=== PATIENT | male | born 1970 | race Caucasian/White ===

== ENCOUNTER 2017-05-20 10:03 | Emergency (ER) | payer SELFPAY ==
[~2017-05-20] VITALS: Ht 180.3 cm; Wt 78.9 kg
[2017-05-20 10:22] VITALS: TEMP 36.6; Ht 180.3 cm; Wt 78.9 kg
--- NOTE | 2017-05-20 11:42 | DIAGNOSTIC IMAGING REPORT ---
RIGHT FOOT MIN 3 VIEWS ROUTINE CLINICAL HISTORY: r/o Right cellulitis pain. Edema. COMPARISON: None. DISCUSSION: Moderate soft tissue edema. No acute bony abnormality. Cortical margins are intact. IMPRESSION: Moderate soft tissue edema no acute bony abnormality. Electronically signed by: Britton Francois M.D. 05/20/2017 11:41 AM Dictated Date/Time: 05/20/2017 11:39 AM
[2017-05-20 13:10] LABS: BASO % 0.4 %; BASO ABS # 0.03 K/uL (0-0.2); COMPLETE YES; EOS % 0.9 %; HEMATOCRIT 40.6 % (42-52); IG% 0.1 %; MEAN CELL VOLUME 85.3 fL (80-100); MEAN CORPUSCULAR HEMOGLOBIN 28.8 pg (25-34); MEAN CORPUSCULAR HGB CONC 33.7 g/dl (32-36); MEAN PLATELET VOLUME 10.1 fL (7.4-10.4); MONO % 6.7 %; NEUT % 63.9 %; PLATELET COUNT 230 K/uL (130-400); RED BLOOD COUNT 4.76 M/uL (4.7-6.1); WHITE BLOOD COUNT 8.22 K/uL (4.8-10.8)
[2017-05-20 13:26] LABS: BLOOD UREA NITROGEN 11 mg/dl (7-18); BUN/CREATININE RATIO 14.3 (10-20); C-REACTIVE PROTEIN < 0.29 mg/dl (0-0.29); CARBON DIOXIDE 31 mmol/L (21-32); CHLORIDE 108 mmol/L (98-107); CREATININE 0.76 mg/dl (0.60-1.40); GLUCOSE 86 mg/dl (70-99); POTASSIUM 4.3 mmol/L (3.5-5.1); SODIUM 142 mmol/L (136-145); URIC ACID 6.4 mg/dl (2.6-7.2)
[2017-05-20] MEDS ORDERED: CEPH500C2 PO (13:32)
[2017-05-20] MEDS ORDERED: IBUP-1428 PO (13:32)
[2017-05-20 13:50] VITALS: BP 161/109; PULSE 73; O2SAT 97
--- NOTE | 2017-05-21 12:38 | EMERGENCY ROOM VISIT NOTE ---
ED Visit Note First contact with patient: 12:02 Chief Complaint: Right ankle pain. History of Present Illness: Mr. Andersen is a 47-year-old white male who is brought into the ED via wheelchair complaining of right ankle pain over the anterior aspect of the talus. Historically patient reports he has had previous cellulitis in this area with a similar presentation like today's approximately 2 years ago. Patient reports he has been feeling fine over the last few days and has not been having any ankle pain. He denies any recent ankle trauma. Patient reports she awoke from sleep and noticed an acute episode of pain over the right talus area. Since that time his pain has been constant. He describes his pain as a achy sensation at rest and rates his discomfort 4/10 and when he is weightbearing or ambulation his pain become sharp and he rates his discomfort 8/10. The pain is nonradiating. He has not taken any medications for his pain prior to arrival at the hospital. His pain also worsens with dorsi flexion and palpation. He reports upon waking there was swelling and he felt the skin was hot; swelling in the hot sensation has resolved. He denies any associated fevers, chills, sweats, skin eruptions, skin color changes, chest pain, palpitations, previous clots, claudication, cramping, shortness of breath, cough, wheezing, decreased appetite, nausea, vomiting, extremity weakness/numbness/tingling. Review of Systems: As noted above in history of present illness. 8 body systems were reviewed and found to be negative as noted above. Past Medical History: As previously noted. Current Medications: Patient denies. Allergies to Medications: Patient denies. Social History: Patient is currently employed; he feels safe in his home environment; he admits to chewing tobacco and denies alcohol use. Physical Examination: Vital Signs: Date Time Temp Pulse Resp B/P (MAP) Pulse Ox O2 Delivery O2 Flow Rate FiO2 05/20/17 13:50 73 16 161/109 97 05/20/17 12:35 63 17 129/83 95 05/20/17 10:22 36.6 76 20 122/80 95 Room Air GENERAL: 47-year-old male in mild distress due to pain, nontoxic-appearing, afebrile and hemodynamically stable. NEUROLOGICAL: Awake, alert and oriented to person, place and time. Answering questions appropriately and following commands. SKIN: Warm, dry and pink. No soft tissue eruptions or trauma noted. HEENT: Atraumatic and normocephalic. THORAX: Lungs sounds are clear to auscultation and equal bilaterally with symmetrical chest wall. ABDOMEN: Flat, soft and nontender. Positive bowel sounds in all quadrants. No guarding, rigidity or organomegaly. RIGHT LOWER EXTREMITY: No gross bony deformity. No tenderness in the hip or knee. Tenderness over the anterior talus. I do not appreciate any swelling or erythema at this time. I do not appreciate any edema. No ligamentous laxity but patient has moderate pain with distraction of the talus in the lower leg. Decreased range of motion in dorsiflexion due to pain. He does have full plantar flexion against resistance. Distal pulses are intact. Capillary refill is intact. Sensation to light touch was intact. ED Course: Patient is assessed as noted above in Patient's medication list was reviewed. Right Ankle X-Rays: Were read by myself and the radiologist showing no acute fractures or dislocations. Radiologist noted moderate soft tissue edema. Laboratory Testing: Test 05/20/17 12:50 Range/Units White Blood Count 8.22 4.8-10.8 K/uL Red Blood Count 4.76 4.7-6.1 M/uL Hemoglobin 13.7 14.0-18.0 g/dL Hematocrit 40.6 42-52 % Mean Corpuscular Volume 85.3 80-100 fL Mean Corpuscular Hemoglobin 28.8 25-34 pg Mean Corpuscular Hemoglobin Concent 33.7 32-36 g/dl Platelet Count 230 130-400 K/uL Mean Platelet Volume 10.1 7.4-10.4 fL Neutrophils (%) (Auto) 63.9 % Lymphocytes (%) (Auto) 28.0 % Monocytes (%) (Auto) 6.7 % Eosinophils (%) (Auto) 0.9 % Basophils (%) (Auto) 0.4 % Neutrophils # (Auto) 5.26 1.4-6.5 K/uL Lymphocytes # (Auto) 2.30 1.2-3.4 K/uL Monocytes # (Auto) 0.55 0.11-0.59 K/uL Eosinophils # (Auto) 0.07 0-0.5 K/uL Basophils # (Auto) 0.03 0-0.2 K/uL RDW Standard Deviation 45.1 36.4-46.3 fL RDW Coefficient of Variation 14.5 11.5-14.5 % Immature Granulocyte % (Auto) 0.1 % Immature Granulocyte # (Auto) 0.01 0.00-0.02 K/uL Erythrocyte Sedimentation Rate 5 0-14 mm/hr Sodium Level 142 136-145 mmol/L Potassium Level 4.3 3.5-5.1 mmol/L Chloride Level 108 98-107 mmol/L Carbon Dioxide Level 31 21-32 mmol/L Anion Gap 3.0 3-11 mmol/L Blood Urea Nitrogen 11 7-18 mg/dl Creatinine 0.76 0.60-1.40 mg/dl Est Creatinine Clear Calc Drug Dose 129.3 ml/min Estimated GFR () 126.8 Estimated GFR (Non- 109.4 BUN/Creatinine Ratio 14.3 10-20 Random Glucose 86 70-99 mg/dl Uric Acid 6.4 2.6-7.2 mg/dl Calcium Level 9.0 8.5-10.1 mg/dl C-Reactive Protein < 0.29 0-0.29 mg/dl Patient was offered pain medication and refused. Patient was reassessed multiple times during his stay in the emergency department. Patient's case was reviewed with Dr. Can; we agreed on diagnostic approach , treatment, disposition and plan. Patient was placed in a gel splint and crutches. Patient was educated about today's findings and instructed on his treatment plan ; he verbalized understanding and agreement with this plan. Clinical Impression: Right ankle pain. Anterior right ankle swelling. Possible early cellulitis. Decision-Making: Initially my differential diagnosis I considered fracture, sprain, cellulitis, septic arthritis, gout and other causes. Disposition: Patient discharged home in stable condition; prior to departure he was reassessed and subjectively reported he was feeling the same. Plan: Patient was prescribed Keflex 500 mg 4 times a day for 7 days. Patient was prescribed 800 mg of ibuprofen every 6 hours as needed for pain. Other comfort measures were discussed with the patient including ice, rest, elevation and use of gel splint and nonweightbearing crutches. Patient was encouraged to follow-up with his PCP or return to the ED for recheck in 36-48 hours. Patient is encouraged return to the ED sooner for increasing pain, redness, red streaking, fevers or any new/concerning symptoms.
== END 2017-05-20 13:52 | disposition home or self-care (01) ==
LOC: C.EDB 10:05 → C.EDC 13:52
DX: M25.571 Pain in right ankle and joints of right foot (principal); M79.89 Other specified soft tissue disorders; Z72.0 Tobacco use

== ENCOUNTER 2019-01-01 08:18 | Observation (INO) ==
[2019-01-01] MEDS ORDERED: SODIUM CHLORIDE 0.9% 500 ML IV SCH (09:00)
--- NOTE | 2019-01-01 09:01 | Emergency Department Note ---
Entered by Sunni Valera acting as a scribe for History of Present Illness General Chief complaint: Groin Pain Stated complaint: PAIN FROM HERNIA, HAD SURG 1999 Time Seen by Provider: 01/01/19 08:33 Source: patient History of Present Illness Provider complaint: groin pain Onset (ago): day(s) 3 Location: genitals Radiation: abdomen Pain Consistency: + constant Maximum Pain Intensity: 10 Quality: + other (worsening) Associated symptoms: + other (Associated symptoms: lump in groin. Denies: bowel movement difficulties) The patient is a 48 year old male who presents to the Emergency Room with complaints of constant, worsening groin pain beginning 3 days ago. 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 The patient states this pain radiates into his stomach. He noticed a lump in the area 2 days ago. The patient reports he had a repair surgery for this hernia 19 years ago. He denies bowel movement difficulties. Home Medications Home Medications Medication Instructions Recorded Confirmed Type allopurinol 300 mg PO QAM 01/01/19 01/01/19 History hydrocodone-acetaminophen 2 tab PO Q6H PRN 01/01/19 01/01/19 History multivitamin 1 tab PO QAM 01/01/19 01/01/19 History Allergies Allergy/AdvReac Type Severity Reaction Status Date / Time No Known Allergies Allergy Unverified 01/01/19 09:19 Past Med/Surg History Surgical History Hx of inguinal hernia repair (1999) Social History Feels Safe at Home: Yes Smoking Status: Never smoker Review of Systems See HPI for pertinent positives & negatives. and A total of 10 systems reviewed and were otherwise negative Physical Exam Vital Signs Vital Signs - 24 hr 01/01/19 08:27 01/01/19 10:15 Temperature 36.3 C L Temperature Source Oral Sepsis Recent Fever Within 48 Hours No Sepsis Action Taken by Nursing No Action Required Pulse Rate 77 Pulse Rate [Finger] 64 Pulse Rhythm Regular Pulse Strength Normal Respiratory Rate 18 20 Respiratory Effort / Characteristics Non-Labored Non-Labored Spontaneous Respiratory Depth Normal Normal Respiratory Pattern Regular Regular Blood Pressure 159/99 H Blood Pressure [Left Arm] 140/94 Blood Pressure Mean 119 Blood Pressure Mean [Left Arm] 109 Blood Pressure Position Sitting Pulse Oximetry 98 97 Oxygen Delivery Method Room Air CONSTITUTIONAL/VITAL SIGNS: Reviewed / noted above. GENERAL: Non-toxic in appearance. INTEGUMENTARY: Warm, dry, and [place]. HEAD: Normocephalic. EYES: without scleral icterus or trauma. ENT/OROPHARYNX: clear and moist. LYMPHADENOPATHY/NECK: Is supple without lymphadenopathy or meningismus. RESPIRATORY: Lungs clear and equal. CARDIOVASCULAR: Regular rate and rhythm. GI/ABDOMEN: Soft. No organomegaly or pulsatile mass. No rebound or guarding. Normal bowel sounds. Tender bulge in left inguinal area. EXTREMITIES: Warm and well perfused. BACK: No CVA tenderness. NEUROLOGICAL: Intact without focal deficits. PSYCHIATRIC: normal affect. MUSCULOSKELETAL: Normally developed with good muscle tone. Course 0836: Past medical records reviewed. The patient was evaluated in room A3, and a complete history and physical examination were performed. 0843: I reviewed the patient's case with Chelle Jenkins PA-C [facility] surgery. She will evaluate the patient. 0855: Discussed the case with Chelle Jenkins PA-C [facility] surgery. She recommends CT scan. 1107: Reviewed the case with Chelle Jenkins PA-C [facility] surgery. Surgery will evaluate the patient. Consultations Consultation #1: [id number]: I reviewed the patient's case with Chelle Jenkins PA-C [facility] surgery. She will evaluate the patient. 0855: Discussed the case with Chelle Jenkins PA-C [facility] surgery. She recommends CT scan. 1107: Reviewed the case with Chlele Jenkins PA-C [facility] surgery. Surgery will evaluate the patient. Time: 08:43 Administered Medications Fentanyl Citrate (Fentanyl Citrate) 50 mcg IV Q15M PRN PRN Reason: Pain Stop: 01/15/19 08:46 Last Admin: 01/01/19 10:36 Dose: 50 mcg Admin: 01/01/19 09:04 Dose: 50 mcg Ioversol (Optiray 320 100ml) 94 ml IV ONCE PRN PRN Reason: Interaction Checking Stop: 01/05/19 09:49 Last Admin: 01/01/19 09:50 Dose: 94 ml Discontinued Medications Sodium Chloride (Nss) 500 mls @ 999 mls/hr IV .Q31M GABRIELLE Stop: 01/01/19 09:30 Last Infusion: 01/01/19 10:36 Dose: 0 mls/hr Admin: 01/01/19 09:05 Dose: 999 mls/hr Medical Decision Making Differential Diagnosis Differential considered: pancreatitis, hepatitis, or acute cholecystitis, AAA, UTI, pyelonephritis, kidney stones, appendicitis, diverticulitis, shingles, bowel obstruction mesenteric ischemia, intussusception,hernia, testicular torsion. Medical Records Attestation: I reviewed the patient's medical records. Home Medications Current Medication List: was personally reviewed by me Laboratory Data Attestation: I reviewed the patient's lab results. Result diagrams: 01/01/19 08:55 01/01/19 08:55 Lab Results 01/01/19 01/01/19 Range/Units 08:55 08:55 WBC 6.74 (4.8-10.8) K/uL RBC 5.12 (4.7-6.1) M/uL Hgb 15.4 (14.0-18.0) g/dL Hct 45.5 (42-52) % MCV 88.9 (80-100) fL MCH 30.1 (25-34) pg MCHC 33.8 (32-36) g/dL RDW Std Deviation 47.3 H (36.4-46.3) fL RDW Coeff of Luigi 14.5 (11.5-14.5) % Plt Count 262 (130-400) K/uL MPV 10.2 (7.4-10.4) fL Immature Gran % (Auto) 0.1 % Neut % (Auto) 64.6 % Lymph % (Auto) 27.9 % [place] % (Auto) 5.8 % Eos % (Auto) 1.2 % Baso % (Auto) 0.4 % Immature Gran # (Auto) 0.01 (0.00-0.02) K/uL Neut # (Auto) 4.35 (1.4-6.5) K/uL Lymph # (Auto) 1.88 (1.2-3.4) K/uL [place] # (Auto) 0.39 (0.11-0.59) K/uL Eos # (Auto) 0.08 (0-0.5) K/uL Baso # (Auto) 0.03 (0-0.2) K/uL Sodium 137 (136-145) mmol/L Potassium 4.1 (3.5-5.1) mmol/L Chloride 104 (98-107) mmol/L Carbon Dioxide 25 (21-32) mmol/L Anion Gap 8.0 (3-11) BUN 13 (7-18) mg/dl Creatinine 0.73 (0.6-1.4) mg/dl Est Cr Clr Drug Dosing 133.2 ml/min Est GFR ( Amer) 128.0 Est GFR (Non-Af Amer) 110.5 BUN/Creatinine Ratio 18.1 (10-20) Glucose 106 H (70-99) mg/dl Calcium 9.3 (8.5-10.1) mg/dl Total Bilirubin 0.5 (0.2-1) mg/dl AST 16 (15-37) U/L ALT 35 (12-78) U/L Alkaline Phosphatase 82 (45-117) U/L Total Protein 7.8 (6.4-8.2) gm/dl Albumin 4.1 (3.4-5.0) gm/dl Globulin 3.7 (2.5-4.0) gm/dl Albumin/Globulin Ratio 1.1 (0.9-2) Imaging Data Radiologist's Impression: Radiology results as stated below per my review and the radiologist's interpretation: ABDOMEN AND PELVIS CT WITH IV CONTRAST CT DOSE: 381.13 mGy.cm HISTORY: Acute left inguinal pain and swelling ? incarcerated left inguial hernia for 2 days TECHNIQUE: Multiaxial CT images of the abdomen and pelvis were performed following the use of intravenous contrast. A dose lowering technique was utilized adhering to the principles of ALARA. COMPARISON STUDY: None. FINDINGS: Lung bases are generally clear. No pneumatosis or pneumoperitoneum. The imaged inferior cardiac chambers appear unremarkable. The liver, gallbladder, spleen, pancreas and adrenal glands appear unremarkable. Increased density about the gallbladder neck suggests redundant mucosa with cholelithiasis considered less likely. Patency of the hepatic and portal veins. Kidneys, ureters and urinary bladder appear unremarkable. Prostate is within normal limits. There is a moderate sized fat filled left inguinal hernia which contains central concentric inflammatory stranding. No bowel extension into the hernia sac. Moderate mixed plaque formation about the abdominal aorta greater than expected in a patient of this age group. Mild ectasia of the infrarenal aorta measures 2.7 x 2.2 cm without aneurysm or dissection. IVC is unremarkable. No adenopathy. No bowel obstruction. Scattered small bowel air-fluid levels, likely physiologic. No bowel wall thickening. Normal-appearing appendix. Small fat filled periumbilical hernia, diastases 11 mm. Soft tissues are otherwise unremarkable. The bones appear to be intact. Multilevel mild spondylitic spurring with mild facet arthrosis. IMPRESSION: 1. Moderate sized fat filled left inguinal hernia with central inflammatory fat stranding suggestive of fat necrosis. Correlate clinically to exclude incarcerated hernia. No bowel extension into the hernia sac. 2. No bowel obstruction or focal bowel wall thickening. 3. Normal appendix. 4. Small fat filled periumbilical hernia. Electronically signed by: Giuseppe Andres M.D. 01/01/2019 10:12 AM Blood Pressure Blood Pressure Findings: Elevated blood pressure Blood Pressure Disposition: further management by hospitalist MDM Narrative This is a 48-year-old male who presents to the ED with a chief complaint of left groin pain. The patient has a history of a left inguinal hernia repair in 1999. The patient reports that on Saturday he developed discomfort in that area and noticed a bulge in the area on Saturday. It is been causing him discomfort since that time and has not been able to reduce. The patient on exam has a bulge in the left inguinal region that is tender on exam and not reducible on my exam. His initial blood pressure was elevated likely related to pain. The patient's exam was otherwise unremarkable. He has no abdominal tenderness. Shortly after seeing the patient, I spoke with Chelle Stacy PA-C with the surgery service. She evaluated the patient and they recommended a CT scan of the abdomen pelvis. CBC and complete metabolic panel were unremarkable. A CT scan of the abdomen pelvis reveals a fat filled moderate sized inguinal hernia on the left. There appears to be some fat necrosis. The surgical service was unable to reduce the patient's hernia and therefore the patient was taken to the operating room for further evaluation and care. Impression & Plan Incarcerated inguinal hernia Discharge Plan Visit Data Chief Complaint: Groin Pain Stated Complaint: PAIN FROM HERNIA, HAD SURG 1999 ED Provider: Fiazan Machuca Discharge Problem: Incarcerated inguinal hernia Patient Disposition: Being Evaluated by Surgeon Forms Stand Alone Forms: My [facility] Prescriptions Prescriptions: No Action multivitamin Tablet 1 tab PO QAM RF: 0 hydrocodone-acetaminophen 5-325 mg tablet 2 tab PO Q6H PRN (Reason: Pain) RF: 0 allopurinol 100 mg tablet 300 mg PO QAM RF: 0 Referrals Referrals: Seble Baig MD [Primary Care Provider] - The scribe's documentation has been prepared under my direction and personally reviewed by me in its entirety. I confirm that the note above accurately reflects all work, treatment, procedures, and medical decision making performed by me.
[2019-01-01] MEDS: fentaNYL citrate 100 MCG/2 ML VIAL IV PRN ×2 (09:04→10:36)
[2019-01-01 09:09] LABS: Basophils # (auto) 0.03 K/uL (0-0.2); Basophils % (auto) 0.4 %; Eosinophils # (auto) 0.08 K/uL (0-0.5); Eosinophils % (auto) 1.2 %; Hematocrit (blood only) 45.5 % (42-52); Hemoglobin 15.4 g/dL (14.0-18.0); Immature Granulocytes # (auto) 0.01 K/uL (0.00-0.02); Immature Granulocytes % (auto) 0.1 %; Lymphocytes # (auto) 1.88 K/uL (1.2-3.4); Lymphocytes % (auto) 27.9 %; Mean Corpuscular Hgb Conc 33.8 g/dL (32-36); Mean Corpuscular Volume 88.9 fL (80-100); Mean Platelet Volume 10.2 fL (7.4-10.4); Monocytes # (auto) 0.39 K/uL (0.11-0.59); Monocytes % (auto) 5.8 %; Neutrophils # (auto) 4.35 K/uL (1.4-6.5); Neutrophils % (auto) 64.6 %; Platelet Count 262 K/uL (130-400); RDW Coefficient of Variation 14.5 % (11.5-14.5); RDW Standard Deviation 47.3 fL (36.4-46.3); Red Blood Count 5.12 M/uL (4.7-6.1); White Blood Count 6.74 K/uL (4.8-10.8)
[2019-01-01 09:25] LABS: Albumin Level 4.1 gm/dl (3.4-5.0); BUN Creatinine Ratio 18.1 (10-20); Calcium 9.3 mg/dl (8.5-10.1); Creatinine Clr Calc Pharmacy 133.2 ml/min; Est GFR (Non-African American) 110.5; Potassium 4.1 mmol/L (3.5-5.1)
[2019-01-01 09:28] LABS: Albumin Globulin Ratio 1.1 (0.9-2); Bilirubin,Total 0.5 mg/dl (0.2-1); Globulin 3.7 gm/dl (2.5-4.0); Total Protein 7.8 gm/dl (6.4-8.2)
[2019-01-01] MEDS ORDERED: IOVERSOL 100ml IV PRN (09:50)
--- NOTE | 2019-01-01 10:14 | CT Scan Report ---
ABDOMEN AND PELVIS CT WITH IV CONTRAST CT DOSE: 381.13 mGy.cm HISTORY: Acute left inguinal pain and swelling ? incarcerated left inguial hernia for 2 days TECHNIQUE: Multiaxial CT images of the abdomen and pelvis were performed following the use of intrave nous contrast. A dose lowering technique was utilized adhering to the principles of ALARA. COMPARISON STUDY: None. FINDINGS: Lung bases are generally clear. No pneumatosis or pneumoperitoneum. The imaged inferior cardiac chamb ers appear unremarkable. The liver, gallbladder, spleen, pancreas and adrenal glands appear unremarka ble. Increased density about the gallbladder neck suggests redundant mucosa with cholelithiasis consi dered less likely. Patency of the hepatic and portal veins. Kidneys, ureters and urinary bladder appe ar unremarkable. Prostate is within normal limits. There is a moderate sized fat filled left inguinal hernia which contains central concentric inflammatory stranding. No bowel extension into the hernia sac. Moderate mixed plaque formation about the abdominal aorta greater than expected in a patient of this age group. Mild ectasia of the infrarenal aorta measures 2.7 x 2.2 cm without aneurysm or dissection. IVC is unremarkable. No adenopathy. No bowel obstruction. Scattered small bowel air-fluid levels, li radha physiologic. No bowel wall thickening. Normal-appearing appendix. Small fat filled periumbilical hernia, diastases 11 mm. Soft tissues are otherwise unremarkable. The bones appear to be intact. Mul tilevel mild spondylitic spurring with mild facet arthrosis. IMPRESSION: 1. Moderate sized fat filled left inguinal hernia with central inflammatory fat stranding suggestive of fat necrosis. Correlate clinically to exclude incarcerated hernia. No bowel extension into the her noel sac. 2. No bowel obstruction or focal bowel wall thickening. 3. Normal appendix. 4. Small fat filled periumbilical hernia. Electronically signed by: Giuseppe Andres M.D. 01/01/2019 10:12 AM
--- NOTE | 2019-01-01 11:38 | History & Physical Bridge Note ---
Date of Service January 01, 2019 History & Physical Bridge Note I have examined the patient, reviewed the History & Physical and in the interval since the performance of the History & Physical I have noted the following changes of clinical significance: no changes noted
--- NOTE | 2019-01-01 11:43 | History & Physical Report ---
Date of Service January 01, 2019 Assessment & Plan (1) Incarcerated inguinal hernia: 48 year-old with history of primary left inguinal hernia repair 18 years ago without mesh who presented to emergency department with increasing left groin pain and noticeable bulge unable to be reduced since Saturday. No leukocytosis. CT scan showing incarcerated fat containing left inguinal hernia with central inflammatory fat stranding concerning for fat necrosis. Unable to reduce hernia on examination. Plan: Plan to take patient to operating room for open left inguinal hernia repair with possible mesh, possible bowel resection, possible ostomy. Discussed with patient that CT scan is not showing any signs of bowel obstruction or hernia involving bowel but would be prepared if there is any signs of bowel ischemia. Patient informed of risks including bleeding, infection, injury to surrounding organs/tissues, hernia recurrence, fdc nerve pain, hematoma, seroma, cardiopulmonary complications, blood clots. Patient understood. Informed consent will be obtained by Dr. Menezes. Discussed recovery period of 1-2 weeks and restrictions of no heavy lifiting over 10 pounds for 6 weeks. Keep NPO Will received 2 gm Cefoxitin preoperatively Will go to med/surg postop Discussed patient's exam and imaging findings with Dr. Menezes who is to see patient preoperatively and obtain consent. History of Present Illness Chief Complaint: Incarcerated left inguinal hernia Primary Care Provider: Seble Baig MD Osvaldo is a pleasant 48 year-old male who presented to emergency department with complaint of increasing left groin pain and bulge since Saturday this week. States he had left groin pain on Saturday and then noticed a bulge on Saturday which continued to increase in size. Was unable to push the hernia back in. States he had previous left inguinal hernia repair about 18 years ago at [facility] and then subsequently had another surgery in left groin 6 months later . Unsure if he had recurrence of hernia or not. Looking back into his records he had a primary left inguinal hernia repair in 2000 without mesh and then removal of fibrotic lipoma/tissue 6 months later however did not require any hernia repair as repair was still intact. Osvaldo states he has noticed decreased bowel movements daily but denies of any diarrhea or blood in stools. Osvaldo denies of any fever, chills, nausea, vomiting, chest pain, shortness of breath, difficulty breathing, difficulty urinating or blood in urine. ER work-up included labs which showed no leukocytosis. BMP wnl. I evaluated patient in room A3 and was unable to reduce left inguinal hernia due to patient discomfort. I recommended CT scan of abdomen and pelvis to further delineate any incarcerated bowel. Patient underwent CT scan of abdomen and pelvis with IV contrast which showed incarcerated fat containing left inguinal hernia with signs of inflammation and fat necrosis. He is still having discomfort. Allergies Allergy/AdvReac Type Severity Reaction Status Date / Time No Known Allergies Allergy Unverified 01/01/19 09:19 Home Medications Home Medications Medication Instructions Recorded Confirmed Type allopurinol 300 mg PO QAM 01/01/19 01/01/19 History hydrocodone-acetaminophen 2 tab PO Q6H PRN 01/01/19 01/01/19 History multivitamin 1 tab PO QAM 01/01/19 01/01/19 History Past Med/Surg History Surgical History Hx of inguinal hernia repair (1999) Social History Feels Safe at Home: Yes Smoking Status: Never smoker Review of Systems All systems reviewed & are unremarkable except as noted in HPI & below Physical Exam 2 Vital Signs (Past 24 Hours): Last Vital Signs Temp 36.3 C L 01/01/19 08:27 Pulse 64 01/01/19 10:15 Resp 20 01/01/19 10:15 BP 140/94 01/01/19 10:15 Pulse Ox 97 01/01/19 10:15 Constitutional: WD/WN, vitals as above no acute distress and not ill appearing Neck: normal visual inspection and trachea midline Respiratory: normal respiratory effort, lungs clear to auscultation no respiratory distress Cardiovascular: RRR, no murmur, no edema Gastrointestinal (Abdomen): Inspection/Auscultation: abdomen normal to inspection; abdomen not distended Percussion/Palpation: abdomen soft; abdomen nontender, no guarding and abdomen not rigid Left Groin: incarcerated left inguinal hernia , unable to be reduced. No overlying skin changes, erythema, or ecchymosis Skin: no rashes, warm and dry Psychiatric: A+Ox3, euthymic affect Results & Data Laboratory Results 01/01/19 01/01/19 Range/Units 08:55 08:55 WBC 6.74 (4.8-10.8) K/uL RBC 5.12 (4.7-6.1) M/uL Hgb 15.4 (14.0-18.0) g/dL Hct 45.5 (42-52) % MCV 88.9 (80-100) fL MCH 30.1 (25-34) pg MCHC 33.8 (32-36) g/dL RDW Std Deviation 47.3 H (36.4-46.3) fL RDW Coeff of Luigi 14.5 (11.5-14.5) % Plt Count 262 (130-400) K/uL MPV 10.2 (7.4-10.4) fL Immature Gran % (Auto) 0.1 % Neut % (Auto) 64.6 % Lymph % (Auto) 27.9 % [place] % (Auto) 5.8 % Eos % (Auto) 1.2 % Baso % (Auto) 0.4 % Immature Gran # (Auto) 0.01 (0.00-0.02) K/uL Neut # (Auto) 4.35 (1.4-6.5) K/uL Lymph # (Auto) 1.88 (1.2-3.4) K/uL [place] # (Auto) 0.39 (0.11-0.59) K/uL Eos # (Auto) 0.08 (0-0.5) K/uL Baso # (Auto) 0.03 (0-0.2) K/uL Sodium 137 (136-145) mmol/L Potassium 4.1 (3.5-5.1) mmol/L Chloride 104 (98-107) mmol/L Carbon Dioxide 25 (21-32) mmol/L Anion Gap 8.0 (3-11) BUN 13 (7-18) mg/dl Creatinine 0.73 (0.6-1.4) mg/dl Est Cr Clr Drug Dosing 133.2 ml/min Est GFR ( Amer) 128.0 Est GFR (Non-Af Amer) 110.5 BUN/Creatinine Ratio 18.1 (10-20) Glucose 106 H (70-99) mg/dl Calcium 9.3 (8.5-10.1) mg/dl Total Bilirubin 0.5 (0.2-1) mg/dl AST 16 (15-37) U/L ALT 35 (12-78) U/L Alkaline Phosphatase 82 (45-117) U/L Total Protein 7.8 (6.4-8.2) gm/dl Albumin 4.1 (3.4-5.0) gm/dl Globulin 3.7 (2.5-4.0) gm/dl Albumin/Globulin Ratio 1.1 (0.9-2) Diagnostic Findings ABDOMEN AND PELVIS CT WITH IV CONTRAST CT DOSE: 381.13 mGy.cm HISTORY: Acute left inguinal pain and swelling ? incarcerated left inguial hernia for 2 days TECHNIQUE: Multiaxial CT images of the abdomen and pelvis were performed following the use of intravenous contrast. A dose lowering technique was utilized adhering to the principles of ALARA. COMPARISON STUDY: None. FINDINGS: Lung bases are generally clear. No pneumatosis or pneumoperitoneum. The imaged inferior cardiac chambers appear unremarkable. The liver, gallbladder, spleen, pancreas and adrenal glands appear unremarkable. Increased density about the gallbladder neck suggests redundant mucosa with cholelithiasis considered less likely. Patency of the hepatic and portal veins. Kidneys, ureters and urinary bladder appear unremarkable. Prostate is within normal limits. There is a moderate sized fat filled left inguinal hernia which contains central concentric inflammatory stranding. No bowel extension into the hernia sac. Moderate mixed plaque formation about the abdominal aorta greater than expected in a patient of this age group. Mild ectasia of the infrarenal aorta measures 2.7 x 2.2 cm without aneurysm or dissection. IVC is unremarkable. No adenopathy. No bowel obstruction. Scattered small bowel air- fluid levels, likely physiologic. No bowel wall thickening. Normal-appearing appendix. Small fat filled periumbilical hernia, diastases 11 mm. Soft tissues are otherwise unremarkable. The bones appear to be intact. Multilevel mild spondylitic spurring with mild facet arthrosis. IMPRESSION: 1. Moderate sized fat filled left inguinal hernia with central inflammatory fat stranding suggestive of fat necrosis. Correlate clinically to exclude incarcerated hernia. No bowel extension into the hernia sac. 2. No bowel obstruction or focal bowel wall thickening. 3. Normal appendix. 4. Small fat filled periumbilical hernia. Code Status & VTE Plan VTE Prophylaxis Plan VTE Prophylaxis will be ordered: Yes
[2019-01-01] MEDS ORDERED: ONDANSETRON INJ 2 MG/ML 2 ML VIAL ONE (12:09)
[2019-01-01] MEDS ORDERED: PROPOFOL IV EMULSION 10 MG/ML 20 ML VIAL IV ONE (12:09)
[2019-01-01] MEDS ORDERED: GLYCOPYRROLATE 0.2 MG/ML VIAL ONE (12:09)
[2019-01-01] MEDS ORDERED: fentaNYL citrate 100 MCG/2 ML VIAL ONE (12:09)
[2019-01-01] MEDS ORDERED: NEOSTIGMINE METHYLSULFATE 5 MG/5 ML SYR ONE (12:09)
[2019-01-01] MEDS ORDERED: DEXAMETHASONE SOD INJ 4 MG/ML VIAL ONE (12:09)
[2019-01-01] MEDS ORDERED: MIDAZOLAM HCL 1 MG/ML 2ML VIAL ONE (12:09)
[2019-01-01] MEDS ORDERED: KETOROLAC 30 MG/ML VIAL ONE (12:09)
[2019-01-01] MEDS ORDERED: LARYING-O-JET KIT (LTA) ONE (12:09)
[2019-01-01] MEDS ORDERED: PHENYLEPHRINE 100MCG/ML 5ML SYR ONE (12:09)
[2019-01-01] MEDS ORDERED: LIDOCAINE HCL 2% 2 ML VIAL/AMP(20MG/ML) INFIL ONE (12:09)
[2019-01-01] MEDS ORDERED: ROCURONIUM BROMIDE 10 MG/ML 5 ML VIAL ONE (12:09)
[2019-01-01] MEDS ORDERED: CEFAZOLIN 2000MG 2,000 MG/15 ML SYR IV SCH (12:30)
--- NOTE | 2019-01-01 12:56 | Anesthesiology Consultation ---
Date of Service January 01, 2019 Assessment & Plan (1) Encounter for pre-operative examination: Chart Review Chart Review: Acceptable Risk for Surgery and Patient NOT seen in Pre Admission Testing Consults Requested none NPO Date Last Intake of Fluids: 01/01/19 Time Last Intake of Fluids: 06:00 Last Intake of Fluids Comment: sip of water to take pills Date Last Intake of Solids: 12/31/18 Time Last Intake of Solids: 19:00 Last Intake of Solids Comment: [email or web address] History Surgery Operation Date: 01/01/19 08:50 Proposed Procedures p Left Open Inguinal Hernia Repair with Possible Bowel Resection - German Menezes MD Height/Weight Height: 5 ft 11 in Weight: 82.3 kg Allergies Allergy/AdvReac Type Severity Reaction Status Date / Time No Known Allergies Allergy Unverified 01/01/19 09:19 Medications Home Medications Medication Instructions Recorded Confirmed Last Taken allopurinol 300 mg PO QAM 01/01/19 01/01/19 01/01/19 hydrocodone-acetaminophen 2 tab PO Q6H PRN 01/01/19 01/01/19 12/31/18 21:45 multivitamin 1 tab PO QAM 01/01/19 01/01/19 01/01/19 Active Medications Generic Name Dose Route Start Last Admin Trade Name Freq PRN Reason Stop Dose Admin Fentanyl Citrate 50 mcg 01/01/19 08:47 01/01/19 10:36 Fentanyl Citrate IV 01/15/19 08:46 50 mcg Q15M PRN Administration Pain Ioversol 94 ml 01/01/19 09:50 01/01/19 09:50 Optiray 320 100ml IV 01/05/19 09:49 94 ml ONCE PRN Administration Interaction Checking Past Medical History Medical History Gout Past Surgical History Surgical History Hx of inguinal hernia repair (1999) Past Anesthesia History No Hx of Anesthesia Complications and No Family Hx of Anesthesia Complications History of PONV No Motion Sickness Screening History of Motion Sickness: No Social History Smoking Status: Never smoker Exercise / Class Metabolic Activity 1 > 8 Run/Swim/Ski/Tennis Physical Exam Vital Signs Last Vital Signs Temp 36.3 C L 01/01/19 08:27 Pulse 65 01/01/19 12:42 Resp 18 01/01/19 12:42 BP 143/85 H 01/01/19 12:42 Pulse Ox 97 01/01/19 12:42 Testing Laboratory Results 01/01/19 08:55 01/01/19 08:55
[2019-01-01 13:00] LABS: Appearance Urine Clear (Clear); Bilirubin Urine Negative (Negative); Color Urine Yellow; Glucose Urine UA Negative (Negative); Ketones Urine Negative (Negative); Leukocyte Esterase Urine Negative (Negative); Nitrite Urine Negative (Negative); Protein Urine Negative (Negative); Specific Gravity Urine > 1.045 (1.000-1.030); Urobilinogen Urine Negative (Negative)
[2019-01-01] MEDS ORDERED: fentaNYL citrate 100 MCG/2 ML VIAL IV PRN (13:02)
[2019-01-01] MEDS ORDERED: ONDANSETRON INJ 2 MG/ML 2 ML VIAL IV PRN ×2 (13:02→14:45)
[2019-01-01] MEDS ORDERED: HYDROmorphone INJ 1 MG/ML SYRINGE IV PRN (13:02)
[2019-01-01] MEDS ORDERED: ATROPINE SULFATE 0.1 MG/ML 10ML SYR IV PRN (13:02)
[2019-01-01] MEDS ORDERED: ePHEDrine sulfate 50 MG/ML AMP IV PRN (13:02)
[2019-01-01] MEDS ORDERED: BUPIVACAINE 0.5 % 5 MG/1 ML MPF 30ML VIAL ONE (13:35)
[2019-01-01] MEDS ORDERED: LIDOCAINE HCL 1% 20 ML VIAL ONE (13:35)
[2019-01-01] MEDS ORDERED: BACITRACIN OINT 15 GM TUBE ONE (13:35)
--- NOTE | 2019-01-01 14:44 | Post Operative Brief Note ---
Immediate Post Op Note v1 Date of Surgery January 01, 2019 Pre & Post Diagnosis Operation Date: 01/01/19 08:50 Pre-Op Diagnosis:incarcerated recurrent left Inguinal hernia Post-Op Diagnosis:incarcerated recurrent left Inguinal hernia Procedure Operation Date: 01/01/19 08:50 Actual Procedures p Left Open Inguinal Hernia Repair with Mesh(Left) - German Menezes MD Surgeon German Menezes MD Dog Boarder natalia Palmer. PA Estimated Blood Loss 10 Findings Consistent with Post-Op Diagnosis incarcerated recurrent left inguinal hernia Fluids 1000ml Specimens none Anesthesia Type General Complications none Disposition Accompanied Patient To Recovery: Yes Disposition: Recovery Room Overlapping Procedure I was immediately available: during the entire case.
[2019-01-01] MEDS ORDERED: HYDROmorphone INJ 0.5 MG/0.5 ML SYR IV PRN (14:48)
--- NOTE | 2019-01-01 15:51 | Anesthesiology Progress Note ---
Date of Service January 01, 2019 Anesthesia Post Procedure Vital Signs Vital Signs: Temp Pulse Pulse Pulse Resp BP BP 01/01/19 15:45 36.6 C 70 16 119/81 01/01/19 15:35 69 13 133/87 01/01/19 15:25 63 12 122/82 01/01/19 15:15 63 13 120/75 01/01/19 15:06 36.2 C L 68 13 130/76 01/01/19 13:10 36.6 C 67 20 123/88 01/01/19 12:42 65 18 143/85 H 01/01/19 10:15 64 20 140/94 01/01/19 08:27 36.3 C L 77 18 159/99 H Pulse Ox 01/01/19 15:45 94 01/01/19 15:35 99 01/01/19 15:25 98 01/01/19 15:15 100 01/01/19 15:06 99 01/01/19 13:10 94 01/01/19 12:42 97 01/01/19 10:15 97 01/01/19 08:27 98 Pain Intensity Left Groin: Pain Intensity: 3 Notes Mental Status: alert / awake / arousable and participated in evaluation Patient Amnestic to Procedure: Yes Nausea / Vomiting: adequately controlled Pain: adequately controlled Airway Patency, RR, SpO2: stable & adequate BP & HR: stable & adequate Hydration State: stable & adequate Anesthetic Complications: no major complications apparent and Pt Satisfied with anesthetic care
[2019-01-01] MEDS: D5W AND 1/2NSS + 20MEQ KCL 20 MEQ/1,000 ML BAG IV SCH (17:05)
[2019-01-01] MEDS: OXYCODONE/ACETAMINOPHEN 5mg/325mg TAB PO PRN (17:05)
--- NOTE | 2019-01-01 18:37 | Operative Report ---
DATE OF OPERATION: 01/01/2019 PREOPERATIVE DIAGNOSIS: Incarcerated recurrent left inguinal hernia. POSTOPERATIVE DIAGNOSIS: Incarcerated recurrent left inguinal hernia. OPERATION: Open repair incarcerated recurrent left inguinal hernia with mesh. SURGEON: German Menezes MD R AND D LAB TECHNICIAN: Chelle Jenkins PA-C ANESTHESIA: General. ESTIMATED BLOOD LOSS: About 10 mL FINDINGS: Incarcerated recurrent left inguinal hernia. COMPLICATIONS: None. INDICATIONS FOR THE PROCEDURE: This is a 48 years old gentleman who presented with left inguinal pain and with the bulging. The patient had a CT scan diagnosis of the incarcerated recurrent left inguinal hernia. The patient will require open repair, left inguinal hernia with mesh. I did talk to the patient about the benefit and risk, alternate procedure. I indicated the risks may include but not limited such as bleeding, infection, hernia recurrence, chronic pain. The patient understands. He signed informed consent and I answered all questions. DETAILS OF PROCEDURE: We brought the patient to the OR, put the patient in the supine position. The patient received SCD on bilateral legs to prevent DVT. Also, patient received 2 g Ancef IV for prophylactic antibiotic. The patient received general anesthesia without difficulty. The lower abdomen, pelvic area was properly draped in routine sterile fashion. After timeout, we reexamined the patient. The patient has significant bulging on the left inguinal area. It sized about 5 x 5 cm, could not reduce. Diagnosis is confirmed as incarcerated recurrent left inguinal hernia. Then we injected the local anesthesia by using 1% lidocaine mixed with 0.5% Marcaine on the left inguinal area. I then made about a 4 cm incision and opened the fascia and found the patient had an incarcerated left recurrent inguinal hernia. Then we enlarged the hernia's neck and then we completely reduced the hernia content back to the abdominal cavity. Then I chose a large mesh plug to plug the hernia. Then we used the mesh to reinforce the posterior wall. Hemostasis was obtained. Then, we used a 2-0 Prolene, reinforced then posterior wall. I used a small mesh 3 x 5 cm mesh. Continue running and medial side mesh to conjoined tendon and later side of the mesh to the left inguinal ligament and cord structure to identify protection of cord structure. Then we closed the subcutaneous layer by using 2-0 Vicryl continuous running, closed skin by using 4-0 Vicryl continuous running. Then we put the dressing on. The patient tolerated the procedure well. All instrument, needle, and sponge counts were correct x2 at the end of case. The patient transferred to recovery room in stable condition. I attest to the content of the Intraoperative Record and any orders documented therein. Any exception s are noted below.
[2019-01-01] MEDS: HYDROCODONE/ACETAMOPHEN 5/325MG TAB PO PRN (20:05)
[2019-01-02] MEDS: HYDROCODONE/ACETAMOPHEN 5/325MG TAB PO PRN (04:23)
[2019-01-02] MEDS: D5W AND 1/2NSS + 20MEQ KCL 20 MEQ/1,000 ML BAG IV SCH (04:23)
--- NOTE | 2019-01-02 08:16 | Anesthesiology Progress Note ---
Date of Service January 02, 2019 Anesthesia Post Procedure Vital Signs Vital Signs: Temp Pulse Pulse Pulse Pulse Resp BP 01/02/19 07:56 36.5 C 63 16 01/02/19 03:29 36.5 C 57 L 14 01/01/19 22:55 36.6 C 68 14 01/01/19 19:56 36.7 C 65 17 01/01/19 19:00 77 16 01/01/19 17:57 73 16 01/01/19 16:55 74 16 01/01/19 16:29 36.5 C 61 16 01/01/19 16:02 36.5 C 62 16 01/01/19 15:45 36.6 C 70 16 01/01/19 15:35 69 13 01/01/19 15:25 63 12 01/01/19 15:15 63 13 01/01/19 15:06 36.2 C L 68 13 01/01/19 13:10 36.6 C 67 20 01/01/19 12:42 65 18 143/85 H 01/01/19 10:15 64 20 01/01/19 08:27 36.3 C L 77 18 159/99 H BP Pulse Ox 01/02/19 07:56 134/78 96 01/02/19 03:29 137/77 96 01/01/19 22:55 116/66 95 01/01/19 19:56 123/69 96 01/01/19 19:00 119/69 94 01/01/19 17:57 129/83 96 01/01/19 16:55 136/87 95 01/01/19 16:29 129/93 97 01/01/19 16:02 132/83 96 01/01/19 15:45 119/81 94 01/01/19 15:35 133/87 99 01/01/19 15:25 122/82 98 01/01/19 15:15 120/75 100 01/01/19 15:06 130/76 99 01/01/19 13:10 123/88 94 01/01/19 12:42 97 01/01/19 10:15 140/94 97 01/01/19 08:27 98 Pain Intensity Left Groin: Pain Intensity: 4 Notes Mental Status: alert / awake / arousable Patient Amnestic to Procedure: Yes Nausea / Vomiting: adequately controlled Pain: adequately controlled Airway Patency, RR, SpO2: stable & adequate BP & HR: stable & adequate Hydration State: stable & adequate Anesthetic Complications: no major complications apparent
[2019-01-02] MEDS ORDERED: ALLOPURINOL 300 MG TAB PO SCH (09:00)
[2019-01-02] MEDS ORDERED: MULTIVITAMIN TAB PO SCH (09:00)
[2019-01-02] MEDS ORDERED: DOCUSATE SODIUM 100 MG CAP PO ONE (09:33)
--- NOTE | 2019-01-02 09:37 | Surgery Progress Note ---
Date of Service January 02, 2019 Assessment & Plan (1) Incarcerated inguinal hernia: POD # 1 s/p open repair of incarcerated fat containging left inguinal hernia with mesh -vss, afebrile - post op pain minimal and controlled - tiffany diet, no n/v Plan: Advance diet as tolerated continue PO Percocet prn pain Add Colace 100 mg now Encouraged ambulation Decrease IV fluids to 50 cc/hr Incentive and SCDs Possibly home later today Subjective feeling well preoperative pain resolved post op incisional pain, controlled, minimal No n/v tolerated clears, +hungry + flatus urinating without difficulty has not ambulated formerly [facility] Physical Exam 2 Vital Signs (Past 24 Hours): Last Vital Signs Temp 36.5 C 01/02/19 07:56 Pulse 63 01/02/19 07:56 Resp 16 01/02/19 07:56 BP 134/78 01/02/19 07:56 Pulse Ox 96 01/02/19 07:56 Constitutional: WD/WN, vitals as above no acute distress Respiratory: normal respiratory effort; no respiratory distress Gastrointestinal (Abdomen): Inspection/Auscultation: abdomen normal to inspection and normal bowel sounds; abdomen not distended Percussion/ Palpation: abdomen soft; abdomen nontender, no guarding and abdomen not rigid Skin: no rashes, warm and dry + incision (Left groin incision covered with dry dressing, incision not inspected) Psychiatric: A+Ox3, euthymic affect Results & Data Laboratory Results 01/01/19 Range/Units 12:00 Urine Color Yellow Urine Appearance Clear (Clear) Urine pH 5.0 (4.5-7.5) Ur Specific [place] > 1.045 H (1.000-1.030) Urine Protein Negative (Negative) Urine Glucose (UA) Negative (Negative) Urine Ketones Negative (Negative) Urine Blood Negative (Negative) Urine Nitrite Negative (Negative) Urine Bilirubin Negative (Negative) Urine Urobilinogen Negative (Negative) Ur Leukocyte Esterase Negative (Negative)
[2019-01-02] MEDS: OXYCODONE/ACETAMINOPHEN 5mg/325mg TAB PO PRN ×2 (09:54→14:10)
--- NOTE | 2019-01-05 09:31 | Discharge Summary ---
Date of Service January 05, 2019 Admission HPI Per Admitting Provider Osvaldo is a pleasant 48 year-old male who presented to emergency department with complaint of increasing left groin pain and bulge since Saturday this week. States he had left groin pain on Saturday and then noticed a bulge on Saturday which continued to increase in size. Was unable to push the hernia back in. States he had previous left inguinal hernia repair about 18 years ago at [facility] and then subsequently had another surgery in left groin 6 months later . Unsure if he had recurrence of hernia or not. Looking back into his records he had a primary left inguinal hernia repair in 2000 without mesh and then removal of fibrotic lipoma/tissue 6 months later however did not require any hernia repair as repair was still intact. Osvaldo states he has noticed decreased bowel movements daily but denies of any diarrhea or blood in stools. Osvaldo denies of any fever, chills, nausea, vomiting, chest pain, shortness of breath, difficulty breathing, difficulty urinating or blood in urine. ER work-up included labs which showed no leukocytosis. BMP wnl. I evaluated patient in room A3 and was unable to reduce left inguinal hernia due to patient discomfort. I recommended CT scan of abdomen and pelvis to further delineate any incarcerated bowel. Patient underwent CT scan of abdomen and pelvis with IV contrast which showed incarcerated fat containing left inguinal hernia with signs of inflammation and fat necrosis. He is still having discomfort. Principal Diagnosis Incarcerated left inguinal hernia Discharge Exam Constitutional WD/WN, vitals as above no acute distress and not ill appearing Neck normal visual inspection and trachea midline Respiratory normal respiratory effort, lungs clear to auscultation normal respiratory effort; no respiratory distress Cardiovascular RRR, no murmur, no edema Gastrointestinal (Abdomen) Inspection/Auscultation: abdomen normal to inspection and normal bowel sounds; abdomen not distended Percussion/Palpation: abdomen soft; abdomen nontender, no guarding and abdomen not rigid Skin no rashes, warm and dry + incision (Left groin incision covered with dry dressing, incision not inspected) Psychiatric A+Ox3, euthymic affect Discharge Data Allergies Allergy/AdvReac Type Severity Reaction Status Date / Time No Known Allergies Allergy Unverified 01/01/19 13:08 Consultations 01/01/19 11:42 ED Decision to Admit Stat Procedures Performed Operation Date: 01/01/19 08:50 Actual Procedures p Left Open Inguinal Hernia Repair with Mesh(Left) - German Menezes MD Ordered Studies 01/01/19 08:59 CT abd pelvis IV con only Stat Hospital Course (1) Incarcerated inguinal hernia: Patient taken to operating room for emergency department for left open inguinal hernia repair with mesh. Patient found to have recurrent left inguinal hernia with incarcerated fat. Hernia was reduced and repaired with mesh. Patient tolerated procedure well and was transferred to recovery room in stable condition. He was transferred to medical/surgical floor for post operative care. He was started on IV fluids, po pain medication, IV Zofran as needed, activity as tolerated, clear liquid diet, and SCDs for DVT prophylaxis. POD # 1 patient evaluated, vss, afebrile, pain minimal only at incision and controlled, + flatus, urinating without difficulty. Diet was advanced and advised to ambulate hallway. Patient was discharged home in the early afternoon on POD # 1 in stable condition. Total Time Total Time Spent Total Time Spent (In Minutes): 30 Total Time Includes: Examination of the Patient, Discharge Planning and Medication Reconciliation Discharge Plan Discharge Items Patient Disposition: Home - Self-Care Reason For Visit: LEFT INGUINAL PAIN Discharge Diagnosis: Incarcerated left inguinal hernia Discharge Goals: Decrease discomfort and Improve function Activity: Per 'Additional Instructions' section Non-emergency contact: Surgeon Call non-emergency contact if: your symptoms worsen, your pain is not controlled , your pain is worsening, your pain is unusual for you, your pain is concerning for you, you have a fever, your temperature is above 101, your wound has increased redness and your wound has increased drainage Follow-up/Referrals: Seble Baig MD [Primary Care Provider] - Diet: Regular Addtl Provider Instructions: No heavy lifting over 10 pounds for 6 weeks No strenuous activity until cleared by surgeon No submerging incision underwater for 2 weeks (no bathing, swimming, or hot tubs ) No driving while taking narcotic pain medication or until you are pain free You may shower in 3 days, sponge bath and wash hair in meantime. After 3 days, you may remove dressing and shower. Leave steri strips on incision for 7 days and then remove. Walking and light activity is encouraged to prevent blood clots from forming in your legs You can take 1-2 tabs Hydrocodone-Acetaminophen every 6 hours as needed for moderate to severe pain You may take extra strength Tylenol or Ibuprofen as needed for mild pain. Avoid taking Tylenol if you are taking the narcotic pain medication as it has Tylenol in it. To avoid constipation: Drink plenty of fluids daily, avoid foods that constipate , daily walking. May take OTC stool softener (Colace) daily or twice a day while taking pain medication. If those measures do not work, you may take Miralax or Milk of Magnesia. Follow-up in surgical office in 1-2 weeks, please call office at [phone] to make an appointment. Prescriptions: New oxycodone-acetaminophen 5-325 mg tablet 1 tab PO Q6H PRN (Reason: pain) Qty: 12 RF: 0 Continue multivitamin Tablet 1 tab PO QAM RF: 0 hydrocodone-acetaminophen 5-325 mg tablet 2 tab PO Q6H PRN (Reason: Pain) RF: 0 allopurinol 100 mg tablet 300 mg PO QAM RF: 0 Stand-Alone Forms: [facility], [facility], Work/ School Release (Inpt) Discharge Orders: Discharge Order (Routine); Ordered 01/02/19 Ordered By: Chelle Jenkins Admission Data Admit Date/Time: 01/01/19 14:45 Attending Provider: German Menezes Admit Provider: German Menezes Primary Care Provider: Seble Baig Other Providers: German Menezes Service: Surgical Services Other Interventions: Discharge Summary Assessment (RN) Last Done: 01/02/19 13:15 Pending Studies at Discharge: No DC Date/Time DO NOT enter until pt leaves facility: 01/02/19 14:22
== END 2019-01-02 14:22 | disposition home or self-care (01) ==
LOC: ED 08:18 → 3N 12:45 → OR 12:45

== ENCOUNTER 2021-07-12 08:39 | Inpatient (IN) ==
[2021-07-12] MEDS ORDERED: ONDANSETRON INJ 2 MG/ML 2 ML VIAL IV STA (09:04)
[2021-07-12] MEDS ORDERED: MoRPHine SULFATE 4 MG/ML 1 ML CARP\\VIAL IV STA (09:04)
--- NOTE | 2021-07-12 09:08 | Emergency Department Note ---
History of Present Illness General Chief complaint: Abdominal Pain Stated complaint: ABD DISTENTION,PROBLEMS HAVING BM & URINATIONS Time Seen by Provider: 07/12/21 08:53 History of Present Illness Maximum Pain Intensity: 9 This is a 51-year-old male who presents to the emergency department via private vehicle with complaints of "abdominal distention, pain". The patient notes that he quit drinking alcohol this past Saturday. He states that shortly following this on Saturday, Saturday and Saturday he was dry heaving/vomiting. He then awoke Saturday and did not eat much food and his abdomen was firm and distended. He notes that last night the pain increased and for the past 12 hours or so the pain has been quite sharp. He rates his overall discomfort as a 9/10. He notes decreased amount of stool output and decreased amount of urine output. He feels that the urine is quite concentrated and darker in color. He notes a history of abdominal surgeries in the past. He denies any fevers or chills. He denies any seizure history. He denies any seizures over the past few days since he has quit drinking alcohol. He notes that prior to Saturday he was drinking about 15 beers per day. He notes that he is currently laid off from his current occupation of [employer] since March secondary to the COVID-19 pandemic. Home Medications Medication Instructions Recorded Confirmed Type multivitamin 1 tab PO QAM 01/01/19 07/12/21 History aspirin 81 mg tablet,delayed 81 mg PO QAM 05/06/20 07/12/21 History release (Adult Low Dose Aspirin) allopurinol 100 mg tablet 100 mg PO TID #270 tab 01/31/21 07/12/21 Rx naproxen 500 mg tablet 500 mg PO BID PRN #14 tab 06/09/21 07/12/21 Rx ibuprofen 800 mg tablet 400 mg PO Q6H PRN 07/12/21 07/12/21 History Allergies Allergy/AdvReac Type Severity Reaction Status Date / Time No Known Allergies Allergy Unverified 07/12/21 09:38 Past Med/Surg History Medical History Alcohol abuse Anxiety Gout Surgical History History of hernia repair History of wisdom tooth extraction Hx of inguinal hernia repair (1999) Family History Father Diabetes Kidney disease Mother Diabetes Denies family history of Ovarian cancer Prostate cancer Myocardial infarction Breast cancer Colorectal cancer Social History Smoking Status: Former smoker Tobacco Type: Smokeless Tobacco (Dip or Chew) Second Hand Exposure: No; Hx Alcohol Use: Yes Alcohol type: beer Hx Substance Use: Yes Last Used Substance: Hours (ago) Last Used Substance Other:: smokes marijuana this morning. has medical marijuana card. Communication Ability: Effective Ethyl Blender Required: No Beliefs That Will Affect Care: None Current Living Situation: Spouse and Family Feels Safe at Home: Yes Assistive Devices: None Review of Systems A total of 10 systems reviewed and were otherwise negative Physical Exam Vital Signs Vital Signs - 24 hr 07/12/21 08:50 Temperature 36.5 C Temperature Source Temporal Artery Scan Pulse Rate 87 Respiratory Rate 16 Respiratory Effort / Characteristics Non-Labored Respiratory Depth Normal Blood Pressure 157/89 H Blood Pressure Mean 111 Pulse Oximetry 97 Sepsis Recent Fever Within 48 Hours No Sepsis New/Unexplained Change in Mental Status No Sepsis Action Taken by Nursing No Action Required VITAL SIGNS - Vital signs and nursing notes were reviewed. Stable and afebrile. GENERAL - 51-year-old male appearing his stated age who is in no acute distress. Communicates well with provider and answers questions appropriately. SKIN - Without rashes. No meningeal or petechial rash. HEAD - NC/AT. EYES - PERRL with EOMI bilaterally. Sclera anicteric. EARS - No deformities of external structures noted on gross examination bilaterally. NOSE - Midline and without cyanosis. No epistaxis or purulent drainage noted. MOUTH/OROPHARYNX - Without perioral cyanosis. NECK - Neck with FROM. No nuchal rigidity. LUNGS - Chest wall symmetric without accessory muscle use, intercostals retractions, or central cyanosis. Normal vesicular breath sounds CTA B/L. No wheezes, rales, or rhonchi appreciated. CARDIAC - RRR with S1/S2. No murmur, rubs, or gallops appreciated. ABDOMEN - Abdominal contour normal without pulsations or visible masses. BS normoactive all four quadrants. Patient does have reproducible tenderness palpation overlying the periumbilical area with palpable nonreducible hernia. There is also a visible defect to the superior abdomen consistent with ventral hernia. Patient does have some mild guarding but no rigidity to palpation overlying the left upper quadrant and periumbilical region. EXTREMITIES - No clubbing or peripheral cyanosis. +5/5 strength noted in UE/LE bilaterally. NEUROLOGIC - Cranial nerves II through XII grossly intact. PSYCH - A&O, and cooperates fully with examiner. Pt is very pleasant and interacts well with examiner. Course Administered Medications Parenteral Electrolytes (Normosol-R) 1,000 mls @ 125 mls/hr IV .Q8H GABRIELLE Stop: 08/11/21 12:18 Last Admin: 07/12/21 15:08 Dose: 125 mls/hr Documented by: [id number] Folic Acid 1 mg/ Syringe 10 mls @ 5 mls/min IV QAM GABRIELLE Stop: 08/11/21 14:29 Last Admin: 07/12/21 15:07 Dose: 5 mls/min Documented by: [id number] Thiamine HCl 300 mg/ Sodium (Chloride) 53 mls @ 210 mls/hr IV DAILY GABRIELLE Stop: 08/11/21 14:29 Last Infusion: 07/12/21 15:55 Dose: 0 mls/hr Documented by: [id number] Admin: 07/12/21 15:07 Dose: 210 mls/hr Documented by: [id number] Discontinued Medications Multivitamins 10 ml/ Thiamine HCl 100 mg/ Folic Acid 1 mg/Sodium Chloride 1,011.2 mls @ 1,011.2 mls/hr IV .Q1H ONE Stop: 07/12/21 10:26 Last Infusion: 07/12/21 12:22 Dose: 0 mls/hr Documented by: [id number] Admin: 07/12/21 10:33 Dose: 1,011.2 mls/hr Documented by: [id number] Piperacillin Sod/Tazobactam Sod (Zosyn) 4.5 gm in 120 mls @ 240 mls/hr IV NOW ONE Stop: 07/12/21 09:58 Last Infusion: 07/12/21 12:23 Dose: 0 mls/hr Documented by: [id number] Admin: 07/12/21 10:33 Dose: 240 mls/hr Documented by: [id number] Lactated Ringer's (Lr) 500 mls @ 999 mls/hr IV .Q31M ONE Stop: 07/12/21 11:21 Last Infusion: 07/12/21 15:55 Dose: 0 mls/hr Documented by: [id number] Admin: 07/12/21 13:13 Dose: 999 mls/hr Documented by: [id number] Morphine Sulfate (Morphine Sulfate 4 Mg/Ml 1 Ml Carp\\Vial) 4 mg IV NOW STA Stop: 07/12/21 09:05 Last Admin: 07/12/21 09:44 Dose: 4 mg Documented by: [id number] Ondansetron HCl (Ondansetron Inj 2 Mg/Ml 2 Ml Vial) 4 mg IV NOW STA Stop: 07/12/21 09:05 Last Admin: 07/12/21 09:44 Dose: 4 mg Documented by: [id number] Medical Decision Making Laboratory Data Result diagrams: 07/12/21 09:15 07/12/21 11:22 Lab Results 07/12/21 07/12/21 07/12/21 Range/Units 09:15 09:15 09:15 WBC 26.28 H (4.8-10.8) K/uL RBC 3.93 L (4.7-6.1) M/uL Hgb 11.8 L (14.0-18.0) g/dL POC Hgb (14.0-18.0) g/dl Hct 33.5 L (42-52) % POC Hct (42-52) % MCV 85.2 (80-100) fL MCH 30.0 (25-34) pg MCHC 35.2 (32-36) g/dL RDW Std Deviation 47.1 H (36.4-46.3) fL RDW Coeff of Luigi 15.2 H (11.5-14.5) % Plt Count 309 (130-400) K/uL MPV 11.2 H (7.4-10.4) fL Immature Gran % (Auto) 1.5 % Neut % (Auto) 87.2 % Lymph % (Auto) 4.8 % [place] % (Auto) 6.1 % Eos % (Auto) 0.2 % Baso % (Auto) 0.2 % Neut # (Auto) 22.93 H (1.4-6.5) K/uL Lymph # (Auto) 1.26 (1.2-3.4) K/uL [place] # (Auto) 1.61 H (0.11-0.59) K/uL Eos # (Auto) 0.04 (0-0.5) K/uL Baso # (Auto) 0.04 (0-0.2) K/uL Immature Gran # (Auto) 0.40 H (0.00-0.02) K/uL Toxic Granulation 1+ Dohle Bodies 1+ Echinocytes 1+ PT (9.0-12.0) Seconds INR (0.9-1.1) APTT (21.0-31.0) Seconds PTT Ratio VBG pH (7.36-7.41) VBG pCO2 (38-50) mmHg VBG pO2 mmHg VBG HCO3 mmol/L VBG O2 Saturation % VBG Base Excess mEq/L Barometric Pressure mm/Hg POC Sodium (135-144) mmol/L Sodium 130 L (136-145) mmol/L POC Potassium (3.3-5.0) mmol/L Potassium 3.1 L (3.5-5.1) mmol/L POC Chloride (101-112) mmol/L Chloride 95 L (98-107) mmol/L Carbon Dioxide 22 (21-32) mmol/L POC Total CO2 (24-31) mmol/L Anion Gap 13.0 H (3-11) POC Anion Gap (16-25) mmol/L POC BUN (7-18) mg/dl BUN 89 H (7-18) mg/dl Creatinine 7.73 H* (0.6-1.4) mg/dl POC Creatinine (0.6-1.3) mg/dl Est Cr Clr Drug Dosing 13.2 ml/min Est GFR ( Amer) 8.5 ml/min Est GFR (Non-Af Amer) 7.4 ml/min BUN/Creatinine Ratio 11.5 (10-20) Glucose 116 H (70-99) mg/dl POC Glucose (other) (70-99) mg/dl Osmolality (280-300) mOsm/kg Lactate 0.5 (0.4-2.0) mmol/L Calcium 9.0 (8.5-10.1) mg/dl POC Ioniz Calcium Shweta (1.12-1.32) mmol/l Phosphorus (2.5-4.9) mg/dl Magnesium 2.6 H (1.8-2.4) mg/dl Total Bilirubin 1.9 H (0.2-1) mg/dl AST 32 (15-37) U/L ALT 50 (12-78) U/L Alkaline Phosphatase 157 H (45-117) U/L Total Creatine Kinase (39-308) U/L Total Protein 7.5 (6.4-8.2) gm/dl Albumin 2.1 L (3.4-5.0) gm/dl Globulin 5.4 H (2.5-4.0) gm/dl Albumin/Globulin Ratio 0.4 L (0.9-2) Lipase 203 (73-393) U/L Procalcitonin (0-0.5) ng/ml Urine Color Urine Appearance (Clear) Urine pH (4.5-7.5) Ur Specific [place] (1.000-1.030) Urine Protein (Negative) Urine Glucose (UA) (Negative) Urine Ketones (Negative) Urine Blood (Negative) Urine Nitrite (Negative) Urine Bilirubin (Negative) Urine Urobilinogen (Negative) Ur Leukocyte Esterase (Negative) Urine WBC (Auto) (0-5) /hpf Urine RBC (Auto) (0-4) /hpf U Hyaline Cast (Auto) (0-5) /lpf U Epithel Cells (Auto) (0-5) /lpf Urine Bacteria (Auto) (Negative) Urine Yeast COVID-19 Eval Order SARS-CoV-2 (PCR) (Negative) Hep Bs Antigen (Neg) Hepatitis C Antibody (Neg) 07/12/21 07/12/21 07/12/21 Range/Units 09:15 09:15 09:21 WBC (4.8-10.8) K/uL RBC (4.7-6.1) M/uL Hgb (14.0-18.0) g/dL POC Hgb 12.6 L (14.0-18.0) g/dl Hct (42-52) % POC Hct 37 L (42-52) % MCV (80-100) fL MCH (25-34) pg MCHC (32-36) g/dL RDW Std Deviation (36.4-46.3) fL RDW Coeff of Luigi (11.5-14.5) % Plt Count (130-400) K/uL MPV (7.4-10.4) fL Immature Gran % (Auto) % Neut % (Auto) % Lymph % (Auto) % [place] % (Auto) % Eos % (Auto) % Baso % (Auto) % Neut # (Auto) (1.4-6.5) K/uL Lymph # (Auto) (1.2-3.4) K/uL [place] # (Auto) (0.11-0.59) K/uL Eos # (Auto) (0-0.5) K/uL Baso # (Auto) (0-0.2) K/uL Immature Gran # (Auto) (0.00-0.02) K/uL Toxic Granulation Dohle Bodies Echinocytes PT (9.0-12.0) Seconds INR (0.9-1.1) APTT (21.0-31.0) Seconds PTT Ratio VBG pH (7.36-7.41) VBG pCO2 (38-50) mmHg VBG pO2 mmHg VBG HCO3 mmol/L VBG O2 Saturation % VBG Base Excess mEq/L Barometric Pressure mm/Hg POC Sodium 132 L (135-144) mmol/L Sodium (136-145) mmol/L POC Potassium 3.1 L (3.3-5.0) mmol/L Potassium (3.5-5.1) mmol/L POC Chloride 97 L (101-112) mmol/L Chloride (98-107) mmol/L Carbon Dioxide (21-32) mmol/L POC Total CO2 22 L (24-31) mmol/L Anion Gap (3-11) POC Anion Gap 17.0 (16-25) mmol/L POC BUN 77 H (7-18) mg/dl BUN (7-18) mg/dl Creatinine (0.6-1.4) mg/dl POC Creatinine 8.5 H* (0.6-1.3) mg/dl Est Cr Clr Drug Dosing ml/min Est GFR ( Amer) ml/min Est GFR (Non-Af Amer) ml/min BUN/Creatinine Ratio (10-20) Glucose (70-99) mg/dl POC Glucose (other) 114 H (70-99) mg/dl Osmolality (280-300) mOsm/kg Lactate (0.4-2.0) mmol/L Calcium (8.5-10.1) mg/dl POC Ioniz Calcium Shweta 1.11 L (1.12-1.32) mmol/l Phosphorus (2.5-4.9) mg/dl Magnesium (1.8-2.4) mg/dl Total Bilirubin (0.2-1) mg/dl AST (15-37) U/L ALT (12-78) U/L Alkaline Phosphatase (45-117) U/L Total Creatine Kinase (39-308) U/L Total Protein (6.4-8.2) gm/dl Albumin (3.4-5.0) gm/dl Globulin (2.5-4.0) gm/dl Albumin/Globulin Ratio (0.9-2) Lipase (73-393) U/L Procalcitonin 15.62 H (0-0.5) ng/ml Urine Color Urine Appearance (Clear) Urine pH (4.5-7.5) Ur Specific [place] (1.000-1.030) Urine Protein (Negative) Urine Glucose (UA) (Negative) Urine Ketones (Negative) Urine Blood (Negative) Urine Nitrite (Negative) Urine Bilirubin (Negative) Urine Urobilinogen (Negative) Ur Leukocyte Esterase (Negative) Urine WBC (Auto) (0-5) /hpf Urine RBC (Auto) (0-4) /hpf U Hyaline Cast (Auto) (0-5) /lpf U Epithel Cells (Auto) (0-5) /lpf Urine Bacteria (Auto) (Negative) Urine Yeast COVID-19 Eval Order SARS-CoV-2 (PCR) (Negative) Hep Bs Antigen Neg (Neg) Hepatitis C Antibody Neg (Neg) 07/12/21 07/12/21 07/12/21 Range/Units 09:45 09:45 10:28 WBC (4.8-10.8) K/uL RBC (4.7-6.1) M/uL Hgb (14.0-18.0) g/dL POC Hgb (14.0-18.0) g/dl Hct (42-52) % POC Hct (42-52) % MCV (80-100) fL MCH (25-34) pg MCHC (32-36) g/dL RDW Std Deviation (36.4-46.3) fL RDW Coeff of Luigi (11.5-14.5) % Plt Count (130-400) K/uL MPV (7.4-10.4) fL Immature Gran % (Auto) % Neut % (Auto) % Lymph % (Auto) % [place] % (Auto) % Eos % (Auto) % Baso % (Auto) % Neut # (Auto) (1.4-6.5) K/uL Lymph # (Auto) (1.2-3.4) K/uL [place] # (Auto) (0.11-0.59) K/uL Eos # (Auto) (0-0.5) K/uL Baso # (Auto) (0-0.2) K/uL Immature Gran # (Auto) (0.00-0.02) K/uL Toxic Granulation Dohle Bodies Echinocytes PT (9.0-12.0) Seconds INR (0.9-1.1) APTT (21.0-31.0) Seconds PTT Ratio VBG pH (7.36-7.41) VBG pCO2 (38-50) mmHg VBG pO2 mmHg VBG HCO3 mmol/L VBG O2 Saturation % VBG Base Excess mEq/L Barometric Pressure mm/Hg POC Sodium (135-144) mmol/L Sodium (136-145) mmol/L POC Potassium (3.3-5.0) mmol/L Potassium (3.5-5.1) mmol/L POC Chloride (101-112) mmol/L Chloride (98-107) mmol/L Carbon Dioxide (21-32) mmol/L POC Total CO2 (24-31) mmol/L Anion Gap (3-11) POC Anion Gap (16-25) mmol/L POC BUN (7-18) mg/dl BUN (7-18) mg/dl Creatinine (0.6-1.4) mg/dl POC Creatinine (0.6-1.3) mg/dl Est Cr Clr Drug Dosing ml/min Est GFR ( Amer) ml/min Est GFR (Non-Af Amer) ml/min BUN/Creatinine Ratio (10-20) Glucose (70-99) mg/dl POC Glucose (other) (70-99) mg/dl Osmolality (280-300) mOsm/kg Lactate (0.4-2.0) mmol/L Calcium (8.5-10.1) mg/dl POC Ioniz Calcium Shweta (1.12-1.32) mmol/l Phosphorus (2.5-4.9) mg/dl Magnesium (1.8-2.4) mg/dl Total Bilirubin (0.2-1) mg/dl AST (15-37) U/L ALT (12-78) U/L Alkaline Phosphatase (45-117) U/L Total Creatine Kinase (39-308) U/L Total Protein (6.4-8.2) gm/dl Albumin (3.4-5.0) gm/dl Globulin (2.5-4.0) gm/dl Albumin/Globulin Ratio (0.9-2) Lipase (73-393) U/L Procalcitonin (0-0.5) ng/ml Urine Color Dark Yellow Urine Appearance Cloudy A (Clear) Urine pH 5.5 (4.5-7.5) Ur Specific [place] 1.013 (1.000-1.030) Urine Protein 2+ H (Negative) Urine Glucose (UA) Negative (Negative) Urine Ketones Negative (Negative) Urine Blood 3+ H (Negative) Urine Nitrite Positive A (Negative) Urine Bilirubin Negative (Negative) Urine Urobilinogen Negative (Negative) Ur Leukocyte Esterase 3+ H (Negative) Urine WBC (Auto) >30 H (0-5) /hpf Urine RBC (Auto) 10-30 H (0-4) /hpf U Hyaline Cast (Auto) 1-5 (0-5) /lpf U Epithel Cells (Auto) 5-10 H (0-5) /lpf Urine Bacteria (Auto) 1+ H (Negative) Urine Yeast Not Reportable COVID-19 Eval Order Covid19 at [facility] SARS-CoV-2 (PCR) NEGATIVE (Negative) Hep Bs Antigen (Neg) Hepatitis C Antibody (Neg) 07/12/21 07/12/21 07/12/21 Range/Units 11:22 11:22 11:22 WBC (4.8-10.8) K/uL RBC (4.7-6.1) M/uL Hgb (14.0-18.0) g/dL POC Hgb (14.0-18.0) g/dl Hct (42-52) % POC Hct (42-52) % MCV (80-100) fL MCH (25-34) pg MCHC (32-36) g/dL RDW Std Deviation (36.4-46.3) fL RDW Coeff of Luigi (11.5-14.5) % Plt Count (130-400) K/uL MPV (7.4-10.4) fL Immature Gran % (Auto) % Neut % (Auto) % Lymph % (Auto) % [place] % (Auto) % Eos % (Auto) % Baso % (Auto) % Neut # (Auto) (1.4-6.5) K/uL Lymph # (Auto) (1.2-3.4) K/uL [place] # (Auto) (0.11-0.59) K/uL Eos # (Auto) (0-0.5) K/uL Baso # (Auto) (0-0.2) K/uL Immature Gran # (Auto) (0.00-0.02) K/uL Toxic Granulation Dohle Bodies Echinocytes PT 10.7 (9.0-12.0) Seconds INR 1.1 (0.9-1.1) APTT 25.3 (21.0-31.0) Seconds PTT Ratio 1.0 VBG pH (7.36-7.41) VBG pCO2 (38-50) mmHg VBG pO2 mmHg VBG HCO3 mmol/L VBG O2 Saturation % VBG Base Excess mEq/L Barometric Pressure mm/Hg POC Sodium (135-144) mmol/L Sodium 131 L (136-145) mmol/L POC Potassium (3.3-5.0) mmol/L Potassium 3.1 L (3.5-5.1) mmol/L POC Chloride (101-112) mmol/L Chloride 99 (98-107) mmol/L Carbon Dioxide 21 (21-32) mmol/L POC Total CO2 (24-31) mmol/L Anion Gap 11.0 (3-11) POC Anion Gap (16-25) mmol/L POC BUN (7-18) mg/dl BUN 84 H (7-18) mg/dl Creatinine 7.13 H* D (0.6-1.4) mg/dl POC Creatinine (0.6-1.3) mg/dl Est Cr Clr Drug Dosing 14.3 ml/min Est GFR ( Amer) 9.4 ml/min Est GFR (Non-Af Amer) 8.1 ml/min BUN/Creatinine Ratio 11.7 (10-20) Glucose 99 (70-99) mg/dl POC Glucose (other) (70-99) mg/dl Osmolality 304 H (280-300) mOsm/kg Lactate (0.4-2.0) mmol/L Calcium 8.2 L (8.5-10.1) mg/dl POC Ioniz Calcium Shweta (1.12-1.32) mmol/l Phosphorus 4.1 (2.5-4.9) mg/dl Magnesium (1.8-2.4) mg/dl Total Bilirubin (0.2-1) mg/dl AST (15-37) U/L ALT (12-78) U/L Alkaline Phosphatase (45-117) U/L Total Creatine Kinase 26 L (39-308) U/L Total Protein (6.4-8.2) gm/dl Albumin (3.4-5.0) gm/dl Globulin (2.5-4.0) gm/dl Albumin/Globulin Ratio (0.9-2) Lipase (73-393) U/L Procalcitonin (0-0.5) ng/ml Urine Color Urine Appearance (Clear) Urine pH (4.5-7.5) Ur Specific [place] (1.000-1.030) Urine Protein (Negative) Urine Glucose (UA) (Negative) Urine Ketones (Negative) Urine Blood (Negative) Urine Nitrite (Negative) Urine Bilirubin (Negative) Urine Urobilinogen (Negative) Ur Leukocyte Esterase (Negative) Urine WBC (Auto) (0-5) /hpf Urine RBC (Auto) (0-4) /hpf U Hyaline Cast (Auto) (0-5) /lpf U Epithel Cells (Auto) (0-5) /lpf Urine Bacteria (Auto) (Negative) Urine Yeast COVID-19 Eval Order SARS-CoV-2 (PCR) (Negative) Hep Bs Antigen (Neg) Hepatitis C Antibody (Neg) 07/12/21 Range/Units 11:22 WBC (4.8-10.8) K/uL RBC (4.7-6.1) M/uL Hgb (14.0-18.0) g/dL POC Hgb (14.0-18.0) g/dl Hct (42-52) % POC Hct (42-52) % MCV (80-100) fL MCH (25-34) pg MCHC (32-36) g/dL RDW Std Deviation (36.4-46.3) fL RDW Coeff of Luigi (11.5-14.5) % Plt Count (130-400) K/uL MPV (7.4-10.4) fL Immature Gran % (Auto) % Neut % (Auto) % Lymph % (Auto) % [place] % (Auto) % Eos % (Auto) % Baso % (Auto) % Neut # (Auto) (1.4-6.5) K/uL Lymph # (Auto) (1.2-3.4) K/uL [place] # (Auto) (0.11-0.59) K/uL Eos # (Auto) (0-0.5) K/uL Baso # (Auto) (0-0.2) K/uL Immature Gran # (Auto) (0.00-0.02) K/uL Toxic Granulation Dohle Bodies Echinocytes PT (9.0-12.0) Seconds INR (0.9-1.1) APTT (21.0-31.0) Seconds PTT Ratio VBG pH 7.32 L (7.36-7.41) VBG pCO2 43 (38-50) mmHg VBG pO2 30 mmHg VBG HCO3 22 mmol/L VBG O2 Saturation < 60.0 % VBG Base Excess -4.3 mEq/L Barometric Pressure 733.1 mm/Hg POC Sodium (135-144) mmol/L Sodium (136-145) mmol/L POC Potassium (3.3-5.0) mmol/L Potassium (3.5-5.1) mmol/L POC Chloride (101-112) mmol/L Chloride (98-107) mmol/L Carbon Dioxide (21-32) mmol/L POC Total CO2 (24-31) mmol/L Anion Gap (3-11) POC Anion Gap (16-25) mmol/L POC BUN (7-18) mg/dl BUN (7-18) mg/dl Creatinine (0.6-1.4) mg/dl POC Creatinine (0.6-1.3) mg/dl Est Cr Clr Drug Dosing ml/min Est GFR ( Amer) ml/min Est GFR (Non-Af Amer) ml/min BUN/Creatinine Ratio (10-20) Glucose (70-99) mg/dl POC Glucose (other) (70-99) mg/dl Osmolality (280-300) mOsm/kg Lactate (0.4-2.0) mmol/L Calcium (8.5-10.1) mg/dl POC Ioniz Calcium Shweta (1.12-1.32) mmol/l Phosphorus (2.5-4.9) mg/dl Magnesium (1.8-2.4) mg/dl Total Bilirubin (0.2-1) mg/dl AST (15-37) U/L ALT (12-78) U/L Alkaline Phosphatase (45-117) U/L Total Creatine Kinase (39-308) U/L Total Protein (6.4-8.2) gm/dl Albumin (3.4-5.0) gm/dl Globulin (2.5-4.0) gm/dl Albumin/Globulin Ratio (0.9-2) Lipase (73-393) U/L Procalcitonin (0-0.5) ng/ml Urine Color Urine Appearance (Clear) Urine pH (4.5-7.5) Ur Specific [place] (1.000-1.030) Urine Protein (Negative) Urine Glucose (UA) (Negative) Urine Ketones (Negative) Urine Blood (Negative) Urine Nitrite (Negative) Urine Bilirubin (Negative) Urine Urobilinogen (Negative) Ur Leukocyte Esterase (Negative) Urine WBC (Auto) (0-5) /hpf Urine RBC (Auto) (0-4) /hpf U Hyaline Cast (Auto) (0-5) /lpf U Epithel Cells (Auto) (0-5) /lpf Urine Bacteria (Auto) (Negative) Urine Yeast COVID-19 Eval Order SARS-CoV-2 (PCR) (Negative) Hep Bs Antigen (Neg) Hepatitis C Antibody (Neg) Imaging Data Radiologist's Impression: Abdomen/Pelvis CT 07/12/21 09:24 CT SCAN OF THE ABDOMEN AND PELVIS WITHOUT CONTRAST CLINICAL HISTORY: abd pain COMPARISON STUDY: January 01, 2019 TECHNIQUE: CT scan of the abdomen and pelvis was performed from the lung bases to the proximal femurs. Images are reviewed in the axial, sagittal, and coronal planes. IV contrast was not administered for this examination. A dose lowering technique was utilized adhering to the principles of ALARA. CT DOSE: 682.76 mGy.cm FINDINGS: Lower chest: No acute process. Liver: Liver is enlarged measuring approximately 23 cm in anterior-posterior dimension. Diffuse decrease in attenuation of liver parenchyma is seen without focal lesions or intrahepatic biliary dilatation. Gallbladder: Unremarkable. Spleen: Normal in size and attenuation. Pancreas: Unremarkable. Adrenal glands: Unremarkable. Kidneys: The unenhanced kidneys are normal in size without hydronephrosis. No renal calculi are identified. Bilateral kidneys appear enlarged with mild surrounding fat stranding which is more prominent on the left. Evaluation is limited due to lack of IV contrast. Bowel: Small hiatal hernia. Bowel loops are nondilated. Normal appendix. Minimal diverticulosis of sigmoid colon is seen without evidence of diverticulitis. Peritoneum: There is no intraperitoneal free air or abdominal ascites. Vasculature: Aorta is normal in caliber with calcified wall which is too prominent for patient's age group. Focal area of ectasia is seen within infrarenal aorta and measures 2.2 cm in diameter. Adenopathy: Multiple small lymph nodes are seen within the retroperitoneal region, measuring less than 1 cm in short axis, nonpathological by CT size criteria. Pelvic viscera: The bladder, and pelvic viscera are unremarkable. Small bilateral inguinal fat-containing hernias are seen. Skeletal structures: Minimal degenerative changes of the spine. IMPRESSION: 1. Interval development of fat stranding surrounding bilateral kidneys, more prominent on the left. Mild enlargement of the left kidney. No evidence of hydronephrosis or nephrolithiasis. Findings are concerning for inflammatory proc ess such as pyelonephritis. Evaluation is limited due to lack of IV contrast. 2. Hepatic steatosis. Hepatomegaly. 3. Atherosclerosis, too prominent for patient's age group. 4. Normal appendix. Nondilated loops of bowel. 5. The rest of findings as above. ACT 112: Negative or not required by law. The above report was generated using voice recognition software. It may contain grammatical, syntax or spelling errors. Electronically signed by: Grace Osman DO 07/12/2021 10:06 AM Renal Artery Duplex 07/12/21 10:53 DOPPLER ULTRASOUND OF THE RENAL ARTERIES CLINICAL HISTORY: Acute renal failure. COMPARISON STUDY: Abdominal CT dated 07/12/2021. TECHNIQUE: Doppler sonography of the renal arteries was performed to assess renal artery stenosis. Images are reviewed in the transverse and longitudinal planes. FINDINGS: The kidneys appear mildly enlarged. Echotexture is normal. Right kidney measures 16.1 cm in length and the left kidney measures 13.3 cm in length. There is no hydronephrosis. On the right, intrarenal arterial resistive indices range from 0.63 to 0.75. Intrarenal arterial waveforms are normal with brisk upstrokes. The right renal arterial waveform is normal, and velocities within the right renal artery measure up to 118 cm/sec. The right renal vein is patent. On the left, intrarenal arterial resistive indices range from 0.60 to 1.0. Intrarenal arterial waveforms are normal with brisk upstrokes. The left renal arterial waveform is normal, and velocities within the left renal artery measure up to 119 cm/sec. The left renal vein is patent. The abdominal aorta is patent. Velocities within the abdominal aorta measure up to 115 cm/s. IMPRESSION: 1. There is no sonographic evidence of renal artery stenosis. 2. The kidneys appear enlarged and are without hydronephrosis. 3. Question mildly elevated resistive indices on the left. ACT 112: Negative or not required by law. Electronically signed by: Jose L Padilla M.D. 07/12/2021 1:07 PM [facility] US 07/12/21 11:19 DOPPLER ULTRASOUND MESENTERIC VASCULATURE: CLINICAL HISTORY: Generalized abdominal pain. COMPARISON STUDY: Abdominal CT dated 07/12/2021. FINDINGS: Real-time grayscale and color Doppler sonography of the mesenteric vasculature is performed. The abdominal aorta is patent with velocities measure up to 93 cm/s. The superior mesenteric artery and celiac artery are widely patent. Velocities within the celiac artery measure up to 181 cm/s, and velocities within the superior mesenteric artery measure up to 175 cm/s. The splenic artery is patent with velocities measure up to 117 cm/s. IMPRESSION: Normal Doppler assessment of the mesenteric vasculature. Dictated: 07/12/2021 1:01 PM Transcribed: 07/12/2021 1:27 PM Carrol [id number] [email or web address] Electronically signed by: Jose L Padilla M.D. 07/12/2021 1:29 PM MDM Narrative Patient was seen and evaluated as above in room C08. Review was performed of nursing notes and vital signs. I did review pertinent previous visits and patient history. After obtaining a thorough history and physical examination the above work up was performed. Patient presents to us today with abdominal distention, abdominal pain. He stopped drinking alcohol this past Saturday. He previous to this was drinking 15 beers per day. No seizure. He has been dry heaving over the past few days. He then notes that Saturday, he awoke with abdominal distention and the abdomen felt quite hard. He then notes that the pain has persisted and worsened and sharply increased over the past 12 hours. He notes that the pain is even quite worse after coughing. Examination reveals a tender abdomen. Vital signs stable. Options of care were discussed with the patient. IV access was established. Labs were drawn. I-STAT was sent for stat creatinine and he was found to be with a creatinine of 8.5 by i-STAT. The CT scan of the abdomen pelvis with contrast was changed to CT scan of the abdomen pelvis without contrast. Results of this as above. There is interval development of fat stranding surrounding bilateral kidneys, more prominent on the left. Mild enlargement of the left kidney. No evidence of hydronephrosis or nephrolithiasis. Findings are concer nia for inflammatory process such as pyelonephritis. Laboratory studies reveal leukocytosis 26.28. No significant anemia noted however hemoglobin is at 11.8. Patient does have hyponatremia at 130. Hypokalemia noted at 3.1. Anion gap 13. Creatinine 7.73 with a BUN of 89. LFTs are normal. Pro-Colt 15.62. Lactic normal. Urinalysis is concerning for potential UTI. With the patient's clinica l presentation and comment of potential pyelonephritis on CT scan with evidence of UTI by urine sample I do clinically suspect the patient is experiencing pyelonephritis. He will require hospitalization for this. Broad-spectrum antibiotics were ordered. This included IV Zosyn. I did order the patient a banana bag. I did discuss the findings with the hospitalist as well as the cryptography teacher, Dr. Puente. We will proceed with antibiotics and hydration as well as further work-up to evaluate for potential vasculitis. Patient will be admitted for further evaluation and management. Please refer to further documentation regarding his stay. GCS: 15 In the evaluation and treatment of this patient the following differential diagnoses were entertained: Acute abdomen, dissection, bowel obstruction, pyelonephritis, UTI, appendicitis, diverticulitis, strangulated hernia, among others. Impression & Plan Pyelonephritis, ARF (acute renal failure), Abdominal pain, Hyponatremia Discharge Plan Visit Data Chief Complaint: Abdominal Pain Stated Complaint: ABD DISTENTION,PROBLEMS HAVING BM & URINATIONS ED Provider: Jose L Mccarthy ED Midlevel Provider: Emmanuel Rodriguez Discharge Problem: Pyelonephritis, ARF (acute renal failure), Abdominal pain, Hyponatremia Patient Disposition: Admitted As Inpatient Condition: Good Discharge Instructions Interventions: ED Discharge Assessment Last Done: 07/12/21 13:28
[2021-07-12 09:26] LABS: Hematocrit (blood only) 33.5 % (42-52); Hemoglobin 11.8 g/dL (14.0-18.0); Mean Corpuscular Hgb Conc 35.2 g/dL (32-36); Mean Corpuscular Volume 85.2 fL (80-100); Mean Platelet Volume 11.2 fL (7.4-10.4); Platelet Count 309 K/uL (130-400); RDW Coefficient of Variation 15.2 % (11.5-14.5); RDW Standard Deviation 47.1 fL (36.4-46.3); Red Blood Count 3.93 M/uL (4.7-6.1); White Blood Count 26.28 K/uL (4.8-10.8)
[2021-07-12] MEDS ORDERED: MULTI-VITAMIN INFUSION 10 ML, THIAMINE HCL 100 MG, FOLIC ACID 1 MG in SODIUM CHLORIDE 0... IV ONE (09:27)
[2021-07-12] MEDS ORDERED: PIPERACILLIN/TAZOBACTAM 4.5 GM/120 ML BAG IV ONE (09:29)
[2021-07-12] MEDS ORDERED: PIPERACILL/TAZOBAC CONSULT ACTIVE PRN ×2 (09:29→11:40)
[2021-07-12 09:35] LABS: iSTAT Creatinine 8.5 mg/dl (0.6-1.3); iSTAT Hemoglobin 12.6 g/dl (14.0-18.0); iSTAT Ionized Calcium 1.11 mmol/l (1.12-1.32); iSTAT Potassium 3.1 mmol/L (3.3-5.0)
[2021-07-12 09:47] LABS: Basophils # (auto) 0.04 K/uL (0-0.2); Basophils % (auto) 0.2 %; Dohle Bodies 1+; Echinocytes 1+; Eosinophils # (auto) 0.04 K/uL (0-0.5); Eosinophils % (auto) 0.2 %; Immature Granulocytes % (auto) 1.5 %; Lymphocytes # (auto) 1.26 K/uL (1.2-3.4); Lymphocytes % (auto) 4.8 %; Monocytes # (auto) 1.61 K/uL (0.11-0.59); Monocytes % (auto) 6.1 %; Neutrophils # (auto) 22.93 K/uL (1.4-6.5); Neutrophils % (auto) 87.2 %; Toxic Granulation 1+
[2021-07-12 09:55] LABS: Albumin Globulin Ratio 0.4 (0.9-2); Albumin Level 2.1 gm/dl (3.4-5.0); BUN Creatinine Ratio 11.5 (10-20); Bilirubin,Total 1.9 mg/dl (0.2-1); Creatinine Clr Calc Pharmacy 13.2 ml/min; Est GFR (African American) 8.5 ml/min; Est GFR (Non-African American) 7.4 ml/min; Globulin 5.4 gm/dl (2.5-4.0); Magnesium 2.6 mg/dl (1.8-2.4); Potassium 3.1 mmol/L (3.5-5.1); Total Protein 7.5 gm/dl (6.4-8.2)
--- NOTE | 2021-07-12 10:08 | CT Scan Report ---
CT SCAN OF THE ABDOMEN AND PELVIS WITHOUT CONTRAST CLINICAL HISTORY: abd pain COMPARISON STUDY: January 01, 2019 TECHNIQUE: CT scan of the abdomen and pelvis was performed from the lung bases to the proximal femurs . Images are reviewed in the axial, sagittal, and coronal planes. IV contrast was not administered fo r this examination. A dose lowering technique was utilized adhering to the principles of ALARA. CT DOSE: 682.76 mGy.cm FINDINGS: Lower chest: No acute process. Liver: Liver is enlarged measuring approximately 23 cm in anterior-posterior dimension. Diffuse decre ase in attenuation of liver parenchyma is seen without focal lesions or intrahepatic biliary dilatati on. Gallbladder: Unremarkable. Spleen: Normal in size and attenuation. Pancreas: Unremarkable. Adrenal glands: Unremarkable. Kidneys: The unenhanced kidneys are normal in size without hydronephrosis. No renal calculi are duran ntified. Bilateral kidneys appear enlarged with mild surrounding fat stranding which is more prominen t on the left. Evaluation is limited due to lack of IV contrast. Bowel: Small hiatal hernia. Bowel loops are nondilated. Normal appendix. Minimal diverticulosis of si gmoid colon is seen without evidence of diverticulitis. Peritoneum: There is no intraperitoneal free air or abdominal ascites. Vasculature: Aorta is normal in caliber with calcified wall which is too prominent for patient's age group. Focal area of ectasia is seen within infrarenal aorta and measures 2.2 cm in diameter. Adenopathy: Multiple small lymph nodes are seen within the retroperitoneal region, measuring less darryl n 1 cm in short axis, nonpathological by CT size criteria. Pelvic viscera: The bladder, and pelvic viscera are unremarkable. Small bilateral inguinal fat-contai nia hernias are seen. Skeletal structures: Minimal degenerative changes of the spine. IMPRESSION: 1. Interval development of fat stranding surrounding bilateral kidneys, more prominent on the left. Mild enlargement of the left kidney. No evidence of hydronephrosis or nephrolithiasis. Findings are c oncerning for inflammatory process such as pyelonephritis. Evaluation is limited due to lack of IV co ntrast. 2. Hepatic steatosis. Hepatomegaly. 3. Atherosclerosis, too prominent for patient's age group. 4. Normal appendix. Nondilated loops of bowel. 5. The rest of findings as above. ACT 112: Negative or not required by law. The above report was generated using voice recognition software. It may contain grammatical, syntax o r spelling errors. Electronically signed by: Grace Osman DO 07/12/2021 10:06 AM
[2021-07-12 10:41] LABS: Appearance Urine Cloudy (Clear); Bacteria Urine Automated 1+ (Negative); Bilirubin Urine Negative (Negative); Blood Urine 3+ (Negative); Color Urine Dark Yellow; Glucose Urine UA Negative (Negative); Ketones Urine Negative (Negative); Leukocyte Esterase Urine 3+ (Negative); Nitrite Urine Positive (Negative); Protein Urine 2+ (Negative); Specific Gravity Urine 1.013 (1.000-1.030); Urobilinogen Urine Negative (Negative); WBC Urine Automated >30 /hpf (0-5); pH Urine 5.5 (4.5-7.5)
[2021-07-12] MEDS ORDERED: LACTATED RINGER'S 500 ML IV ONE (10:51)
[2021-07-12 11:47] LABS: Base Excess VBG -4.3 mEq/L; HCO3 VBG 22 mmol/L; PCO2 VBG 43 mmHg (38-50); PO2 VBG 30 mmHg; pH VBG 7.32 (7.36-7.41)
[2021-07-12 11:48] LABS: Oxygen Saturation VBG < 60.0 %
--- NOTE | 2021-07-12 11:49 | History & Physical Report ---
Date of Service July 12, 2021 Assessment & Plan (1) Pyelonephritis: Plan: Urine and fat stranding consistent with infection - Continue Zosyn Renal dosed for CRCL <20 - WBC elevated - NLR 11:1 - Lactate normal - Follow - renal duplex pending (2) ARF (acute renal failure): Plan: As above- sepsis, hypovolemia - Acute rise also cocernign for other patholgy- he denies starting any other new medications - NSAID use- hold - BMP q6 hours - Nephrology consulted- appreciate assistance- concern for possible vascuitis component - ANCA, ERIKA, SPEP, Compliment factors, ESR pending - 1Liter bana bag given in EMD - Normosol at 125ml/hr to follow - Electrolytes stable at this time - HCO3 22 with PH 7.32 - MILD gap of 13 likely related to BUN elevation - CK 26 (3) Sepsis: Plan: As above - further evaluate abdominal pathology - Mesenteric Doppler pending rule out bowel ischemia- no perforation or pneumatosis on CT scan although without contrast - WBC elevated with NLR 11:1, PCT 15 - hemoconcentration likely as well - Pyelonephritis as above - Hemodynamically well perfused - Zosyn for now (4) Abdominal pain: Plan: As above- follow clinical assessment and imaging - currently not rigid and bowel sounds normal - imaging as above - NPO for now (5) Hyponatremia: Plan: Mild- hypovolemic hyponatremia - consistent with hypocholridemia, hypocalcemia, and mild hypokalemia - Normosol as above - BMP q6 hours, follow lytes (6) Alcohol abuse: Plan: Approximately 1 week of cold turkey per the patient - AAWS protocol with Ativan at this time secondary to renal failure - Follow clinical symptoms - Thiamine IV 300 daily- with ETOH and decrease nutritional intake - Folate IV (7) Diabetes mellitus: Plan: Diet controlled per PCP visits and not on any medications at home - BG AC/HS will add sliding scale coverage if >180- currently stable (8) HTN (hypertension): Plan: Controlled not on outpatient medications - Follow (9) NSAID long-term use: Plan: Hold - was using both ibuprofen and Naproxen - PPI IV while NPO - No report of hematemesis or melena - Follow HGB/HCT History of Present Illness Primary Care Provider: Seble Baig MD 51 YOM with HTN, Gout, DMII (diet controlled), ETHO abuse. Patient comes to the EMD today for abdominal pain, nausea and vomiting for the past 3-5 days. Patient endorses that he has been drinking 15 pack of beer since March every day. He decided to stop last week ~ on the 06 of July. He then lost his appetite and started to have dry heaves, with vomiting of yellow bilious emesis with no blood. He also developed diarrhea for 3-4 days that was yellow/green with no blood or pain with defecation. Patient then started to force himself to eat, which he started with chicken noodle soup and chicken and rice. He did not have any abdominal pain or n/v with eating and his stools went back to small and formed. He also reports that he has had a decrease in urine production which he believes this started on Saturday. He denies any issues prior to this of difficulty urinating, pain with urination, or incomplete emptying his bladder. His abdominal pain is mostly tender on the left and central. This is a steady pain that is sharp and gets worse with moving, he has not noted any change with food. In the EMD the patient had routine labs performed, UA, blood cultures, CT scan of his abdomen without contrast. His laboratory work returned with elevated WBC with shift, and an acute significant rise in his BUN and PAINT TESTER (89/7.3), and UA with +NIT,LE,bacteria. CT scan of the abdomen revealed an enlarged liver, with normal gallbladder and pancreas, hiatal hernia, and fat stranding around bilateral renals as well as multiple lymph nodes in the retroperitoneal region as well as calcified aorta noting prominence with his age and ectasia within infrarenal aorta.. Patient was started on Zosyn in the EMD as well as consult to Nephrology was placed. Patient will be admitted to the PCU to follow his renal function, monitor his acid base status and electrolytes and continue IV antibiotics for his sepsis. Will continue evaluation of his renal dysfunction and abdominal discomfort. Patient does have family history of Father with dialysis secondary to Agent Oragne exposure. [facility] or evaluations. Patient has not received his COVID vaccine and his COVID test is NEGATIVE on admission Allergies Allergy/AdvReac Type Severity Reaction Status Date / Time No Known Allergies Allergy Unverified 07/12/21 09:38 Home Medications Medication Instructions Recorded Confirmed Type multivitamin 1 tab PO QAM 01/01/19 07/12/21 History aspirin 81 mg tablet,delayed 81 mg PO QAM 05/06/20 07/12/21 History release (Adult Low Dose Aspirin) allopurinol 100 mg tablet 100 mg PO TID #270 tab 01/31/21 07/12/21 Rx naproxen 500 mg tablet 500 mg PO BID PRN #14 tab 06/09/21 07/12/21 Rx ibuprofen 800 mg tablet 400 mg PO Q6H PRN 07/12/21 07/12/21 History Past Med/Surg History Medical History Alcohol abuse Anxiety Gout Surgical History History of hernia repair History of wisdom tooth extraction Hx of inguinal hernia repair (1999) Family History Father Diabetes Kidney disease Mother Diabetes Denies family history of Ovarian cancer Prostate cancer Myocardial infarction Breast cancer Colorectal cancer Social History Smoking Status: Former smoker Tobacco Type: Smokeless Tobacco (Dip or Chew) Second Hand Exposure: No; Hx Alcohol Use: Yes Alcohol type: beer Hx Substance Use: Yes Last Used Substance: Hours (ago) Last Used Substance Other:: smokes marijuana this morning. has medical marijuana card. 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 Beliefs That Will Affect Care: None Current Living Situation: Spouse and Family Feels Safe at Home: Yes Assistive Devices: None Review of Systems Review of Systems: REVIEW OF SYSTEMS: Constitutional: No fever, sweats or chills Eyes: No diplopia, no worsening or blurred vision ENT: normal hearing, no trouble swallowing Respiratory: No cough, sputum, dyspnea at rest or on exertion Cardiovascular: No chest pain, tightness or palpitations Abdomen: (+) pain, nausea, vomiting, diarrhea, NO constipation Musculoskeletal: (+) elbow pain improved, No joint pain, calf pain, swelling Neurologic: (+) ETOH abuse anxiety, No weakness, numbness/tingling, or balance problems Psychiatric: (+) anxiety - (+) decrease in urine production Skin: No rash or itch Physical Exam Physical Exam: PHYSICAL EXAM: General: awake, alert, no apparent distress Head: Normocephalic, atraumatic ENT: PERRL, EOMI, no pharyngeal exudate, mucous membranes moist Neuro: AAO x 3, speech clear and appropriate, strength intact bilaterally 5/5, sensation intact and equal all extremities and dermatomes, no pronator drift Chest: equal rise and fall of the chest, no accessory muscle use, no heaves or thrills, Clear to auscultation, on room air, Cardiac: Regular rate and rhythm, telemetry reviewed-NSR no ectopy, skin warm dry, cap refill <3 seconds, peripheral pulses +2 no JVD, no murmur, no edema GI: NABS x 4 quadrants, tender to palpation, with guarding, not rigid and no rebound tenderness, N/V has resolved : Spontaneously voided in EMD with small amount, no pain, no CVA tenderness, Extremities: Normal inspection, no peripheral edema or erythema, calfs nontender to palpation Psych: Normal mood and affect Skin: no rash or erythema Results & Data Results & Data ([facility]) Vital Signs (Past 12 Hours) Vital Signs Temp Pulse Resp BP Pulse Ox 07/12/21 08:50 36.5 C 87 16 157/89 H 97 Laboratory Results Abnormal lab results 07/12/21 07/12/21 07/12/21 Range/Units 09:15 09:15 09:15 WBC 26.28 H (4.8-10.8) K/uL RBC 3.93 L (4.7-6.1) M/uL Hgb 11.8 L (14.0-18.0) g/dL POC Hgb (14.0-18.0) g/dl Hct 33.5 L (42-52) % POC Hct (42-52) % RDW Std Deviation 47.1 H (36.4-46.3) fL RDW Coeff of Luigi 15.2 H (11.5-14.5) % MPV 11.2 H (7.4-10.4) fL Neut # (Auto) 22.93 H (1.4-6.5) K/uL Douglas # (Auto) 1.61 H (0.11-0.59) K/uL Immature Gran # (Auto) 0.40 H (0.00-0.02) K/uL VBG pH (7.36-7.41) POC Sodium (135-144) mmol/L Sodium 130 L (136-145) mmol/L POC Potassium (3.3-5.0) mmol/L Potassium 3.1 L (3.5-5.1) mmol/L POC Chloride (101-112) mmol/L Chloride 95 L (98-107) mmol/L POC Total CO2 (24-31) mmol/L Anion Gap 13.0 H (3-11) POC BUN (7-18) mg/dl BUN 89 H (7-18) mg/dl Creatinine 7.73 H* (0.6-1.4) mg/dl POC Creatinine (0.6-1.3) mg/dl Glucose 116 H (70-99) mg/dl POC Glucose (other) (70-99) mg/dl Osmolality (280-300) mOsm/kg POC Ioniz Calcium Shweta (1.12-1.32) mmol/l Magnesium 2.6 H (1.8-2.4) mg/dl Total Bilirubin 1.9 H (0.2-1) mg/dl Alkaline Phosphatase 157 H (45-117) U/L Albumin 2.1 L (3.4-5.0) gm/dl Globulin 5.4 H (2.5-4.0) gm/dl Albumin/Globulin Ratio 0.4 L (0.9-2) Procalcitonin 15.62 H (0-0.5) ng/ml Urine Appearance (Clear) Urine Protein (Negative) Urine Blood (Negative) Urine Nitrite (Negative) Ur Leukocyte Esterase (Negative) Urine WBC (Auto) (0-5) /hpf Urine RBC (Auto) (0-4) /hpf U Epithel Cells (Auto) (0-5) /lpf Urine Bacteria (Auto) (Negative) 07/12/21 07/12/21 07/12/21 Range/Units 09:21 10:28 11:22 WBC (4.8-10.8) K/uL RBC (4.7-6.1) M/uL Hgb (14.0-18.0) g/dL POC Hgb 12.6 L (14.0-18.0) g/dl Hct (42-52) % POC Hct 37 L (42-52) % RDW Std Deviation (36.4-46.3) fL RDW Coeff of Luigi (11.5-14.5) % MPV (7.4-10.4) fL Neut # (Auto) (1.4-6.5) K/uL Douglas # (Auto) (0.11-0.59) K/uL Immature Gran # (Auto) (0.00-0.02) K/uL VBG pH (7.36-7.41) POC Sodium 132 L (135-144) mmol/L Sodium (136-145) mmol/L POC Potassium 3.1 L (3.3-5.0) mmol/L Potassium (3.5-5.1) mmol/L POC Chloride 97 L (101-112) mmol/L Chloride (98-107) mmol/L POC Total CO2 22 L (24-31) mmol/L Anion Gap (3-11) POC BUN 77 H (7-18) mg/dl BUN (7-18) mg/dl Creatinine (0.6-1.4) mg/dl POC Creatinine 8.5 H* (0.6-1.3) mg/dl Glucose (70-99) mg/dl POC Glucose (other) 114 H (70-99) mg/dl Osmolality 304 H (280-300) mOsm/kg POC Ioniz Calcium Shweta 1.11 L (1.12-1.32) mmol/l Magnesium (1.8-2.4) mg/dl Total Bilirubin (0.2-1) mg/dl Alkaline Phosphatase (45-117) U/L Albumin (3.4-5.0) gm/dl Globulin (2.5-4.0) gm/dl Albumin/Globulin Ratio (0.9-2) Procalcitonin (0-0.5) ng/ml Urine Appearance Cloudy A (Clear) Urine Protein 2+ H (Negative) Urine Blood 3+ H (Negative) Urine Nitrite Positive A (Negative) Ur Leukocyte Esterase 3+ H (Negative) Urine WBC (Auto) >30 H (0-5) /hpf Urine RBC (Auto) 10-30 H (0-4) /hpf U Epithel Cells (Auto) 5-10 H (0-5) /lpf Urine Bacteria (Auto) 1+ H (Negative) 07/12/21 Range/Units 11:22 WBC (4.8-10.8) K/uL RBC (4.7-6.1) M/uL Hgb (14.0-18.0) g/dL POC Hgb (14.0-18.0) g/dl Hct (42-52) % POC Hct (42-52) % RDW Std Deviation (36.4-46.3) fL RDW Coeff of Luigi (11.5-14.5) % MPV (7.4-10.4) fL Neut # (Auto) (1.4-6.5) K/uL Douglas # (Auto) (0.11-0.59) K/uL Immature Gran # (Auto) (0.00-0.02) K/uL VBG pH 7.32 L (7.36-7.41) POC Sodium (135-144) mmol/L Sodium (136-145) mmol/L POC Potassium (3.3-5.0) mmol/L Potassium (3.5-5.1) mmol/L POC Chloride (101-112) mmol/L Chloride (98-107) mmol/L POC Total CO2 (24-31) mmol/L Anion Gap (3-11) POC BUN (7-18) mg/dl BUN (7-18) mg/dl Creatinine (0.6-1.4) mg/dl POC Creatinine (0.6-1.3) mg/dl Glucose (70-99) mg/dl POC Glucose (other) (70-99) mg/dl Osmolality (280-300) mOsm/kg POC Ioniz Calcium Shweta (1.12-1.32) mmol/l Magnesium (1.8-2.4) mg/dl Total Bilirubin (0.2-1) mg/dl Alkaline Phosphatase (45-117) U/L Albumin (3.4-5.0) gm/dl Globulin (2.5-4.0) gm/dl Albumin/Globulin Ratio (0.9-2) Procalcitonin (0-0.5) ng/ml Urine Appearance (Clear) Urine Protein (Negative) Urine Blood (Negative) Urine Nitrite (Negative) Ur Leukocyte Esterase (Negative) Urine WBC (Auto) (0-5) /hpf Urine RBC (Auto) (0-4) /hpf U Epithel Cells (Auto) (0-5) /lpf Urine Bacteria (Auto) (Negative) Diagnostic Findings Abdomen/Pelvis CT 07/12/21 09:24 CT SCAN OF THE ABDOMEN AND PELVIS WITHOUT CONTRAST CLINICAL HISTORY: abd pain COMPARISON STUDY: January 01, 2019 TECHNIQUE: CT scan of the abdomen and pelvis was performed from the lung bases to the proximal femurs. Images are reviewed in the axial, sagittal, and coronal planes. IV contrast was not administered for this examination. A dose lowering technique was utilized adhering to the principles of ALARA. CT DOSE: 682.76 mGy.cm FINDINGS: Lower chest: No acute process. Liver: Liver is enlarged measuring approximately 23 cm in anterior-posterior dimension. Diffuse decrease in attenuation of liver parenchyma is seen without focal lesions or intrahepatic biliary dilatation. Gallbladder: Unremarkable. Spleen: Normal in size and attenuation. Pancreas: Unremarkable. Adrenal glands: Unremarkable. Kidneys: The unenhanced kidneys are normal in size without hydronephrosis. No renal calculi are identified. Bilateral kidneys appear enlarged with mild surrounding fat stranding which is more prominent on the left. Evaluation is limited due to lack of IV contrast. Bowel: Small hiatal hernia. Bowel loops are nondilated. Normal appendix. Minimal diverticulosis of sigmoid colon is seen without evidence of diverticulitis. Peritoneum: There is no intraperitoneal free air or abdominal ascites. Vasculature: Aorta is normal in caliber with calcified wall which is too prominent for patient's age group. Focal area of ectasia is seen within infrarenal aorta and measures 2.2 cm in diameter. Adenopathy: Multiple small lymph nodes are seen within the retroperitoneal region, measuring less than 1 cm in short axis, nonpathological by CT size criteria. Pelvic viscera: The bladder, and pelvic viscera are unremarkable. Small bilateral inguinal fat-containing hernias are seen. Skeletal structures: Minimal degenerative changes of the spine. IMPRESSION: 1. Interval development of fat stranding surrounding bilateral kidneys, more prominent on the left. Mild enlargement of the left kidney. No evidence of hydronephrosis or nephrolithiasis. Findings are concerning for inflammatory process such as pyelonephritis. Evaluation is limited due to lack of IV contrast. 2. Hepatic steatosis. Hepatomegaly. 3. Atherosclerosis, too prominent for patient's age group. 4. Normal appendix. Nondilated loops of bowel. 5. The rest of findings as above. Electronically signed by: Grace Osman DO 07/12/2021 10:06 AM Medications Administered Home Medications multivitamin 1 tab PO QAM 01/01/19 [History Confirmed 07/12/21] aspirin 81 mg tablet,delayed release (Adult Low Dose Aspirin) 81 mg PO QAM 05/06/20 [History Confirmed 07/12/21] allopurinol 100 mg tablet 100 mg PO TID #270 tab 01/31/21 [Rx Confirmed 07/12/21] naproxen 500 mg tablet 500 mg PO BID PRN #14 tab 06/09/21 [Rx Confirmed 07/12/21] ibuprofen 800 mg tablet 400 mg PO Q6H PRN 07/12/21 [History Confirmed 07/12/21] Active Medications Piperacillin Sod/Tazobactam (Sod 2.25 gm/ Dextrose) 110 mls @ 200 mls/hr IV Q8 GABRIELLE; Protocol Stop: 07/22/21 13:59 Miscellaneous Information (Piperacill/Tazobac Consult Active) 1 ea N/A UD PRN PRN Reason: Consult Stop: 08/11/21 09:28 Miscellaneous Information (Piperacill/Tazobac Consult Active) 1 ea N/A UD PRN PRN Reason: Consult Stop: 08/11/21 11:39 ECG Additional Comments: Pending on admission Code Status & VTE Plan Code Status CODE: FULL VTE: SCDs, Heparin 5000 sub q q12 VTE Prophylaxis Plan VTE Prophylaxis will be ordered: Yes Supervising Physician Co-Signing Physician Notes Attending addendum: I have physically seen this patient, have supervised the JEWELS's activities, and agree with the H&P unless as otherwise noted. Assessment and Plan: Pyelonephritis bilaterally/sepsis- Follow urine culture and sensitivity Zosyn IV per pharmacokinetic monitoring Ordered mesenteric and renal Dopplers Acute renal failure- Creatinine 7.73 upon admission, with baseline 0.87 Hold NSAIDs BMP every 6 hours Nephrology consult requests work-up for vasculitis: ERIKA, ERIKA, SPEP, C3, C4, CH 50 and ESR Placed on Normosol 125 mils per hour Remaining orders and notations as noted PG Care Time/CCT Total # of Minutes Spent Total Time Spent with Patient: Total time spent is greater than 50% in coordination of care (as documented) at patient's floor/unit and/or counseling patient: Coding Level of Care Code 74689 Initial Inpt Care Lvl 3 Diagnoses Pyelonephritis N12 ARF (acute renal failure) N17.9 Sepsis A41.9 Abdominal pain R10.9 Hyponatremia E87.1 Alcohol abuse F10.10 Diabetes mellitus E11.9 HTN (hypertension) I10 NSAID long-term use Z79.1
[2021-07-12 11:58] LABS: INR 1.1 (0.9-1.1); Partial Thromboplastin Time 25.3 Seconds (21.0-31.0); Prothrombin Time 10.7 Seconds (9.0-12.0)
[2021-07-12 12:14] LABS: BUN Creatinine Ratio 11.7 (10-20); Calcium 8.2 mg/dl (8.5-10.1); Creatinine Clr Calc Pharmacy 14.3 ml/min; Est GFR (African American) 9.4 ml/min; Est GFR (Non-African American) 8.1 ml/min; Phosphorus 4.1 mg/dl (2.5-4.9); Potassium 3.1 mmol/L (3.5-5.1)
--- NOTE | 2021-07-12 12:32 | Nephrology Consultation ---
Date of Consultation July 12, 2021 Assessment & Plan (1) ARF (acute renal failure): * OXANA likely due to dehydration in the setting of NSAID therapy * Hold Ibuprofen * Provide IV hydration * Noncontrast abdominal CT today negative for hydronephrosis. 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 He is familiar w/ HD. His father had been on HD. Will monitor closely. No acute indication for HD today * Monitor UO, PRP (2) Pyelonephritis: * Leukocytosis w/ L shift, urinalysis and abdominal CT suggestive of pyelonephritis * Await blood and urine culture results * Agree w/ IV Zosyn therapy (3) Hyponatremia: * Mild, asymptomatic * Likely related to dehydration, OXANA. Improving w/ IV hydration (4) Alcohol abuse: * MVI, B12, folate administered by primary service (5) Abdominal pain: * Possible gastritis from alcohol abuse * Mildly elevated alk phos and total bili. Normal AST/ALT * Abd CT - hepatic steatosis, no biliary dilation. Bowel negative for diverticulitis. No dilated loops of bowel * Mesenteric US negative for vascular stenotic lesion History of Present Illness Reason for Consultation: OXANA History of Present Illness Mr. Stern is a 51 year old white male who is seen at the request of Dr. Trevizo for evaluation of OXANA. 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 He has a h/o gout but denies any other chronic medical illnesses. He takes Allopurinol on a regular basis but also acknowledges the use of Ibuprofen 800 mg po TID for the last 2 years. He has diffuse muscle pain related to his job and also treats this with medical marijuana. Mr. Stern reports a remote h/o incarceration for cocaine use as well. Mr. Stern drinks 12 cans of beer/day. 4 days ago he abruptly stopped drinking. Over the last 3 days he had recurrent emesis and had poor oral intake. His abdomen has become distended and painful. He presented to the [facility] ED where evaluation revealed T35, BP 142/88, WBC 26K with 87% neutrophils, 0.2% eosinophils, Cr 7.1, urinalysis + for LE/nitrates, urine microscopy with pyuria/bacteruria but no casts. Abdominal CT without contrast was negative for ileus, SBO, colitis, pancreatic or GB inflammation. CT did reveal mild kidney enlargement w/ perinephric stranding suggestive of pyelonephritis. Admission was advised for empiric antibiotic therapy of pyelonephritis, IV hydration and evaluation of OXANA. Note: Cr 0.8 05/06/20. No h/o sinusitis, hemoptysis, melena, hematochezia, skin rash, joint pain. Allergies Allergy/AdvReac Type Severity Reaction Status Date / Time No Known Allergies Allergy Unverified 07/12/21 09:38 Home Medications Medication Instructions Recorded Confirmed Type multivitamin 1 tab PO QAM 01/01/19 07/12/21 History aspirin 81 mg tablet,delayed 81 mg PO QAM 05/06/20 07/12/21 History release (Adult Low Dose Aspirin) allopurinol 100 mg tablet 100 mg PO TID #270 tab 01/31/21 07/12/21 Rx naproxen 500 mg tablet 500 mg PO BID PRN #14 tab 06/09/21 07/12/21 Rx ibuprofen 800 mg tablet 400 mg PO Q6H PRN 07/12/21 07/12/21 History Patient History Medical History Alcohol abuse Anxiety Gout Surgical History History of hernia repair History of wisdom tooth extraction Hx of inguinal hernia repair (1999) Family History Father Diabetes Kidney disease Mother Diabetes Denies family history of Ovarian cancer Prostate cancer Myocardial infarction Breast cancer Colorectal cancer Social History Smoking Status: Former smoker Tobacco Type: Smokeless Tobacco (Dip or Chew) Second Hand Exposure: No; Hx Alcohol Use: Yes Alcohol type: beer Hx Substance Use: Yes Last Used Substance: Hours (ago) Last Used Substance Other:: smokes marijuana this morning. has medical marijuana card. 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 Beliefs That Will Affect Care: None Current Living Situation: Spouse and Family Feels Safe at Home: Yes Assistive Devices: None Review of Systems Constitutional: no fever Eyes: no problem reported Ear, Nose, Mouth, Throat: no problem reported Respiratory: no cough and no dyspnea Cardiovascular: no chest pain, no palpitations and no edema Gastrointestinal: + abdominal pain, + nausea and + vomiting; no diarrhea/loose stools Genitourinary: no dysuria, no urinary hesitancy or no hematuria Musculoskeletal: no back pain Integumentary: no rash Neurologic: no falls, no dizziness and no confusion Physical Exam Constitutional: not in distress Eyes: PERRL, conjunctivae normal, anicteric sclerae ENMT: external ear and nose normal, oropharynx normal Neck: trachea midline, no thyromegaly Respiratory: normal respiratory effort, lungs clear to auscultation Cardiovascular: RRR, no murmur, no edema Gastrointestinal (Abdomen): Inspection/Auscultation: + abdomen distended and normal bowel sounds Percussion/Palpation: + abdomen tender and abdomen soft; no guarding Musculoskeletal: Extremities: no cyanosis Skin: no rashes, warm and dry Neurologic: awake; not confused Results & Data ([facility]) Vital Signs (Past 12 Hours) Vital Signs Temp Pulse Pulse Resp BP BP Pulse Ox 07/12/21 12:19 86 20 142/88 H 97 07/12/21 08:50 36.5 C 87 16 157/89 H 97 Laboratory Results Laboratory Tests 07/12/21 07/12/21 07/12/21 09:15 09:15 09:15 WBC 26.28 H Hgb 11.8 L Hct 33.5 L Plt Count 309 Neut % (Auto) 87.2 POC Sodium POC Potassium POC Chloride POC Total CO2 POC BUN POC Creatinine POC Glucose (other) Total Bilirubin 1.9 H AST 32 ALT 50 Alkaline Phosphatase 157 H Albumin 2.1 L Procalcitonin 15.62 H Urine Color Urine Appearance Urine pH Ur Specific [place] Urine Protein Urine Glucose (UA) Urine Blood Urine Nitrite Ur Leukocyte Esterase Urine WBC (Auto) Urine RBC (Auto) Urine Bacteria (Auto) SARS-CoV-2 (PCR) 07/12/21 07/12/21 07/12/21 09:21 09:45 10:28 WBC Hgb Hct Plt Count Neut % (Auto) POC Sodium 132 L POC Potassium 3.1 L POC Chloride 97 L POC Total CO2 22 L POC BUN 77 H POC Creatinine 8.5 H* POC Glucose (other) 114 H Total Bilirubin AST ALT Alkaline Phosphatase Albumin Procalcitonin Urine Color Dark Yellow Urine Appearance Cloudy A Urine pH 5.5 Ur Specific [place] 1.013 Urine Protein 2+ H Urine Glucose (UA) Negative Urine Blood 3+ H Urine Nitrite Positive A Ur Leukocyte Esterase 3+ H Urine WBC (Auto) >30 H Urine RBC (Auto) 10-30 H Urine Bacteria (Auto) 1+ H SARS-CoV-2 (PCR) NEGATIVE PG Care Time/CCT Total # of Minutes Spent Total Time Spent with Patient: Total time spent is greater than 50% in coordination of care (as documented) at patient's floor/unit and/or counseling patient: Coding Level of Care Code 20021 Inpt Consult Level 5 Diagnoses ARF (acute renal failure) N17.9 Pyelonephritis N12 Alcohol abuse F10.10 Hyponatremia E87.1 Abdominal pain R10.9
[2021-07-12 12:43] LABS: Hepatitis B Surf Ag Rflx Conf Neg (Neg)
--- NOTE | 2021-07-12 13:08 | Ultrasound Report ---
DOPPLER ULTRASOUND OF THE RENAL ARTERIES CLINICAL HISTORY: Acute renal failure. COMPARISON STUDY: Abdominal CT dated 07/12/2021. TECHNIQUE: Doppler sonography of the renal arteries was performed to assess renal artery stenosis. Im ages are reviewed in the transverse and longitudinal planes. FINDINGS: The kidneys appear mildly enlarged. Echotexture is normal. Right kidney measures 16.1 cm in length an d the left kidney measures 13.3 cm in length. There is no hydronephrosis. On the right, intrarenal arterial resistive indices range from 0.63 to 0.75. Intrarenal arterial wave forms are normal with brisk upstrokes. The right renal arterial waveform is normal, and velocities wi thin the right renal artery measure up to 118 cm/sec. The right renal vein is patent. On the left, intrarenal arterial resistive indices range from 0.60 to 1.0. Intrarenal arterial wavef orms are normal with brisk upstrokes. The left renal arterial waveform is normal, and velocities with in the left renal artery measure up to 119 cm/sec. The left renal vein is patent. The abdominal aorta is patent. Velocities within the abdominal aorta measure up to 115 cm/s. IMPRESSION: 1. There is no sonographic evidence of renal artery stenosis. 2. The kidneys appear enlarged and are without hydronephrosis. 3. Question mildly elevated resistive indices on the left. ACT 112: Negative or not required by law. Electronically signed by: Jose L Padilla M.D. 07/12/2021 1:07 PM
[2021-07-12 13:11] LABS: Hepatitis C IgG 13Yrs+Old_Rflx Neg (Neg)
--- NOTE | 2021-07-12 13:30 | Ultrasound Report ---
DOPPLER ULTRASOUND MESENTERIC VASCULATURE: CLINICAL HISTORY: Generalized abdominal pain. COMPARISON STUDY: Abdominal CT dated 07/12/2021. FINDINGS: Real-time grayscale and color Doppler sonography of the mesenteric vasculature is performed . The abdominal aorta is patent with velocities measure up to 93 cm/s. The superior mesenteric artery and celiac artery are widely patent. Velocities within the celiac artery measure up to 181 cm/s, and velocities within the superior mesenteric artery measure up to 175 cm/s. The splenic artery is paten t with velocities measure up to 117 cm/s. IMPRESSION: Normal Doppler assessment of the mesenteric vasculature. Dictated: 07/12/2021 1:01 PM Transcribed: 07/12/2021 1:27 PM [place] [id number] [email or web address] Electronically signed by: Jose L Padilla M.D. 07/12/2021 1:29 PM
[2021-07-12] MEDS ORDERED: ONDANSETRON INJ 2 MG/ML 2 ML VIAL IV PRN (13:44)
[2021-07-12] MEDS ORDERED: ATIVAN IV ALCOHOL WITHDRAWL IV PRN (13:44)
[2021-07-12] MEDS ORDERED: LORazepam 2 MG/4 ML VIAL IV PRN (13:44)
[2021-07-12] MEDS ORDERED: THIAMINE HCL 300 MG in SYRINGE 9 ML IV SCH (13:44)
[2021-07-12] MEDS ORDERED: LORazepam 1 MG/2 ML VIAL IV PRN (13:44)
[2021-07-12] MEDS ORDERED: LORazepam 3 MG/6 ML VIAL IV PRN (13:44)
--- NOTE | 2021-07-12 14:06 | Electrocardiogram Report ---
Test Reason : Blood Pressure : / mmHG Vent. Rate : 083 BPM Atrial Rate : 083 BPM P-R Int : 152 ms QRS Dur : 100 ms QT Int : 386 ms P-R-T Axes : 050 035 021 degrees QTc Int : 453 ms Normal sinus rhythm Normal ECG No previous ECGs available Confirmed by Frederick Castorena ([id number]) on 07/12/2021 2:05:45 PM Referred By: REFERRED SELF Confirmed By:Stephen Castorena
[2021-07-12] MEDS: FOLIC ACID 1 MG in SYRINGE 9.8 ML IV SCH (15:07)
[2021-07-12] MEDS: THIAMINE HCL 300 MG in SODIUM CHLORIDE 0.9% 50 ML IV SCH (15:07)
[2021-07-12] MEDS: NORMOSOL-R 1,000 ML IV SCH (15:08)
[2021-07-12] MEDS: ACETAMINOPHEN 325 MG TAB PO PRN (17:22)
[2021-07-12] MEDS: PIPERACILLIN/TAZOBACTAM 3.375 GM in DEXTROSE 5% 100 ML IV SCH (17:35)
[2021-07-12 18:32] LABS: BUN Creatinine Ratio 12.3 (10-20); Calcium 8.1 mg/dl (8.5-10.1); Creatinine Clr Calc Pharmacy 13.4 ml/min; Est GFR (African American) 8.7 ml/min; Est GFR (Non-African American) 7.5 ml/min; Potassium 3.4 mmol/L (3.5-5.1)
[2021-07-12] MEDS ORDERED: SODIUM CHLORIDE 0.9% 1000ML 500 ML IV ONE (18:47)
[2021-07-12] MEDS: HEPARIN SOD 5,000 UNIT/0.5 ML VIAL SQ SCH (22:00)
[2021-07-13] MEDS: NORMOSOL-R 1,000 ML IV SCH ×2 (00:14→11:11)
[2021-07-13 00:55] LABS: BUN Creatinine Ratio 11.9 (10-20); Calcium 7.9 mg/dl (8.5-10.1); Creatinine Clr Calc Pharmacy 12.9 ml/min; Est GFR (African American) 8.3 ml/min; Est GFR (Non-African American) 7.2 ml/min; Potassium 3.5 mmol/L (3.5-5.1)
[2021-07-13] MEDS: MELATONIN 3 MG TAB PO PRN ×2 (02:03→20:43)
[2021-07-13] MEDS: PIPERACILLIN/TAZOBACTAM 3.375 GM in DEXTROSE 5% 100 ML IV SCH ×2 (05:13→17:22)
[2021-07-13 05:21] LABS: Hepatitis A Antibody IgM NON-REACTIVE (NON-REACTIVE); Hepatitis B Core Antibody IgM NON-REACTIVE (NON-REACTIVE)
[2021-07-13 05:35] LABS: Hemoglobin 10.2 g/dL (14.0-18.0); Mean Corpuscular Hemoglobin 29.6 pg (25-34); Mean Corpuscular Hgb Conc 35.2 g/dL (32-36); Mean Corpuscular Volume 84.1 fL (80-100); Mean Platelet Volume 10.5 fL (7.4-10.4); Platelet Count 316 K/uL (130-400); RDW Coefficient of Variation 15.3 % (11.5-14.5); RDW Standard Deviation 47.3 fL (36.4-46.3); Red Blood Count 3.45 M/uL (4.7-6.1); White Blood Count 22.21 K/uL (4.8-10.8)
[2021-07-13 06:04] LABS: Basophils # (auto) 0.02 K/uL (0-0.2); Basophils % (auto) 0.1 %; Eosinophils # (auto) 0.04 K/uL (0-0.5); Eosinophils % (auto) 0.2 %; Immature Granulocytes # (auto) 0.37 K/uL (0.00-0.02); Immature Granulocytes % (auto) 1.7 %; Lymphocytes % (auto) 7.2 %; Monocytes # (auto) 1.07 K/uL (0.11-0.59); Monocytes % (auto) 4.8 %; Neutrophils # (auto) 19.11 K/uL (1.4-6.5)
[2021-07-13 06:18] LABS: Albumin Globulin Ratio 0.3 (0.9-2); Albumin Level 1.5 gm/dl (3.4-5.0); BUN Creatinine Ratio 12.2 (10-20); Bilirubin,Total 1.9 mg/dl (0.2-1); Calcium 7.9 mg/dl (8.5-10.1); Creatinine Clr Calc Pharmacy 12.4 ml/min; Est GFR (Non-African American) 6.9 ml/min; Globulin 4.3 gm/dl (2.5-4.0); Total Protein 5.8 gm/dl (6.4-8.2)
[2021-07-13 06:50] LABS: Potassium 3.5 mmol/L (3.5-5.1)
--- NOTE | 2021-07-13 08:41 | Hospitalist Progress Note ---
Date of Service July 13, 2021 Assessment & Plan (1) Pyelonephritis: Plan: Urine and fat stranding consistent with infection - Continue Zosyn Renal dosed for CRCL <20 - WBC elevated -- Lactate normal - Gram negative sepsis suspected - renal duplex pending (2) ARF (acute renal failure): Plan: acute kidney injury with acute tubular necrosis - sepsis, hypovolemia Cr is 8 potassium is ok bicarb slightly low - Acute rise also cocerning for other patholgy- he denies starting any other new medications - NSAID use- hold - Nephrology consulted- appreciate assistance- concern for possible vascuitis c omponent - ANCA, ERIKA, SPEP, Compliment factors, ESR pending - (3) Sepsis: Plan: As above - further evaluate abdominal pathology - Mesenteric Doppler normal - WBC elevated with NLR 11:1, PCT 15 - hemoconcentration likely as well - Pyelonephritis as above - Hemodynamically well perfused - Zosyn for now (4) Abdominal pain: Plan: As above- follow clinical assessment and imaging - currently not rigid and bowel sounds normal - imaging as above -Patient was stable and is allowed p.o. intake KUB shows focal ileus (5) Hyponatremia: Plan: Mild- hypovolemic hyponatremia - consistent with hypocholridemia, hypocalcemia, and mild hypokalemia Renal stopped IV fluids (6) Alcohol abuse: Plan: Approximately 1 week of cold turkey per the patient - AAWS protocol with Ativan at this time secondary to renal failure - Follow clinical symptoms - Thiamine IV 300 daily- with ETOH and decrease nutritional intake - Folate IV (7) Diabetes mellitus: Plan: Diet controlled per PCP visits and not on any medications at home - BG AC/HS will add sliding scale coverage if >180- currently stable (8) HTN (hypertension): Plan: Controlled not on outpatient medications - Follow (9) NSAID long-term use: Plan: Hold - was using both ibuprofen and Naproxen - PPI IV while NPO - No report of hematemesis or melena - Follow HGB/HCT Admission and Anticipated Discharge Date Admission Date: July 12, 2021 Subjective pt is calm and not tremulous, he has no direct complaints Review of Systems Review of Systems: Mild distress and fatigue no headache, no visual changes no speech or swallowing issues no chest pain, pressure or palpitations no shortness of breath, cough or wheezes no abdominal pain, nausea or vomiting, diarrhea or constipation no dysuria, hematuria or frequency no focal joint pain or swelling no back pain, CVA tenderness or radicular pain no bruising, bleeding or rashes no focal signs of weakness or numbness or altered sensation no complaints of anxiety or depression. Is admitted to the [facility] [place], [place] with alcohol withdrawal. Physical Exam Physical Exam: The patient appeared well nourished and normally developed. Vital signs as documented. Head exam is normocephalic atraumatic Neck is without JVD, thyromegaly, or carotid bruits. Lungs are clear to auscultation, no focal loss of breath sounds Cardiac exam, Rhythm is regular.. No murmurs, rubs or gallops. Abdominal exam reveals normal bowel sounds, soft non tender, no masses Extremities are nonedematous and both pedal pulses are present Neurologic exam is alert and oriented, no focal loss of strength or sensation Skin is without bruises or rashes Psychologically is without concerns for anxiety or depression Results & Data Results & Data ([facility]) Vital Signs (Past 12 Hours) Vital Signs Temp Pulse Pulse Resp BP Pulse Ox 07/13/21 04:17 98.1 F 78 22 166/87 H 93 07/13/21 01:04 94 H PG Care Time/CCT Total # of Minutes Spent Total Time Spent with Patient: Total time spent is greater than 50% in coordination of care (as documented) at patient's floor/unit and/or counseling patient: Coding Level of Care Code 77513 Subseq Hosp Care Lvl 3 Diagnoses Pyelonephritis N12 ARF (acute renal failure) N17.9 Sepsis A41.9 Abdominal pain R10.9 Hyponatremia E87.1 Alcohol abuse F10.10 Diabetes mellitus E11.9 HTN (hypertension) I10 NSAID long-term use Z79.1
[2021-07-13] MEDS: ASPIRIN 81 MG ECTAB PO SCH (08:52)
[2021-07-13] MEDS: DOCUSATE SODIUM/SENNA 50/8.6MG TAB PO SCH (08:52)
[2021-07-13] MEDS: FOLIC ACID 1 MG in SYRINGE 9.8 ML IV SCH (08:53)
[2021-07-13] MEDS: HEPARIN SOD 5,000 UNIT/0.5 ML VIAL SQ SCH ×2 (08:53→20:41)
[2021-07-13] MEDS: THIAMINE HCL 300 MG in SODIUM CHLORIDE 0.9% 50 ML IV SCH (08:53)
--- NOTE | 2021-07-13 10:27 | Nephrology Progress Note ---
Date of Service July 13, 2021 Assessment & Plan (1) ARF (acute renal failure): Plan: * OXANA likely due to gram negative bacteremia and dehydration in the setting of NSAID therapy * Hold Ibuprofen * Stop IVF, encourage oral hydration * Noncontrast abdominal CT today negative for hydronephrosis. * Renal artery doppler was negative for HERNANDEZ * Difficult to interpret urine microscopy results due to possible infection * ERIKA, ANCA, Complement, antiGBM - pending * COVID, Hep B, Hep C - negative * Nonoliguric. Electrolyte balance is acceptable. No acute indication for HD today * Monitor UO, PRP (2) Pyelonephritis: Plan: * Leukocytosis w/ L shift, urinalysis and abdominal CT suggestive of pyelonephritis * Blood cx + for gram negative bacilli. Urine cx is pending * Agree w/ IV Zosyn therapy (3) Hyponatremia: Plan: * Mild, asymptomatic * Likely related to dehydration, OXANA (4) Alcohol abuse: Plan: * MVI, B12, folate administered by primary service (5) Abdominal pain: Plan: * Possible gastritis from alcohol abuse * Mildly elevated alk phos and total bili. Normal AST/ALT * Abd CT - hepatic steatosis, no biliary dilation. Bowel negative for diverticulitis. No dilated loops of bowel * Mesenteric US negative for vascular stenotic lesion Admission and Anticipated Discharge Date Admission Date: July 12, 2021 Subjective Mr. Stern was seen and examined in his hospital room this morning. He reports that his abdomen is less distended and less tender. He is tolerating his diet and keeping down liquids. Review of Systems Constitutional: no fever Eyes: no problem reported Ear, Nose, Mouth, Throat: no problem reported Respiratory: no cough and no dyspnea Cardiovascular: no chest pain, no palpitations and no edema Gastrointestinal: + abdominal pain; no diarrhea/loose stools Genitourinary: no dysuria, no urinary hesitancy or no hematuria Musculoskeletal: no back pain Integumentary: no rash Neurologic: no falls, no dizziness and no confusion Physical Exam Constitutional: not in distress Eyes: PERRL, conjunctivae normal, anicteric sclerae ENMT: external ear and nose normal, oropharynx normal Neck: trachea midline, no thyromegaly Respiratory: normal respiratory effort, lungs clear to auscultation Cardiovascular: RRR, no murmur, no edema Gastrointestinal (Abdomen): Inspection/Auscultation: + hypoactive bowel sounds Percussion/Palpation: + abdomen tender and abdomen soft; no guarding Musculoskeletal: Extremities: no cyanosis Skin: no rashes, warm and dry Neurologic: awake; not confused Results & Data ([facility]) Vital Signs (Past 12 Hours) Vital Signs Temp Pulse Pulse Resp BP BP Pulse Ox 07/13/21 09:03 77 16 148/85 H 95 07/13/21 04:17 36.7 C 78 22 166/87 H 93 07/13/21 01:04 94 H Laboratory Results Laboratory Tests 07/12/21 07/12/21 07/13/21 10:28 11:22 05:18 WBC 22.21 H Hgb 10.2 L Hct 29.0 L Plt Count 316 INR 1.1 Sodium Potassium Chloride Carbon Dioxide BUN Creatinine Glucose Calcium Total Bilirubin Urine Color Dark Yellow Urine Appearance Cloudy A Urine pH 5.5 Ur Specific [place] 1.013 Urine Protein 2+ H Urine Glucose (UA) Negative Urine Blood 3+ H Urine Nitrite Positive A Ur Leukocyte Esterase 3+ H Urine WBC (Auto) >30 H Urine RBC (Auto) 10-30 H Urine Bacteria (Auto) 1+ H 07/13/21 05:18 WBC Hgb Hct Plt Count INR Sodium 132 L Potassium 3.5 Chloride 99 Carbon Dioxide 20 L BUN 100 H Creatinine 8.19 H* Glucose 113 H Calcium 7.9 L Total Bilirubin 1.9 H Urine Color Urine Appearance Urine pH Ur Specific [place] Urine Protein Urine Glucose (UA) Urine Blood Urine Nitrite Ur Leukocyte Esterase Urine WBC (Auto) Urine RBC (Auto) Urine Bacteria (Auto) PG Care Time/CCT Total # of Minutes Spent Total Time Spent with Patient: Total time spent is greater than 50% in coordination of care (as documented) at patient's floor/unit and/or counseling patient: Coding Level of Care Code 73246 Subseq Hosp Care Lvl 3 Diagnoses ARF (acute renal failure) N17.9 Pyelonephritis N12 Hyponatremia E87.1 Alcohol abuse F10.10 Abdominal pain R10.9
[2021-07-13] MEDS: PANTOprazole 40 MG in SYRINGE 0 ML IV SCH (12:16)
--- NOTE | 2021-07-13 14:24 | XRay Report ---
XR KUB/Abdomen 1 view CLINICAL HISTORY: evaluate for ileus COMPARISON STUDY: No previous studies for comparison. Correlation is made with CT of abdomen and pel vis performed on July 12, 2021 FINDINGS: There are multiple gas-filled loops of small and large bowel are seen throughout the abdomen. Few loo ps of small bowel within left hemiabdomen are slightly dilated measuring up to 3.9 cm in diameter. Gas-filled nondilated loops of large bowel are seen within pelvic region. Distal aspect of the urinary catheter is seen within pelvic region. IMPRESSION: 1. Few adjacent slightly dilated loops of small bowel . Gas filled loops of large bowel within pelv ic region. Above-mentioned findings might represent focal ileus due to adjacent area of inflammatory changes within the abdomen, possibly within the kidney that was seen on recent CT of abdomen and pelv is. Continued follow-up is suggested. ACT 112: Negative or not required by law. The above report was generated using voice recognition software. It may contain grammatical, syntax o r spelling errors. Electronically signed by: Grace Osman DO 07/13/2021 2:23 PM
--- NOTE | 2021-07-13 15:19 | Urology Consultation ---
Date of Consultation July 13, 2021 Assessment & Plan (1) Pyelonephritis: (2) Sepsis: (3) ARF (acute renal failure): 51 year-old male patient, with multiple comorbidities, admitted for sepsis, acute pyelonephritis, and acute renal failure. - Plan of care reviewed with Dr. Esteban, urologist operations staff specialist security. - Patient currently afebrile. - Lab work reviewed - wbc elevated at 22.21, creatinine 8.19. - Urine culture prelim E. coli, 2/2 BCx gram negative bacilli x 24 hours. - On IV Zosyn - follow cultures. - CTAP notable for fat stranding surrounding bilateral kidneys, left greater than right. Mild enlargement of the left kidney. No hydronephrosis or nephrolithiasis. - No acute intervention at this time. - Recommend maintaining rutherford catheter. - Continue antibiotics, supportive care, and management per primary service/nephrology. - Consider starting Tamsulosin for BPH. - Will continue to follow while inpatient. History of Present Illness Reason for Consultation: pyelonephritis, OXANA, bladder outlet obstruction Requesting Physician: Dr. Puente Attending Physician: Raoul Combs MD History of Present Illness 51 year-old male patient, with past medical history significant for long-term NSAIDs use, hypertension, anxiety, gout, diabetes mellitus, alcohol use, and other comorbidities listed below, presented to the emergency room on 07/12 with complaints of abdominal pain and distention. Patient reported that he recently quit drinking alcohol this past Saturday - reported to be drinking about 15 beers per day prior to this. He then lost his appetite and started to have dry heaves, with vomiting of yellow bilious emesis. He then developed diarrhea and decreased urine output. In the ER, he was afebrile on arrival, lab work showed leukocytosis of 26.28, creatinine 7.73, Hgb 11.8, Lactate 0.5. Urinalysis showed 3+ leukocytes, >30 WBCs, 10-30 RBCs, 1+ Bacteria, and positive for nitrates. Urine and blood cultures obtained. ED treatment included IV fluids, parenteral electrolytes, Morphine, Zosyn, Ondansetron, Folic acid, and Thiamine. He was admitted to hospital service. Urology consulted for pyelonephritis, OXANA, and bladder outlet obstruction. Patient has not followed with urology in the past. Chart review: Afebrile Wbc 22.21 Hgb 10.2 Creatinine 8.19 Preliminary urine culture positive for E.Coli - sensitivities to follow. Preliminary blood cultures positive for gram negative bacilli x2. Patient is currently on IV Zosyn. Rutherford catheter inserted 07/12 without difficulty. Imaging: CT abd/pelvis without contrast - IMPRESSION: 1. Interval development of fat stranding surrounding bilateral kidneys, more prominent on the left. Mild enlargement of the left kidney. No evidence of hydronephrosis or nephrolithiasis. Findings are concerning for inflammatory process such as pyelonephritis. Evaluation is limited due to lack of IV contrast. 2. Hepatic steatosis. Hepatomegaly. 3. Atherosclerosis, too prominent for patient's age group. 4. Normal appendix. Nondilated loops of bowel. KUB - IMPRESSION: 1. Few adjacent slightly dilated loops of small bowel. Gas filled loops of large bowel within pelvic region. Above-mentioned findings might represent focal ileus due to adjacent area of inflammatory changes within the abdomen, possibly within the kidney that was seen on recent CT of abdomen and pelvis. Continued follow-up is suggested. Patient seen and examined at bedside. He is awake, alert, and comfortable. Does report he is feeling slightly better since yesterday however still does not feel at his baseline. He is tolerating his rutherford catheter well. Denies dysuria or hematuria. Prior to catheter insertion, was experiencing dysuria and decreased urine output. He notes he was having a significant amount of urinary frequency/urgency prior to feeling ill. Nocturia at baseline is 6-8 time per night. Does not always feel he empties his bladder fully. Prior to presenting to ER, he did experience bilateral flank pain. No current flank pain. Did not always feel he was emptying his bladder. Currently he states his abdomen is tender. Denies nausea or vomiting. Denies fevers or chills. Denies additional urologic concerns today. Allergies Allergy/AdvReac Type Severity Reaction Status Date / Time No Known Allergies Allergy Unverified 07/12/21 09:38 Home Medications Medication Instructions Recorded Confirmed Type multivitamin 1 tab PO QAM 01/01/19 07/12/21 History aspirin 81 mg tablet,delayed 81 mg PO QAM 05/06/20 07/12/21 History release (Adult Low Dose Aspirin) allopurinol 100 mg tablet 100 mg PO TID #270 tab 01/31/21 07/12/21 Rx naproxen 500 mg tablet 500 mg PO BID PRN #14 tab 06/09/21 07/12/21 Rx ibuprofen 800 mg tablet 400 mg PO Q6H PRN 07/12/21 07/12/21 History Patient History Medical History Alcohol abuse Anxiety Gout Surgical History History of hernia repair History of wisdom tooth extraction Hx of inguinal hernia repair (1999) Family History Father Diabetes Kidney disease Mother Diabetes Denies family history of Ovarian cancer Prostate cancer Myocardial infarction Breast cancer Colorectal cancer Social History Smoking Status: Former smoker Tobacco Type: Smokeless Tobacco (Dip or Chew) Second Hand Exposure: No; Hx Alcohol Use: Yes Alcohol type: beer Hx Substance Use: Yes Last Used Substance: Hours (ago) Last Used Substance Other:: smokes marijuana this morning. has medical marijuana card. Communication Ability: Effective Anode Adjuster Required: No Beliefs That Will Affect Care: None Current Living Situation: Spouse and Family Feels Safe at Home: Yes Assistive Devices: None Review of Systems Constitutional: as per Subjective / HPI; no fever and no chills Eyes: no problem reported Respiratory: + cough; no dyspnea Cardiovascular: no chest pain and no edema Gastrointestinal: as per Subjective / HPI Genitourinary: + as per Subjective / HPI Musculoskeletal: as per Subjective / HPI Neurologic: no dizziness Endocrine: + fatigue Hematologic / Lymphatic: no easy bleeding and no easy bruising Physical Exam Constitutional: well developed and well nourished; no acute distress and not ill appearing ENMT: Ears: no external ear abnormality Nose: no external nose abnormality Neck: normal visual inspection and trachea midline Respiratory: normal respiratory effort and able to speak in complete sentences; no respiratory distress and no audible wheezes Cardiovascular: Extremities: no calf tenderness and no edema Gastrointestinal (Abdomen): Inspection/Auscultation: + abdomen distended Percussion/Palpation: + abdomen tender (Mild generalized tenderness) and + abdomen firm (Mildly firm); no guarding Musculoskeletal: Moves all extremities without difficulty. Skin: No visible rashes, lesions, or wounds noted. Neurologic: moves all extremities and awake Psychiatric: Orientation: alert, oriented x 3 and cooperative Affect: euthymic affect Genitourinary: no CVA tenderness Rutherford catheter intact, draining cloudy yellow urine with sediment. Results & Data ([facility]) Vital Signs (Past 12 Hours) Vital Signs Temp Pulse Pulse Resp BP BP Pulse Ox 07/13/21 12:20 36.5 C 84 21 157/84 H 95 07/13/21 09:03 77 16 148/85 H 95 07/13/21 04:17 36.7 C 78 22 166/87 H 93 PG Care Time/CCT Total # of Minutes Spent Total Time Spent with Patient: Total time spent is greater than 50% in coordination of care (as documented) at patient's floor/unit and/or counseling patient: Coding Level of Care Code 46840 Inpt Consult Level 4 Diagnoses Pyelonephritis N12 Sepsis A41.9 ARF (acute renal failure) N17.9
--- NOTE | 2021-07-13 19:39 | Billing Data ---
Date of Service July 13, 2021 Coding Level of Care Code 08011 Initial Inpt Care Lvl 3
[2021-07-13] MEDS: ACETAMINOPHEN 325 MG TAB PO PRN (20:39)
[2021-07-14 05:33] LABS: Hematocrit (blood only) 30.9 % (42-52); Hemoglobin 10.9 g/dL (14.0-18.0); Mean Corpuscular Hemoglobin 29.7 pg (25-34); Mean Corpuscular Hgb Conc 35.3 g/dL (32-36); Mean Corpuscular Volume 84.2 fL (80-100); Platelet Count 417 K/uL (130-400); RDW Coefficient of Variation 15.3 % (11.5-14.5); RDW Standard Deviation 47.5 fL (36.4-46.3); Red Blood Count 3.67 M/uL (4.7-6.1)
[2021-07-14 06:01] LABS: Calcium 8.6 mg/dl (8.5-10.1); Creatinine Clr Calc Pharmacy 10.8 ml/min; Est GFR (African American) 6.7 ml/min; Est GFR (Non-African American) 5.8 ml/min; Potassium 3.6 mmol/L (3.5-5.1)
[2021-07-14] MEDS: PIPERACILLIN/TAZOBACTAM 3.375 GM in DEXTROSE 5% 100 ML IV SCH (06:16)
--- NOTE | 2021-07-14 07:41 | Hospitalist Progress Note ---
Date of Service July 14, 2021 Assessment & Plan (1) Pyelonephritis: Plan: Urine and fat stranding consistent with infection - De Escalate to Ceftriaxone - WBC remains elevated - renal duplex negative for HERNANDEZ (2) ARF (acute renal failure): Plan: As above- sepsis, hypovolemia, maybe obstructive uropathy - NSAID use- hold - Nephrology consulted- appreciate assistance- concern for possible vascuitis component - ANCA, ERIKA, SPEP, Compliment factors, unfortuantely his BUN/Cr have worsened, still not volume overloaded, nephrology is content to watch and linda at this time but openly discussing dialysis with patient (3) Sepsis: Plan: As above - further evaluate abdominal pathology - Mesenteric Doppler pending rule out bowel ischemia- no perforation or pneumatosis on CT scan although without contrast - WBC elevated with NLR 11:1, PCT 15 - hemoconcentration likely as well - Pyelonephritis - Hemodynamically remains well perfused (4) Abdominal pain: Plan: generalized and continues - ileus likley metabolic from renal failure - currently not rigid and bowel sounds normal -allowing po intake (5) Hyponatremia: Plan: Mild- hypovolemic hyponatremia - consistent with hypocholridemia, hypocalcemia, and mild hypokalemia - (6) Alcohol abuse: Plan: Approximately 1 week of cold turkey per the patient - AAWS protocol with Ativan at this time secondary to renal failure - Thiamine IV 300 daily- with ETOH and decrease nutritional intake - Folate IV (7) Diabetes mellitus: Plan: Diet controlled per PCP visits and not on any medications at home - BG AC/HS will add sliding scale coverage if >180- currently stable (8) HTN (hypertension): Plan: Controlled not on outpatient medications, maybe associated with his withdrawal - Follow (9) NSAID long-term use: Plan: Hold - was using both ibuprofen and Naproxen - PPI IV while NPO - No report of hematemesis or melena - Follow HGB/HCT Admission and Anticipated Discharge Date Admission Date: July 12, 2021 Subjective pt is calm and not tremulous, he has no direct complaints, unfortunately his labs look worse, his wbc remains elevated has ecoli in blood and urine Review of Systems Review of Systems: Mild distress and fatigue no headache, no visual changes no speech or swallowing issues no chest pain, pressure or palpitations no shortness of breath, cough or wheezes no abdominal pain, nausea or vomiting, diarrhea or constipation no dysuria, hematuria or frequency no focal joint pain or swelling no back pain, CVA tenderness or radicular pain no bruising, bleeding or rashes no focal signs of weakness or numbness or altered sensation no complaints of anxiety or depression. Is [place] [facility] [place] withdrawal. Physical Exam Physical Exam: The patient appeared well nourished and normally developed. Vital signs as documented. Head exam is normocephalic atraumatic Neck is without JVD, thyromegaly, or carotid bruits. Lungs are clear to auscultation, no focal loss of breath sounds Cardiac exam, Rhythm is regular.. No murmurs, rubs or gallops. Abdominal exam reveals normal bowel sounds, soft non tender, no masses Extremities are nonedematous and both pedal pulses are present Neurologic exam is alert and oriented, no focal loss of strength or sensation Skin is without bruises or rashes Psychologically is without concerns for anxiety or depression Results & Data Results & Data ([facility]) Vital Signs (Past 12 Hours) Vital Signs Temp Pulse Pulse Resp BP BP Pulse Ox 07/14/21 04:44 98.2 F 81 18 146/89 H 95 07/13/21 23:44 81 22 142/88 H 94 07/13/21 20:44 98.4 F 86 20 163/87 H 94 PG Care Time/CCT Total # of Minutes Spent Total Time Spent with Patient: Total time spent is greater than 50% in coordination of care (as documented) at patient's floor/unit and/or counseling patient: Coding Level of Care Code 51619 Subseq Hosp Care Lvl 3 Diagnoses Pyelonephritis N12 ARF (acute renal failure) N17.9 Sepsis A41.9 Abdominal pain R10.9 Hyponatremia E87.1 Alcohol abuse F10.10 Diabetes mellitus E11.9 HTN (hypertension) I10 NSAID long-term use Z79.1
--- NOTE | 2021-07-14 07:48 | Urology Progress Note ---
Date of Service July 14, 2021 Assessment & Plan (1) Pyelonephritis: (2) Sepsis: (3) ARF (acute renal failure): Plan: 51 year-old male patient, with multiple comorbidities, admitted for sepsis, acute pyelonephritis, and acute renal failure. - Plan of care reviewed with Dr. Reis. - Patient currently afebrile. - Labs reviewed - white count elevated at 22.0, creatinine increased to 9.41. - Preliminary urine culture with pansensitive E.Coli. - Preliminary blood cultures also E.Coli positive. - Imaging reviewed - CT abd/pelvis notable for fat stranding surrounding bilateral kidneys, left greater than right. Mild enlargement of the left kidney. No hydronephrosis or nephrolithiasis. - No acute intervention indicated at this time. - Recommend maintaining rutherford catheter. - Continue antibiotics, supportive care, and management per primary service/n ephrology. - Will continue to follow clinical progress while inpatient. Admission and Anticipated Discharge Date Admission Date: July 12, 2021 Subjective Patient examined this AM, resting comfortably. Reports he feels "weird" this AM. He cannot describe specific symptoms of why he feels "weird". Reports mild tenderness to left flank and abdomen. Tolerating rutherford catheter, draining cloudy yellow urine with sediment. Denies dysuria or hematuria. Denies fevers or chills. Denies nausea or vomiting. Chart review: Afebrile Wbc 22.00 (previously 22.21) Hgb 10.9 Creatinine 9.41 (previously 8.19) Preliminary urine culture with pansensitive E.Coli. Preliminary blood cultures with E.Coli and gram negative bacilli. Patient currently on IV Zosyn. Denies additional urologic concerns today. Review of Systems Constitutional: as per Subjective / HPI; no fever and no chills Gastrointestinal: as per Subjective / HPI; no nausea and no vomiting Genitourinary: + as per Subjective / HPI Physical Exam Constitutional: well developed and well nourished; no acute distress and not ill appearing Respiratory: normal respiratory effort and able to speak in complete sentences; no respiratory distress and no audible wheezes Gastrointestinal (Abdomen): Inspection/Auscultation: + abdomen distended Percussion/Palpation: + abdomen tender (Mild diffuse tenderenss to palpation) and + abdomen firm (Mildly firm); no guarding Psychiatric: Orientation: alert, oriented x 3 and cooperative Affect: euthymic affect Genitourinary: + CVA tenderness (Mild tenderness to left flank on palpation) Rutherford catheter intact, draining cloudy yellow urine with sediment. Results & Data ([facility]) Vital Signs (Past 12 Hours) Vital Signs Temp Pulse Pulse Resp BP BP Pulse Ox 07/14/21 04:44 36.8 C 81 18 146/89 H 95 07/13/21 23:44 81 22 142/88 H 94 07/13/21 20:44 36.9 C 86 20 163/87 H 94 PG Care Time/CCT Total # of Minutes Spent Total Time Spent with Patient: Total time spent is greater than 50% in coordination of care (as documented) at patient's floor/unit and/or counseling patient: Coding Level of Care Code 04560 Subseq Hosp Care Lvl 2 Diagnoses Pyelonephritis N12 Sepsis A41.9 ARF (acute renal failure) N17.9
[2021-07-14] MEDS: ASPIRIN 81 MG ECTAB PO SCH (08:22)
[2021-07-14] MEDS: FOLIC ACID 1 MG in SYRINGE 9.8 ML IV SCH (08:22)
[2021-07-14] MEDS: DOCUSATE SODIUM/SENNA 50/8.6MG TAB PO SCH (08:23)
[2021-07-14] MEDS: HEPARIN SOD 5,000 UNIT/0.5 ML VIAL SQ SCH ×2 (10:13→21:40)
[2021-07-14] MEDS: THIAMINE HCL 300 MG in SODIUM CHLORIDE 0.9% 50 ML IV SCH (10:13)
--- NOTE | 2021-07-14 11:43 | Nephrology Progress Note ---
Date of Service July 14, 2021 Assessment & Plan (1) ARF (acute renal failure): Plan: * OXANA likely due to E. Coli urosepsis in the setting of dehydration and NSAID therapy * Hold Ibuprofen * Encourage oral hydration * Renal artery doppler was negative for HERNANDEZ * Difficult to interpret urine microscopy results due to possible infection * ERIKA, ANCA, Complement, antiGBM - pending * COVID, Hep B, Hep C - negative * Luciano catheter in place. Patient had 2.3 L UO last 24 hours. Although creatinine continues to increase, volume status and electrolyte balance remain acceptable. No acute indication for HD today. Expect kidney function to stabilize within next 24 - 48 hours while on antibiotic therapy. If not, then temporary dialysis catheter may need to be placed and HD started. Discussed POC w/ patient today. He voiced understanding * Keep Luciano catheter in, monitor UO & PRP * Urology has been consulted due to BYERS. When kidney function recovers, patient will likely need voiding trial and evaluation of prostate (2) Pyelonephritis: Plan: * Leukocytosis w/ L shift, urinalysis and abdominal CT suggestive of pyelonephritis * Blood cx and urine cultures are + for pansensitive E. Coli * Agree w/ IV Zosyn therapy. Will ask pharmacy to assist w/ dosing in the setting of advanced OXANA (3) Hyponatremia: Plan: * Mild, asymptomatic * Likely related to dehydration, OXANA (4) Alcohol abuse: Plan: * MVI, B12, folate administered by primary service (5) Abdominal pain: Plan: * Possible gastritis from alcohol abuse and ileus related to pyelonephritis * Mildly elevated alk phos and total bili. Normal AST/ALT * Abd CT - hepatic steatosis, no biliary dilation. Bowel negative for diverticulitis. No dilated loops of bowel * Mesenteric US negative for vascular stenotic lesion * KUB 07/13/21 with mild ileus Admission and Anticipated Discharge Date Admission Date: July 12, 2021 Subjective Mr. Stern was seen and examined in his hospital room this morning. He reports that his abdomen is less distended and less tender. He is tolerating his diet and keeping down liquids. This morning he was able to get up to a chair. Review of Systems Constitutional: no fever Eyes: no problem reported Ear, Nose, Mouth, Throat: no problem reported Respiratory: no cough and no dyspnea Cardiovascular: no chest pain, no palpitations and no edema Gastrointestinal: + abdominal pain; no diarrhea/loose stools Genitourinary: no dysuria, no urinary hesitancy or no hematuria Musculoskeletal: no back pain Integumentary: no rash Neurologic: no falls, no dizziness and no confusion Physical Exam Constitutional: not in distress Eyes: PERRL, conjunctivae normal, anicteric sclerae ENMT: external ear and nose normal, oropharynx normal Neck: trachea midline, no thyromegaly Respiratory: normal respiratory effort, lungs clear to auscultation Cardiovascular: RRR, no murmur, no edema Gastrointestinal (Abdomen): Inspection/Auscultation: + hypoactive bowel sounds Percussion/Palpation: + abdomen tender and abdomen soft; no guarding Musculoskeletal: Extremities: no cyanosis Skin: no rashes, warm and dry Neurologic: awake; not confused Results & Data ([facility]) Vital Signs (Past 12 Hours) Vital Signs Temp Pulse Pulse Resp BP BP Pulse Ox 07/14/21 08:00 36.9 C 83 20 144/80 H 94 07/14/21 04:44 36.8 C 81 18 146/89 H 95 07/13/21 23:44 81 22 142/88 H 94 Laboratory Results Laboratory Tests 07/14/21 07/14/21 05:24 05:24 WBC 22.00 H Hgb 10.9 L Hct 30.9 L Plt Count 417 H Sodium 133 L Potassium 3.6 Chloride 99 Carbon Dioxide 20 L BUN 112 H Creatinine 9.41 H* D Glucose 94 Calcium 8.6 PG Care Time/CCT Total # of Minutes Spent Total Time Spent with Patient: Total time spent is greater than 50% in coordination of care (as documented) at patient's floor/unit and/or counseling patient: Coding Level of Care Code 09379 Subseq Hosp Care Lvl 3 Diagnoses ARF (acute renal failure) N17.9 Pyelonephritis N12 Hyponatremia E87.1 Alcohol abuse F10.10 Abdominal pain R10.9
[2021-07-14] MEDS ORDERED: PIPERACILL/TAZOBAC CONSULT ACTIVE PRN (11:51)
[2021-07-14] MEDS: PANTOprazole 40 MG in SYRINGE 0 ML IV SCH (12:42)
[2021-07-14] MEDS: cefTRIAXone SODIUM 2,000 MG in DEXTROSE 5% 50 ML IV SCH (14:55)
[2021-07-14 14:56] LABS: Appearance Urine Turbid (Clear); Bacteria Urine Automated Negative (Negative); Bilirubin Urine Negative (Negative); Blood Urine 3+ (Negative); Color Urine Yellow; Epithelial Cell Urine Auto >30 /lpf (0-5); Glucose Urine UA Negative (Negative); Ketones Urine Negative (Negative); Leukocyte Esterase Urine 3+ (Negative); Nitrite Urine Negative (Negative); Protein Urine 1+ (Negative); Specific Gravity Urine 1.009 (1.000-1.030); Urobilinogen Urine Negative (Negative); WBC Urine Automated >30 /hpf (0-5)
[2021-07-14 15:11] LABS: Cast Urine Automated 0 /lpf (0-5)
[2021-07-14] MEDS ORDERED: MoRPHine SULFATE 2 MG/ML CARP IV PRN (16:05)
[2021-07-14] MEDS: oxyCODONE HCL IR 5 MG TAB (IMMEDIATE RELEASE) PO PRN (17:08)
[2021-07-14] MEDS: MELATONIN 3 MG TAB PO PRN (21:40)
[2021-07-15] MEDS: oxyCODONE HCL IR 5 MG TAB (IMMEDIATE RELEASE) PO PRN ×2 (00:13→19:43)
[2021-07-15 07:14] LABS: Albumin Level 1.6 gm/dl (3.4-5.0); Calcium 8.7 mg/dl (8.5-10.1); Creatinine Clr Calc Pharmacy 11.5 ml/min; Est GFR (African American) 7.1 ml/min; Est GFR (Non-African American) 6.1 ml/min; Phosphorus 7.5 mg/dl (2.5-4.9); Potassium 3.8 mmol/L (3.5-5.1)
[2021-07-15] MEDS: DOCUSATE SODIUM/SENNA 50/8.6MG TAB PO SCH (07:51)
[2021-07-15] MEDS: FOLIC ACID 1 MG in SYRINGE 9.8 ML IV SCH (08:01)
[2021-07-15] MEDS: ASPIRIN 81 MG ECTAB PO SCH (08:01)
[2021-07-15] MEDS: HEPARIN SOD 5,000 UNIT/0.5 ML VIAL SQ SCH ×2 (08:01→21:12)
[2021-07-15] MEDS: THIAMINE HCL 300 MG in SODIUM CHLORIDE 0.9% 50 ML IV SCH (08:07)
--- NOTE | 2021-07-15 10:57 | Urology Progress Note ---
Date of Service July 15, 2021 Assessment & Plan (1) Pyelonephritis: (2) ARF (acute renal failure): (3) Sepsis: Plan: ARF; Pyelo (e. coli) Overall seems to be improving Has so far avoided dialysis His creatinine actually crusted and is slightly decreased today He continues to make a decent quantity of urine which remains relatively clear He is currently afebrile and hemodynamically stable He remains on Zosyn I hope that he will remain off of dialysis and show continued improvement in renal function with each day of his admission For the time being I think it is best to maintain the catheter but no other interventions indicated at this stage Once his kidney function is resolved entirely and he is ambulatory and feeling well, it would be appropriate to offer a voiding trial Admission and Anticipated Discharge Date Admission Date: July 12, 2021 Subjective Subjectively reports that he is gradually improving Has some abdominal and back pain but less each day Still making good urine He has been up moving around within the room He denies any catheter related bother Physical Exam Physical Exam: No CVA tenderness to palpation Urine clear with a few very tiny flecks of clot Constitutional: well developed and well nourished Respiratory: no respiratory distress Cardiovascular: Extremities: no pedal edema Gastrointestinal (Abdomen): Inspection/Auscultation: abdomen normal to inspection Results & Data ([facility]) Vital Signs (Past 12 Hours) Vital Signs Temp Pulse Pulse Resp BP BP Pulse Ox 07/15/21 08:15 36.6 C 81 16 162/84 H 96 07/15/21 08:00 89 07/15/21 04:15 37.2 C 80 18 152/75 H 94 07/15/21 00:42 83 07/15/21 00:00 36.5 C 84 18 169/53 H 97 PG Care Time/CCT Total # of Minutes Spent Total Time Spent with Patient: Total time spent is greater than 50% in coordination of care (as documented) at patient's floor/unit and/or counseling patient: Coding Level of Care Code 11513 Subseq Hosp Care Lvl 2 Diagnoses Pyelonephritis N12 ARF (acute renal failure) N17.9 Sepsis A41.9
[2021-07-15] MEDS: PANTOprazole 40 MG in SYRINGE 0 ML IV SCH (11:27)
[2021-07-15] MEDS: MoRPHine SULFATE 4 MG/ML 1 ML CARP\\VIAL IV PRN ×3 (12:24→23:49)
--- NOTE | 2021-07-15 12:24 | Nephrology Progress Note ---
Date of Service July 15, 2021 Assessment & Plan (1) ARF (acute renal failure): (2) Pyelonephritis: (3) Sepsis: (4) HTN (hypertension): Plan: 51-year-old male presented with 3 days history of nausea, vomiting, abdominal did distension and worsening back and abdominal pain. he usually drinks 15 beers per day which she stopped 4 days before his symptoms started. Also has been taking ibuprofen 3 times a day at least for last 2 years. On admission he was found to have E coli urosepsis and bacteremia as well as pyelonephritis and acute kidney injury. No prior history of CKD. Urinalysis was positive for hematuria, proteinuria, pyuria and bacteriuria. Imaging showed possible pyelonephritis but no postrenal obstruction. Renal function progressively worsen and creatinine peaked to 9.5 on 07/14/2021. He remained non oliguric. Creatinine slightly improved to 9.0 today, potassium normal. Blood pressure slightly elevated however volume status acceptable. No significant uremic symptoms. -- continue to monitor renal function and electrolyte while waiting for serology. No indication for renal replacement therapy at this time as volume status acceptable, no sign of respiratory distress, potassium normal and has been voiding normally. -- Encouraged to keep well hydrated to maintain positive balance -- dose medications for GFR less than 10, avoid NSAIDs and all other nephrotoxic medications. Will follow Admission and Anticipated Discharge Date Admission Date: July 12, 2021 Subjective Osvaldo was seen and evaluated in his room this morning. He continues to have abdominal pain and back pain but denies shortness of breath or chest pain. Feels overall slightly better than the with the he presented. Renal function so mewhat stable without significant improvement with some electrolyte abnormality. Has been voiding normally. Blood pressure slightly elevated. Review of Systems Review of Systems: Detailed review of system otherwise unremarkable. Physical Exam Constitutional: + ill appearing; no acute distress Respiratory: normal respiratory effort, lungs clear to auscultation Cardiovascular: RRR, no murmur, no edema Neurologic: moves all extremities and awake; not confused Psychiatric: A+Ox3, euthymic affect Results & Data ([facility]) Vital Signs (Past 12 Hours) Vital Signs Temp Pulse Pulse Resp BP BP Pulse Ox 07/15/21 08:15 36.6 C 81 16 162/84 H 96 07/15/21 08:00 89 08/14/21 04:15 37.2 C 80 18 152/75 H 94 07/15/21 00:42 83 PG Care Time/CCT Total # of Minutes Spent Total Time Spent with Patient: Total time spent is greater than 50% in coordination of care (as documented) at patient's floor/unit and/or counseling patient: Coding Level of Care Code 08684 Subseq Hosp Care Lvl 3 Diagnoses ARF (acute renal failure) N17.9 Pyelonephritis N12 Sepsis A41.9 HTN (hypertension) I10
[2021-07-15] MEDS: cefTRIAXone SODIUM 2,000 MG in DEXTROSE 5% 50 ML IV SCH (15:16)
[2021-07-15] MEDS: ACETAMINOPHEN 325 MG TAB PO PRN (15:56)
--- NOTE | 2021-07-15 19:04 | Hospitalist Progress Note ---
Date of Service July 15, 2021 Assessment & Plan (1) Pyelonephritis: Plan: Urine and fat stranding consistent with infection - De Escalate to Ceftriaxone - WBC remains elevated - renal duplex negative for HERNANDEZ (2) ARF (acute renal failure): Plan: As above- sepsis, hypovolemia, maybe obstructive uropathy - NSAID use- hold - Nephrology consulted- appreciate assistance- concern for possible vascuitis component - ANCA, ERIKA, SPEP, Compliment factors, unfortuantely his BUN/Cr have worsened, still not volume overloaded, nephrology is content to watch and linda at this time but openly discussing dialysis with patient (3) Sepsis: Plan: As above - further evaluate abdominal pathology - Mesenteric Doppler pending rule out bowel ischemia- no perforation or pneumatosis on CT scan although without contrast - WBC elevated with NLR 11:1, PCT 15 - hemoconcentration likely as well - Pyelonephritis - Hemodynamically remains well perfused (4) Back pain: Plan: pt has some increasing non radicular back pain and e coli bacteremia, will check mri lumbar spine to rule out epidural abscess or osteo (5) Abdominal pain: Plan: generalized and continues - ileus likley metabolic from renal failure - currently not rigid and bowel sounds normal -allowing po intake (6) Hyponatremia: Plan: Mild- hypovolemic hyponatremia - consistent with hypocholridemia, hypocalcemia, and mild hypokalemia - (7) Alcohol abuse: Plan: Approximately 1 week of cold turkey per the patient - AAWS protocol with Ativan at this time secondary to renal failure - Thiamine IV 300 daily- with ETOH and decrease nutritional intake - Folate IV (8) Diabetes mellitus: Plan: Diet controlled per PCP visits and not on any medications at home - BG AC/HS will add sliding scale coverage if >180- currently stable (9) HTN (hypertension): Plan: Controlled not on outpatient medications, maybe associated with his withdrawal - Follow (10) NSAID long-term use: Plan: Hold - was using both ibuprofen and Naproxen - PPI IV while NPO - No report of hematemesis or melena - Follow HGB/HCT Admission and Anticipated Discharge Date Admission Date: July 12, 2021 Subjective pt with no complaints, no shortness of breath , some back pain that is escalating from his baseline no radicular pain Review of Systems Review of Systems: Mild distress and fatigue no headache, no visual changes no speech or swallowing issues no chest pain, pressure or palpitations no shortness of breath, cough or wheezes no abdominal pain, nausea or vomiting, diarrhea or constipation no dysuria, hematuria or frequency no focal joint pain or swelling no back pain, CVA tenderness or radicular pain no bruising, bleeding or rashes no focal signs of weakness or numbness or altered sensation no complaints of anxiety or depression. Is admitted to the [facility] with alcohol withdrawal. Physical Exam Physical Exam: The patient appeared well nourished and normally developed. Vital signs as documented. Head exam is normocephalic atraumatic Neck is without JVD, thyromegaly, or carotid bruits. Lungs are clear to auscultation, no focal loss of breath sounds Cardiac exam, Rhythm is regular.. No murmurs, rubs or gallops. Abdominal exam reveals normal bowel sounds, soft non tender, no masses Extremities are nonedematous and both pedal pulses are present Neurologic exam is alert and oriented, no focal loss of strength or sensation Skin is without bruises or rashes Psychologically is without concerns for anxiety or depression Results & Data Results & Data ([facility]) Vital Signs (Past 12 Hours) Vital Signs Temp Pulse Pulse Resp BP Pulse Ox 07/15/21 15:00 89 07/15/21 11:30 98.2 F 79 16 140/62 98 07/15/21 08:15 97.9 F 81 16 162/84 H 96 07/15/21 08:00 89 PG Care Time/CCT Total # of Minutes Spent Total Time Spent with Patient: Total time spent is greater than 50% in coordination of care (as documented) at patient's floor/unit and/or counseling patient: Coding Level of Care Code 95349 Subseq Hosp Care Lvl 3 Diagnoses Pyelonephritis N12 ARF (acute renal failure) N17.9 Sepsis A41.9 Abdominal pain R10.9 Hyponatremia E87.1 Alcohol abuse F10.10 Diabetes mellitus E11.9 HTN (hypertension) I10 NSAID long-term use Z79.1 Back pain M54.9
[2021-07-16 06:40] LABS: Albumin Level 1.6 gm/dl (3.4-5.0); BUN Creatinine Ratio 13.5 (10-20); Calcium 8.4 mg/dl (8.5-10.1); Creatinine Clr Calc Pharmacy 12.4 ml/min; Est GFR (African American) 7.9 ml/min; Est GFR (Non-African American) 6.8 ml/min; Phosphorus 7.5 mg/dl (2.5-4.9); Potassium 3.8 mmol/L (3.5-5.1)
--- NOTE | 2021-07-16 07:18 | Hospitalist Progress Note ---
Date of Service July 16, 2021 Assessment & Plan (1) Pyelonephritis: Plan: Urine and fat stranding consistent with infection once again commented on MRI of back from 07/16/2021 -Ceftriaxone for E coli infection confirmed in blood and urine - renal duplex negative for HERNANDEZ MRI lumbar spine 07/16/2021 IMPRESSION: No concern for hematogenous seeding of back 1. Mild degenerative disc disease at L3-L4 and L4-L5 as described above resulting in mild central canal narrowing. 2. No fracture or subluxation. 3. Heterogeneous marrow signal without focal lesion. 4. Redemonstration of the bilateral perinephric edema and bilateral renal enlargement. This is nonspecific but can be seen in the setting of a pyelonephritis or nephritis. Recommend correlation with urinalysis. 5. No epidural fluid collections identified. (2) ARF (acute renal failure): Plan: As above- sepsis, hypovolemia, maybe obstructive uropathy - NSAID use- hold - Nephrology consulted- appreciate assistance- concern for possible vascuitis component - ANCA, ERIKA, SPEP, Compliment factors, 07/16/21 BUN/Cr have slight improvement, still not volume overloaded, nephrology is content to watch and wait at this time but openly discussing dialysis with patient Given cloudy urine was once again present on the the another urine culture was sent, this may only be hyaline cast flushing out of his kidneys from ATN (3) Sepsis: Plan: urinary source, e coli - Mesenteric Doppler did rule out bowel ischemia- no perforation or pneumatosis on CT scan without contrast - Pyelonephritis - Hemodynamically continues to be stable CT abdomen pelvis 07/12/2021 IMPRESSION: 1. Interval development of fat stranding surrounding bilateral kidneys, more prominent on the left. Mild enlargement of the left kidney. No evidence of hydronephrosis or nephrolithiasis. Findings are concerning for inflammatory process such as pyelonephritis. Evaluation is limited due to lack of IV contrast. 2. Hepatic steatosis. Hepatomegaly. 3. Atherosclerosis, too prominent for patient's age group. 4. Normal appendix. Nondilated loops of bowel. (4) Back pain: Plan: pt has some increasing non radicular back pain and e coli bacteremia, mri lumbar spine did rule out epidural abscess or osteo (5) Abdominal pain: Plan: ileus likley metabolic from renal failure resolving - currently not rigid and bowel sounds normal -allowing po intake (6) Hyponatremia: Plan: Mild- hypovolemic hyponatremia - consistent with hypocholridemia, hypocalcemia, and mild hypokalemia - (7) Alcohol abuse: Plan: Approximately 1 week of per the patient-continues without signs of withdrawal - AAWS protocol with Ativan at this time secondary to renal failure - Thiamine IV 300 daily- with ETOH and decrease nutritional intake - Folate IV (8) Diabetes mellitus: Plan: Diet controlled per PCP visits and not on any medications at home - BG AC/HS will add sliding scale coverage if >180- currently stable (9) HTN (hypertension): Plan: Controlled not on outpatient medications, maybe associated with his withdrawal and renal dysfunction - Follow (10) NSAID long-term use: Plan: - was using both ibuprofen and Naproxen for back pain, check mri - PPI IV - No report of hematemesis or melena - Follow HGB/HCT Admission and Anticipated Discharge Date Admission Date: July 12, 2021 Subjective Patient continues to feel not significantly off with exception of back pain. He began having some cloudy urine today. He is in the net -2 L. This may be the beginning of the post ATN diuresis. Patient's creatinine has come down to 8.26. Review of Systems Review of Systems: Mild distress and fatigue no headache, no visual changes no speech or swallowing issues no chest pain, pressure or palpitations no shortness of breath, cough or wheezes no abdominal pain, nausea or vomiting, diarrhea or constipation no dysuria, hematuria or frequency no focal joint pain or swelling Bilateral paraspinous back pain, without unilateral CVA tenderness or radicular pain no bruising, bleeding or rashes no focal signs of weakness or numbness or altered sensation no complaints of anxiety or depression. Is admitted to the [facility] with alcohol withdrawal. Physical Exam Physical Exam: The patient appeared well nourished and normally developed. Vital signs as documented. Head exam is normocephalic atraumatic Neck is without JVD, thyromegaly, or carotid bruits. Lungs are clear to auscultation, no focal loss of breath sounds Cardiac exam, Rhythm is regular.. No murmurs, rubs or gallops. Abdominal exam reveals normal bowel sounds, soft non tender, no masses there are no renal bruits Back is point tenderness in the paraspinous region not significant such as was be considered an epidural abscess however with his bacteremia MRI will be pursued Extremities are nonedematous and both pedal pulses are present Neurologic exam is alert and oriented, no focal loss of strength or sensation Skin is without bruises or rashes Psychologically is without concerns for anxiety or depression Results & Data Results & Data ([facility]) Vital Signs (Past 12 Hours) Vital Signs Temp Pulse Pulse Resp BP Pulse Ox 07/16/21 04:51 98.8 F 87 18 170/78 H 94 07/16/21 01:35 88 173/86 H 07/16/21 01:18 93 H 07/15/21 23:40 99.5 F 93 H 18 177/80 H 94 07/15/21 19:20 98.2 F 85 18 165/81 H 97 PG Care Time/CCT Total # of Minutes Spent Total Time Spent with Patient: Total time spent is greater than 50% in coordination of care (as documented) at patient's floor/unit and/or counseling patient: Coding Level of Care Code 13481 Subseq Hosp Care Lvl 3 Diagnoses Pyelonephritis N12 ARF (acute renal failure) N17.9 Sepsis A41.9 Back pain M54.9 Abdominal pain R10.9 Hyponatremia E87.1 Alcohol abuse F10.10 Diabetes mellitus E11.9 HTN (hypertension) I10 NSAID long-term use Z79.1
[2021-07-16] MEDS: ASPIRIN 81 MG ECTAB PO SCH (08:00)
[2021-07-16] MEDS: ACETAMINOPHEN 325 MG TAB PO PRN (08:00)
[2021-07-16] MEDS: FOLIC ACID 1 MG in SYRINGE 9.8 ML IV SCH (08:01)
[2021-07-16] MEDS: DOCUSATE SODIUM/SENNA 50/8.6MG TAB PO SCH (08:01)
[2021-07-16] MEDS: HEPARIN SOD 5,000 UNIT/0.5 ML VIAL SQ SCH ×2 (08:01→21:07)
[2021-07-16] MEDS: THIAMINE HCL 300 MG in SODIUM CHLORIDE 0.9% 50 ML IV SCH (08:08)
[2021-07-16 09:52] LABS: Appearance Urine Turbid (Clear); Bacteria Urine Automated Negative (Negative); Bilirubin Urine Negative (Negative); Blood Urine 3+ (Negative); Color Urine Yellow; Epithelial Cell Urine Auto >30 /lpf (0-5); Glucose Urine UA Negative (Negative); Ketones Urine Negative (Negative); Leukocyte Esterase Urine 3+ (Negative); Nitrite Urine Negative (Negative); Protein Urine 1+ (Negative); Specific Gravity Urine 1.007 (1.000-1.030); Urobilinogen Urine Negative (Negative); WBC Urine Automated >30 /hpf (0-5); pH Urine 5.5 (4.5-7.5)
--- NOTE | 2021-07-16 10:20 | Urology Progress Note ---
Date of Service July 16, 2021 Assessment & Plan (1) ARF (acute renal failure): (2) Pyelonephritis: Plan: Gradually progressing - cr decreased slightly - continues to make decent urine - leave catheter in place for now - plan for voiding trial when Cr corrects completely - please call if further issues during this hospitalization Admission and Anticipated Discharge Date Admission Date: July 12, 2021 Subjective slowly improving still having severe back pain urine clear with a bit of debris cr slightly better this AM still making a good amount of urine Physical Exam Physical Exam: urine clear, some sediment Constitutional: well developed and well nourished Respiratory: no respiratory distress Cardiovascular: Extremities: no pedal edema Gastrointestinal (Abdomen): Inspection/Auscultation: abdomen normal to inspection Results & Data ([facility]) Vital Signs (Past 12 Hours) Vital Signs Temp Pulse Pulse Resp BP Pulse Ox 07/16/21 09:59 83 07/16/21 04:51 37.1 C 87 18 170/78 H 94 07/16/21 01:35 88 173/86 H 07/16/21 01:18 93 H 07/15/21 23:40 37.5 C 93 H 18 177/80 H 94 PG Care Time/CCT Total # of Minutes Spent Total Time Spent with Patient: Total time spent is greater than 50% in coordination of care (as documented) at patient's floor/unit and/or counseling patient: Coding Level of Care Code 24798 Subseq Hosp Care Lvl 2 Diagnoses ARF (acute renal failure) N17.9 Pyelonephritis N12
[2021-07-16] MEDS: amLODIPine BESYLATE 5 MG TAB PO SCH (10:39)
[2021-07-16] MEDS: PANTOprazole 40 MG in SYRINGE 0 ML IV SCH (10:40)
--- NOTE | 2021-07-16 10:57 | Magnetic Resonance Report ---
LUMBAR SPINE MRI HISTORY: eval for infection, pt bacteremic with pain lumbar TECHNIQUE: Multiplanar multisequence MRI of the lumbar spine was performed without the use of contras t. COMPARISON: Abdomen and pelvis CT 07/12/2021. FINDINGS: For the purpose of the report the L5-S1 disc space will be located on axial image 28 of 31. There is a heterogeneous marrow signal intensity. No osseous lesions identified. The conus terminates at the T12-L1 disc space level. Mild disc desiccation L3-L4 and L4-5. There is mild disc space narro wing at L4-5. There is moderate subcutaneous edema within the lumbar region. There is mild presacral edema. No fracture or subluxation within the lumbar spine. Bilateral perinephric edema/fat stranding and bilateral renal enlargement persists. No epidural or paraspinal fluid collections. L1-L2: No significant central canal or neural foraminal narrowing. L2-L3: No significant central canal or neural foraminal narrowing. L3-L4: Small broad-based posterior disc bulge with a focal central annular tear. There is mild centra l canal and mild bilateral neural foraminal narrowing due to the disc bulge. L4-L5: Broad-based posterior disc bulge with a small right central/paracentral focal disc protrusion demonstrating mild superior subligamentous migration. There is also mild central canal narrowing due to the ligamentum flavum and facet hypertrophy. There is mild to moderate bilateral neural foraminal narrowing. L5-S1: No significant central canal or neural foraminal narrowing. IMPRESSION: 1. Mild degenerative disc disease at L3-L4 and L4-L5 as described above resulting in mild central can al narrowing. 2. No fracture or subluxation. 3. Heterogeneous marrow signal without focal lesion. 4. Redemonstration of the bilateral perinephric edema and bilateral renal enlargement. This is nonspe cific but can be seen in the setting of a pyelonephritis or nephritis. Recommend correlation with uri nalysis. 5. No epidural fluid collections identified. ACT 112: Negative or not required by law. Electronically signed by: Shelton Yu M.D. 07/16/2021 10:56 AM
--- NOTE | 2021-07-16 11:56 | Nephrology Progress Note ---
Date of Service July 16, 2021 Assessment & Plan (1) ARF (acute renal failure): (2) Pyelonephritis: (3) Sepsis: (4) HTN (hypertension): Plan: 51-year-old male presented with 3 days history of nausea, vomiting, abdominal did distension and worsening back and abdominal pain. he usually drinks 15 beers per day which she stopped 4 days before his symptoms started. Also has been taking ibuprofen 3 times a day at least for last 2 years. On admission he was found to have E coli urosepsis and bacteremia as well as pyelonephritis and acute kidney injury. No prior history of CKD. Urinalysis was positive for hematuria, proteinuria, pyuria and bacteriuria. Imaging showed possible pyelonephritis but no postrenal obstruction. Renal function progressively worsen and creatinine peaked to 9.5 on 07/14/2021. He remained non oliguric. Creatinine slightly improved to 9.0 today, potassium normal. Lumbar spine MRI this morning showed persistent perinephric edema suggestive of pyelonephritis but no other significant abnormality. Renal function continues to improve slowly, electrolyte relatively acceptable. Blood pressure slightly elevated however volume status acceptable. No significant uremic symptoms. -- Start on Tums with meals as phosphate binder -- continue to monitor renal function and electrolyte while waiting for serology. No indication for renal replacement therapy at this time as volume status acceptable, no sign of respiratory distress, potassium normal and has been voiding normally. -- Encouraged to keep well hydrated to maintain positive balance -- dose medications for GFR less than 10, avoid NSAIDs and all other nephrotoxic medications. Will follow Admission and Anticipated Discharge Date Admission Date: July 12, 2021 Subjective Osvaldo overall feels better, continues to have some back pain but denies shortness of breath, chest pain, no fever or chills. Continues to have excellent urine output with net negative more than 2 liters.. Renal function Has been slowly improving, creatinine down to 8.4. Potassium normal. Persistent hyperphosphatemia. Appetite fair Review of Systems Review of Systems: detailed review of system was otherwise unremarkable. Physical Exam Constitutional: + ill appearing; no acute distress Respiratory: normal respiratory effort, lungs clear to auscultation Cardiovascular: RRR, no murmur, no edema Neurologic: moves all extremities and awake; not confused Psychiatric: A+Ox3, euthymic affect Results & Data ([facility]) Vital Signs (Past 12 Hours) Vital Signs Temp Pulse Pulse Resp BP Pulse Ox 07/16/21 11:16 36.8 C 81 17 154/90 H 95 07/16/21 09:59 83 07/16/21 04:51 37.1 C 87 18 170/78 H 94 07/16/21 01:35 88 173/86 H 07/16/21 01:18 93 H PG Care Time/CCT Total # of Minutes Spent Total Time Spent with Patient: Total time spent is greater than 50% in coordination of care (as documented) at patient's floor/unit and/or counseling patient: Coding Level of Care Code 66287 Subseq Hosp Care Lvl 3 Diagnoses ARF (acute renal failure) N17.9 Pyelonephritis N12 Sepsis A41.9 HTN (hypertension) I10
[2021-07-16] MEDS: CALCIUM CARBONATE 500 MG CHEWABLE TAB PO SCH ×2 (12:12→17:12)
[2021-07-16] MEDS: oxyCODONE HCL IR 5 MG TAB (IMMEDIATE RELEASE) PO PRN ×2 (12:17→21:09)
[2021-07-16] MEDS: cefTRIAXone SODIUM 2,000 MG in DEXTROSE 5% 50 ML IV SCH (13:22)
[2021-07-17 06:59] LABS: Albumin Level 1.9 gm/dl (3.4-5.0); BUN Creatinine Ratio 15.7 (10-20); Calcium 8.6 mg/dl (8.5-10.1); Creatinine Clr Calc Pharmacy 13.9 ml/min; Est GFR (Non-African American) 8.7 ml/min; Phosphorus 7.2 mg/dl (2.5-4.9); Potassium 3.8 mmol/L (3.5-5.1)
[2021-07-17] MEDS: CALCIUM CARBONATE 500 MG CHEWABLE TAB PO SCH ×3 (08:14→16:42)
[2021-07-17] MEDS: DOCUSATE SODIUM/SENNA 50/8.6MG TAB PO SCH (08:15)
[2021-07-17] MEDS: amLODIPine BESYLATE 5 MG TAB PO SCH (08:16)
[2021-07-17] MEDS: ASPIRIN 81 MG ECTAB PO SCH (08:16)
[2021-07-17] MEDS: oxyCODONE HCL IR 5 MG TAB (IMMEDIATE RELEASE) PO PRN ×3 (08:17→20:41)
[2021-07-17] MEDS: FOLIC ACID 1 MG in SYRINGE 9.8 ML IV SCH (08:18)
[2021-07-17] MEDS: HEPARIN SOD 5,000 UNIT/0.5 ML VIAL SQ SCH ×2 (08:30→21:05)
[2021-07-17] MEDS: THIAMINE HCL 300 MG in SODIUM CHLORIDE 0.9% 50 ML IV SCH (08:59)
--- NOTE | 2021-07-17 10:56 | Nephrology Progress Note ---
Date of Service July 17, 2021 Assessment & Plan (1) ARF (acute renal failure): Plan: Creatinine continues to improve. Good urine output. Electrolytes acceptable. No emergent indication for dialysis. Medications appropriately dosed for kidney dysfunction. TUMS QAC for hyperphosphatemia. (2) Pyelonephritis: Plan: Clinically improving MRI reviewed. Luciano intact. Urology consult appreciated. Medications appropriate for kidney function. (3) Sepsis: (4) HTN (hypertension): Plan: BP controlled. Volume status acceptable. Admission and Anticipated Discharge Date Admission Date: July 12, 2021 Subjective No acute events overnight. Osvaldo feels well this AM. Luciano remains intact. No fevers or chills. Denies pain. Non-oliguric. Review of Systems 2 Constitutional: no weight loss, no weight gain and no problem reported Eyes: no problem reported Ear, Nose, Mouth, Throat: no problem reported Respiratory: no problem reported Cardiovascular: no problem reported Gastrointestinal: no problem reported Musculoskeletal: no problem reported Integumentary: no problem reported Neurologic: no problem reported Psychiatric: no problem reported Endocrine: no problem reported Hematologic / Lymphatic: no problem reported Physical Exam Constitutional: well developed; no acute distress Eyes: no scleral abnormality and no corneal abnormality ENMT: Mouth: no oral mucosal abnormality and oral mucous membranes not dry Neck: normal visual inspection and trachea midline Respiratory: normal respiratory effort Auscultation: lungs clear to auscultation bilaterally Cardiovascular: Rate/Rhythm: regular rate Heart Sounds: normal S1 and normal S2 Extremities: no edema Musculoskeletal: Extremities: no cyanosis and no clubbing Skin: normal turgor; no lesions Neurologic: Motor/Sensory: no tremor and no asterixis Psychiatric: Orientation: alert and oriented x 3 Results & Data ([facility]) Vital Signs (Past 12 Hours) Vital Signs Temp Pulse Resp BP Pulse Ox 07/17/21 07:20 36.7 C 84 20 133/86 95 07/17/21 04:02 37.1 C 89 18 138/68 96 Laboratory Results Laboratory Results - last 24 hr 07/16/21 07/16/21 07/16/21 11:44 16:08 20:08 Sodium Potassium Chloride Carbon Dioxide Anion Gap BUN Creatinine Est Cr Clr Drug Dosing Est GFR ( Amer) Est GFR (Non-Af Amer) BUN/Creatinine Ratio Glucose POC Glucose 91 101 H 104 H Calcium Phosphorus Albumin 07/17/21 07/17/21 05:42 07:19 Sodium 134 L Potassium 3.8 Chloride 103 Carbon Dioxide 20 L Anion Gap 11.0 BUN 106 H Creatinine 6.76 H* D Est Cr Clr Drug Dosing 13.9 Est GFR ( Amer) 10.0 Est GFR (Non-Af Amer) 8.7 BUN/Creatinine Ratio 15.7 Glucose 100 H POC Glucose 108 H Calcium 8.6 Phosphorus 7.2 H Albumin 1.9 L PG Care Time/CCT Total # of Minutes Spent Total Time Spent with Patient: Total time spent is greater than 50% in coordination of care (as documented) at patient's floor/unit and/or counseling patient: Coding Level of Care Code 44796 Subseq Hosp Care Lvl 3 Diagnoses ARF (acute renal failure) N17.9 Pyelonephritis N12 Sepsis A41.9 HTN (hypertension) I10
--- NOTE | 2021-07-17 11:26 | Hospitalist Progress Note ---
Date of Service July 17, 2021 Assessment & Plan (1) Pyelonephritis: Plan: Urine and fat stranding consistent with infection once again commented on MRI of back from 07/16/2021 -Ceftriaxone for E coli infection confirmed in blood and urine - renal duplex negative for HERNANDEZ repeat blood cultures on 07/18 in the morning MRI lumbar spine 07/16/2021 IMPRESSION: No concern for hematogenous seeding of back 1. Mild degenerative disc disease at L3-L4 and L4-L5 as described above resulting in mild central canal narrowing. 2. No fracture or subluxation. 3. Heterogeneous marrow signal without focal lesion. 4. Redemonstration of the bilateral perinephric edema and bilateral renal enlargement. This is nonspecific but can be seen in the setting of a pyelonephritis or nephritis. Recommend correlation with urinalysis. 5. No epidural fluid collections identified. (2) ARF (acute renal failure): Plan: As above- sepsis, hypovolemia, maybe obstructive uropathy, was taking ibuprofen 3x a day for months for back pain - Nephrology consulted- appreciate assistance- concern for possible vasclitis component - ANCA, ERIKA, SPEP, Compliment factors, all still pending appears to be in recovery phase, Cr down to 6.7, phos elevated (on Tums) K is 3.8 making a lot of urine today, perhaps post ATN diuresis appreciate note from Dr. Haji (3) Sepsis: Plan: urinary source, e coli - Mesenteric Doppler did rule out bowel ischemia- no perforation or pneumatosis on CT scan without contrast - Pyelonephritis - Hemodynamically continues to be stable CT abdomen pelvis 07/12/2021 IMPRESSION: 1. Interval development of fat stranding surrounding bilateral kidneys, more prominent on the left. Mild enlargement of the left kidney. No evidence of hydronephrosis or nephrolithiasis. Findings are concerning for inflammatory process such as pyelonephritis. Evaluation is limited due to lack of IV contrast. 2. Hepatic steatosis. Hepatomegaly. 3. Atherosclerosis, too prominent for patient's age group. 4. Normal appendix. Nondilated loops of bowel. repeat blood cultures tomorrow plan for at least 7 days IV antibiotics and switch to PO based on sensitivities (4) Back pain: Plan: pt has some increasing non radicular back pain and e coli bacteremia, mri lumb ar spine ruled out epidural abscess or osteo mild DDD changes but nothing severe (5) Abdominal pain: Plan: ileus jennifer metabolic from renal failure resolving - currently not rigid and bowel sounds normal -allowing po intake he is moving bowels (6) Hyponatremia: Plan: Mild- hypovolemic hyponatremia - consistent with hypocholridemia, hypocalcemia, and mild hypokalemia Na up to 134 today (7) Alcohol abuse: Plan: Approximately 1 week of cold turkey per the patient-continues without signs of withdrawal - AAWS protocol with Ativan at this time secondary to renal failure - Thiamine and Folic Acid PO (8) Diabetes mellitus: Plan: Diet controlled per PCP visits and not on any medications at home - BG AC/HS will add sliding scale coverage if >180- currently stable (9) HTN (hypertension): Plan: Controlled not on outpatient medications, maybe associated with his withdrawal and renal dysfunction - continue amlodipine (10) NSAID long-term use: Plan: - was using both ibuprofen and Naproxen for back pain, check mri - no severe disease - Protonix PO - No report of hematemesis or melena - Follow HGB/HCT Admission and Anticipated Discharge Date Admission Date: July 12, 2021 Subjective patient feels better, slowly improving, still feels weaker than normal reviewed chart and labs, Cr improved to 6.[address] Haji, appreciate his input patient is eating better each day, moving his bowels, no nausea/vomiting, no fev er chills, no dyspnea, no chest pain says he is in no hurry to go home, wants to be sure he is fully recovered will repeat blood cultures in the AM Review of Systems Review of Systems: All systems reviewed & are unremarkable except as noted in Subjective Physical Exam Constitutional: well developed, well nourished and comfortable; no acute distress Neck: trachea midline, no thyromegaly Respiratory: normal respiratory effort, lungs clear to auscultation Cardiovascular: RRR, no murmur, no edema Gastrointestinal (Abdomen): normal bowel sounds, soft, nontender, no hepatosplenomegaly Musculoskeletal: no cyanosis or clubbing, extremities motor strength 5/5 Skin: no rashes, warm and dry Neurologic: normal touch/pain/proprioception, CN's II-XI intact bilaterally, moves all extremities and awake; no focal motor deficits Psychiatric: A+Ox3, euthymic affect Results & Data Results & Data ([place]) Vital Signs (Past 12 Hours) Vital Signs Temp Pulse Resp BP Pulse Ox 07/17/21 07:20 36.7 C 84 20 133/86 95 07/17/21 04:02 37.1 C 89 18 138/68 96 Laboratory Results Laboratory Results - last 24 hr 07/16/21 07/16/21 07/16/21 11:44 16:08 20:08 Sodium Potassium Chloride Carbon Dioxide Anion Gap BUN Creatinine Est Cr Clr Drug Dosing Est GFR ( Amer) Est GFR (Non-Af Amer) BUN/Creatinine Ratio Glucose POC Glucose 91 101 H 104 H Calcium Phosphorus Albumin 07/17/21 07/17/21 05:42 07:19 Sodium 134 L Potassium 3.8 Chloride 103 Carbon Dioxide 20 L Anion Gap 11.0 BUN 106 H Creatinine 6.76 H* D Est Cr Clr Drug Dosing 13.9 Est GFR ( Amer) 10.0 Est GFR (Non-Af Amer) 8.7 BUN/Creatinine Ratio 15.7 Glucose 100 H POC Glucose 108 H Calcium 8.6 Phosphorus 7.2 H Albumin 1.9 L Microbiology 07/12/21 10:20 Blood Aerobic Blood Culture - Preliminary No growth in Aerobic bottle after 48 hours. 07/12/21 10:20 Blood Anaerobic Blood Culture - Preliminary Escherichia coli 07/12/21 09:59 Blood Aerobic Blood Culture - Preliminary No growth in Aerobic bottle after 48 hours. 07/12/21 09:59 Blood Anaerobic Blood Culture - Preliminary Escherichia coli 07/12/21 10:28 Urine,Clean Catch Urine Culture - Final Escherichia coli Medications Administered Current Inpatient Medications Acetaminophen (Acetaminophen 325 Mg Tab) 650 mg PO Q4H PRN PRN Reason: Pain or Fever Stop: 08/11/21 13:43 Last Admin: 07/16/21 08:00 Dose: 650 mg Documented by: Amlodipine Besylate (Amlodipine Besylate 5 Mg Tab) [facility] [place] Stop: 08/15/21 09:29 Last Admin: 07/17/21 08:16 Dose: 5 mg Documented by: Aspirin (Aspirin 81 Mg Ectab) 81 mg PO QAM [facility] Stop: 08/12/21 08:59 Last Admin: 07/17/21 08:16 Dose: 81 mg Documented by: Calcium Carbonate (Calcium Carbonate 500 Mg Chewable Tab) [facility] [place] Stop: 08/15/21 11:59 Last Admin: 07/17/21 08:14 Dose: 500 mg Documented by: Heparin Sodium (Porcine) (Heparin Sod 5,000 Unit/0.5 Ml Vial) 5,000 units SQ Q12 [facility] Stop: 08/11/21 20:59 Last Admin: 07/17/21 08:30 Dose: 5,000 units Documented by: Pantoprazole Sodium 40 mg/ (Syringe) 10 mls @ 5 mls/min IV DAILY@1100 [facility] Stop: 08/12/21 10:59 Last Admin: 07/16/21 10:40 Dose: 5 mls/min Documented by: Folic Acid 1 mg/ Syringe 10 mls @ 5 mls/min IV QAM [facility] Stop: 08/11/21 14:29 Last Admin: 07/17/21 08:18 Dose: 5 mls/min Documented by: Lorazepam (Ativan) 1 mg in 2 mls @ 2 mls/min IV UD PRN; Protocol PRN Reason: EtOH Withdrawl AWSS Score 6,7 Stop: 08/11/21 13:43 Lorazepam (Ativan) 2 mg in 4 mls @ 4 mls/min IV UD PRN; Protocol PRN Reason: EtOH Withdrawl AWSS Score 8,9 Stop: 08/11/21 13:43 Lorazepam (Ativan) 3 mg in 6 mls @ 4 mls/min IV ONCE PRN; Protocol PRN Reason: EtOH Withdrawl AWSS Score >=10 Stop: 08/11/21 13:43 Thiamine HCl 300 mg/ Sodium (Chloride) 53 mls @ 210 mls/hr IV DAILY [facility] Stop: 08/11/21 14:29 Last Infusion: 07/17/21 09:15 Dose: Infused Documented by: Ceftriaxone Sodium 2,000 mg/ (Dextrose) 70 mls @ 140 mls/hr IV Q24H [facility] Stop: 07/24/21 13:59 Last Infusion: 07/16/21 14:29 Dose: Infused Documented by: Melatonin (Melatonin 3 Mg Tab) 3 mg PO HS PRN PRN Reason: Sleep Stop: 08/12/21 00:01 Last Admin: 07/14/21 21:40 Dose: 3 mg Documented by: Morphine Sulfate (Morphine Sulfate 2 Mg/Ml Carp) 2 mg IV Q4 PRN PRN Reason: Pain 2-6 Stop: 07/28/21 16:04 Morphine Sulfate (Morphine Sulfate 4 Mg/Ml 1 Ml Carp\Vial) 4 mg IV Q4 PRN PRN Reason: Pain 7-10 Stop: 07/28/21 16:04 Last Admin: 07/15/21 23:49 Dose: 4 mg Documented by: Ondansetron HCl (Ondansetron Inj 2 Mg/Ml 2 Ml Vial) 4 mg IV Q6H PRN PRN Reason: Nausea Stop: 08/11/21 13:43 Last Admin: 07/12/21 17:45 Dose: 4 mg Documented by: Oxycodone HCl (Oxycodone Hcl Ir 5 Mg Tab (Immediate Release)) 10 mg PO Q6H PRN PRN Reason: Moderate Pain Stop: 07/28/21 16:04 Last Admin: 07/17/21 08:17 Dose: 10 mg Documented by: Senna/Docusate Sodium (Docusate Sodium/Senna 50/8.6mg Tab) 1 tab PO QAM [facility] Stop: 08/12/21 08:59 Last Admin: 07/17/21 08:15 Dose: Not Given Documented by: PG Care Time/CCT Total # of Minutes Spent Total Time Spent with Patient: Total time spent is greater than 50% in coordination of care (as documented) at patient's floor/unit and/or counseling patient: Coding Level of Care Code 24539 Subseq Hosp Care Lvl 3 Diagnoses Pyelonephritis N12 ARF (acute renal failure) N17.9 Sepsis A41.9 Back pain M54.9 Abdominal pain R10.9 Hyponatremia E87.1 Alcohol abuse F10.10 Diabetes mellitus E11.9 HTN (hypertension) I10 NSAID long-term use Z79.1
[2021-07-17] MEDS: PANTOprazole 40 MG TAB PO SCH (13:29)
[2021-07-17] MEDS: cefTRIAXone SODIUM 2,000 MG in DEXTROSE 5% 50 ML IV SCH (13:35)
[2021-07-17] MEDS: PANTOprazole 40 MG in SYRINGE 0 ML IV SCH (14:22)
[2021-07-17] MEDS: MELATONIN 3 MG TAB PO PRN (21:07)
[2021-07-18] MEDS: oxyCODONE HCL IR 5 MG TAB (IMMEDIATE RELEASE) PO PRN ×3 (06:21→20:23)
[2021-07-18] MEDS: ASPIRIN 81 MG ECTAB PO SCH (07:47)
[2021-07-18] MEDS: amLODIPine BESYLATE 5 MG TAB PO SCH (07:47)
[2021-07-18] MEDS: FOLIC ACID 1 MG TAB PO SCH (07:47)
[2021-07-18] MEDS: THIAMINE HCL 100 MG TAB PO SCH (07:47)
[2021-07-18] MEDS: PANTOprazole 40 MG TAB PO SCH (07:48)
[2021-07-18] MEDS: HEPARIN SOD 5,000 UNIT/0.5 ML VIAL SQ SCH ×2 (07:48→21:07)
[2021-07-18] MEDS: DOCUSATE SODIUM/SENNA 50/8.6MG TAB PO SCH (07:57)
[2021-07-18] MEDS: CALCIUM CARBONATE 500 MG CHEWABLE TAB PO SCH ×3 (07:58→16:44)
[2021-07-18 08:44] LABS: Hematocrit (blood only) 32.3 % (42-52); Mean Corpuscular Hemoglobin 29.7 pg (25-34); Mean Corpuscular Hgb Conc 34.1 g/dL (32-36); Mean Corpuscular Volume 87.3 fL (80-100); Mean Platelet Volume 10.1 fL (7.4-10.4); Platelet Count 830 K/uL (130-400); RDW Coefficient of Variation 15.5 % (11.5-14.5); White Blood Count 21.48 K/uL (4.8-10.8)
[2021-07-18 09:17] LABS: BUN Creatinine Ratio 18.1 (10-20); Calcium 9.6 mg/dl (8.5-10.1); Creatinine Clr Calc Pharmacy 18.1 ml/min; Est GFR (African American) 13.8 ml/min; Est GFR (Non-African American) 11.9 ml/min; Magnesium 2.5 mg/dl (1.8-2.4); Potassium 3.7 mmol/L (3.5-5.1)
[2021-07-18 09:52] LABS: Phosphorus 5.4 mg/dl (2.5-4.9)
--- NOTE | 2021-07-18 10:30 | Nephrology Progress Note ---
Date of Service July 18, 2021 Assessment & Plan (1) ARF (acute renal failure): Plan: Creatinine continues to improve. Good urine output. Electrolytes acceptable. No emergent indication for dialysis. Medications appropriately dosed for kidney dysfunction. TUMS QAC for hyperphosphatemia. (2) Pyelonephritis: Plan: Clinically improving MRI reviewed. Luciano intact. Urology consult appreciated. Medications appropriate for kidney function. (3) Sepsis: Plan: Repeat cultures pending. (4) HTN (hypertension): Plan: BP controlled. Volume status acceptable. Admission and Anticipated Discharge Date Admission Date: July 12, 2021 Subjective No acute events overnight. Osvaldo feels well this AM. Luciano draining clear yellow urine. Remains polyuric. Good PO intake. No fevers or chills. Review of Systems Constitutional: no problem reported Eyes: no problem reported Ear, Nose, Mouth, Throat: no problem reported Respiratory: no problem reported Cardiovascular: no problem reported Gastrointestinal: no problem reported Musculoskeletal: no problem reported Integumentary: no problem reported Neurologic: no problem reported Psychiatric: no problem reported Endocrine: no problem reported Hematologic / Lymphatic: no problem reported Physical Exam Constitutional: well developed; no acute distress Eyes: no scleral abnormality and no corneal abnormality ENMT: Mouth: no oral mucosal abnormality and oral mucous membranes not dry Neck: normal visual inspection and trachea midline Respiratory: normal respiratory effort Auscultation: lungs clear to auscultation bilaterally Cardiovascular: Rate/Rhythm: regular rate Heart Sounds: normal S1 and normal S2 Extremities: no edema Musculoskeletal: Extremities: no cyanosis and no clubbing Skin: normal turgor; no lesions Neurologic: Motor/Sensory: no tremor and no asterixis Psychiatric: Orientation: alert and oriented x 3 Results & Data ([facility]) Vital Signs (Past 12 Hours) Vital Signs Temp Pulse Pulse Pulse Resp BP BP 07/18/21 08:00 86 07/18/21 07:52 36.5 C 84 18 165/92 H 07/18/21 04:48 37.3 C 93 H 18 136/89 07/17/21 23:55 36.5 C 78 18 146/72 H Pulse Ox 07/18/21 08:00 07/18/21 07:52 97 07/18/21 04:48 95 07/17/21 23:55 96 Laboratory Results Laboratory Results - last 24 hr 07/17/21 07/17/21 07/17/21 11:39 16:00 20:13 WBC RBC Hgb Hct MCV MCH MCHC RDW Std Deviation RDW Coeff of Luigi Plt Count MPV Sodium Potassium Chloride Carbon Dioxide Anion Gap BUN Creatinine Est Cr Clr Drug Dosing Est GFR ( Amer) Est GFR (Non-Af Amer) BUN/Creatinine Ratio Glucose POC Glucose 120 H 105 H 123 H Calcium Phosphorus Magnesium 07/18/21 07/18/21 07/18/21 07:12 08:07 08:07 WBC 21.48 H RBC 3.70 L Hgb 11.0 L Hct 32.3 L MCV 87.3 MCH 29.7 MCHC 34.1 RDW Std Deviation 50.0 H RDW Coeff of Luigi 15.5 H Plt Count 830 H MPV 10.1 Sodium 135 L Potassium 3.7 Chloride 103 Carbon Dioxide 22 Anion Gap 10.0 BUN 92 H Creatinine 5.20 H* D Est Cr Clr Drug Dosing 18.1 Est GFR ( Amer) 13.8 Est GFR (Non-Af Amer) 11.9 BUN/Creatinine Ratio 18.1 Glucose 159 H POC Glucose 105 H Calcium 9.6 Phosphorus 5.4 H D Magnesium 2.5 H PG Care Time/CCT Total # of Minutes Spent Total Time Spent with Patient: Total time spent is greater than 50% in coordination of care (as documented) at patient's floor/unit and/or counseling patient: Coding Level of Care Code 69211 Subseq Hosp Care Lvl 3 Diagnoses ARF (acute renal failure) N17.9 Pyelonephritis N12 Sepsis A41.9 HTN (hypertension) I10
--- NOTE | 2021-07-18 10:59 | Hospitalist Progress Note ---
Date of Service July 18, 2021 Assessment & Plan (1) Pyelonephritis: Plan: Urine and fat stranding consistent with infection once again commented on MRI of back from 07/16/2021 -Ceftriaxone for E coli infection confirmed in blood and urine - renal duplex negative for HERNANDEZ repeat blood cultures drawn this morning, follow up results still with leukocytosis of 21k, no fever, feeling better just weak MRI lumbar spine 07/16/2021 IMPRESSION: No concern for hematogenous seeding of back 1. Mild degenerative disc disease at L3-L4 and L4-L5 as described above resulting in mild central canal narrowing. 2. No fracture or subluxation. 3. Heterogeneous marrow signal without focal lesion. 4. Redemonstration of the bilateral perinephric edema and bilateral renal enlargement. This is nonspecific but can be seen in the setting of a pyelonephritis or nephritis. Recommend correlation with urinalysis. 5. No epidural fluid collections identified. (2) ARF (acute renal failure): Plan: As above- sepsis, hypovolemia, maybe obstructive uropathy, was taking ibuprofen 3x a day for months for back pain - Nephrology consulted- appreciate assistance- concern for possible vasclitis component - ANCA, ERIKA, SPEP, Compliment factors, all still pending appears to be in recovery phase, Cr down to 5.2, phos elevated (on Tums) K is 3.7 making a lot of urine today, perhaps post ATN diuresis appreciate note from Dr. Haji (3) Sepsis: Plan: urinary source, e coli - Mesenteric Doppler did rule out bowel ischemia- no perforation or pneumatosis on CT scan without contrast - Pyelonephritis - Hemodynamically continues to be stable CT abdomen pelvis 07/12/2021 IMPRESSION: 1. Interval development of fat stranding surrounding bilateral kidneys, more prominent on the left. Mild enlargement of the left kidney. No evidence of hydronephrosis or nephrolithiasis. Findings are concerning for inflammatory process such as pyelonephritis. Evaluation is limited due to lack of IV contrast. 2. Hepatic steatosis. Hepatomegaly. 3. Atherosclerosis, too prominent for patient's age group. 4. Normal appendix. Nondilated loops of bowel. repeat blood cultures today plan for at least 7 days IV antibiotics and switch to PO based on sensitivities (4) Back pain: Plan: pt has some increasing non radicular back pain and e coli bacteremia, mri lumbar spine ruled out epidural abscess or osteo mild DDD changes but nothing severe (5) Abdominal pain: Plan: ileus jennifer metabolic from renal failure resolving - currently not rigid and bowel sounds normal -allowing po intake he is moving bowels (6) Hyponatremia: Plan: Mild- hypovolemic hyponatremia - consistent with hypocholridemia, hypocalcemia, and mild hypokalemia Na up to 135 today (7) Alcohol abuse: Plan: Approximately 1 week of cold turkey per the patient-continues without signs of withdrawal - AAWS protocol with Ativan at this time secondary to renal failure - Thiamine and Folic Acid PO (8) Diabetes mellitus: Plan: Diet controlled per PCP visits and not on any medications at home - BG AC/HS will add sliding scale coverage if >180- currently stable (9) HTN (hypertension): Plan: Controlled not on outpatient medications, maybe associated with his withdrawal and renal dysfunction - continue amlodipine (10) NSAID long-term use: Plan: - was using both ibuprofen and Naproxen for back pain, check mri - no severe disease - Protonix PO - No report of hematemesis or melena - Follow HGB/HCT Plan: move to medical floor, consult PT/OT, remove rutherford tomorrow might need rehab, will see how he does with therapy anticipate being in hospital until end of the week Admission and Anticipated Discharge Date Admission Date: July 12, 2021 Subjective patient doing well, eating more, no dyspnea, no pain he admits to being really weak, wants to work with therapy labs reviewed, Cr down to 5.2, making a lot of urine via [place] no issues on tele, move to medical floor appreciate note from Dr. Haji Review of Systems Review of Systems: All systems reviewed & are unremarkable except as noted in Subjective Musculoskeletal: + back pain (mild, low back) Physical Exam Constitutional: well developed, well nourished and comfortable; no acute distress Neck: trachea midline, no thyromegaly Respiratory: normal respiratory effort, lungs clear to auscultation Cardiovascular: RRR, no murmur, no edema Gastrointestinal (Abdomen): normal bowel sounds, soft, nontender, no hepatosplenomegaly Musculoskeletal: no cyanosis or clubbing, extremities motor strength 5/5 Skin: no rashes, warm and dry Neurologic: normal touch/pain/proprioception, CN's II-XI intact bilaterally, moves all extremities and awake; no focal motor deficits Psychiatric: A+Ox3, euthymic affect Results & Data Results & Data ([facility]) Vital Signs (Past 12 Hours) Vital Signs Temp Pulse Pulse Pulse Resp BP BP 07/18/21 08:00 86 07/18/21 07:52 36.5 C 84 18 165/92 H 07/18/21 04:48 37.3 C 93 H 18 136/89 07/17/21 23:55 36.5 C 78 18 146/72 H Pulse Ox 07/18/21 08:00 07/18/21 07:52 97 07/18/21 04:48 95 07/17/21 23:55 96 Laboratory Results Laboratory Results - last 24 hr 07/17/21 07/17/21 07/17/21 11:39 16:00 20:13 WBC RBC Hgb Hct MCV MCH MCHC RDW Std Deviation RDW Coeff of Luigi Plt Count MPV Sodium Potassium Chloride Carbon Dioxide Anion Gap BUN Creatinine Est Cr Clr Drug Dosing Est GFR ( Amer) Est GFR (Non-Af Amer) BUN/Creatinine Ratio Glucose POC Glucose 120 H 105 H 123 H Calcium Phosphorus Magnesium 07/18/21 07/18/21 07/18/21 07:12 08:07 08:07 WBC 21.48 H RBC 3.70 L Hgb 11.0 L Hct 32.3 L MCV 87.3 MCH 29.7 MCHC 34.1 RDW Std Deviation 50.0 H RDW Coeff of Luigi 15.5 H Plt Count 830 H MPV 10.1 Sodium 135 L Potassium 3.7 Chloride 103 Carbon Dioxide 22 Anion Gap 10.0 BUN 92 H Creatinine 5.20 H* D Est Cr Clr Drug Dosing 18.1 Est GFR ( Amer) 13.8 Est GFR (Non-Af Amer) 11.9 BUN/Creatinine Ratio 18.1 Glucose 159 H POC Glucose 105 H Calcium 9.6 Phosphorus 5.4 H D Magnesium 2.5 H Medications Administered Current Inpatient Medications Acetaminophen (Acetaminophen 325 Mg Tab) 650 mg PO Q4H PRN PRN Reason: Pain or Fever Stop: 08/11/21 13:43 Last Admin: 07/16/21 08:00 Dose: 650 mg Documented by: Amlodipine Besylate (Amlodipine Besylate 5 Mg Tab) [facility] [place] Stop: 08/15/21 09:29 Last Admin: 07/18/21 07:47 Dose: 5 mg Documented by: Aspirin (Aspirin 81 Mg Ectab) 81 mg PO QAM [facility] Stop: 08/12/21 08:59 Last Admin: 07/18/21 07:47 Dose: 81 mg Documented by: Calcium Carbonate (Calcium Carbonate 500 Mg Chewable Tab) 500 mg PO TIDM [facility] Stop: 08/15/21 11:59 Last Admin: 07/18/21 07:58 Dose: 500 mg Documented by: Folic Acid (Folic Acid 1 Mg Tab) 1 mg PO QAM [facility] Stop: 08/17/21 08:59 Last Admin: 07/18/21 07:47 Dose: 1 mg Documented by: Heparin Sodium (Porcine) (Heparin Sod 5,000 Unit/0.5 Ml Vial) 5,000 units SQ Q12 [facility] Stop: 08/11/21 20:59 Last Admin: 07/18/21 07:48 Dose: 5,000 units Documented by: Lorazepam (Ativan) 1 mg in 2 mls @ 2 mls/min IV UD PRN; Protocol PRN Reason: EtOH Withdrawl AWSS Score 6,7 Stop: 08/11/21 13:43 Lorazepam (Ativan) 2 mg in 4 mls @ 4 mls/min IV UD PRN; Protocol PRN Reason: EtOH Withdrawl AWSS Score 8,9 Stop: 08/11/21 13:43 Lorazepam (Ativan) 3 mg in 6 mls @ 4 mls/min IV ONCE PRN; Protocol PRN Reason: EtOH Withdrawl AWSS Score >=10 Stop: 08/11/21 13:43 Ceftriaxone Sodium 2,000 mg/ (Dextrose) 70 mls @ 140 mls/hr IV Q24H [facility] Stop: 07/24/21 13:59 Last Infusion: 07/17/21 14:05 Dose: Infused Documented by: Melatonin (Melatonin 3 Mg Tab) 3 mg PO HS PRN PRN Reason: Sleep Stop: 08/12/21 00:01 Last Admin: 07/17/21 21:07 Dose: 3 mg Documented by: Morphine Sulfate (Morphine Sulfate 2 Mg/Ml Carp) 2 mg IV Q4 PRN PRN Reason: Pain 2-6 Stop: 07/28/21 16:04 Morphine Sulfate (Morphine Sulfate 4 Mg/Ml 1 Ml Carp\Vial) 4 mg IV Q4 PRN PRN Reason: Pain 7-10 Stop: 07/28/21 16:04 Last Admin: 07/15/21 23:49 Dose: 4 mg Documented by: Ondansetron HCl (Ondansetron Inj 2 Mg/Ml 2 Ml Vial) 4 mg IV Q6H PRN PRN Reason: Nausea Stop: 08/11/21 13:43 Last Admin: 07/12/21 17:45 Dose: 4 mg Documented by: Oxycodone HCl (Oxycodone Hcl Ir 5 Mg Tab (Immediate Release)) 10 mg PO Q6H PRN PRN Reason: Moderate Pain Stop: 07/28/21 16:04 Last Admin: 07/18/21 06:21 Dose: 10 mg Documented by: Pantoprazole Sodium (Pantoprazole 40 Mg Tab) [facility] [place] Stop: 08/17/21 08:59 Last Admin: 07/18/21 07:48 Dose: 40 mg Documented by: Senna/Docusate Sodium (Docusate Sodium/Senna 50/8.6mg Tab) 1 tab PO [facility] Stop: 08/12/21 08:59 Last Admin: 07/18/21 07:57 Dose: 1 tab Documented by: Thiamine HCl (Thiamine Hcl 100 Mg Tab) [facility] [place] Stop: 08/17/21 08:59 Last Admin: 07/18/21 07:47 Dose: 100 mg Documented by: PG Care Time/CCT Total # of Minutes Spent Total Time Spent with Patient: Total time spent is greater than 50% in coordination of care (as documented) at patient's floor/unit and/or counseling patient: Coding Level of Care Code 99718 Subseq Hosp Care Lvl 3 Diagnoses Pyelonephritis N12 ARF (acute renal failure) N17.9 Sepsis A41.9 Back pain M54.9 Abdominal pain R10.9 Hyponatremia E87.1 Alcohol abuse F10.10 Diabetes mellitus E11.9 HTN (hypertension) I10 NSAID long-term use Z79.1
[2021-07-18] MEDS: cefTRIAXone SODIUM 2,000 MG in DEXTROSE 5% 50 ML IV SCH (13:36)
[2021-07-18] MEDS: MoRPHine SULFATE 4 MG/ML 1 ML CARP\\VIAL IV PRN (18:25)
[2021-07-19 01:41] LABS: ANCA Screen Negative (Negative); Alpha 1 Globulin 0.8 g/dL (0.2-0.3); Alpha 2 Globulin 1.1 g/dL (0.5-0.9); Anti Nuclear Antibody Screen NEGATIVE (NEGATIVE); Anti-Glom Basement Antibody <1.0 AI (<1.0); Beta-1-Globulin 0.3 g/dL (0.4-0.6); Beta-2-Globulin 0.3 g/dL (0.2-0.5); Complement C3 148 mg/dL (82-185); Complement Total(CH50) 58 U/mL (31-60); Gamma Globulin 0.7 g/dL (0.8-1.7); Monoclonal Protein Band 2 DNR g/dL (NONE DETECTED); Monoclonal Protein Band 3 DNR g/dL (NONE DETECTED); Total Protein 5.2 g/dL (6.1-8.1)
[2021-07-19] MEDS: oxyCODONE HCL IR 5 MG TAB (IMMEDIATE RELEASE) PO PRN ×2 (04:08→20:55)
[2021-07-19 08:38] LABS: Calcium 9.8 mg/dl (8.5-10.1); Creatinine Clr Calc Pharmacy 21.9 ml/min; Est GFR (African American) 17.4 ml/min; Magnesium 2.6 mg/dl (1.8-2.4); Potassium 4.2 mmol/L (3.5-5.1)
[2021-07-19 08:39] LABS: Phosphorus 5.8 mg/dl (2.5-4.9)
[2021-07-19] MEDS: CALCIUM CARBONATE 500 MG CHEWABLE TAB PO SCH ×3 (08:47→18:08)
[2021-07-19] MEDS: amLODIPine BESYLATE 5 MG TAB PO SCH (08:47)
[2021-07-19] MEDS: FOLIC ACID 1 MG TAB PO SCH (08:48)
[2021-07-19] MEDS: ASPIRIN 81 MG ECTAB PO SCH (08:48)
[2021-07-19] MEDS: THIAMINE HCL 100 MG TAB PO SCH (08:48)
[2021-07-19] MEDS: HEPARIN SOD 5,000 UNIT/0.5 ML VIAL SQ SCH ×2 (08:48→20:56)
[2021-07-19] MEDS: PANTOprazole 40 MG TAB PO SCH (08:48)
[2021-07-19] MEDS: DOCUSATE SODIUM/SENNA 50/8.6MG TAB PO SCH (08:51)
--- NOTE | 2021-07-19 11:51 | Hospitalist Progress Note ---
Date of Service July 19, 2021 Assessment & Plan (1) Pyelonephritis: Plan: Urine and fat stranding consistent with infection once again commented on MRI of back from 07/16/2021 -Ceftriaxone for E coli infection confirmed in blood and urine - renal duplex negative for HERNANDEZ repeat blood and urine cultures show NO GROWTH check CBC tomorrow to follow up leukocytosis MRI lumbar spine 07/16/2021 IMPRESSION: No concern for hematogenous seeding of back 1. Mild degenerative disc disease at L3-L4 and L4-L5 as described above resulting in mild central canal narrowing. 2. No fracture or subluxation. 3. Heterogeneous marrow signal without focal lesion. 4. Redemonstration of the bilateral perinephric edema and bilateral renal enlargement. This is nonspecific but can be seen in the setting of a pyelonephritis or nephritis. Recommend correlation with urinalysis. 5. No epidural fluid collections identified. (2) ARF (acute renal failure): Plan: As above- sepsis, hypovolemia, maybe obstructive uropathy, was taking ibuprofen 3x a day for months for back pain - Nephrology consulted- appreciate assistance- concern for possible vasclitis component - ANCA, ERIKA, anti GM negative, C4 slightly low at 12 but C3 and CH50 normal hepatitis panel negative appears to be in recovery phase, Cr down to 4.3, phos elevated (on Tums) K is 4.2 making a lot of urine today, perhaps post ATN diuresis appreciate note from Dr. Adithya rutherford today (3) Sepsis: Plan: urinary source, e coli - Mesenteric Doppler did rule out bowel ischemia- no perforation or pneumatosis on CT scan without contrast - Pyelonephritis - Hemodynamically continues to be stable CT abdomen pelvis 07/12/2021 IMPRESSION: 1. Interval development of fat stranding surrounding bilateral kidneys, more prominent on the left. Mild enlargement of the left kidney. No evidence of hydronephrosis or nephrolithiasis. Findings are concerning for inflammatory process such as pyelonephritis. Evaluation is limited due to lack of IV contrast. 2. Hepatic steatosis. Hepatomegaly. 3. Atherosclerosis, too prominent for patient's age group. 4. Normal appendix. Nondilated loops of bowel. repeat blood cultures from 07/18 show no growth, repeat urine culture with no growth plan for at least 7 days IV antibiotics and switch to PO based on sensitivities (4) Back pain: Plan: pt has some increasing non radicular back pain and e coli bacteremia, mri lumbar spine ruled out epidural abscess or osteo mild DDD changes but nothing severe (5) Abdominal pain: Plan: ileus jennifer metabolic from renal failure resolving - currently not rigid and bowel sounds normal -allowing po intake he is moving bowels (6) Hyponatremia: Plan: Mild- hypovolemic hyponatremia - consistent with hypocholridemia, hypocalcemia, and mild hypokalemia Na up to 138 today (7) Alcohol abuse: Plan: Approximately 1 week of cold turkey per the patient-continues without signs of withdrawal - AAWS protocol with Ativan at this time secondary to renal failure - Thiamine and Folic Acid PO (8) Diabetes mellitus: Plan: Diet controlled per PCP visits and not on any medications at home - BG AC/HS will add sliding scale coverage if >180- currently stable (9) HTN (hypertension): Plan: Controlled not on outpatient medications, maybe associated with his withdrawal and renal dysfunction - continue amlodipine (10) NSAID long-term use: Plan: - was using both ibuprofen and Naproxen for back pain, check mri - no severe disease - Protonix PO - No report of hematemesis or melena - Follow HGB/HCT Plan: move to medical floor, consult PT/OT, remove rutherford today go home tomorrow afternoon vs Saturday morning as long as he is strong enough Admission and Anticipated Discharge Date Admission Date: July 12, 2021 Subjective patient feels good today, still tired but a little more energy, he is going to do PT this afternoon will remove the rutherford, he agrees Cr down to 4.[address] Haji, no more changes, continue to monitor BMP, can follow up in clinic discussed with patient, maybe ready for discharge tomorrow afternoon or Saturday morning Review of Systems Review of Systems: All systems reviewed & are unremarkable except as noted in Subjective Constitutional: + fatigue and + weakness; no fever Respiratory: no cough and no dyspnea Cardiovascular: no chest pain and no edema Gastrointestinal: no abdominal pain, no nausea, no vomiting, no constipation and no diarrhea/loose stools Physical Exam Constitutional: well developed, well nourished and comfortable; no acute distress Neck: trachea midline, no thyromegaly Respiratory: normal respiratory effort, lungs clear to auscultation Cardiovascular: RRR, no murmur, no edema Gastrointestinal (Abdomen): normal bowel sounds, soft, nontender, no hepatosplenomegaly Musculoskeletal: no cyanosis or clubbing, extremities motor strength 5/5 Skin: no rashes, warm and dry Neurologic: normal touch/pain/proprioception, CN's II-XI intact bilaterally, moves all extremities and awake; no focal motor deficits Psychiatric: A+Ox3, euthymic affect Results & Data Results & Data ([facility]) Vital Signs (Past 12 Hours) Vital Signs Temp Pulse Resp BP Pulse Ox 07/19/21 07:40 36.7 C 82 18 135/90 96 Laboratory Results Laboratory Results - last 24 hr 07/12/21 07/18/21 07/18/21 11:27 16:50 20:54 Sodium Potassium Chloride Carbon Dioxide Anion Gap BUN Creatinine Est Cr Clr Drug Dosing Est GFR ( Amer) Est GFR (Non-Af Amer) BUN/Creatinine Ratio Glucose POC Glucose 118 H 137 H Calcium Phosphorus Magnesium Total Protein (PEP) 5.2 L Albumin (PEP) 2.0 L Oxrur-6-Fkveswsza 0.8 H Yciaq-5-Nshtvzwpb 1.1 H Sexv-7-Kvhxqrkf 0.3 L Igby-2-Dsqszkoi 0.3 Gamma Globulins 0.7 L Monoclonal Peak 3 DNR Ser Monoclonl Protein SEE NOTE Ser Monoclonal Prot 2 DNR PEP Interpretation SEE NOTE Serum Immunofixation SEE NOTE ERIKA Screen NEGATIVE ANCA Negative Glomerular Base Memb Ab <1.0 Complement C3 148 Complement C4 12 L Tot Complement (CH50) 58 07/19/21 07/19/21 07:50 08:43 Sodium 138 Potassium 4.2 Chloride 105 Carbon Dioxide 23 Anion Gap 10.0 BUN 86 H Creatinine 4.30 H D Est Cr Clr Drug Dosing 21.9 Est GFR ( Amer) 17.4 Est GFR (Non-Af Amer) 15.0 BUN/Creatinine Ratio 20.0 Glucose 106 H POC Glucose 95 Calcium 9.8 Phosphorus 5.8 H Magnesium 2.6 H Total Protein (PEP) Albumin (PEP) Xjzhn-0-Zkjfnuwtv Xvvhz-9-Qukdznigd Ddvh-8-Lywzrbth Zxxv-7-Lapneohy Gamma Globulins Monoclonal Peak 3 Ser Monoclonl Protein Ser Monoclonal Prot 2 PEP Interpretation Serum Immunofixation ERIKA Screen ANCA Glomerular Base Memb Ab Complement C3 Complement C4 Tot Complement (CH50) Medications Administered Current Inpatient Medications Acetaminophen (Acetaminophen 325 Mg Tab) 650 mg PO Q4H PRN PRN Reason: Pain or Fever Stop: 08/11/21 13:43 Last Admin: 07/16/21 08:00 Dose: 650 mg Documented by: Amlodipine Besylate (Amlodipine Besylate 5 Mg Tab) 5 mg PO QAM [facility] Stop: 08/15/21 09:29 Last Admin: 07/19/21 08:47 Dose: 5 mg Documented by: Aspirin (Aspirin 81 Mg Ectab) 81 mg PO QAM [facility] Stop: 08/12/21 08:59 Last Admin: 07/19/21 08:48 Dose: 81 mg Documented by: Calcium Carbonate (Calcium Carbonate 500 Mg Chewable Tab) 500 mg PO TIDM [facility] Stop: 08/15/21 11:59 Last Admin: 07/19/21 08:47 Dose: 500 mg Documented by: Folic Acid (Folic Acid 1 Mg Tab) 1 mg PO QAM [facility] Stop: 08/17/21 08:59 Last Admin: 07/19/21 08:48 Dose: 1 mg Documented by: Heparin Sodium (Porcine) (Heparin Sod 5,000 Unit/0.5 Ml Vial) 5,000 units SQ Q12 [facility] Stop: 08/11/21 20:59 Last Admin: 07/19/21 08:48 Dose: 5,000 units Documented by: Ceftriaxone Sodium 2,000 mg/ (Dextrose) 70 mls @ 140 mls/hr IV Q24H [facility] Stop: 07/24/21 13:59 Last Infusion: 07/18/21 14:18 Dose: Infused Documented by: Melatonin (Melatonin 3 Mg Tab) 3 mg PO HS PRN PRN Reason: Sleep Stop: 08/12/21 00:01 Last Admin: 07/17/21 21:07 Dose: 3 mg Documented by: Morphine Sulfate (Morphine Sulfate 2 Mg/Ml Carp) 2 mg IV Q4 PRN PRN Reason: Pain 2-6 Stop: 07/28/21 16:04 Morphine Sulfate (Morphine Sulfate 4 Mg/Ml 1 Ml Carp\Vial) 4 mg IV Q4 PRN PRN Reason: Pain 7-10 Stop: 07/28/21 16:04 Last Admin: 07/18/21 18:25 Dose: 4 mg Documented by: Ondansetron HCl (Ondansetron Inj 2 Mg/Ml 2 Ml Vial) 4 mg IV Q6H PRN PRN Reason: Nausea Stop: 08/11/21 13:43 Last Admin: 07/12/21 17:45 Dose: 4 mg Documented by: Oxycodone HCl (Oxycodone Hcl Ir 5 Mg Tab (Immediate Release)) 10 mg PO Q6H PRN PRN Reason: Moderate Pain Stop: 07/28/21 16:04 Last Admin: 07/19/21 04:08 Dose: 10 mg Documented by: Pantoprazole Sodium (Pantoprazole 40 Mg Tab) 40 mg PO [facility] Stop: 08/17/21 08:59 Last Admin: 07/19/21 08:48 Dose: 40 mg Documented by: Senna/Docusate Sodium (Docusate Sodium/Senna 50/8.6mg Tab) 1 tab PO [facility] Stop: 08/12/21 08:59 Last Admin: 07/19/21 08:51 Dose: 1 tab Documented by: Thiamine HCl (Thiamine Hcl 100 Mg Tab) 100 mg PO [facility] Stop: 08/17/21 08:59 Last Admin: 07/19/21 08:48 Dose: 100 mg Documented by: PG Care Time/CCT Total # of Minutes Spent Total Time Spent with Patient: Total time spent is greater than 50% in coordination of care (as documented) at patient's floor/unit and/or counseling patient: Coding Level of Care Code 21041 Subseq Hosp Care Lvl 3 Diagnoses Pyelonephritis N12 ARF (acute renal failure) N17.9 Sepsis A41.9 Back pain M54.9 Abdominal pain R10.9 Hyponatremia E87.1 Alcohol abuse F10.10 Diabetes mellitus E11.9 HTN (hypertension) I10 NSAID long-term use Z79.1
--- NOTE | 2021-07-19 12:34 | Nephrology Progress Note ---
Date of Service July 19, 2021 Assessment & Plan (1) ARF (acute renal failure): Plan: Creatinine continues to improve. Good urine output. Electrolytes acceptable. No emergent indication for dialysis. Medications appropriately dosed for kidney dysfunction. TUMS QAC for hyperphosphatemia. Follow up with Dr. Faye in the nephrology clinic within 2 weeks of hospital discharge. (2) Pyelonephritis: Plan: Clinically improving. Luciano intact. Urology follow up encouraged. (3) Sepsis: Plan: Clinically improved. (4) HTN (hypertension): Plan: BP controlled. Volume status acceptable. Admission and Anticipated Discharge Date Admission Date: July 12, 2021 Subjective No acute events overnight. Osvaldo feels well this AM. Remains slightly polyuric. Creatinine continues to improve. I discussed the plan of care with Dr. Silveira this AM. Review of Systems Constitutional: no weight loss, no weight gain and no problem reported Eyes: no problem reported Ear, Nose, Mouth, Throat: no problem reported Respiratory: no problem reported Cardiovascular: no problem reported Gastrointestinal: no problem reported Musculoskeletal: no problem reported Integumentary: no problem reported Neurologic: no problem reported Psychiatric: no problem reported Endocrine: no problem reported Hematologic / Lymphatic: no problem reported Physical Exam Constitutional: well developed; no acute distress Eyes: no scleral abnormality and no corneal abnormality ENMT: Mouth: no oral mucosal abnormality and oral mucous membranes not dry Neck: normal visual inspection and trachea midline Respiratory: normal respiratory effort Auscultation: lungs clear to auscultation bilaterally Cardiovascular: Rate/Rhythm: regular rate Heart Sounds: normal S1 and normal S2 Extremities: no edema Musculoskeletal: Extremities: no cyanosis and no clubbing Skin: normal turgor; no lesions Neurologic: Motor/Sensory: no tremor and no asterixis Psychiatric: Orientation: alert and oriented x 3 Results & Data ([facility]) Vital Signs (Past 12 Hours) Vital Signs Temp Pulse Resp BP Pulse Ox 07/19/21 07:40 36.7 C 82 18 135/90 96 Laboratory Results Laboratory Results - last 24 hr 07/12/21 07/18/21 07/18/21 11:27 16:50 20:54 Sodium Potassium Chloride Carbon Dioxide Anion Gap BUN Creatinine Est Cr Clr Drug Dosing Est GFR ( Amer) Est GFR (Non-Af Amer) BUN/Creatinine Ratio Glucose POC Glucose 118 H 137 H Calcium Phosphorus Magnesium Total Protein (PEP) 5.2 L Albumin (PEP) 2.0 L Fkcor-2-Ifidbnqki 0.8 H Smvft-7-Xglwemobn 1.1 H Fdhs-0-Rhgotzaf 0.3 L Loau-2-Qoyzzewz 0.3 Gamma Globulins 0.7 L Monoclonal Peak 3 DNR Ser Monoclonl Protein SEE NOTE Ser Monoclonal Prot 2 DNR PEP Interpretation SEE NOTE Serum Immunofixation SEE NOTE ERIKA Screen NEGATIVE ANCA Negative Glomerular Base Memb Ab <1.0 Complement C3 148 Complement C4 12 L Tot Complement (CH50) 58 07/19/21 07/19/21 07/19/21 07:50 08:43 12:18 Sodium 138 Potassium 4.2 Chloride 105 Carbon Dioxide 23 Anion Gap 10.0 BUN 86 H Creatinine 4.30 H D Est Cr Clr Drug Dosing 21.9 Est GFR ( Amer) 17.4 Est GFR (Non-Af Amer) 15.0 BUN/Creatinine Ratio 20.0 Glucose 106 H POC Glucose 95 120 H Calcium 9.8 Phosphorus 5.8 H Magnesium 2.6 H Total Protein (PEP) Albumin (PEP) Wivmn-8-Jtfydsohb Ozyzt-2-Jiyftfiqo Pbbi-6-Lvgxdtdg Ymmb-1-Cwwfcwpa Gamma Globulins Monoclonal Peak 3 Ser Monoclonl Protein Ser Monoclonal Prot 2 PEP Interpretation Serum Immunofixation ERIKA Screen ANCA Glomerular Base Memb Ab Complement C3 Complement C4 Tot Complement (CH50) PG Care Time/CCT Total # of Minutes Spent Total Time Spent with Patient: Total time spent is greater than 50% in coordination of care (as documented) at patient's floor/unit and/or counseling patient: Coding Level of Care Code 32780 Subseq Hosp Care Lvl 3 Diagnoses ARF (acute renal failure) N17.9 Pyelonephritis N12 Sepsis A41.9 HTN (hypertension) I10
[2021-07-19] MEDS: cefTRIAXone SODIUM 2,000 MG in DEXTROSE 5% 50 ML IV SCH (13:07)
[2021-07-20 07:36] LABS: BUN Creatinine Ratio 20.9 (10-20); Calcium 9.8 mg/dl (8.5-10.1); Creatinine Clr Calc Pharmacy 27.4 ml/min; Est GFR (African American) 22.8 ml/min; Est GFR (Non-African American) 19.7 ml/min; Magnesium 2.4 mg/dl (1.8-2.4); Phosphorus 5.4 mg/dl (2.5-4.9); Potassium 4.7 mmol/L (3.5-5.1)
[2021-07-20] MEDS: ASPIRIN 81 MG ECTAB PO SCH (08:46)
[2021-07-20] MEDS: FOLIC ACID 1 MG TAB PO SCH (08:46)
[2021-07-20] MEDS: PANTOprazole 40 MG TAB PO SCH (08:46)
[2021-07-20] MEDS: HEPARIN SOD 5,000 UNIT/0.5 ML VIAL SQ SCH (08:46)
[2021-07-20] MEDS: amLODIPine BESYLATE 5 MG TAB PO SCH (08:46)
[2021-07-20] MEDS: THIAMINE HCL 100 MG TAB PO SCH (08:46)
[2021-07-20] MEDS: CALCIUM CARBONATE 500 MG CHEWABLE TAB PO SCH (08:48)
[2021-07-20] MEDS: DOCUSATE SODIUM/SENNA 50/8.6MG TAB PO SCH (08:48)
--- NOTE | 2021-07-20 11:05 | Nephrology Progress Note ---
Date of Service July 20, 2021 Assessment & Plan (1) ARF (acute renal failure): Plan: Creatinine continues to improve. Good urine output. Electrolytes acceptable. No emergent indication for dialysis. Medications appropriately dosed for kidney dysfunction. TUMS QAC to be stopped today. Follow up with Dr. Faye in the nephrology clinic within 2 weeks of hospital discharge. (2) Pyelonephritis: Plan: Clinically improving. Luciano removed and Osvaldo is voiding without issues. Urology follow up encouraged. (3) Sepsis: Plan: Clinically improved. (4) HTN (hypertension): Plan: BP controlled. Volume status acceptable. Admission and Anticipated Discharge Date Admission Date: July 12, 2021 Subjective No acute events overnight. Osvaldo feels well this AM. Remains polyuric. Creatinine continues to improve. I discussed the plan of care with Dr. Silveira this AM. Review of Systems Review of Systems: All systems reviewed & are unremarkable except as noted in HPI & below Physical Exam Constitutional: well developed; no acute distress Eyes: no scleral abnormality and no corneal abnormality ENMT: Mouth: no oral mucosal abnormality and oral mucous membranes not dry Neck: normal visual inspection and trachea midline Respiratory: normal respiratory effort Auscultation: lungs clear to auscultation bilaterally Cardiovascular: Rate/Rhythm: regular rate Heart Sounds: normal S1 and normal S2 Extremities: no edema Musculoskeletal: Extremities: no cyanosis and no clubbing Skin: normal turgor; no lesions Neurologic: Motor/Sensory: no tremor and no asterixis Psychiatric: Orientation: alert and oriented x 3 Results & Data ([place]) Vital Signs (Past 12 Hours) Vital Signs Temp Pulse Resp BP Pulse Ox 07/20/21 07:38 36.9 C 79 18 111/73 98 07/20/21 00:06 37.3 C 89 20 112/72 97 Laboratory Results Laboratory Results - last 24 hr 07/19/21 07/19/21 07/19/21 12:18 16:59 20:52 Sodium Potassium Chloride Carbon Dioxide Anion Gap BUN Creatinine Est Cr Clr Drug Dosing Est GFR ( Amer) Est GFR (Non-Af Amer) BUN/Creatinine Ratio Glucose POC Glucose 120 H 114 H 115 H Calcium Phosphorus Magnesium 07/20/21 07/20/21 06:48 08:03 Sodium 137 Potassium 4.7 Chloride 105 Carbon Dioxide 26 Anion Gap 6.0 BUN 72 H Creatinine 3.43 H D Est Cr Clr Drug Dosing 27.4 Est GFR ( Amer) 22.8 Est GFR (Non-Af Amer) 19.7 BUN/Creatinine Ratio 20.9 H Glucose 107 H POC Glucose 103 H Calcium 9.8 Phosphorus 5.4 H Magnesium 2.4 PG Care Time/CCT Total # of Minutes Spent Total Time Spent with Patient: Total time spent is greater than 50% in coordination of care (as documented) at patient's floor/unit and/or counseling patient: Coding Level of Care Code 32115 Subseq Hosp Care Lvl 3 Diagnoses ARF (acute renal failure) N17.9 Pyelonephritis N12 Sepsis A41.9 HTN (hypertension) I10
[2021-07-20] MEDS: cefTRIAXone SODIUM 2,000 MG in DEXTROSE 5% 50 ML IV SCH (14:15)
--- NOTE | 2021-07-21 22:12 | Discharge Summary ---
Date of Service July 20, 2021 Admission HPI Per Admitting Provider 51 YOM with HTN, Gout, DMII (diet controlled), ETHO abuse. Patient comes to the EMD today for abdominal pain, nausea and vomiting for the past 3-5 days. Patient endorses that he has been drinking 15 pack of beer since March every day. He decided to stop last week ~ on the 06 of July. He then lost his appetite and started to have dry heaves, with vomiting of yellow bilious emesis with no blood. He also developed diarrhea for 3-4 days that was yellow/green with no blood or pain with defecation. Patient then started to force himself to eat, which he started with chicken noodle soup and chicken and rice. He did not have any abdominal pain or n/v with eating and his stools went back to small and formed. He also reports that he has had a decrease in urine production which he believes this started on Saturday. He denies any issues prior to this of difficulty urinating, pain with urination, or incomplete emptying his bladder. His abdominal pain is mostly tender on the left and central. This is a steady pain that is sharp and gets worse with moving, he has not noted any change with food. In the EMD the patient had routine labs performed, UA, blood cultures, CT scan of his abdomen without contrast. His laboratory work returned with elevated WBC with shift, and an acute significant rise in his BUN and BENDER HAND (89/7.3), and UA with +NIT,LE,bacteria. CT scan of the abdomen revealed an enlarged liver, with normal gallbladder and pancreas, hiatal hernia, and fat stranding around bilateral renals as well as multiple lymph nodes in the retroperitoneal region as well as calcified aorta noting prominence with his age and ectasia within infrarenal aorta.. Patient was started on Zosyn in the EMD as well as consult to Nephrology was placed. Patient will be admitted to the PCU to follow his renal function, monitor his acid base status and electrolytes and continue IV antibiotics for his sepsis. Will continue evaluation of his renal dysfunction and abdominal discomfort. Patient does have family history of Father with dialysis secondary to Agent Oragne exposure. [facility] or evaluations. Patient has not received his COVID vaccine and his COVID test is NEGATIVE on admission Principal Diagnosis Pyelonephritis E coli bacteremia, sepsis Acute kidney injury Discharge Exam Constitutional well developed, well nourished and comfortable; no acute distress Neck trachea midline, no thyromegaly Respiratory normal respiratory effort, lungs clear to auscultation Cardiovascular RRR, no murmur, no edema Gastrointestinal (Abdomen) normal bowel sounds, soft, nontender, no hepatosplenomegaly Musculoskeletal no cyanosis or clubbing, extremities motor strength 5/5 Skin no rashes, warm and dry Neurologic normal touch/pain/proprioception, CN's II-XI intact bilaterally, moves all extremities and awake; no focal motor deficits Psychiatric A+Ox3, euthymic affect Discharge Data Allergies Allergy/AdvReac Type Severity Reaction Status Date / Time No Known Allergies Allergy Unverified 07/12/21 09:38 Consultations 07/12/21 10:46 ED Decision to Admit Stat 07/12/21 16:05 Consult Nephrology Routine 07/13/21 14:58 Consult Urology Routine Ordered Studies 07/12/21 09:24 CT abd pelvis wo con Stat 07/12/21 10:53 US duplex renal artery Stat 07/12/21 11:19 US duplex mesenteric Urgent 07/16/21 08:57 MR lumbar spine wo con Routine Hospital Course (1) Pyelonephritis: Urine and fat stranding consistent with infection once again commented on MRI of back from 07/16/2021 -Ceftriaxone for E coli infection confirmed in blood and urine - renal duplex negative for HERNANDEZ repeat blood and urine cultures show NO GROWTH MRI lumbar spine 07/16/2021 IMPRESSION: No concern for hematogenous seeding of back 1. Mild degenerative disc disease at L3-L4 and L4-L5 as described above resulting in mild central canal narrowing. discharge home on Cefdinir to complete total of 14 days of treatment follow up with PCP (2) ARF (acute renal failure): As above- sepsis, hypovolemia, maybe obstructive uropathy, was taking ibuprofen 3x a day for months for back pain initial Cr was > 9 - Nephrology consulted- appreciate assistance- concern for possible vasclitis component - ANCA, ERIKA, anti GM negative, C4 slightly low at 12 but C3 and CH50 normal hepatitis panel negative appears to be in recovery phase, Cr down to 3.4, phos no longer elevated, stopped Tums K is stable making a lot of urine past few days, likely post ATN diuresis appreciate note from Dr. Adithya removed [place] day prior to discharge, no issues urinating for over 24 hours discharge to home, follow up with Dr. Faye in 1-2 weeks check BMP next week instructed to avoid all NSAIDs specifically (3) Sepsis: urinary source, e coli - Mesenteric Doppler did rule out bowel ischemia- no perforation or pneumatosis on CT scan without contrast - Pyelonephritis - Hemodynamically continues to be stable CT abdomen pelvis 07/12/2021 IMPRESSION: 1. Interval development of fat stranding surrounding bilateral kidneys, more prominent on the left. Mild enlargement of the left kidney. No evidence of hydronephrosis or nephrolithiasis. Findings are concerning for inflammatory process such as pyelonephritis. Evaluation is limited due to lack of IV contrast. 2. Hepatic steatosis. Hepatomegaly. 3. Atherosclerosis, too prominent for patient's age group. 4. Normal appendix. Nondilated loops of bowel. repeat blood cultures from 07/18 show no growth, repeat urine culture with no growth he received 8 days IV antibiotics, switch to Cefdinir based on sensitivities and complete 6 more days at home (4) Back pain: pt has some increasing non radicular back pain and e coli bacteremia, mri lumbar spine ruled out epidural abscess or osteo mild DDD changes but nothing severe Tylenol and Ultram for pain, recommend physical therapy as outpatient (5) Abdominal pain: ileus likely metabolic from renal failure resolving he is moving bowels, pain resolved for days (6) Hyponatremia: Mild- hypovolemic hyponatremia - consistent with hypocholridemia, hypocalcemia, and mild hypokalemia Na up to normal for a few days (7) Alcohol abuse: Approximately 1 week of cold turkey per the patient-continues without signs of withdrawal - AAWS protocol with Ativan at this time secondary to renal failure - Thiamine and Folic Acid PO (8) Diabetes mellitus: Diet controlled per PCP visits and not on any medications at home - BG AC/HS will add sliding scale coverage if >180- currently stable (9) HTN (hypertension): - continue amlodipine (10) NSAID long-term use: - was using both ibuprofen and Naproxen for back pain, check mri - no severe disease - Protonix PO - No report of hematemesis or melena knows to avoid NSAIDS now and in the future stop PPI as no signs of bleeding, GERD symptoms discharge to home check BMP next week follow up with Dr. Faye in 1-2 weeks Total Time Total Time Spent Total Time Spent (In Minutes): 33 Total Time Includes: Examination of the Patient, Discharge Planning, Medication Reconciliation and Communication With Other Providers (Dr. Haji) Discharge Plan Discharge Items Patient Disposition: Home - Self-Care Reason For Visit: ABD DISTENTION,PROBLEMS HAVING BM & URINATIONS Discharge Diagnosis: Acute kidney injury, resolving E coli pyelonephritis (kidney infection) E coli bacteremia, resolved Condition on Discharge: Good Goals: complete course of oral antibiotics stay well nourished, well hydrated, increase activity Activity: Resume your previous activity Driving/Machine Use: No limitations Weightbearing: Full weightbearing Non-emergency contact: Primary Care Provider Call non-emergency contact if: you have any medication questions Follow-up/Referrals: Pam Faye MD [Physician] - 08/30/21 11:00 am (2 weeks) Seble Baig MD [Primary Care Provider] - 07/28/21 11:30 am () Diet: Carb Consistent or DM2 Addtl Attending Provider Instructions: Medications: - CEFDINIR: 300mg twice a day for 6 more days, start tomorrow evening - NORVASC: 5mg daily for blood pressure control - ULTRAM: take as needed for low back pain, see below DO NOT TAKE IBUPROFEN, NAPROXEN or other NSAIDs as these will cause further kidney damage Acute renal failure: kidney function continues to improve daily, creatinine down to 3.4 today, making a lot of urine stay well hydrated and well nourished as mentioned above, do not take NSAIDs or Allopurinol for time being discuss with nephrology on follow up Pyelonephritis, bacteremia: E coli on cultures, rushing sensitive, treated with ceftriaxone IV while admitted, change to Cefdinir on discharge Low back pain: MRI of lumbar spine showed mild degenerative disc disease but no pressure on spinal cord or nerve roots recommend using Tylenol 650mg q6 as needed, Ultram 50mg every 4 hours as needed can use heat for 20-30 minutes at a time 3 times a day, never sleep with heating pad recommend physical therapy for lower back, PCP can make referral Pending Studies at Discharge: No Stand-Alone Forms: [facility], Smoking Cessation Medications and DC Order Prescriptions: New amlodipine [Norvasc] 5 mg Tablet 5 mg PO QAM 30 Days Qty: 30 RF: 3 cefdinir 300 mg capsule 300 mg PO BID 6 Days Qty: 12 RF: 0 tramadol [Ultram] 50 mg tablet 50 mg PO Q4 PRN (Reason: pain) Qty: 30 RF: 0 Continued aspirin [Adult Low Dose Aspirin] 81 mg tablet,delayed release (DR/EC) 81 mg PO QAM RF: 0 multivitamin Tablet 1 tab PO QAM RF: 0 Discontinued allopurinol 100 mg tablet 100 mg PO TID Qty: 270 RF: 1 naproxen 500 mg tablet 500 mg PO BID PRN (Reason: pain) Qty: 14 RF: 1 ibuprofen 800 mg tablet 400 mg PO Q6H PRN (Reason: pain) RF: 0 Discharge Orders: Discharge Order (Routine); Ordered 07/20/21 Ordered By: Angel Morrell/Other Patient Handouts: Acute Kidney Failure Dc Admission Data Admit Date/Time: 07/12/21 11:34 Attending Provider: Angel Silveira Admit Provider: Al Trevizo Primary Care Provider: Seble Baig Other Providers: Al Trevizo ; Renan Puente ; Owen Esteban ; Michael Carolina ; Hernando Reis ; Jennifer Guillaume ; Renan Marte ; Shaista Kang ; Patrizia Celis ; Bhavna Taylor ; J Luis Wild ; Raoul Guadrarama ; Anh Paul ; Kathie Taylor Other Interventions: Discharge Summary Assessment (RN) Last Done: 07/20/21 14:21 Coding Level of Care Code D/C DAY MANAGEMENT >30 MINS Diagnoses Pyelonephritis N12 ARF (acute renal failure) N17.9 Sepsis A41.9 Back pain M54.9 Abdominal pain R10.9 Hyponatremia E87.1 Alcohol abuse F10.10 Diabetes mellitus E11.9 HTN (hypertension) I10 NSAID long-term use Z79.1
== END 2021-07-20 15:12 | disposition home or self-care (01) | DRG 871 ==
LOC: ED 08:39 → EDINP 11:34 → SUATTDRO 11:34 → 1E 13:28 → 2E 07-15 00:52 → 2S 07-17 18:49 → 3N 07-18 15:39
DX: N17.0 Acute kidney failure with tubular necrosis; Z79.82 Long term (current) use of aspirin; E86.1 Hypovolemia; N12 Tubulo-interstitial nephritis, not specified as acute or chronic; M10.9 Gout, unspecified; I10 Essential (primary) hypertension; E83.51 Hypocalcemia; Z83.3 Family history of diabetes mellitus; K29.70 Gastritis, unspecified, without bleeding; E87.1 Hypo-osmolality and hyponatremia; K56.7 Ileus, unspecified; F10.21 Alcohol dependence, in remission; Z87.891 Personal history of nicotine dependence; I77.6 Arteritis, unspecified; E86.0 Dehydration; F12.90 Cannabis use, unspecified, uncomplicated; A41.51 Sepsis due to Escherichia coli [E. coli]; E83.39 Other disorders of phosphorus metabolism

== ENCOUNTER 2021-09-11 08:59 | Inpatient (IN) ==
[2021-09-11 09:46] LABS: Appearance Urine Cloudy (Clear); Bacteria Urine Automated Negative (Negative); Bilirubin Urine Negative (Negative); Blood Urine 3+ (Negative); Cast Urine Automated 0 /lpf (0-5); Color Urine Yellow; Glucose Urine UA Negative (Negative); Ketones Urine Negative (Negative); Leukocyte Esterase Urine 3+ (Negative); Nitrite Urine Negative (Negative); Protein Urine 1+ (Negative); Specific Gravity Urine 1.008 (1.000-1.030); Urobilinogen Urine Negative (Negative); WBC Urine Automated >30 /hpf (0-5)
[2021-09-11 09:59] LABS: Calcium 9.9 mg/dl (8.5-10.1); Creatinine Clr Calc Pharmacy 57.4 ml/min; Est GFR (African American) 55.7 ml/min; Potassium 4.1 mmol/L (3.5-5.1)
[2021-09-11 10:02] LABS: Albumin Globulin Ratio 0.8 (0.9-2); Bilirubin,Total 0.4 mg/dl (0.2-1); Globulin 5.2 gm/dl (2.5-4.0); Total Protein 9.2 gm/dl (6.4-8.2)
[2021-09-11 10:12] LABS: Basophils # (auto) 0.04 K/uL (0-0.2); Basophils % (auto) 0.3 %; Eosinophils # (auto) 0.11 K/uL (0-0.5); Hematocrit (blood only) 37.7 % (42-52); Hemoglobin 12.6 g/dL (14.0-18.0); Immature Granulocytes # (auto) 0.01 K/uL (0.00-0.02); Immature Granulocytes % (auto) 0.1 %; Lymphocytes # (auto) 2.23 K/uL (1.2-3.4); Lymphocytes % (auto) 19.3 %; Mean Corpuscular Hemoglobin 29.2 pg (25-34); Mean Corpuscular Hgb Conc 33.4 g/dL (32-36); Mean Corpuscular Volume 87.5 fL (80-100); Mean Platelet Volume 10.2 fL (7.4-10.4); Monocytes # (auto) 0.56 K/uL (0.11-0.59); Monocytes % (auto) 4.8 %; Neutrophils # (auto) 8.62 K/uL (1.4-6.5); Neutrophils % (auto) 74.5 %; Platelet Count 363 K/uL (130-400); RDW Coefficient of Variation 15.3 % (11.5-14.5); RDW Standard Deviation 49.4 fL (36.4-46.3); Red Blood Count 4.31 M/uL (4.7-6.1); White Blood Count 11.57 K/uL (4.8-10.8)
[2021-09-11] MEDS ORDERED: SODIUM CHLORIDE 0.9% 1000ML 1,000 ML IV ONE (10:36)
[2021-09-11] MEDS ORDERED: ONDANSETRON INJ 2 MG/ML 2 ML VIAL IV STA (10:36)
[2021-09-11] MEDS ORDERED: cefTRIAXone SODIUM 2,000 MG/70 ML BAG IV STA (10:36)
[2021-09-11] MEDS ORDERED: MoRPHine SULFATE 4 MG/ML 1 ML CARP\\VIAL IV STA (10:36)
--- NOTE | 2021-09-11 10:40 | Emergency Department Note ---
Impression & Plan Bilateral flank pain, Acute pyelonephritis, Hematuria, Leukocytosis ED Provider Note NAME: ROD HENRY IV AGE: 51 SEX: M : 1970 ARRIVES VIA: Walk-In INFORMANT: [Patient] ED PROVIDER(S): [Jose L Mccarthy MD] CHIEF COMPLAINT: Hematuria, flank pain HISTORY OF PRESENT ILLNESS: The patient is a 51-year-old male who recently had pyelonephritis with acute renal injury. He was seen by nephrology 7 days ago and seemed to be doing well. The patient states that in the last 24 hours, he has noticed some lower back/flank pain and some lower abdominal/bladder pain. The pain is a 6 or 7 on a scale of 1-10. He could not sleep last night. This morning, he had some burning to urinate and some difficulty urinating and noticed some blood in the urine. He feels achy and feels like he may have an infection back. There has been no vomiting, he has not had diarrhea. He is vaccinated against COVID-19. No recent sick contacts. REVIEW OF SYSTEMS: See HPI for pertinent positives and negatives. A total of ten systems were reviewed and were otherwise negative. PMHx/PSHx: See Below SOCIAL HISTORY: See Below. PHYSICAL EXAM: GENERAL: Patient is in no acute distress. HEENT: No acute trauma, normocephalic atraumatic, mucous membranes moist, no nasal congestion, no scleral icterus. NECK: No stridor, no adenopathy, no meningismus, trachea is midline. LUNGS: Clear to auscultation bilaterally, no wheeze, no rhonchi, breath sounds equal. HEART: Without murmurs gallops or rubs, regular rate and rhythm. ABDOMEN: Soft, mildly tender in the area of the bladder, bowel sounds positive, small, minimally tender umbilical hernia, no peritonitis. Back: Bilateral flank discomfort to percussion. EXTREMITIES: No cyanosis or edema, full range of motion of all the joints without pain or difficulty, no signs for acute trauma. NEUROLOGIC: Oriented x 3, no acute motor or sensory deficits, no focal weakness. SKIN: No rash, no jaundice, no diaphoresis. DIFFERENTIAL DIAGNOSIS: Renal colic, pyelonephritis, acute kidney injury, UTI, appendicitis, diverticulitis, mesenteric ischemia, aortic pathology, inflammatory bowel disease, PUD, biliary pathology, as well as other pathologies. EMERGENCY DEPARTMENT COURSE/PROCEDURES: Post void bladder scan: As per nursing staff, the post void residual was around 50 cc, no Luciano catheter required. MEDICAL DECISION MAKING: There is a mild leukocytosis, this would be consistent with infection. Patient was anemic with a hemoglobin of 12.6. The anemia is baseline looking back at previous testing. There is a normal platelet count. Renal panel testing shows a creatinine of 1.64. This is where he has been running lately. No significant electrolyte abnormality in need of emergent correction. No worrisome liver enzyme elevation. Lipase is mildly elevated but not near high enough to diagnose pancreatitis. Urinalysis is consistent with infection. Covid testing returned negative. Abdominal and pelvis CT shows evidence for pyelonephritis, no urinary obstruction. No significant urinary retention by bladder scan. The patient received IV saline for hydration. He was given IV ceftriaxone as antibiotic coverage. He received IV morphine for pain, IV Zofran for nausea. I did discuss the case with nephrology, I spoke with the patient, I spoke with the welfare case worker. The on-call hospitalist has been consulted. Patient requires IV hydration, monitoring, IV antibiotic therapy. Past Med/Surg History Medical History Abdominal pain Alcohol abuse hx of Anxiety ARF (acute renal failure) to see Dr. Puente Sep 08 for follow up BPH (benign prostatic hyperplasia) Cardiac murmur mild> had had for several yrs Chronic back pain Chronic kidney disease Degenerative disc disease Diabetes mellitus not at present, family hx of > just monitoring Gout Hypertension Sciatica Surgical History History of hernia repair LIH repair Dr. Roldan 2001 History of tooth extraction History of wisdom tooth extraction Hx of inguinal hernia repair (1999) Recurrent LIH repair Dr. Menezes 2018 Family History Father Diabetes Kidney disease Mother Diabetes Denies family history of Ovarian cancer Prostate cancer Myocardial infarction Breast cancer Colorectal cancer Social History Smoking Status: Never smoker Tobacco Type: Cigarettes and Smokeless Tobacco (Dip or Chew) packs per day: 1; Years Smoked: 12; Second Hand Exposure: No; Hx Alcohol Use: No Hx Substance Use: Yes Non-Prescribed Medications: Crack / Cocaine and Marijuana Last Used Substance: Hours (ago) Last Used Substance Other:: smokes marijuana this morning. has medical marijuana card. 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 How many Children do You have: 1 Feels Safe at Home: Yes Assistive Devices: None Allergies Allergies Allergy/AdvReac Type Severity Reaction Status Date / Time No Known Allergies Allergy Verified 09/11/21 11:19 Home Meds Home Medications Medication Instructions Recorded Confirmed multivitamin 1 tab PO QAM 01/01/19 09/11/21 aspirin 81 mg tablet,delayed 81 mg PO QAM 05/06/20 09/11/21 release (Adult Low Dose Aspirin) Medical Marijuana 1 inh INHALATION BID PRN 09/01/21 09/11/21 tamsulosin 0.4 mg capsule 0.4 mg PO QAM 09/01/21 09/11/21 Previous Rx's Medication Instructions Recorded amlodipine 5 mg tablet (Norvasc) 5 mg PO QAM 30 Days #30 tab 07/20/21 allopurinol 100 mg tablet 200 mg PO QAM #180 tab 09/08/21 Results & Data (ED) Vital Signs Vital Signs - 24 hr 09/11/21 09:09 09/11/21 11:43 Temperature 36.5 C Temperature Source Temporal Artery Scan Pulse Rate 85 Pulse Rate [Finger] 73 Pulse Rhythm [Finger] Regular Pulse Strength [Finger] Normal Respiratory Rate 16 16 Respiratory Effort / Characteristics Non-Labored Spontaneous Respiratory Depth Normal Respiratory Pattern Regular Blood Pressure 134/72 Blood Pressure [Left Arm] 150/89 H Blood Pressure Mean 92 Blood Pressure Mean [Left Arm] 109 Blood Pressure Position [Left Arm] Lying Pulse Oximetry 98 94 Oxygen Delivery Method Room Air Room Air Sepsis Recent Fever Within 48 Hours No Sepsis New/Unexplained Change in Mental Status No Sepsis Action Taken by Nursing No Action Required Home Medications Current Medication List: was personally reviewed by me Laboratory Data Attestation: I reviewed the patient's lab results. Result diagrams: 09/11/21 09:11 09/11/21 09:11 Lab Results 1009/11/21 09/11/21 Range/Units 09:11 09:11 09:15 WBC 11.57 H (4.8-10.8) K/uL RBC 4.31 L (4.7-6.1) M/uL Hgb 12.6 L (14.0-18.0) g/dL Hct 37.7 L (42-52) % MCV 87.5 (80-100) fL MCH 29.2 (25-34) pg MCHC 33.4 (32-36) g/dL RDW Std Deviation 49.4 H (36.4-46.3) fL RDW Coeff of Luigi 15.3 H (11.5-14.5) % Plt Count 363 (130-400) K/uL MPV 10.2 (7.4-10.4) fL Immature Gran % (Auto) 0.1 % Neut % (Auto) 74.5 % Lymph % (Auto) 19.3 % [place] % (Auto) 4.8 % Eos % (Auto) 1.0 % Baso % (Auto) 0.3 % Neut # (Auto) 8.62 H (1.4-6.5) K/uL Lymph # (Auto) 2.23 (1.2-3.4) K/uL [place] # (Auto) 0.56 (0.11-0.59) K/uL Eos # (Auto) 0.11 (0-0.5) K/uL Baso # (Auto) 0.04 (0-0.2) K/uL Immature Gran # (Auto) 0.01 (0.00-0.02) K/uL Sodium 137 (136-145) mmol/L Potassium 4.1 (3.5-5.1) mmol/L Chloride 103 (98-107) mmol/L Carbon Dioxide 26 (21-32) mmol/L Anion Gap 8.0 (3-11) BUN 21 H (7-18) mg/dl Creatinine 1.64 H (0.6-1.4) mg/dl Est Cr Clr Drug Dosing 57.4 ml/min Est GFR ( Amer) 55.7 ml/min Est GFR (Non-Af Amer) 48.0 ml/min BUN/Creatinine Ratio 13.0 (10-20) Glucose 148 H (70-99) mg/dl Calcium 9.9 (8.5-10.1) mg/dl Total Bilirubin 0.4 (0.2-1) mg/dl AST 12 L (15-37) U/L ALT 30 (12-78) U/L Alkaline Phosphatase 106 (45-117) U/L Total Protein 9.2 H (6.4-8.2) gm/dl Albumin 4.0 (3.4-5.0) gm/dl Globulin 5.2 H (2.5-4.0) gm/dl Albumin/Globulin Ratio 0.8 L (0.9-2) Lipase 480 H (73-393) U/L Urine Color Yellow Urine Appearance Cloudy A (Clear) Urine pH 6.0 (4.5-7.5) Ur Specific [place] 1.008 (1.000-1.030) Urine Protein 1+ H (Negative) Urine Glucose (UA) Negative (Negative) Urine Ketones Negative (Negative) Urine Blood 3+ H (Negative) Urine Nitrite Negative (Negative) Urine Bilirubin Negative (Negative) Urine Urobilinogen Negative (Negative) Ur Leukocyte Esterase 3+ H (Negative) Urine WBC (Auto) >30 H (0-5) /hpf Urine RBC (Auto) 10-30 H (0-4) /hpf U Hyaline Cast (Auto) 0 (0-5) /lpf U Epithel Cells (Auto) 10-20 H (0-5) /lpf Urine Bacteria (Auto) Negative (Negative) COVID-19 Eval Order SARS-CoV-2 (PCR) (Negative) 09/11/21 09/11/21 Range/Units 11:30 11:30 WBC (4.8-10.8) K/uL RBC (4.7-6.1) M/uL Hgb (14.0-18.0) g/dL Hct (42-52) % MCV (80-100) fL MCH (25-34) pg MCHC (32-36) g/dL RDW Std Deviation (36.4-46.3) fL RDW Coeff of Luigi (11.5-14.5) % Plt Count (130-400) K/uL MPV (7.4-10.4) fL Immature Gran % (Auto) % Neut % (Auto) % Lymph % (Auto) % [place] % (Auto) % Eos % (Auto) % Baso % (Auto) % Neut # (Auto) (1.4-6.5) K/uL Lymph # (Auto) (1.2-3.4) K/uL [place] # (Auto) (0.11-0.59) K/uL Eos # (Auto) (0-0.5) K/uL Baso # (Auto) (0-0.2) K/uL Immature Gran # (Auto) (0.00-0.02) K/uL Sodium (136-145) mmol/L Potassium (3.5-5.1) mmol/L Chloride (98-107) mmol/L Carbon Dioxide (21-32) mmol/L Anion Gap (3-11) BUN (7-18) mg/dl Creatinine (0.6-1.4) mg/dl Est Cr Clr Drug Dosing ml/min Est GFR ( Amer) ml/min Est GFR (Non-Af Amer) ml/min BUN/Creatinine Ratio (10-20) Glucose (70-99) mg/dl Calcium (8.5-10.1) mg/dl Total Bilirubin (0.2-1) mg/dl AST (15-37) U/L ALT (12-78) U/L Alkaline Phosphatase (45-117) U/L Total Protein (6.4-8.2) gm/dl Albumin (3.4-5.0) gm/dl Globulin (2.5-4.0) gm/dl Albumin/Globulin Ratio (0.9-2) Lipase (73-393) U/L Urine Color Urine Appearance (Clear) Urine pH (4.5-7.5) Ur Specific [place] (1.000-1.030) Urine Protein (Negative) Urine Glucose (UA) (Negative) Urine Ketones (Negative) Urine Blood (Negative) Urine Nitrite (Negative) Urine Bilirubin (Negative) Urine Urobilinogen (Negative) Ur Leukocyte Esterase (Negative) Urine WBC (Auto) (0-5) /hpf Urine RBC (Auto) (0-4) /hpf U Hyaline Cast (Auto) (0-5) /lpf U Epithel Cells (Auto) (0-5) /lpf Urine Bacteria (Auto) (Negative) COVID-19 Eval Order Covid19 at [facility] SARS-CoV-2 (PCR) NEGATIVE (Negative) Administered Medications Morphine Sulfate (Morphine Sulfate 4 Mg/Ml 1 Ml Carp\Vial) 4 mg IV Q6H PRN PRN Reason: pain Stop: 09/25/21 15:44 Last Admin: 09/11/21 15:48 Dose: 4 mg Documented by: [id number] Discontinued Medications Sodium Chloride (Nss 1000ml) 1,000 mls @ 999 mls/hr IV .Q1H1M ONE Stop: 09/11/21 11:36 Last Infusion: 09/11/21 14:08 Dose: 0 mls/hr Documented by: [id number] Admin: 09/11/21 11:25 Dose: 999 mls/hr Documented by: [id number] Ceftriaxone Sodium (Rocephin) 2,000 mg in 70 mls @ 140 mls/hr IV NOW STA Stop: 09/11/21 11:05 Last Infusion: 09/11/21 14:08 Dose: 0 mls/hr Documented by: [id number] Admin: 09/11/21 11:28 Dose: 140 mls/hr Documented by: [id number] Morphine Sulfate (Morphine Sulfate 4 Mg/Ml 1 Ml Carp\Vial) 4 mg IV NOW STA Stop: 09/11/21 10:37 Last Admin: 09/11/21 11:26 Dose: 4 mg Documented by: [id number] Ondansetron HCl (Ondansetron Inj 2 Mg/Ml 2 Ml Vial) 4 mg IV NOW STA Stop: 09/11/21 10:37 Last Admin: 09/11/21 11:25 Dose: 4 mg Documented by: [id number] Imaging Data Radiologist's Impression: Abdomen/Pelvis CT 09/11/21 10:[address] WITHOUT CONTRAST CT DOSE: 541.75 mGy.cm HISTORY: Bilateral flank pain TECHNIQUE: Multiaxial CT images of the abdomen and pelvis were performed without contrast. A dose lowering technique was utilized adhering to the principles of ALARA. COMPARISON STUDY: Abdomen and pelvis CT 07/12/2021. FINDINGS: The lung bases are clear. No pneumoperitoneum. No pneumatosis. No fractures within the visualized osseous structures. Mild hepatic steatosis. The unenhanced spleen, adrenal glands, pancreas, and gallbladder are unremarkable. Mild bilateral perinephric fat stranding and mild enlargement the bilateral kidneys has improved in the interval. No renal or ureteral stones. No hydronephrosis. The bladder is mildly distended. The prostate gland is mildly enlarged. Moderate calcified plaque within the abdominal aorta which is mildly ectatic measuring up to 2.8 cm in diameter. No retroperitoneal lymphadenopathy. Small fat-containing umbilical hernia. Evidence for prior left inguinal hernia repair. Suboptimal evaluation for bowel pathology due to the lack of intravenous and oral contrast. However, there is no definite bowel wall thickening or obstruction. There are few scattered colonic diverticula. No evidence for acute diverticulitis. Normal appendix. IMPRESSION: 1. Mild enlargement of the kidneys with mild bilateral perinephric fat stranding. This is improved in the interval and could represent a low-grade pyelonephritis or glomerulonephritis. Recommend correlation with renal function tests and urinalysis. 2. No renal or ureteral stones. No hydronephrosis. 3. The bladder is mildly distended. This could be due to the enlarged prostate gland. 4. No definite bowel wall thickening or obstruction. 5. Colonic diverticulosis. No evidence for acute diverticulitis. 6. Mild hepatic steatosis. ACT 112: Negative or not required by law. Electronically signed by: Shelton Yu M.D. 09/11/2021 11:21 AM Discharge Plan Visit Data Chief Complaint: Hematuria Stated Complaint: HX OF KIDNEY FAILURE,BLOOD URINE ED Provider: Jose L Mccarthy Discharge Problem: Bilateral flank pain, Acute pyelonephritis, Hematuria, Leukocytosis Patient Disposition: Admitted As Inpatient Condition: Fair Discharge Instructions Interventions: ED Discharge Assessment Last Done: 09/11/21 16:04
--- NOTE | 2021-09-11 11:22 | CT Scan Report ---
ABDOMEN AND PELVIS CT WITHOUT CONTRAST CT DOSE: 541.75 mGy.cm HISTORY: Bilateral flank pain TECHNIQUE: Multiaxial CT images of the abdomen and pelvis were performed without contrast. A dose lo wering technique was utilized adhering to the principles of ALARA. COMPARISON STUDY: Abdomen and pelvis CT 07/12/2021. FINDINGS: The lung bases are clear. No pneumoperitoneum. No pneumatosis. No fractures within the visu alized osseous structures. Mild hepatic steatosis. The unenhanced spleen, adrenal glands, pancreas, a nd gallbladder are unremarkable. Mild bilateral perinephric fat stranding and mild enlargement the bi lateral kidneys has improved in the interval. No renal or ureteral stones. No hydronephrosis. The parrish dder is mildly distended. The prostate gland is mildly enlarged. Moderate calcified plaque within the abdominal aorta which is mildly ectatic measuring up to 2.8 cm in diameter. No retroperitoneal lymph adenopathy. Small fat-containing umbilical hernia. Evidence for prior left inguinal hernia repair. Brock boptimal evaluation for bowel pathology due to the lack of intravenous and oral contrast. However, th ere is no definite bowel wall thickening or obstruction. There are few scattered colonic diverticula. No evidence for acute diverticulitis. Normal appendix. IMPRESSION: 1. Mild enlargement of the kidneys with mild bilateral perinephric fat stranding. This is improved in the interval and could represent a low-grade pyelonephritis or glomerulonephritis. Recommend correla tion with renal function tests and urinalysis. 2. No renal or ureteral stones. No hydronephrosis. 3. The bladder is mildly distended. This could be due to the enlarged prostate gland. 4. No definite bowel wall thickening or obstruction. 5. Colonic diverticulosis. No evidence for acute diverticulitis. 6. Mild hepatic steatosis. ACT 112: Negative or not required by law. Electronically signed by: Shelton Yu M.D. 09/11/2021 11:21 AM
--- NOTE | 2021-09-11 12:45 | History & Physical Report ---
Date of Service September 11, 2021 Assessment & Plan (1) Pyelonephritis: Plan: Patient having recurrent pyelonephritis, similar to previous presentation. Cultures previously showed pansensitive E. coli, for now continue to treat with Rocephin as started in the ER Continue IV hydration Treat symptomatically with Tylenol Okay to start diet, Zofran for nausea as needed Patient is known to nephrology, will consult them for further recommendations. Patient is also seen urology, consider consultation to them as well (2) ARF (acute renal failure): Plan: Previous baseline creatinine was 0.8. He is currently at 1.64 which has been an improvement from previous lab draws and was similar to his nephrology appointment last week. We will asked Dr. Puente to follow, continue to monitor with IV hydration on board. (3) Diabetes mellitus: Plan: I see no diabetic meds ordered as an outpatient Will check hemoglobin A1c (4) Incarcerated inguinal hernia: Plan: Patient was receiving preoperative clearance for planned incarcerated umbilical hernia. Patient states that he does have some generalized abdominal soreness. Surgery was initially planned for 09/14 This will likely need to be held in the short-term patient is treated for acute infection. (5) Alcohol abuse: Plan: Patient denies any alcohol use since July 2000 Crow. Monitor for alcohol withdrawal but no treatment at this time. History of Present Illness Chief Complaint: dysuria Primary Care Provider: Seble Baig MD This is a 51-year-old male with past medical history of previous UTI/pyelonephritis, hospitalized in July 2021 that presents today complaining of dysuria. Patient is a decent historian. Patient tells me that he was doing well post hospitalization. He had been here after having significant pyelonephritis and acute renal failure. After discharge she had followed with nephrology, was there last week and found that his renal function had improved but was not yet at baseline. Approximately 130 this morning, patient woke up and was feeling very unwell. He had some chills as well as some bloating. Of more concern however was for bilateral flank pain. He used the bathroom and found that he had cloudy urine. Over the course of the generator rebuilder, this changed to hematuria and he had a few drops of joni hematuria at the end of his urine stream. Recognizing symptoms similar to his previous hospitalization, he called his PCP was told presents to the emergency room for further evaluation. At the time my evaluation, patient said he felt a little toxic. He continued to have the flank pain. He was having no acute cardiopulmonary distress. Allergies Allergy/AdvReac Type Severity Reaction Status Date / Time No Known Allergies Allergy Verified 09/11/21 11:19 Home Medications Medication Instructions Recorded Confirmed Type multivitamin 1 tab PO QAM 01/01/19 09/11/21 History aspirin 81 mg tablet,delayed 81 mg PO QAM 05/06/20 09/11/21 History release (Adult Low Dose Aspirin) amlodipine 5 mg tablet (Norvasc) 5 mg PO QAM 30 Days #30 tab 07/20/21 09/11/21 Rx Medical Marijuana 1 inh INHALATION BID PRN 09/01/21 09/11/21 History tamsulosin 0.4 mg capsule 0.4 mg PO QAM 09/01/21 09/11/21 History allopurinol 100 mg tablet 200 mg PO QAM #180 tab 09/08/21 09/11/21 Rx Past Med/Surg History Medical History Abdominal pain Alcohol abuse hx of Anxiety ARF (acute renal failure) to see Dr. Puente Sep 08 for follow up BPH (benign prostatic hyperplasia) Cardiac murmur mild> had had for several yrs Chronic back pain Chronic kidney disease Degenerative disc disease Diabetes mellitus not at present, family hx of > just monitoring Gout Hypertension Sciatica Surgical History History of hernia repair LIH repair Dr. Roldan 2001 History of tooth extraction History of wisdom tooth extraction Hx of inguinal hernia repair (1999) Recurrent LIH repair Dr. Menezes 2018 Family History Father Diabetes Kidney disease Mother Diabetes Denies family history of Ovarian cancer Prostate cancer Myocardial infarction Breast cancer Colorectal cancer Social History Smoking Status: Never smoker Tobacco Type: Cigarettes and Smokeless Tobacco (Dip or Chew) packs per day: 1; Years Smoked: 12; Second Hand Exposure: No; Hx Alcohol Use: No Hx Substance Use: Yes Non-Prescribed Medications: Crack / Cocaine and Marijuana Last Used Substance: Hours (ago) Last Used Substance Other:: smokes marijuana this morning. has medical marijuana card. 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 How many Children do You have: 1 Feels Safe at Home: Yes Assistive Devices: None Review of Systems Constitutional: + chills, + body aches and + weakness; no fever, no weight loss and no weight gain Eyes: as per Subjective / HPI Respiratory: no cough, no chest congestion, no dyspnea and no dyspnea on exertion Cardiovascular: no chest pain, no orthopnea, no palpitations, no lightheadedness and no edema Gastrointestinal: no abdominal pain, no nausea, no vomiting, no constipation and no diarrhea/loose stools Genitourinary: + dysuria, + hematuria and + flank pain Musculoskeletal: no back pain, no neck pain, no joint pain, no stiffness and no myalgia Integumentary: no rash Neurologic: no gait abnormality, no unsteadiness, no falls and no generalized weakness Physical Exam Constitutional: cooperative; no acute distress Neck: trachea midline, no thyromegaly Respiratory: normal respiratory effort Auscultation: lungs clear to auscultation bilaterally; no crackles, no rales, no rhonchi and no wheezes Cardiovascular: Rate/Rhythm: regular rate and regular rhythm Heart Sounds: normal S1 and normal S2 Gastrointestinal (Abdomen): Inspection/Auscultation: abdomen normal to inspection Percussion/Palpation: abdomen soft; abdomen nontender, no guarding, abdomen not rigid and no hepatosplenomegaly Skin: no rashes, warm and dry Genitourinary: b/l CVA tenderness Results & Data Results & Data ([facility]) Vital Signs (Past 12 Hours) Vital Signs Temp Pulse Pulse Resp BP BP Pulse Ox 09/11/21 11:43 73 16 150/89 H 94 09/11/21 09:09 36.5 C 85 16 134/72 98 Laboratory Results WBC 11.57 K/uL (4.8-10.8) H 09/11/21 09:11 RBC 4.31 M/uL (4.7-6.1) L 09/11/21 09:11 Hgb 12.6 g/dL (14.0-18.0) L 09/11/21 09:11 Hct 37.7 % (42-52) L 09/11/21 09:11 MCV 87.5 fL (80-100) 09/11/21 09:11 MCH 29.2 pg (25-34) 09/11/21 09:11 MCHC 33.4 g/dL (32-36) 09/11/21 09:11 RDW Std Deviation 49.4 fL (36.4-46.3) H 09/11/21 09:11 RDW Coeff of Luigi 15.3 % (11.5-14.5) H 09/11/21 09:11 Plt Count 363 K/uL (130-400) 09/11/21 09:11 MPV 10.2 fL (7.4-10.4) 09/11/21 09:11 Immature Gran % (Auto) 0.1 % 09/11/21 09:11 Neut % (Auto) 74.5 % 09/11/21 09:11 Lymph % (Auto) 19.3 % 09/11/21 09:11 [place] % (Auto) 4.8 % 09/11/21 09:11 Eos % (Auto) 1.0 % 09/11/21 09:11 Baso % (Auto) 0.3 % 09/11/21 09:11 Neut # (Auto) 8.62 K/uL (1.4-6.5) H 09/11/21 09:11 Lymph # (Auto) 2.23 K/uL (1.2-3.4) 09/11/21 09:11 [place] # (Auto) 0.56 K/uL (0.11-0.59) 09/11/21 09:11 Eos # (Auto) 0.11 K/uL (0-0.5) 09/11/21 09:11 Baso # (Auto) 0.04 K/uL (0-0.2) 09/11/21 09:11 Immature Gran # (Auto) 0.01 K/uL (0.00-0.02) 09/11/21 09:11 Sodium 137 mmol/L (136-145) 09/11/21 09:11 Potassium 4.1 mmol/L (3.5-5.1) 09/11/21 09:11 Chloride 103 mmol/L (98-107) 09/11/21 09:11 Carbon Dioxide 26 mmol/L (21-32) 09/11/21 09:11 Anion Gap 8.0 (3-11) 09/11/21 09:11 BUN 21 mg/dl (7-18) H 09/11/21 09:11 Creatinine 1.64 mg/dl (0.6-1.4) H 09/11/21 09:11 Est Cr Clr Drug Dosing 57.4 ml/min 09/11/21 09:11 Est GFR ( Amer) 55.7 ml/min 09/11/21 09:11 Est GFR (Non-Af Amer) 48.0 ml/min 09/11/21 09:11 BUN/Creatinine Ratio 13.0 (10-20) 09/11/21 09:11 Glucose 148 mg/dl (70-99) H 09/11/21 09:11 Calcium 9.9 mg/dl (8.5-10.1) 09/11/21 09:11 Total Bilirubin 0.4 mg/dl (0.2-1) 09/11/21 09:11 AST 12 U/L (15-37) L 09/11/21 09:11 ALT 30 U/L (12-78) 09/11/21 09:11 Alkaline Phosphatase 106 U/L (45-117) 09/11/21 09:11 Total Protein 9.2 gm/dl (6.4-8.2) H 09/11/21 09:11 Albumin 4.0 gm/dl (3.4-5.0) 09/11/21 09:11 Globulin 5.2 gm/dl (2.5-4.0) H 09/11/21 09:11 Albumin/Globulin Ratio 0.8 (0.9-2) L 09/11/21 09:11 Lipase 480 U/L (73-393) H 09/11/21 09:11 Urine Color Yellow 09/11/21 09:15 Urine Appearance Cloudy (Clear) A 09/11/21 09:15 Urine pH 6.0 (4.5-7.5) 09/11/21 09:15 Ur Specific Bliss 1.008 (1.000-1.030) 09/11/21 09:15 Urine Protein 1+ (Negative) H 09/11/21 09:15 Urine Glucose (UA) Negative (Negative) 09/11/21 09:15 Urine Ketones Negative (Negative) 09/11/21 09:15 Urine Blood 3+ (Negative) H 09/11/21 09:15 Urine Nitrite Negative (Negative) 09/11/21 09:15 Urine Bilirubin Negative (Negative) 09/11/21 09:15 Urine Urobilinogen Negative (Negative) 09/11/21 09:15 Ur Leukocyte Esterase 3+ (Negative) H 09/11/21 09:15 Urine WBC (Auto) >30 /hpf (0-5) H 09/11/21 09:15 Urine RBC (Auto) 10-30 /hpf (0-4) H 09/11/21 09:15 U Hyaline Cast (Auto) 0 /lpf (0-5) 09/11/21 09:15 U Epithel Cells (Auto) 10-20 /lpf (0-5) H 09/11/21 09:15 Urine Bacteria (Auto) Negative (Negative) 09/11/21 09:15 COVID-19 Eval Order Covid19 at [facility] 09/11/21 11:30 SARS-CoV-2 (PCR) NEGATIVE (Negative) 09/11/21 11:30 Impressions Abdomen/Pelvis CT 09/11/21 10:[address] WITHOUT CONTRAST CT DOSE: 541.75 mGy.cm HISTORY: Bilateral flank pain TECHNIQUE: Multiaxial CT images of the abdomen and pelvis were performed without contrast. A dose lowering technique was utilized adhering to the principles of ALARA. COMPARISON STUDY: Abdomen and pelvis CT 07/12/2021. FINDINGS: The lung bases are clear. No pneumoperitoneum. No pneumatosis. No fractures within the visualized osseous structures. Mild hepatic steatosis. The unenhanced spleen, adrenal glands, pancreas, and gallbladder are unremarkable. Mild bilateral perinephric fat stranding and mild enlargement the bilateral kidneys has improved in the interval. No renal or ureteral stones. No hydronephrosis. The bladder is mildly distended. The prostate gland is mildly enlarged. Moderate calcified plaque within the abdominal aorta which is mildly ectatic measuring up to 2.8 cm in diameter. No retroperitoneal lymphadenopathy. Small fat-containing umbilical hernia. Evidence for prior left inguinal hernia repair. Suboptimal evaluation for bowel pathology due to the lack of intravenous and oral contrast. However, there is no definite bowel wall thickening or obstruction. There are few scattered colonic diverticula. No evidence for acute diverticulitis. Normal appendix. IMPRESSION: 1. Mild enlargement of the kidneys with mild bilateral perinephric fat stranding. This is improved in the interval and could represent a low-grade pyelonephritis or glomerulonephritis. Recommend correlation with renal function tests and urinalysis. 2. No renal or ureteral stones. No hydronephrosis. 3. The bladder is mildly distended. This could be due to the enlarged prostate gland. 4. No definite bowel wall thickening or obstruction. 5. Colonic diverticulosis. No evidence for acute diverticulitis. 6. Mild hepatic steatosis. ACT 112: Negative or not required by law. Electronically signed by: Shelton Yu M.D. 09/11/2021 11:21 AM PG Care Time/CCT Total # of Minutes Spent Total Time Spent with Patient: Total time spent is greater than 50% in coordination of care (as documented) at patient's floor/unit and/or counseling patient: Coding Level of Care Code 46425 Initial Inpt Care Lvl 3 Diagnoses Diabetes mellitus E11.9 Incarcerated inguinal hernia K40.30 Pyelonephritis N12 ARF (acute renal failure) N17.9 Alcohol abuse F10.10
[2021-09-11] MEDS: MoRPHine SULFATE 4 MG/ML 1 ML CARP\\VIAL IV PRN ×2 (15:48→22:03)
[2021-09-11] MEDS ORDERED: FLUARIX QUADRIVALENT 0.5 ML SYR IM ONE (16:16)
[2021-09-11] MEDS: HEPARIN SOD 5,000 UNIT/0.5 ML VIAL SQ SCH ×2 (20:56)
[2021-09-12] MEDS: MoRPHine SULFATE 4 MG/ML 1 ML CARP\\VIAL IV PRN ×3 (04:55→22:55)
[2021-09-12] MEDS: HEPARIN SOD 5,000 UNIT/0.5 ML VIAL SQ SCH ×2 (05:01→14:25)
[2021-09-12 06:17] LABS: Basophils # (auto) 0.05 K/uL (0-0.2); Basophils % (auto) 0.6 %; Eosinophils # (auto) 0.24 K/uL (0-0.5); Eosinophils % (auto) 2.8 %; Hematocrit (blood only) 35.4 % (42-52); Hemoglobin 11.8 g/dL (14.0-18.0); Immature Granulocytes # (auto) 0.02 K/uL (0.00-0.02); Immature Granulocytes % (auto) 0.2 %; Lymphocytes # (auto) 1.78 K/uL (1.2-3.4); Lymphocytes % (auto) 20.9 %; Mean Corpuscular Hemoglobin 29.2 pg (25-34); Mean Corpuscular Hgb Conc 33.3 g/dL (32-36); Mean Corpuscular Volume 87.6 fL (80-100); Mean Platelet Volume 9.7 fL (7.4-10.4); Monocytes # (auto) 0.41 K/uL (0.11-0.59); Monocytes % (auto) 4.8 %; Neutrophils # (auto) 6.01 K/uL (1.4-6.5); Neutrophils % (auto) 70.7 %; Platelet Count 330 K/uL (130-400); RDW Coefficient of Variation 15.2 % (11.5-14.5); Red Blood Count 4.04 M/uL (4.7-6.1); White Blood Count 8.51 K/uL (4.8-10.8)
[2021-09-12 06:37] LABS: Albumin Level 3.4 gm/dl (3.4-5.0); BUN Creatinine Ratio 12.3 (10-20); Calcium 9.4 mg/dl (8.5-10.1); Creatinine Clr Calc Pharmacy 59.6 ml/min; Est GFR (African American) 58.2 ml/min; Est GFR (Non-African American) 50.3 ml/min; Magnesium 2.2 mg/dl (1.8-2.4); Potassium 4.3 mmol/L (3.5-5.1)
[2021-09-12 06:40] LABS: Albumin Globulin Ratio 0.7 (0.9-2); Bilirubin,Total 0.5 mg/dl (0.2-1); Globulin 4.6 gm/dl (2.5-4.0)
[2021-09-12 07:16] LABS: Estimated Average Glucose 123 mg/dl; Hemoglobin A1C 5.9 % (4.5-5.6)
[2021-09-12] MEDS: MULTIVITAMIN TAB PO SCH (09:16)
[2021-09-12] MEDS: allopurinoL 100 MG TAB PO SCH (09:17)
[2021-09-12] MEDS: TAMSULOSIN HCL 0.4 MG CAP PO SCH (09:17)
[2021-09-12] MEDS: ASPIRIN 81 MG ECTAB PO SCH (09:17)
[2021-09-12] MEDS: amLODIPine BESYLATE 5 MG TAB PO SCH (09:17)
[2021-09-12] MEDS: SODIUM CHLOR 0.45% + 20MEQ KCL 20 MEQ/1,000 ML BAG IV SCH ×2 (09:46→20:33)
--- NOTE | 2021-09-12 10:09 | Urology Consultation ---
Date of Consultation September 12, 2021 Assessment & Plan (1) Acute pyelonephritis: (2) Bilateral flank pain: (3) Hematuria: 51 year-old male patient, with multiple comorbidities, admitted with recurrent pyelonephritis and OXANA. - Plan of care reviewed with Dr. Wild, on-call urologist. - Patient currently afebrile. - Labs reviewed - white count improved to normal, creatinine this AM 1.58. - Urine culture pending, await final. - Imaging reviewed - mild enlargement of the kidneys with mild bilateral perinephric fat stranding. No obstructing stones or hydronephrosis. Bladder distention noted. - No acute intervention indicated at this time. - Continue Tamsulosin and monitor closely for retention. Bladder scan Q shift and PRN, recommend placement of indwelling rutherford catheter versus CIC if post void residual amount >300 ml. - Continue antibiotics, supportive care, and management per primary service/nephrology. - Will continue to follow clinical progress while inpatient. Supervising Physician Co-Signing Physician Notes I have seen and examined Mr. Stern and agree with the above documentation. For now it makes sense to treat conservatively with antibiotics and monitor for urinary retention. There is no evidence of upper tract obstruction on imaging, so his infection should clear with antibiotics. Further evaluation of urinary retention is scheduled in the outpatient clinic. History of Present Illness Reason for Consultation: Recurrent pyelonephritis, prior retention Attending Physician: Dale Lopez DO History of Present Illness 51 year-old male patient, with past medical history significant for long-term N SAIDs use, hypertension, anxiety, gout, diabetes mellitus, alcohol use, and other comorbidities listed below, presented to the emergency room on 09/11 with complaints of bilateral flank pain and hematuria. His symptoms developed early yesterday morning. He reports generally feeling unwell over the past day. Of note, patient with recent hospitalization in July secondary to E.Coli UTI/pyelonephritis with positive blood cultures. He was in urinary retention at that time and had rutherford catheter placed which has since been removed. Patient admitted by medicine service for further evaluation and treatment of presumed pyelonephritis. Urology consulted for recurrent pyelonephritis. Patient known to [facility] Urology service. He last saw Dr. Perez on 08/23 in clinic. His symptoms at that time appeared consistent wtih BPH with obstruction. He was started on Flomax HS at that time and was recommended to return to clinic for cystoscopy which is scheduled September 21. Chart review: Patient afebrile. Wbc 8.51 (previously 11.57) Hgb 11.8 Creatinine 1.58 (previously 1.64) Urinalysis on admission +3 leukocytes, >30 wbc, 10-30 rbc, negative bacteria, negative nitrates. Urine culture pending. Patient currently on IV Ceftriaxone. Imaging - CT abd/pelvis without contrast - IMPRESSION: 1. Mild enlargement of the kidneys with mild bilateral perinephric fat stranding. This is improved in the interval and could represent a low-grade pyelonephritis or glomerulonephritis. Recommend correlation with renal function tests and urinalysis. 2. No renal or ureteral stones. No hydronephrosis. 3. The bladder is mildly distended. This could be due to the enlarged prostate gland. 4. No definite bowel wall thickening or obstruction. 5. Colonic diverticulosis. No evidence for acute diverticulitis. 6. Mild hepatic steatosis. Patient examined at bedside. He is awake, oriented, non-toxic on exam. Reports he feels "slightly" better since admission. Continues to have bilateral flank discomfort in addition to abdominal discomfort. Abdominal discomfort is reported as generalized. Continues to have dysuria. States his hematuria has improved. Reports urinary urgency/frequency although states this has improved with addition of Flomax. He does feel like he empties his bladder well. Denies fevers but does report chills. States intermittent nausea, denies vomiting. Has occasional dizziness. No chest pain or shortness of breath. Most recent bladder scan in ER was 50 cc. Denies additional urologic concerns today. Allergies Allergy/AdvReac Type Severity Reaction Status Date / Time No Known Allergies Allergy Verified 09/11/21 11:19 Home Medications Medication Instructions Recorded Confirmed Type multivitamin 1 tab PO QAM 01/01/19 09/11/21 History aspirin 81 mg tablet,delayed 81 mg PO QAM 05/06/20 09/11/21 History release (Adult Low Dose Aspirin) amlodipine 5 mg tablet (Norvasc) 5 mg PO QAM 30 Days #30 tab 07/20/21 09/11/21 Rx Medical Marijuana 1 inh INHALATION BID PRN 09/01/21 09/11/21 History tamsulosin 0.4 mg capsule 0.4 mg PO QAM 09/01/21 09/11/21 History allopurinol 100 mg tablet 200 mg PO QAM #180 tab 09/08/21 09/11/21 Rx Patient History Medical History Abdominal pain Alcohol abuse hx of Anxiety ARF (acute renal failure) to see Dr. Puente Sep 08 for follow up BPH (benign prostatic hyperplasia) Cardiac murmur mild> had had for several yrs Chronic back pain Chronic kidney disease Degenerative disc disease Diabetes mellitus not at present, family hx of > just monitoring Gout Hypertension Sciatica Surgical History History of hernia repair LIH repair Dr. Roldan 2001 History of tooth extraction History of wisdom tooth extraction Hx of inguinal hernia repair (1999) Recurrent LIH repair Dr. Menezes 2018 Family History Father Diabetes Kidney disease Mother Diabetes Denies family history of Ovarian cancer Prostate cancer Myocardial infarction Breast cancer Colorectal cancer Social History Smoking Status: Former smoker Tobacco Type: Cigarettes and Smokeless Tobacco (Dip or Chew) packs per day: 1; Years Smoked: 12; Second Hand Exposure: No; Hx Alcohol Use: Yes Alcohol type: beer Alcohol Intake Frequency Comment: Quit 07-09-21 Hx Substance Use: Yes Non-Prescribed Medications: Crack / Cocaine and Marijuana Last Used Substance: Hours (ago) Last Used Substance Other:: 2009 Substance Use Type Other:: has medical marijuana card > uses bid prn Preferred Language: Italian Communication Ability: Effective Governor Assembler Required: No Beliefs That Will Affect Care: None Current Living Situation: Family current occupational status: employed 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 How many Children do You have: 1 Other Information That Helps Us Care for You: No Feels Safe at Home: Yes Safety Concerns: Feels Safe At This Time Assistive Devices: None Review of Systems Constitutional: as per Subjective / HPI and + chills; no fever Eyes: no problem reported Ear, Nose, Mouth, Throat: no problem reported Respiratory: no cough and no dyspnea Cardiovascular: no chest pain and no edema Gastrointestinal: as per Subjective / HPI Genitourinary: + as per Subjective / HPI Musculoskeletal: as per Subjective / HPI Neurologic: as per Subjective / HPI Endocrine: + fatigue Hematologic / Lymphatic: no easy bleeding and no easy bruising Physical Exam Constitutional: well developed and well nourished; no acute distress and not ill appearing ENMT: Ears: no external ear abnormality Nose: no external nose abnormality Neck: normal visual inspection and trachea midline Respiratory: normal respiratory effort and able to speak in complete sentences; no respiratory distress and no audible wheezes Cardiovascular: Extremities: no calf tenderness and no edema Gastrointestinal (Abdomen): Inspection/Auscultation: abdomen normal to inspection; abdomen not distended Percussion/Palpation: + abdomen tender (generalized tenderness) and abdomen soft; no guarding Musculoskeletal: Moves all extremities without difficulty. Skin: No visible rashes, lesions, or wounds noted. Neurologic: moves all extremities and awake Psychiatric: Orientation: alert, oriented x 3 and cooperative Affect: euthymic affect Genitourinary: no CVA tenderness Results & Data ([facility]) Vital Signs (Past 12 Hours) Vital Signs Temp Pulse Resp BP Pulse Ox 09/12/21 00:00 36.5 C 77 18 139/82 96 PG Care Time/CCT Total # of Minutes Spent Total Time Spent with Patient: Total time spent is greater than 50% in coordination of care (as documented) at patient's floor/unit and/or counseling patient: Coding Level of Care Code 55570 Inpt Consult Level 3 Diagnoses Acute pyelonephritis N10 Bilateral flank pain R10.9 Hematuria R31.0 Hematuria type: gross (1) Hematuria Hematuria type: gross Qualified Code(s): R31.0 - Gross hematuria
[2021-09-12] MEDS: cefTRIAXone SODIUM 2,000 MG in DEXTROSE 5% 50 ML IV SCH (12:03)
--- NOTE | 2021-09-12 12:11 | Nephrology Consultation ---
Date of Consultation September 12, 2021 Assessment & Plan (1) Pyelonephritis: * 09/11/21 urine culture: preliminary result is gram negative brittany. Await final result and sensitivities. Previously had pansensitive E. Coli * Continue IV Ceftriaxone. No dose adjustment needed in the setting of OXANA * Suspect recurrent UTI related to BYERS. Await Urology recommendations * Continue Tamsulosin therapy (2) ARF (acute renal failure): * Patient remains in recovery phase from last hospitalization. Baseline Cr had been 0.8 * Volume status and electrolyte balance are acceptable. No acute indication for HD * Agree w/ gentle hydration * Monitor PRP (3) HTN (hypertension): * BP is currently controlled * Continue Amlodipine therapy (4) Gout: * Continue Allopurinol therapy History of Present Illness Reason for Consultation: OXANA Attending Physician: Dale Lopez DO History of Present Illness Mr. Stern is a 51 year old white male who is seen at the request of Dr. Mccarthy for evaluation of OXANA. Medical records in the EMR were reviewed today and are summarized as follows: Mr. Stern was last hospitalized at [facility] 07/12/21 - 07/20/21 for evaluation of OXANA. He was diagnosed w/ E. Coli cystitis in the setting of heavy NSAID use. His condition improved following Luciano catheter insertion and IV antibiotic therapy. Creatinine peaked at ~ 9 and improved to 3.4 at the time of discharge. He did not require HD. Over the last several days Mr. Stern reports difficulty fully emptying his bladder. He developed a low grade fever and back discomfort. EMD evaluation revealed Cr 1.6 (baseline 0.8), noncontrast abdominal CT revealed mild enlargement of the kidneys w/ perinephric stranding concerning for pyelonephritis. The bladder appeared to be distended due to an enlarged prostate gland. Admission was advised for antibiotic therapy, Nephrology and Urology evaluations. PMH: jessica beasley w/ history of heavy NSAID use, h/o cocaine and medical marijuana use, h/o heavy alcohol use (12 cans beer/day - now sober), gout managed w/ Allopurinol, HTN managed w/ Amlodipine Allergies Allergy/AdvReac Type Severity Reaction Status Date / Time No Known Allergies Allergy Verified 09/11/21 11:19 Home Medications Medication Instructions Recorded Confirmed Type multivitamin 1 tab PO QAM 01/01/19 09/11/21 History aspirin 81 mg tablet,delayed 81 mg PO QAM 05/06/20 09/11/21 History release (Adult Low Dose Aspirin) amlodipine 5 mg tablet (Norvasc) 5 mg PO QAM 30 Days #30 tab 07/20/21 09/11/21 Rx Medical Marijuana 1 inh INHALATION BID PRN 09/01/21 09/11/21 History tamsulosin 0.4 mg capsule 0.4 mg PO QAM 09/01/21 09/11/21 History allopurinol 100 mg tablet 200 mg PO QAM #180 tab 09/08/21 09/11/21 Rx Patient History Medical History Abdominal pain Alcohol abuse hx of Anxiety ARF (acute renal failure) to see Dr. Puente Sep 08 for follow up BPH (benign prostatic hyperplasia) Cardiac murmur mild> had had for several yrs Chronic back pain Chronic kidney disease Degenerative disc disease Diabetes mellitus not at present, family hx of > just monitoring Gout Hypertension Sciatica Surgical History History of hernia repair LIH repair Dr. Roldan 2001 History of tooth extraction History of wisdom tooth extraction Hx of inguinal hernia repair (1999) Recurrent LIH repair Dr. Menezes 2018 Family History Father Diabetes Kidney disease Mother Diabetes Denies family history of Ovarian cancer Prostate cancer Myocardial infarction Breast cancer Colorectal cancer Social History Smoking Status: Former smoker Tobacco Type: Cigarettes and Smokeless Tobacco (Dip or Chew) packs per day: 1; Years Smoked: 12; Second Hand Exposure: No; Hx Alcohol Use: Yes Alcohol type: beer Alcohol Intake Frequency Comment: Quit 07-09-21 Hx Substance Use: Yes Non-Prescribed Medications: Crack / Cocaine and Marijuana Last Used Substance: Hours (ago) Last Used Substance Other:: 2009 Substance Use Type Other:: has medical marijuana card > uses bid prn Preferred Language: Liberian Communication Ability: Effective Director Integrated Required: No Beliefs That Will Affect Care: None Current Living Situation: Family current occupational status: employed 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 How many Children do You have: 1 Other Information That Helps Us Care for You: No Feels Safe at Home: Yes Safety Concerns: Feels Safe At This Time Assistive Devices: None Review of Systems Constitutional: no fever Eyes: no problem reported Ear, Nose, Mouth, Throat: no problem reported Respiratory: no cough and no dyspnea Cardiovascular: no chest pain, no palpitations and no edema Gastrointestinal: no abdominal pain Genitourinary: + dysuria and + urinary hesitancy; no hematuria Musculoskeletal: no back pain Integumentary: no rash Neurologic: no falls, no dizziness and no confusion Physical Exam Constitutional: not in distress Eyes: PERRL, conjunctivae normal, anicteric sclerae ENMT: external ear and nose normal, oropharynx normal Neck: trachea midline, no thyromegaly Respiratory: normal respiratory effort, lungs clear to auscultation Cardiovascular: RRR, no murmur, no edema Gastrointestinal (Abdomen): Inspection/Auscultation: abdomen normal to inspection and normal bowel sounds Percussion/Palpation: + abdomen tender (suprapubic region) and abdomen soft; no guarding Musculoskeletal: Extremities: no cyanosis Skin: no rashes, warm and dry Neurologic: awake; not confused Results & Data ([facility]) Vital Signs (Past 12 Hours) Vital Signs Temp Pulse Resp BP Pulse Ox 09/12/21 00:00 36.5 C 77 18 139/82 96 Laboratory Results Laboratory Tests 09/11/21 09/12/21 09/12/21 09:15 05:58 05:58 WBC 8.51 Hgb 11.8 L Hct 35.4 L Plt Count 330 Sodium 136 Potassium 4.3 Chloride 104 Carbon Dioxide 26 BUN 19 H Creatinine 1.58 H Glucose 131 H Urine Color Yellow Urine Appearance Cloudy A Urine pH 6.0 Ur Specific Elsie 1.008 Urine Protein 1+ H Urine Glucose (UA) Negative Urine Blood 3+ H Ur Leukocyte Esterase 3+ H Urine WBC (Auto) >30 H Urine RBC (Auto) 10-30 H U Hyaline Cast (Auto) 0 U Epithel Cells (Auto) 10-20 H Diagnostic Findings 09/11/21 Urine culture: preliminary G- bacilli PG Care Time/CCT Total # of Minutes Spent Total Time Spent with Patient: Total time spent is greater than 50% in coordination of care (as documented) at patient's floor/unit and/or counseling patient: Coding Level of Care Code 08152 Inpt Consult Level 5 Diagnoses Pyelonephritis N12 ARF (acute renal failure) N17.9 HTN (hypertension) I10 Gout M10.9
[2021-09-12] MEDS: oxyCODONE HCL IR 5 MG TAB (IMMEDIATE RELEASE) PO PRN ×2 (16:20→20:33)
--- NOTE | 2021-09-12 19:50 | Hospitalist Progress Note ---
Date of Service September 12, 2021 Assessment & Plan (1) Pyelonephritis: Plan: Recurrent pyelonephritis. Fortunately this time he presented very quickly after symptom onset, so the last time it appeared he was quite ill, including being bacteremic, this time it seems much more mild. Continue ceftriaxone pending ID and sensitivities of urine culture. Strongly suspect his repeated infections are related to bladder outlet obstructionto this regard we will ask urology to see him, to determine if interventions may be warranted now, or at least to help facilitate making sure he is taking care of promptly if interventions are better fit to be after he is completed from antibiotics. (2) ARF (acute renal failure): Plan: Creatinine still about double baseline. Strongly suspect related to above, may be a little bit from the obstruction, may be a little bit from dehydration. IV fluids, follow basic metabolic panel. (3) Diabetes mellitus: Plan: Mood mood closely followed is impaired glucose tolerance, given his A1c is 5.9. Hopefully with diet education we can help him prevent from becoming diabetic. (4) Incarcerated inguinal hernia: Plan: Patient was receiving preoperative clearance for planned incarcerated umbilical hernia. Patient states that he does have some generalized abdominal soreness. Surgery was initially planned for 09/14 This will likely need to be held in the short-term patient is treated for acute infection. (5) DVT prophylaxis: Plan: Lovenox (6) Discharge planning issues: Plan: Admit to [facility], await cognos consultant input. Anticipate him being able to go homelikely once we have sensitivities on urine culture to better transition to oral therapy, once we have more of a definitive plan as it relates to bladder outlet obstruction from urology, and once creatinine is improving. Admission and Anticipated Discharge Date Admission Date: September 11, 2021 Subjective Feeling marginally better than yesterday. Chills may be less intense and coming and going less often. Bladder/lower abdominal pain about the same. Back pain is low back, might be related to the bed, and generally about the same. Review of Systems Review of Systems: All systems reviewed & are unremarkable except as noted in HPI & below Physical Exam Physical Exam: In general he is awake and alert somewhat fatigued appearing but otherwise no distress. HEENT normocephalic atraumatic mucous membranes moist. Breathing unlabored no accessory muscle use good effort. No CVA tenderness, does have lower abdominal tenderness to palpation but no guarding, rebound, rigidity. No focal neuro deficits. Skin without rashes, pallor, icterus. Results & Data Results & Data ([facility]) Vital Signs (Past 12 Hours) Vital Signs Temp Pulse Resp BP Pulse Ox 09/12/21 14:58 98.1 F 81 17 145/95 H 96 PG Care Time/CCT Total # of Minutes Spent Total Time Spent with Patient: Total time spent is greater than 50% in coordination of care (as documented) at patient's floor/unit and/or counseling patient: Coding Level of Care Code 99691 Subseq Hosp Care Lvl 3 Diagnoses Pyelonephritis N12 ARF (acute renal failure) N17.9 Diabetes mellitus E11.9 Incarcerated inguinal hernia K40.30 DVT prophylaxis Z29.9 Discharge planning issues Z02.9
--- NOTE | 2021-09-12 19:57 | Billing Data ---
Date of Service September 12, 2021 Coding Level of Care Code 31215 Subseq Hosp Care Lvl 3
[2021-09-12] MEDS: ACETAMINOPHEN 325 MG TAB PO SCH (20:32)
[2021-09-13 07:13] LABS: Basophils # (auto) 0.06 K/uL (0-0.2); Basophils % (auto) 0.8 %; Eosinophils # (auto) 0.25 K/uL (0-0.5); Eosinophils % (auto) 3.5 %; Hematocrit (blood only) 36.1 % (42-52); Immature Granulocytes # (auto) 0.01 K/uL (0.00-0.02); Immature Granulocytes % (auto) 0.1 %; Lymphocytes # (auto) 1.93 K/uL (1.2-3.4); Lymphocytes % (auto) 27.1 %; Mean Corpuscular Hemoglobin 29.1 pg (25-34); Mean Corpuscular Hgb Conc 33.2 g/dL (32-36); Mean Corpuscular Volume 87.4 fL (80-100); Mean Platelet Volume 9.6 fL (7.4-10.4); Neutrophils # (auto) 4.38 K/uL (1.4-6.5); Neutrophils % (auto) 61.5 %; Platelet Count 324 K/uL (130-400); RDW Coefficient of Variation 14.8 % (11.5-14.5); RDW Standard Deviation 47.8 fL (36.4-46.3); Red Blood Count 4.13 M/uL (4.7-6.1); White Blood Count 7.13 K/uL (4.8-10.8)
[2021-09-13] MEDS: oxyCODONE HCL IR 5 MG TAB (IMMEDIATE RELEASE) PO PRN (07:35)
[2021-09-13 07:47] LABS: BUN Creatinine Ratio 12.5 (10-20); Calcium 9.7 mg/dl (8.5-10.1); Creatinine Clr Calc Pharmacy 58.8 ml/min; Est GFR (African American) 57.4 ml/min; Est GFR (Non-African American) 49.5 ml/min; Potassium 4.3 mmol/L (3.5-5.1)
--- NOTE | 2021-09-13 07:53 | Urology Progress Note ---
Date of Service September 13, 2021 Assessment & Plan (1) Acute pyelonephritis: (2) Bilateral flank pain: (3) Hematuria: Plan: 51 year-old male patient, with multiple comorbidities, admitted with recurrent pyelonephritis and OXANA. - Continues to have degree of bilateral flank pain, left greater than right. - Patient remains afebrile. - Labs reviewed - white count normal, creatinine this AM 1.60. - Preliminary urine culture with 50,000 cfu E.Coli, pansensitive. - Imaging reviewed - mild enlargement of the kidneys with mild bilateral perinephric fat stranding. No obstructing stones or hydronephrosis. - No acute intervention indicated at this time. - Continue Tamsulosin and monitor closely for retention. Bladder scan Q shift and PRN, recommend placement of indwelling rutherford catheter versus CIC if post void residual amount >300 ml. - Continue antibiotics, supportive care, and management per primary service/nephrology. - Patient does have outpatient follow-up with urology service September 21 for structural evaluation with cystoscopy. - Plan to keep this appointment as scheduled and allow treatment of infection in the interim. - Expected clinical course reviewed with patient, all questions answered. Urology will sign off at this time. Thank you for allowing us to participate in the acute care of Mr. Stern. Please reconsult us with additional questions, concerns or changes in patient status. Admission and Anticipated Discharge Date Admission Date: September 11, 2021 Subjective Patient examined at bedside. He is alert, awake, comfortable - sitting in chair. Non-toxic in appearance. Does report on-going flank discomfort, left greater than right. Pain tolerable with IV and PO pain medication. Reports mild dysuria. Denies hematuria, urgency, frequency. Feels he empties his bladder well without difficulty. Most recent bladder scan yesterday was for 0 ml. Denies fevers or chills. Denies nausea or vomiting. Dizziness has improved. Chart review: Afebrile Wbc 7.13 Hgb 12.0 Creatinine 1.60 (previously 1.58) Preliminary urine culture with 50,000 cfu E.Coli, pansensitive. Patient currently on IV Cefrtriaxone. Review of Systems Constitutional: as per Subjective / HPI; no fever and no chills Gastrointestinal: as per Subjective / HPI; no nausea and no vomiting Genitourinary: + as per Subjective / HPI Physical Exam Constitutional: well developed and well nourished; no acute distress and not ill appearing Respiratory: normal respiratory effort and able to speak in complete sentences; no respiratory distress and no audible wheezes Gastrointestinal (Abdomen): Inspection/Auscultation: abdomen normal to inspec tion; abdomen not distended Percussion/Palpation: abdomen soft; no guarding Psychiatric: Orientation: alert, oriented x 3 and cooperative Affect: euthymic affect Genitourinary: no CVA tenderness Results & Data ([facility]) Vital Signs (Past 12 Hours) Vital Signs Temp Pulse Resp BP Pulse Ox 09/13/21 07:34 36.6 C 75 18 131/86 97 09/12/21 22:11 36.7 C 73 18 142/87 H 97 PG Care Time/CCT Total # of Minutes Spent Total Time Spent with Patient: Total time spent is greater than 50% in coordination of care (as documented) at patient's floor/unit and/or counseling patient: Coding Level of Care Code 62877 Subseq Hosp Care Lvl 2 Diagnoses Acute pyelonephritis N10 Bilateral flank pain R10.9 Hematuria R31.0 Hematuria type: gross (1) Hematuria Hematuria type: gross Qualified Code(s): R31.0 - Gross hematuria
[2021-09-13] MEDS ORDERED: ENOXAPARIN INJ 40 MG/0.4 ML SYR SQ SCH (09:00)
[2021-09-13] MEDS: SODIUM CHLOR 0.45% + 20MEQ KCL 20 MEQ/1,000 ML BAG IV SCH (09:27)
[2021-09-13] MEDS: ACETAMINOPHEN 325 MG TAB PO SCH ×2 (09:50→14:58)
[2021-09-13] MEDS: MoRPHine SULFATE 4 MG/ML 1 ML CARP\\VIAL IV PRN (09:54)
[2021-09-13] MEDS: TAMSULOSIN HCL 0.4 MG CAP PO SCH (10:29)
[2021-09-13] MEDS: allopurinoL 100 MG TAB PO SCH (10:29)
[2021-09-13] MEDS: ASPIRIN 81 MG ECTAB PO SCH (10:29)
[2021-09-13] MEDS: amLODIPine BESYLATE 5 MG TAB PO SCH (10:30)
[2021-09-13] MEDS: MULTIVITAMIN TAB PO SCH (10:30)
--- NOTE | 2021-09-13 11:03 | Nephrology Progress Note ---
Date of Service September 13, 2021 Assessment & Plan (1) Pyelonephritis: Plan: * 09/11/21 urine culture: pansensitive E. Coli * Afebrile, WBC # has normalized. On IV Ceftriaxone. Still having mild flank and suprapubic discomfort. Consider transition to oral antibiotic in am * Suspect recurrent UTI related to BYERS. Urology plans outpatient evaluation 09/21/21 * Continue Tamsulosin therapy (2) ARF (acute renal failure): Plan: * Patient remains in recovery phase from last hospitalization. Baseline Cr had been 0.8 * Volume status and electrolyte balance are acceptable. No acute indication for HD * Agree w/ gentle hydration * Monitor PRP (3) HTN (hypertension): Plan: * BP is currently controlled * Continue Amlodipine therapy (4) Gout: Plan: * Continue Allopurinol therapy Admission and Anticipated Discharge Date Admission Date: September 11, 2021 Subjective Mr. Stern was evaluated in his hospital room this morning. He reports improve ment in his flank and suprapubic discomfort. He still has mild dysuria. He reports that he is fully emptying his bladder. Review of Systems Constitutional: no fever Eyes: no problem reported Ear, Nose, Mouth, Throat: no problem reported Respiratory: no cough and no dyspnea Cardiovascular: no chest pain, no palpitations and no edema Gastrointestinal: no abdominal pain Genitourinary: + dysuria and + urinary hesitancy; no hematuria Musculoskeletal: no back pain Integumentary: no rash Neurologic: no falls, no dizziness and no confusion Physical Exam Constitutional: not in distress Eyes: PERRL, conjunctivae normal, anicteric sclerae ENMT: external ear and nose normal, oropharynx normal Neck: trachea midline, no thyromegaly Respiratory: normal respiratory effort, lungs clear to auscultation Cardiovascular: RRR, no murmur, no edema Gastrointestinal (Abdomen): Inspection/Auscultation: abdomen normal to inspection and normal bowel sounds Percussion/Palpation: + abdomen tender (suprapubic region) and abdomen soft; no guarding Musculoskeletal: Extremities: no cyanosis Skin: no rashes, warm and dry Neurologic: awake; not confused Results & Data ([facility]) Vital Signs (Past 12 Hours) Vital Signs Temp Pulse Resp BP Pulse Ox 09/13/21 07:34 36.6 C 75 18 131/86 97 Laboratory Results Laboratory Tests 09/13/21 09/13/21 06:53 06:53 WBC 7.13 Hgb 12.0 L Hct 36.1 L Plt Count 324 Sodium 136 Potassium 4.3 Chloride 104 Carbon Dioxide 29 BUN 20 H Creatinine 1.60 H Glucose 102 H Calcium 9.7 Diagnostic Findings 09/12/21 Urine culture: E. Coli - pansensitive PG Care Time/CCT Total # of Minutes Spent Total Time Spent with Patient: Total time spent is greater than 50% in coordination of care (as documented) at patient's floor/unit and/or counseling patient: Coding Level of Care Code 83541 Subseq Hosp Care Lvl 3 Diagnoses Pyelonephritis N12 ARF (acute renal failure) N17.9 HTN (hypertension) I10 Gout M10.9
[2021-09-13] MEDS: cefTRIAXone SODIUM 2,000 MG in DEXTROSE 5% 50 ML IV SCH (12:33)
--- NOTE | 2021-09-13 18:15 | Discharge Summary ---
Date of Service September 13, 2021 Admission HPI Per Admitting Provider This is a 51-year-old male with past medical history of previous UTI/pyelonephritis, hospitalized in July 2021 that presents today complaining of dysuria. Patient is a decent historian. Patient tells me that he was doing well post hospitalization. He had been here after having significant pyelonephritis and acute renal failure. After discharge she had followed with nephrology, was there last week and found that his renal function had improved but was not yet at baseline. Approximately 130 this morning, patient woke up and was feeling very unwell. He had some chills as well as some bloating. Of more concern however was for bilateral flank pain. He used the bathroom and found that he had cloudy urine. 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 Recognizing symptoms similar to his previous hospitalization, he called his PCP was told presents to the emergency room for further evaluation. At the time my evaluation, patient said he felt a little toxic. He continued to have the flank pain. He was having no acute cardiopulmonary distress. Principal Diagnosis Recurrent pyelonephritis Discharge Exam In general he is awake and alert pleasant no distress. HEENT normocephalic atraumatic mucous membranes moist. Breathing unlabored no accessory muscle use good effort. Skin shows no rashes no pallor or icterus. Neuro without focal deficits. Discharge Data Allergies Allergy/AdvReac Type Severity Reaction Status Date / Time No Known Allergies Allergy Verified 09/11/21 11:19 Consultations 09/11/21 11:49 ED Decision to Admit Stat 09/11/21 16:24 Consult Nephrology Routine 09/12/21 08:55 Consult Urology Routine Ordered Studies 09/11/21 10:36 CT abd pelvis wo con Stat Hospital Course (1) Pyelonephritis: Recurrent pyelonephritis. Fortunately this time he presented very quickly after symptom onset, so the last time it appeared he was quite ill, including being bacteremic, this time it seems much more mild. Feels up to going homestable for homewe will treat with 14 days of total antibiotics, but will finish with 12 more days of cefdinir. For cystoscopy next week to further work- up the urologic/mechanical/structural reasons that may have a more prone to recurrent infectionsfortunately this will be near the end of his course of antibiotics, but while he is still on antibiotics. (2) ARF (acute renal failure): Creatinine still about double baseline. Strongly suspect related to above, may be a little bit from the obstruction, but unfortunately did not improve, suggesting this is a new, or at least current baseline. Stable for home. Avoid NSAIDs, stay well-hydrated. (3) Diabetes mellitus: Much more of a prediabeticmore of impaired glucose [id number] is 5.9. Discussed lifestyle change, he is quite motivated to do this. Discussed that getting a glucometer could also help in learning from his diet, being able to check postprandial glucoses. He will ask his PCP if they have any sample glucometers available. (4) Incarcerated inguinal hernia: Patient was receiving preoperative clearance for planned incarcerated umbilical hernia. Has not shown any acuity requiring emergent repair. Can follow-up as an outpatient. (5) DVT prophylaxis: Lovenox utilized during his hospital stay (6) Discharge planning issues: Culture showing pansensitive E. coli, patient improving nicely, stable for home. Close outpatient follow-up (7) Back pain: While some of his back pain may have been related to his pyelonephritis, predominantly it was far lower than the CVA region. Therefore it is highly likely biomechanical back paindiscussed with him that in his PCPs office, Dr. Miranda does OMT, and he may benefit from a therapeutic trial of this for his back pain. Total Time Total Time Spent Total Time Spent (In Minutes): Greater than 30 Discharge Plan Discharge Items Patient Disposition: Home - Self-Care Reason For Visit: PYELONEPHRITIS Discharge Diagnosis: recurrent kidney infection (pyleonephritis) Condition on Discharge: Fair Activity: Resume your previous activity Non-emergency contact: Primary Care Provider and Urologist Call non-emergency contact if: you have any medication questions and your symptoms worsen Follow-up/Referrals: Seble Baig MD [Primary Care Provider] - 09/19/21 11:30 am Diet: Regular Addtl Attending Provider Instructions: Recurrent pyelonephritis (kidney infection) -Fortunately because you knew what to watch for, you were far less sick than when this happened in July, and now are stable enough to be able to go home -Fortunately as well, the bacteria is E. coli (generally the most common urinary tract infection bacteria that we see) and it is sensitive to all antibiotics tested (meaning that it is very easily killed by any/all antibiotics that we use) -Typically we will treat kidney infections for about 2 weeks with antibioticsand it will be a very easy transition from the IV ceftriaxone that you have been on to a pill called cefdinir. We will have you take it twice a day (dose in the morning, dose in the evening) for another 12 days to round out 14 days total. Because he had an IV dose today that will last into tomorrow, your first dose of the cefdinir should be tomorrow morning (09/14) -It really does appear to be some sort of urinary tract "plumbing" issue leading to getting these recurrent infectionsand the urologist will be working further to get to the bottom of what exactly is going on with your urinary tract anatomy. In discussion with our urology team (both the team covering the hospital, and Dr. Perez) the plan will be to proceed with a scope in the near futurethey did not do it now, because they noted in the setting of an acute infection, things would be so inflamed it may really be hard to see what they are looking at. That said, given that your appointment is in 8 days, and he will be on the antibiotics for another 12 days, it is exceedingly unlikely that you would suffer a recurrent infection between now and then. -It generally can take days to even a few weeks to feel better from a kidney infectionto that end, take it fairly easy for now, and do not be surprised if everything feels like "more work" than it typically would nataliya.e. do not be surprised if you feel generally a bit fatigued/run down and it takes a few weeks to months for that to go away. The pain should fade over the next few days (if it does not, some of the back pain actually appeared to be more muscular than kidney related) but while we are still looking at treating the kidney infection related painI would recommend taking Tylenol more or less [id number] (with a maximum of 2000 mg in the day), and for the short-term, you could take the oxycodone 5 mg up to 4 times a day for pain that exceeds what the Tylenol alleviates (because it can make you constipated and groggy, I would definitely refrain from taking it much, and it is probably best reserved for taking at bedtimegiven that the pain tends to feel more amplified when people are trying to sleep) -Follow-up with Dr. Perez next week as scheduled elevated creatinine (small decrease in kidney function) -Since the infection back in July, your creatinine (the main lab test that we used to follow kidney function) has been a little bit elevated. In discussion with Dr. Puente, we are suspecting that unfortunately this may be a "new normal" as far as a small but real decline in your kidney function. -Fortunately, this is a level that mostly is a "lab abnormality" as long as we prevent things that would make your kidneys worse -Obviously the above plans to treat the infection and alleviate any sort of back pressure on your kidneys should be quite helpful -We definitely want you staying well-hydrated (a minimum of 60 to 80 ounces of fluid daily -Avoid things that can lead to adverse impact on your kidney function (most notably I would avoid anti-inflammatory medicinesthings like ibuprofen/Aleve/etc.) Impaired glucose tolerance (prediabetes) -As a totally incidental finding, I had noticed that your blood sugars were a little bit up on your lab work. To figure this out a bit better, I had the lab run a test called an A1can A1c is essentially how sugar covered your red blood cells are. Since red blood cells live for about 90 days, typically an A1c becomes a reasonable estimate of what your sugars have been doing over the last 90 days. A normal A1c is 5.6 or less, "truly diabetic" is about 6.5 or higherand you were more or less in the middle at 5.9. -The reason we would worry about this, is in the big picture, "high sugars clog arteries" and so as people sugars get higher, and the longer they run high, the more they start to work on heart attacks and strokes -For your reassurance, an A1c of 5.9 is definitely not in a "high sugars clog arteries" rangeit is more that if we do not start to make changes, you would likely slowly become diabetic over the next few years -What we know with type 2 diabetes is that people's bodies become progressively more "insulin resistant"think a bit more like an insulin addiction. Insulin is the hormone that gets sugar out of our bloodstream and into our musclesand so whenever we eat something that has more sugar or carbohydrate in it (not just sugary foods, but also bread/potatoes/pasta, etc.) we will spike a higher blood sugar, and it will take more insulin to get that sugar out of our bloodstream and into our muscles. As we do this over and over, over time, her muscles become more and more "addicted" to insulin requiring higher levels to get the same amount of carbohydrates out of our bloodstream. Eventually, her pancreas is not able to "keep up" with how much insulin her muscles want, and then her sugars start to float to levels high enough to start to do damage to arteries. -We are catching this at a really good pointagain, it is far too soon for you to have suffered any "high sugars clog arteries" damage, and it should be very easy to turn this around and prevent diabetes altogether-the main thing to look at and preventing becoming diabetic is minimizing the amount of simple carbohydrates (breads, pastas, potatoes, sugars, sweets, etc.) that you eatas this will reduce the amount of times you spike a sugar/spike high insulin levels, and reduce the amount that your muscles are "addicted" to insulin. Further, and especially once you are feeling good enough to do so after all this is improved, 20 to 30 minutes of light cardiovascular exercise (think in terms of a brisk walk or a bike ride) really reduces how "addicted" her muscles are to insulin, making this less diabetic as well. Pending Studies at Discharge: No Stand-Alone Forms: My [facility], Opioid Pain Management, Smoking Cessation Medications and DC Order Prescriptions: New cefdinir 300 mg capsule 300 mg PO BID Qty: 12 RF: 0 oxycodone 5 mg tablet 5 mg PO Q6H PRN (Reason: pain) Qty: 7 RF: 0 Continued aspirin [Adult Low Dose Aspirin] 81 mg tablet,delayed release (DR/EC) 81 mg PO QAM RF: 0 allopurinol 100 mg tablet 200 mg PO QAM Qty: 180 RF: 3 multivitamin Tablet 1 tab PO QAM RF: 0 amlodipine [Norvasc] 5 mg Tablet 5 mg PO QAM 30 Days Qty: 30 RF: 3 tamsulosin 0.4 mg capsule 0.4 mg PO QAM RF: 0 Medical Marijuana 1 inh inhalation BID PRN (Reason: Anxiety) RF: 0 Discharge Orders: Discharge Order (Routine); Ordered 09/13/21 Ordered By: Osiel Morrell/Other Patient Handouts: Anatomy of the Male Urinary Tract, Kidney Infec Dc Admission Data Admit Date/Time: 09/11/21 12:48 Attending Provider: Dale Lopez Admit Provider: David Gonzalez Primary Care Provider: Seble Baig Other Providers: David Gonzalez ; Renan Puente ; J Luis Wild Other Interventions: Discharge Summary Assessment (RN) Last Done: 09/13/21 14:20 Coding Level of Care Code D/C DAY MANAGEMENT >30 MINS Diagnoses Pyelonephritis N12 ARF (acute renal failure) N17.9 Diabetes mellitus E11.9 Incarcerated inguinal hernia K40.30 DVT prophylaxis Z29.9 Discharge planning issues Z02.9 Back pain M54.9
== END 2021-09-13 15:59 | disposition home or self-care (01) | DRG 690 ==
LOC: ED 08:59 → EDINP 12:48 → SUATTDRO 12:48 → EDINP 16:04 → 3N 09-12 14:52

== ENCOUNTER 2022-08-27 06:35 | Observation (INO) ==
[2022-08-27] MEDS ORDERED: SODIUM CHLORIDE 0.9% 1000ML 500 ML IV ONE (06:51)
[2022-08-27] MEDS ORDERED: ONDANSETRON INJ 2 MG/ML 2 ML VIAL IV STA (06:51)
--- NOTE | 2022-08-27 06:56 | Emergency Department Note ---
Impression & Plan Abdominal pain, acute, right upper quadrant, Cholecystitis ED Provider Note INFORMANT: Patient ED PROVIDER(S): Raymundo Richards MD CHIEF COMPLAINT: Right upper quadrant abdominal pain PLAN: Disposition: Admitted Condition: Good Outpatient prescription management: none Referral: None MEDICAL DECISION MAKING: Patient presented with right upper quadrant abdominal pain that was acute in nature. He had nausea and vomiting as well. Blood work and urinalysis sent. He was hydrated. He was treated with IV Zofran and Dilaudid. ECG was normal. Patient was sent for ultrasound imaging. His laboratory testing was unremarkable. He did feel better on reassessment still having discomfort in the right upper quadrant. Ultrasound imaging was concerning for early cholecystitis. Consultation was placed with general surgery. Patient was evaluated in ER by Dr. Mariscal and surgical intervention was recommended. He was given IV Mefoxin. Triage Nursing notes reviewed and agree them. Vital Signs: reviewed and remarkable for hypertension Differential diagnosis: Etiologies such as biliary pathology, gastroenteritis, food borne illness, infections, appendicitis, diverticulitis, inflammatory bowel disease, GI bleed, as well as others were entertained. Diagnostics interpreted by me: EC Lead ECG performed and revealed Normal sinus rhythm at 75, normal Vall[place], QRS normal. No elevation or depression. No PACs or PVCs Cardiac Monitoring: Cardiac monitoring ordered by me: The patient was placed on continuous cardiac monitoring and observed. It revealed a normal sinus rhythm at 71 beats per minute without ectopy or evidence of dysrhythmia. Imaging studies: Ultrasound as noted below. HPI: The patient is a 52year old male who presents to the Emergency Room with complaints of right upper quadrant abdominal pain. This started last night at 8 PM and is described as sharp and severe. The patient also notes the following associated symptoms, nausea and vomiting, chills. The patient has found no relieving factors. Current pain is rated as 8/10. Pt denies LOC, headache, fevers, diaphoresis, visual changes, neck pain, chest pain, breathing difficulties, back pain, melena, hematochezia, urinary symptoms, numbness, weakness, lymphadenopathy, rash, or other complaints. ROS: See above HPI for pertinent positives & negatives. A total of 10 systems reviewed and were otherwise negative. PAST MEDICAL HISTORY:See Below , CKD, hypertension PAST SURGICAL HISTORY:See Below, FAMILY HISTORY:See Below SOCIAL HISTORY:See Below, non-smoker HOME MEDICATIONS:See Below ALLERGIES:See Below VITALS:See Below PHYSICAL EXAMINATION: GENERAL: Awake, alert, uncomfortable-appearing, in no distress HENT: Normocephalic, atraumatic. Oropharynx unremarkable. EYES: Normal conjunctiva. Sclera non-icteric. NECK: Inspection normal. Non-tender. Supple. No nuchal rigidity. FROM. No masses. RESPIRATORY: Clear to auscultation. No wheezes. No rales. Normal respiratory effort. CARDIAC: Normal rate. Normal rhythm. No murmurs. No rubs. Extremities warm and well perfused. Pulses equal. No JVD. GI: Soft, non-distended. Right upper quadrant tenderness to palpation. No rebound but mild guarding. No masses. RECTAL: Deferred. MUSCULOSKELETAL: Atraumatic. Chest examination reveals no tenderness. The back is symmetrical on inspection without obvious abnormality. There is no CVA tenderness to palpation. No joint edema. LOWER EXTREMITIES: Calves are equal size bilaterally and non-tender. No edema. No discoloration. NEURO: Normal sensorium. No sensory or motor deficits noted. SKIN: No rash or jaundice noted. Raymundo Richards MD Past Med/Surg History Medical History Alcohol abuse hx of Anxiety BPH (benign prostatic hyperplasia) Cardiac murmur Mild> had had for several yrs No murmur noted at 09/18/21 PCP appt Chronic back pain Chronic kidney disease Follows with Dr. Cindi Wilson on chronic kidney disease when hospitalized July 2021- creatine still not back to baseline Diabetes mellitus Not at present, family hx of > just monitoring Hgb A1C 5.9 09/12/21 Gout Hypertension Sciatica UTI (urinary tract infection) Currently on Bactrim Surgical History History of hernia repair LIH repair Dr. Roldan 2001 History of tooth extraction History of wisdom tooth extraction Hx of inguinal hernia repair (1999) Recurrent LIH repair Dr. Menezes 2019 Family History Father Diabetes Kidney disease Mother Diabetes Denies family history of Ovarian cancer Prostate cancer Myocardial infarction Breast cancer Colorectal cancer Social History Smoking Status: Current every day smoker Tobacco Type: Cigarettes and Smokeless Tobacco (Dip or Chew) packs per day: 1; Years Smoked: 12; Second Hand Exposure: No; Hx Alcohol Use: Yes Alcohol type: beer Alcohol Intake Frequency Comment: Quit 07-09-21 Hx Substance Use: Yes Non-Prescribed Medications: Crack / Cocaine and Marijuana Last Used Substance: Hours (ago) Last Used Substance Other:: 2008 Substance Use Type Other:: medical card for HS Preferred Language: Omani Communication Ability: Effective 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 Required: No Beliefs That Will Affect Care: None Current Living Situation: Spouse current occupational status: employed 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 How many Children do You have: 1 Feels Safe at Home: Yes Assistive Devices: None Allergies Allergies Allergy/AdvReac Type Severity Reaction Status Date / Time No Known Allergies Allergy Verified 08/27/22 07:59 Home Meds Home Medications Medication Instructions Recorded Confirmed Medical Marijuana 1 inh inhalation BID PRN Anxiety 09/01/21 08/27/22 aspirin 81 mg tablet,delayed 81 mg PO QAM 08/14/22 08/27/22 release (Adult Low Dose Aspirin) Previous Rx's Medication Instructions Recorded allopurinol 100 mg tablet 200 mg PO QAM #180 tabs 01/10/22 amlodipine 5 mg tablet (Norvasc) 5 mg PO QAM 30 days #30 tabs 08/02/22 tamsulosin 0.4 mg capsule 0.4 mg PO QAM #30 caps 08/02/22 Results & Data (ED) Vital Signs Vital Signs - 24 hr 08/27/22 06:39 08/27/22 07:03 08/27/22 07:03 Temperature 36.7 C Temperature Source Temporal Artery Scan Pulse Rate 84 Pulse Rate [Finger] 75 Pulse Rhythm Regular Pulse Rhythm [Finger] Regular Pulse Strength Normal Pulse Strength [Finger] Normal Respiratory Rate 20 18 Respiratory Effort / Characteristics Non-Labored Spontaneous Non-Labored Spontaneous Respiratory Depth Normal Normal Respiratory Pattern Regular Blood Pressure 150/107 H Blood Pressure [Right Arm] 168/109 H Blood Pressure Mean 121 Blood Pressure Mean [Right Arm] 128 Blood Pressure Position Sitting Pulse Oximetry 98 96 96 Oxygen Delivery Method Room Air Room Air Room Air Sepsis Recent Fever Within 48 Hours No Sepsis New/Unexplained Change in Mental Status N/A Sepsis Action Taken by Nursing No Action Required 08/27/22 08:30 Temperature Temperature Source Pulse Rate Pulse Rate [Finger] 65 Pulse Rhythm Pulse Rhythm [Finger] Pulse Strength Pulse Strength [Finger] Respiratory Rate 16 Respiratory Effort / Characteristics Non-Labored Spontaneous Respiratory Depth Normal Respiratory Pattern Blood Pressure Blood Pressure [Right Arm] 151/80 H Blood Pressure Mean Blood Pressure Mean [Right Arm] 103 Blood Pressure Position Pulse Oximetry 98 Oxygen Delivery Method Room Air Sepsis Recent Fever Within 48 Hours Sepsis New/Unexplained Change in Mental Status Sepsis Action Taken by Nursing Laboratory Data Result diagrams: 08/27/22 06:54 08/27/22 06:54 Lab Results 08/27/22 08/27/22 08/27/22 Range/Units 06:54 06:54 06:54 WBC 7.69 (4.8-10.8) K/ul RBC 5.05 (4.63-6.08) M/uL Hgb 14.9 (14.0-18.0) g/dl Hct 43.9 (40.1-51.0) % MCV 86.9 (80.0-100.0) fL MCH 29.5 (25.0-34.0) pg MCHC 33.9 (32.0-36.0) g/dL RDW Std Deviation 45.6 (36.4-46.3) fL RDW Coeff of Luigi 14.3 (11.5-14.5) % Plt Count 261 (130-400) K/uL MPV 9.5 (9.4-12.4) fL Immature Gran % (Auto) 0.3 % Neut % (Auto) 67.4 % Lymph % (Auto) 23.8 % [place] % (Auto) 6.2 % Eos % (Auto) 1.6 % Baso % (Auto) 0.7 % Neut # (Auto) 5.19 (1.4-6.5) K/uL Lymph # (Auto) 1.83 (1.2-3.4) K/uL [place] # (Auto) 0.48 (0.24-0.82) K/uL Eos # (Auto) 0.12 (0-0.50) K/uL Baso # (Auto) 0.05 (0-0.2) K/uL Immature Gran # (Auto) 0.02 (0.00-0.02) K/uL Sodium 136 (136-145) mmol/L Potassium 4.1 (3.5-5.1) mmol/L Chloride 103 (98-107) mmol/L Carbon Dioxide 24 (21-32) mmol/L Anion Gap 9 (3-11) BUN 22 (6-23) mg/dl Creatinine 1.23 (0.6-1.4) mg/dl Est Cr Clr Drug Dosing 75.7 ml/min Est GFR ( Amer) 78.3 ml/min Est GFR (Non-Af Amer) 67.6 ml/min BUN/Creatinine Ratio 17.9 (10-20) Glucose 113 H (70-99(Fasting)) mg/dl Calcium 9.8 (8.5-10.1) mg/dl Total Bilirubin 0.3 (0.2-1.0) mg/dl AST 18 (13-39) U/L ALT 21 (7-52) U/L Alkaline Phosphatase 74 (34-104) U/L Total Protein 7.6 (6.0-8.3) gm/dl Albumin 4.7 (3.4-5.0) gm/dl Globulin 2.9 (2.5-4.0) gm/dl Albumin/Globulin Ratio 1.6 (0.9-2) Lipase 38 (11-82) U/L Urine Color Yellow Urine Appearance Clear (Clear) Urine pH 5.5 (4.5-7.5) Ur Specific Reynolds 1.011 (1.000-1.030) Urine Protein Trace H (Negative) Urine Glucose (UA) Negative (Negative) Urine Ketones Negative (Negative) Urine Blood Negative (Negative) Urine Nitrite Negative (Negative) Urine Bilirubin Negative (Negative) Urine Urobilinogen Negative (Negative) Ur Leukocyte Esterase Negative (Negative) Urine WBC (Auto) 0 (0-5) /hpf Urine RBC (Auto) 0-4 (0-4) /hpf U Hyaline Cast (Auto) 0 (0-5) /lpf U Epithel Cells (Auto) 0-5 (0-5) /lpf Urine Bacteria (Auto) Negative (Negative) SARS-CoV-2, RNA, NAAT (NEGATIVE) 08/27/22 Range/Units 09:16 WBC (4.8-10.8) K/ul RBC (4.63-6.08) M/uL Hgb (14.0-18.0) g/dl Hct (40.1-51.0) % MCV (80.0-100.0) fL MCH (25.0-34.0) pg MCHC (32.0-36.0) g/dL RDW Std Deviation (36.4-46.3) fL RDW Coeff of Luigi (11.5-14.5) % Plt Count (130-400) K/uL MPV (9.4-12.4) fL Immature Gran % (Auto) % Neut % (Auto) % Lymph % (Auto) % [place] % (Auto) % Eos % (Auto) % Baso % (Auto) % Neut # (Auto) (1.4-6.5) K/uL Lymph # (Auto) (1.2-3.4) K/uL [place] # (Auto) (0.24-0.82) K/uL Eos # (Auto) (0-0.50) K/uL Baso # (Auto) (0-0.2) K/uL Immature Gran # (Auto) (0.00-0.02) K/uL Sodium (136-145) mmol/L Potassium (3.5-5.1) mmol/L Chloride (98-107) mmol/L Carbon Dioxide (21-32) mmol/L Anion Gap (3-11) BUN (6-23) mg/dl Creatinine (0.6-1.4) mg/dl Est Cr Clr Drug Dosing ml/min Est GFR ( Amer) ml/min Est GFR (Non-Af Amer) ml/min BUN/Creatinine Ratio (10-20) Glucose (70-99(Fasting)) mg/dl Calcium (8.5-10.1) mg/dl Total Bilirubin (0.2-1.0) mg/dl AST (13-39) U/L ALT (7-52) U/L Alkaline Phosphatase (34-104) U/L Total Protein (6.0-8.3) gm/dl Albumin (3.4-5.0) gm/dl Globulin (2.5-4.0) gm/dl Albumin/Globulin Ratio (0.9-2) Lipase (11-82) U/L Urine Color Urine Appearance (Clear) Urine pH (4.5-7.5) Ur Specific Reynolds (1.000-1.030) Urine Protein (Negative) Urine Glucose (UA) (Negative) Urine Ketones (Negative) Urine Blood (Negative) Urine Nitrite (Negative) Urine Bilirubin (Negative) Urine Urobilinogen (Negative) Ur Leukocyte Esterase (Negative) Urine WBC (Auto) (0-5) /hpf Urine RBC (Auto) (0-4) /hpf U Hyaline Cast (Auto) (0-5) /lpf U Epithel Cells (Auto) (0-5) /lpf Urine Bacteria (Auto) (Negative) SARS-CoV-2, RNA, NAAT NEGATIVE (NEGATIVE) Administered Medications Hydromorphone HCl (Hydromorphone Inj 0.5 Mg/0.5 Ml Syr) 0.5 mg IV Q15M PRN PRN Reason: Pain Stop: 09/10/22 06:50 Last Admin: 08/27/22 10:31 Dose: 0.5 mg Documented By: Admin: 08/27/22 06:57 Dose: 0.5 mg Documented By: PIYUSH Sodium Chloride (Nss 1000ml) 1,000 mls @ 125 mls/hr IV .Q8H STA Stop: 08/27/22 16:55 Last Admin: 08/27/22 09:01 Dose: 125 mls/hr Documented By: BAM Discontinued Medications Sodium Chloride (Nss 1000ml) 500 mls @ 999 mls/hr IV .Q31M ONE Stop: 08/27/22 07:21 Last Infusion: 08/27/22 08:27 Dose: 0 mls/hr Documented By: Admin: 08/27/22 06:58 Dose: 999 mls/hr Documented By: PIYUSH Ondansetron HCl (Ondansetron Inj 2 Mg/Ml 2 Ml Vial) 4 mg IV NOW STA Stop: 08/27/22 06:52 Last Admin: 08/27/22 06:57 Dose: 4 mg Documented By: PIYUSH Imaging Data Radiologist's Impression: Gallbladder Ultrasound 08/27/22 06:51 US gallbladder HISTORY: 52 years-old Male RUQ abd pain acute right upper quadrant abdominal pain COMPARISON: CT abdomen and pelvis 09/11/2021 TECHNIQUE: Multiple real-time sonographic images of the abdominal right upper quadrant were obtained assessing grayscale appearance and color flow FINDINGS: The visualized pancreas is unremarkable. The liver measures 17.3 cm in length. No cholelithiasis. Mild gallbladder sludge. The gallbladder wall measures within the upper limits of normal at 3 mm. There is trace pericholecystic fluid. Normal common bile duct measures 5 mm. Imaged right kidney is unremarkable without hydronephrosis. IMPRESSION: 1. Biliary sludge without cholelithiasis identified. The gallbladder wall measures within the upper limits of normal and there is trace nonspecific pericholecystic edema. Findings are equivocal for acute cholecystitis. Correlation with nuclear medicine hepatobiliary scan may be obtained. 2. No biliary ductal dilation. ACT 112: Negative or not required by law. The above report was generated using voice recognition software. It may contain grammatical, syntax or spelling errors. Electronically signed by: Joey Andres M.D. 08/27/2022 8:26 AM Discharge Plan Visit Data Chief Complaint: Abdominal Pain Stated Complaint: R SIDE ABD PAIN,VOMITING ED Provider: Raymundo Richards Discharge Problem: Abdominal pain, acute, right upper quadrant, Cholecystitis Forms Stand Alone Forms: [employer] Prescriptions Prescriptions: No Action allopurinol 100 mg tablet 200 mg PO QAM Qty: 180 3RF amlodipine [Norvasc] 5 mg tablet 5 mg PO QAM 30 Days Qty: 30 11RF tamsulosin 0.4 mg capsule 0.4 mg PO QAM Qty: 30 5RF aspirin [Adult Low Dose Aspirin] 81 mg tablet,delayed release (DR/EC) 81 mg PO QAM Medical Marijuana 1 inh inhalation BID PRN (Reason: Anxiety) Referrals Referrals: Seble Baig MD [Primary Care Provider] -
[2022-08-27] MEDS: HYDROmorphone INJ 0.5 MG/0.5 ML SYR IV PRN ×2 (06:57→10:31)
[2022-08-27 07:05] LABS: Basophils # (auto) 0.05 K/uL (0-0.2); Basophils % (auto) 0.7 %; Eosinophils # (auto) 0.12 K/uL (0-0.50); Eosinophils % (auto) 1.6 %; Hematocrit (blood only) 43.9 % (40.1-51.0); Hemoglobin 14.9 g/dl (14.0-18.0); Immature Granulocytes # (auto) 0.02 K/uL (0.00-0.02); Immature Granulocytes % (auto) 0.3 %; Lymphocytes # (auto) 1.83 K/uL (1.2-3.4); Lymphocytes % (auto) 23.8 %; Mean Corpuscular Hemoglobin 29.5 pg (25.0-34.0); Mean Corpuscular Hgb Conc 33.9 g/dL (32.0-36.0); Mean Corpuscular Volume 86.9 fL (80.0-100.0); Mean Platelet Volume 9.5 fL (9.4-12.4); Monocytes # (auto) 0.48 K/uL (0.24-0.82); Monocytes % (auto) 6.2 %; Neutrophils # (auto) 5.19 K/uL (1.4-6.5); Neutrophils % (auto) 67.4 %; Platelet Count 261 K/uL (130-400); RDW Coefficient of Variation 14.3 % (11.5-14.5); RDW Standard Deviation 45.6 fL (36.4-46.3); Red Blood Count 5.05 M/uL (4.63-6.08); White Blood Count 7.69 K/ul (4.8-10.8)
[2022-08-27 07:16] LABS: Appearance Urine Clear (Clear); Bacteria Urine Automated Negative (Negative); Bilirubin Urine Negative (Negative); Blood Urine Negative (Negative); Cast Urine Automated 0 /lpf (0-5); Color Urine Yellow; Epithelial Cell Urine Auto 0-5 /lpf (0-5); Glucose Urine UA Negative (Negative); Ketones Urine Negative (Negative); Leukocyte Esterase Urine Negative (Negative); Nitrite Urine Negative (Negative); Protein Urine Trace (Negative); RBC Urine Automated 0-4 /hpf (0-4); Specific Gravity Urine 1.011 (1.000-1.030); Urobilinogen Urine Negative (Negative); WBC Urine Automated 0 /hpf (0-5); pH Urine 5.5 (4.5-7.5)
[2022-08-27 07:45] LABS: Albumin Globulin Ratio 1.6 (0.9-2); Albumin Level 4.7 gm/dl (3.4-5.0); BUN Creatinine Ratio 17.9 (10-20); Bilirubin,Total 0.3 mg/dl (0.2-1.0); Calcium 9.8 mg/dl (8.5-10.1); Creatinine Clr Calc Pharmacy 75.7 ml/min; Est GFR (African American) 78.3 ml/min; Est GFR (Non-African American) 67.6 ml/min; Globulin 2.9 gm/dl (2.5-4.0); Potassium 4.1 mmol/L (3.5-5.1); Total Protein 7.6 gm/dl (6.0-8.3)
--- NOTE | 2022-08-27 08:28 | Ultrasound Report ---
US gallbladder HISTORY: 52 years-old Male RUQ abd pain acute right upper quadrant abdominal pain COMPARISON: CT abdomen and pelvis 09/11/2021 TECHNIQUE: Multiple real-time sonographic images of the abdominal right upper quadrant were obtained assessing grayscale appearance and color flow FINDINGS: The visualized pancreas is unremarkable. The liver measures 17.3 cm in length. No cholelithiasis. Mil d gallbladder sludge. The gallbladder wall measures within the upper limits of normal at 3 mm. There is trace pericholecystic fluid. Normal common bile duct measures 5 mm. Imaged right kidney is unremarkable without hydronephrosis. IMPRESSION: 1. Biliary sludge without cholelithiasis identified. The gallbladder wall measures within the upper l imits of normal and there is trace nonspecific pericholecystic edema. Findings are equivocal for acut e cholecystitis. Correlation with nuclear medicine hepatobiliary scan may be obtained. 2. No biliary ductal dilation. ACT 112: Negative or not required by law. The above report was generated using voice recognition software. It may contain grammatical, syntax o r spelling errors. Electronically signed by: Joey Andres M.D. 08/27/2022 8:26 AM
[2022-08-27] MEDS ORDERED: SODIUM CHLORIDE 0.9% 1000ML 1,000 ML IV STA (08:56)
--- NOTE | 2022-08-27 10:19 | History & Physical Report ---
Date of Service August 27, 2022 Assessment & Plan (1) Acute cholecystitis: Plan 52-year-old gentleman with appears to be acute cholecystitis. He has fairly severe right upper quadrant pain persisting for over 12 hours. Labs are normal, ultrasound demonstrates pericholecystic fluid and sludge in the gallbladder. I discussed the risks and benefits of laparoscopic cholecystectomy. All his questions were answered. He is agreeable with the plan. We discussed the recovery period and restrictions. We will take him to the operating room at the earliest convenience. History of Present Illness Primary Care Provider: Seble Baig MD 52-year-old gentleman presents with right upper quadrant abdominal pain. This started last evening. He states that he last ate in the afternoon while watching football. He began to develop sharp right upper quadrant abdominal pain last night. This is persisted through till this morning. He did have nausea and vomited last night. He denies fevers or chills. He has never had pain like this in the past. He denies chest pain or shortness of breath. He denies trouble moving his bowels. He has had a prior inguinal hernia repair in the past but no other abdominal surgery. Allergies Allergy/AdvReac Type Severity Reaction Status Date / Time No Known Allergies Allergy Verified 08/27/22 07:59 Home Medications Medication Instructions Recorded Confirmed Type Medical Marijuana 1 inh inhalation BID PRN Anxiety 09/01/21 08/27/22 History allopurinol 100 mg tablet 200 mg PO QAM #180 tabs 01/10/22 08/27/22 Rx amlodipine 5 mg tablet (Norvasc) 5 mg PO QAM 30 days #30 tabs 08/02/22 08/27/22 Rx tamsulosin 0.4 mg capsule 0.4 mg PO QAM #30 caps 08/02/22 08/27/22 Rx aspirin 81 mg tablet,delayed 81 mg PO QAM 08/14/22 08/27/22 History release (Adult Low Dose Aspirin) Past Med/Surg History Medical History Alcohol abuse hx of Anxiety BPH (benign prostatic hyperplasia) Cardiac murmur Mild> had had for several yrs No murmur noted at 09/18/21 PCP appt Chronic back pain Chronic kidney disease Follows with Dr. Cindi Wilson on chronic kidney disease when hospitalized July 2021- creatine still not back to baseline Diabetes mellitus Not at present, family hx of > just monitoring Hgb A1C 5.9 09/12/21 Gout Hypertension Sciatica UTI (urinary tract infection) Currently on Bactrim Surgical History History of hernia repair LIH repair Dr. Roldan 2001 History of tooth extraction History of wisdom tooth extraction Hx of inguinal hernia repair (1999) Recurrent LIH repair Dr. Menezes 2018 Family History Father Diabetes Kidney disease Mother Diabetes Denies family history of Ovarian cancer Prostate cancer Myocardial infarction Breast cancer Colorectal cancer Social History Smoking Status: Current every day smoker Tobacco Type: Cigarettes and Smokeless Tobacco (Dip or Chew) packs per day: 1; Years Smoked: 12; Second Hand Exposure: No; Hx Alcohol Use: Yes Alcohol type: beer Alcohol Intake Frequency Comment: Quit 07-09-21 Hx Substance Use: Yes Non-Prescribed Medications: Crack / Cocaine and Marijuana Last Used Substance: Hours (ago) Last Used Substance Other:: 2009 Substance Use Type Other:: medical card for HS Preferred Language: Latvian Communication Ability: Effective Director Multimedia Required: No Beliefs That Will Affect Care: None Current Living Situation: Spouse current occupational status: employed 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 How many Children do You have: 1 Feels Safe at Home: Yes Assistive Devices: None Review of Systems Review of Systems: All systems reviewed & are unremarkable except as noted in HPI & below Physical Exam Constitutional: WD/WN, vitals as above Neck: trachea midline, no thyromegaly Respiratory: normal respiratory effort, lungs clear to auscultation Cardiovascular: RRR, no murmur, no edema Gastrointestinal (Abdomen): Inspection/Auscultation: abdomen normal to inspection; abdomen not distended and no abdominal surgical scar Percussion/Palpation: + abdomen tender (Right upper quadrant/minimal right lower quadrant), abdomen soft and + hernia (Small fat-containing umbilical hernia); no guarding and abdomen not rigid Skin: no rashes, warm and dry Psychiatric: A+Ox3, euthymic affect Results & Data Results & Data ([facility]) Vital Signs (Past 12 Hours) Vital Signs Temp Pulse Pulse Resp BP BP Pulse Ox 08/27/22 08:30 65 16 151/80 H 98 08/27/22 07:03 96 08/27/22 07:03 75 18 168/109 H 96 08/27/22 06:39 36.7 C 84 20 150/107 H 98 O2 Del Method 08/27/22 08:30 Room Air 08/27/22 07:03 Room Air 08/27/22 07:03 Room Air 08/27/22 06:39 Room Air Laboratory Results 08/27/22 08/27/22 08/27/22 Range/Units 09:16 06:54 06:54 WBC (4.8-10.8) K/ul RBC (4.63-6.08) M/uL Hgb (14.0-18.0) g/dl Hct (40.1-51.0) % MCV (80.0-100.0) fL MCH (25.0-34.0) pg MCHC (32.0-36.0) g/dL RDW Std Deviation (36.4-46.3) fL RDW Coeff of Luigi (11.5-14.5) % Plt Count (130-400) K/uL MPV (9.4-12.4) fL Immature Gran % (Auto) % Neut % (Auto) % Lymph % (Auto) % [place] % (Auto) % Eos % (Auto) % Baso % (Auto) % Neut # (Auto) (1.4-6.5) K/uL Lymph # (Auto) (1.2-3.4) K/uL Lyon # (Auto) (0.24-0.82) K/uL Eos # (Auto) (0-0.50) K/uL Baso # (Auto) (0-0.2) K/uL Immature Gran # (Auto) (0.00-0.02) K/uL Sodium 136 (136-145) mmol/L Potassium 4.1 (3.5-5.1) mmol/L Chloride 103 (98-107) mmol/L Carbon Dioxide 24 (21-32) mmol/L Anion Gap 9 (3-11) BUN 22 (6-23) mg/dl Creatinine 1.23 (0.6-1.4) mg/dl Est Cr Clr Drug Dosing 75.7 ml/min Est GFR ( Amer) 78.3 ml/min Est GFR (Non-Af Amer) 67.6 ml/min BUN/Creatinine Ratio 17.9 (10-20) Glucose 113 H (70-99(Fasting)) mg/dl Calcium 9.8 (8.5-10.1) mg/dl Total Bilirubin 0.3 (0.2-1.0) mg/dl AST 18 (13-39) U/L ALT 21 (7-52) U/L Alkaline Phosphatase 74 (34-104) U/L Total Protein 7.6 (6.0-8.3) gm/dl Albumin 4.7 (3.4-5.0) gm/dl Globulin 2.9 (2.5-4.0) gm/dl Albumin/Globulin Ratio 1.6 (0.9-2) Lipase 38 (11-82) U/L Urine Color Yellow Urine Appearance Clear (Clear) Urine pH 5.5 (4.5-7.5) Ur Specific [place] 1.011 (1.000-1.030) Urine Protein Trace H (Negative) Urine Glucose (UA) Negative (Negative) Urine Ketones Negative (Negative) Urine Blood Negative (Negative) Urine Nitrite Negative (Negative) Urine Bilirubin Negative (Negative) Urine Urobilinogen Negative (Negative) Ur Leukocyte Esterase Negative (Negative) Urine WBC (Auto) 0 (0-5) /hpf Urine RBC (Auto) 0-4 (0-4) /hpf U Hyaline Cast (Auto) 0 (0-5) /lpf U Epithel Cells (Auto) 0-5 (0-5) /lpf Urine Bacteria (Auto) Negative (Negative) SARS-CoV-2, RNA, NAAT NEGATIVE (NEGATIVE) 08/27/22 Range/Units 06:54 WBC 7.69 (4.8-10.8) K/ul RBC 5.05 (4.63-6.08) M/uL Hgb 14.9 (14.0-18.0) g/dl Hct 43.9 (40.1-51.0) % MCV 86.9 (80.0-100.0) fL MCH 29.5 (25.0-34.0) pg MCHC 33.9 (32.0-36.0) g/dL RDW Std Deviation 45.6 (36.4-46.3) fL RDW Coeff of Luigi 14.3 (11.5-14.5) % Plt Count 261 (130-400) K/uL MPV 9.5 (9.4-12.4) fL Immature Gran % (Auto) 0.3 % Neut % (Auto) 67.4 % Lymph % (Auto) 23.8 % Lyon % (Auto) 6.2 % Eos % (Auto) 1.6 % Baso % (Auto) 0.7 % Neut # (Auto) 5.19 (1.4-6.5) K/uL Lymph # (Auto) 1.83 (1.2-3.4) K/uL Lyon # (Auto) 0.48 (0.24-0.82) K/uL Eos # (Auto) 0.12 (0-0.50) K/uL Baso # (Auto) 0.05 (0-0.2) K/uL Immature Gran # (Auto) 0.02 (0.00-0.02) K/uL Sodium (136-145) mmol/L Potassium (3.5-5.1) mmol/L Chloride (98-107) mmol/L Carbon Dioxide (21-32) mmol/L Anion Gap (3-11) BUN (6-23) mg/dl Creatinine (0.6-1.4) mg/dl Est Cr Clr Drug Dosing ml/min Est GFR ( Amer) ml/min Est GFR (Non-Af Amer) ml/min BUN/Creatinine Ratio (10-20) Glucose (70-99(Fasting)) mg/dl Calcium (8.5-10.1) mg/dl Total Bilirubin (0.2-1.0) mg/dl AST (13-39) U/L ALT (7-52) U/L Alkaline Phosphatase (34-104) U/L Total Protein (6.0-8.3) gm/dl Albumin (3.4-5.0) gm/dl Globulin (2.5-4.0) gm/dl Albumin/Globulin Ratio (0.9-2) Lipase (11-82) U/L Urine Color Urine Appearance (Clear) Urine pH (4.5-7.5) Ur Specific [place] (1.000-1.030) Urine Protein (Negative) Urine Glucose (UA) (Negative) Urine Ketones (Negative) Urine Blood (Negative) Urine Nitrite (Negative) Urine Bilirubin (Negative) Urine Urobilinogen (Negative) Ur Leukocyte Esterase (Negative) Urine WBC (Auto) (0-5) /hpf Urine RBC (Auto) (0-4) /hpf U Hyaline Cast (Auto) (0-5) /lpf U Epithel Cells (Auto) (0-5) /lpf Urine Bacteria (Auto) (Negative) SARS-CoV-2, RNA, NAAT (NEGATIVE) Diagnostic Findings US gallbladder HISTORY: 52 years-old Male RUQ abd pain acute right upper quadrant abdominal pain COMPARISON: CT abdomen and pelvis 09/11/2021 TECHNIQUE: Multiple real-time sonographic images of the abdominal right upper quadrant were obtained assessing grayscale appearance and color flow FINDINGS: The visualized pancreas is unremarkable. The liver measures 17.3 cm in length. No cholelithiasis. Mild gallbladder sludge. The gallbladder wall measures within the upper limits of normal at 3 mm. There is trace pericholecystic fluid. Normal common bile duct measures 5 mm. Imaged right kidney is unremarkable without hydronephrosis. IMPRESSION: 1. Biliary sludge without cholelithiasis identified. The gallbladder wall measures within the upper limits of normal and there is trace nonspecific pericholecystic edema. Findings are equivocal for acute cholecystitis. Correlation with nuclear medicine hepatobiliary scan may be obtained. 2. No biliary ductal dilation.
[2022-08-27] MEDS ORDERED: cefOXitin 2,000 MG/60 ML BAG IV STA (11:11)
--- NOTE | 2022-08-27 13:02 | Anesthesiology Consultation ---
Date of Service August 27, 2022 Assessment & Plan Chart Review Chart Review: Acceptable Risk for Surgery Consults Requested none History Surgery Operation Date: 08/27/22 09:15 Proposed Procedures p Laparoscopic Cholecystectomy, Umbilical Hernia Repair - Renan Mariscal MD Height/Weight Height: 5 ft 11 in Weight: 85.8 kg Allergies Allergy/AdvReac Type Severity Reaction Status Date / Time No Known Allergies Allergy Verified 08/27/22 07:59 Medications Home Medications Medication Instructions Recorded Confirmed Last Taken Medical Marijuana 1 inh inhalation BID PRN Anxiety 09/01/21 08/27/22 10/17/21 20:00 allopurinol 100 mg tablet 200 mg PO QAM #180 tabs 01/10/22 08/27/22 08/27/22 amlodipine 5 mg tablet (Norvasc) 5 mg PO QAM 30 days #30 tabs 08/02/22 08/27/22 08/27/22 tamsulosin 0.4 mg capsule 0.4 mg PO QAM #30 caps 08/02/22 08/27/22 08/27/22 aspirin 81 mg tablet,delayed 81 mg PO QAM 08/14/22 08/27/22 08/27/22 release (Adult Low Dose Aspirin) Active Medications Generic Name Dose Route Start Last Admin Trade Name Freq PRN Reason Stop Dose Admin Hydromorphone HCl 0.5 mg 08/27/22 06:51 08/27/22 10:31 Hydromorphone Inj 0.5 Mg/0.5 Ml Syr IV 09/10/22 06:50 0.5 mg Q15M PRN Administration Pain Sodium Chloride 1,000 mls @ 125 mls/hr 08/27/22 08:56 08/27/22 09:01 Nss 1000ml IV 08/27/22 16:55 125 mls/hr .Q8H STA Administration NPO Date Last Intake of Fluids: 08/27/22 Time Last Intake of Fluids: 05:00 Last Intake of Fluids Comment: one cup of coffee with cream Date Last Intake of Solids: 08/26/22 Time Last Intake of Solids: 19:30 Past Medical History Medical History Alcohol abuse hx of Anxiety BPH (benign prostatic hyperplasia) Cardiac murmur Mild> had had for several yrs No murmur noted at 09/18/21 PCP appt Chronic back pain Chronic kidney disease Follows with Dr. Puente Acute on chronic kidney disease when hospitalized July 2021- creatine still not back to baseline Diabetes mellitus Not at present, family hx of > just monitoring Hgb A1C 5.9 09/12/21 Gout Hypertension Sciatica UTI (urinary tract infection) Currently on Bactrim Past Family History Family History Father Diabetes Kidney disease Mother Diabetes Denies family history of Ovarian cancer Prostate cancer Myocardial infarction Breast cancer Colorectal cancer Past Surgical History Surgical History History of hernia repair LIH repair Dr. Roldan 2001 History of tooth extraction History of wisdom tooth extraction Hx of inguinal hernia repair (1999) Recurrent LIH repair Dr. Menezes 2019 Social History Smoking Status: Current every day smoker tobacco type: cigarettes Hx Alcohol Use: Yes Alcohol type: beer alcohol intake frequency: other Hx Substance Use: Yes substance use type: marijuana Substance Use Type Other:: medical card for HS Last Used Substance: Hours (ago) Last Used Substance Other:: 2008 Physical Exam Vital Signs Last Vital Signs Temp 36.7 C 08/27/22 12:17 Pulse 64 08/27/22 12:17 Resp 20 08/27/22 12:17 BP 159/95 H 08/27/22 12:17 Pulse Ox 98 08/27/22 12:17 O2 Del Method 08/27/22 12:17 Testing Laboratory Results 08/27/22 06:54 08/27/22 06:54 Urine Color Yellow 08/27/22 06:54 Urine Appearance Clear (Clear) 08/27/22 06:54 Urine pH 5.5 (4.5-7.5) 08/27/22 06:54 Ur Specific [place] 1.011 (1.000-1.030) 08/27/22 06:54 Urine Protein Trace (Negative) H 08/27/22 06:54 Urine Glucose (UA) Negative (Negative) 08/27/22 06:54 Urine Ketones Negative (Negative) 08/27/22 06:54 Urine Nitrite Negative (Negative) 08/27/22 06:54 Ur Leukocyte Esterase Negative (Negative) 08/27/22 06:54 Urine WBC (Auto) 0 /hpf (0-5) 08/27/22 06:54 Urine RBC (Auto) 0-4 /hpf (0-4) 08/27/22 06:54 U Hyaline Cast (Auto) 0 /lpf (0-5) 08/27/22 06:54 U Epithel Cells (Auto) 0-5 /lpf (0-5) 08/27/22 06:54 Urine Bacteria (Auto) Negative (Negative) 08/27/22 06:54 08/27/22 12:16 POC Glucose 105 H
[2022-08-27] MEDS ORDERED: ATROPINE SULFATE 0.1 MG/ML 10ML SYR IV PRN (13:03)
[2022-08-27] MEDS ORDERED: ePHEDrine sulfate 50 MG/ML AMP IV PRN (13:03)
[2022-08-27] MEDS ORDERED: ROCURONIUM BROMIDE 10 MG/ML 5 ML VIAL IV ONE (13:03)
[2022-08-27] MEDS ORDERED: HYDROmorphone INJ 2 MG/ML SYR/VIAL IV PRN (13:03)
[2022-08-27] MEDS ORDERED: ONDANSETRON INJ 2 MG/ML 2 ML VIAL IV PRN ×2 (13:03→15:40)
[2022-08-27] MEDS ORDERED: ONDANSETRON INJ 2 MG/ML 2 ML VIAL ONE (13:03)
[2022-08-27] MEDS ORDERED: DEXAMETHASONE SOD INJ 4 MG/ML VIAL ONE (13:03)
[2022-08-27] MEDS ORDERED: PROMETHAZINE HCL 12.5 MG in SODIUM CHLORIDE 0.9% 50 ML IV PRN ×2 (13:03→15:40)
[2022-08-27] MEDS ORDERED: LIDOCAINE 2% MPF LOCAL 5 ML VIAL INFIL ONE (13:03)
[2022-08-27] MEDS ORDERED: PROPOFOL IV EMULSION 10 MG/ML 20 ML VIAL IV ONE (13:03)
[2022-08-27] MEDS ORDERED: fentaNYL citrate 100 MCG/2 ML VIAL ONE (13:04)
[2022-08-27] MEDS ORDERED: GLYCOPYRROLATE 0.2 MG/ML VIAL ONE (13:07)
[2022-08-27] MEDS ORDERED: BUPIVACAINE/EPINEPHRINE 0.25% 1:200,000 30 ML VIAL ONE (13:13)
--- NOTE | 2022-08-27 14:08 | Post Operative Brief Note ---
Immediate Post Op Note v1 Date of Surgery August 27, 2022 Pre & Post Diagnosis Operation Date: 08/27/22 09:15 Pre-Op Diagnosis: Acute cholecystitis Umbilical Hernia Post-Op Diagnosis: Acute cholecystitis Umbilical Hernia I identified the patient and participated in the time-out.: Yes Procedure Operation Date: 08/27/22 09:15 Actual Procedures p Laparoscopic Cholecystectomy, Umbilical Hernia Repair(Not Applicable) - Renan Mariscal MD Surgeon Renan Mariscal MD Lead Manufacturing Engineering Tech ZARI Jenkins assisted with tissue retraction, camera op, closure Estimated Blood Loss 5 Findings Consistent with Post-Op Diagnosis
[2022-08-27] MEDS ORDERED: KETOROLAC 30 MG/ML VIAL ONE (14:09)
--- NOTE | 2022-08-27 14:11 | Operative Report ---
Post Operative Report Pre & Post Diagnosis Operation Date: 08/27/22 09:15 Pre-Op Diagnosis: Acute cholecystitis Umbilical Hernia Post-Op Diagnosis: Acute cholecystitis Umbilical Hernia I identified the patient and participated in the time-out.: Yes Procedure Operation Date: 08/27/22 09:15 Actual Procedures p Laparoscopic Cholecystectomy, Umbilical Hernia Repair(Not Applicable) - Renan Mariscal MD Surgeon Renan Mariscal MD Infant And Toddler Teacher ZARI Jenkins assisted with tissue retraction, camera op, closure Estimated Blood Loss 5 Findings Consistent with Post-Op Diagnosis Acute inflammation and edema of the gallbladder; normal appendix, small fat- containing umbilical hernia Specimens Gallbladder Drains None Anesthesia Type General Complications No immediate complications Description of Procedure The patient was taken to the operating room, and placed supine on the operating table. A timeout was performed, perioperative antibiotics were administered, SCD boots were placed. After adequate anesthesia and analgesia was obtained, the abdomen was prepped and draped in the normal sterile fashion. Local anesthetic was injected into and around the proposed incision sites. An incision was made with a 15 blade scalpel in the supraumbilical region and carried down to the level of the fascia. The small umbilical hernia was dissected free circumferentially, and excess fat was excised. The 11 mm trocar was placed directly through the 1 cm hernia. The abdomen was insufflated to pressure 15 mmHg. A 10 mm, 30 degree laparoscope was placed into the abdominal cavity, and the abdomen was surveyed. Two 5 mm trochars were placed along the right costal margin, and one 5 mm trocar was placed in the subxiphoid region under direct visualization. The gallbladder was grasped and retracted cephalad and laterally, exposing the triangle of Calot. Dissection began in the triangle with a combination of blunt dissection with the [place] dissector, and judicious use of the hook cautery. There was a significant amount of edema and acute inflammation in this location. The cystic duct and cystic artery were dissected free circumferentially, and a critical v iew of safety was obtained. The cystic duct and cystic artery were clipped and transected, and the gallbladder was removed from the gallbladder fossa with the hook cautery. The camera was switched to a 5 mm, the gallbladder was placed in an Endo Catch bag, and removed via the supraumbilical port site. The camera was switched back to the 10 mm camera, and the abdomen was surveyed again. Hemostasis was checked and attended, and was excellent. The abdomen was copiously irrigated and suctioned free. Again hemostasis was checked and was excellent. The camera was turned around to the right lower quadrant, and the appendix was identified. It appeared normal. All trochars were removed under direct visualization. The abdomen was desufflated. The fascia in the 11 mm port site was closed with interrupted Prolene suture. The skin was closed with a running 4-0 Monocryl subcuticular stitch. Dermabond was applied. The patient tolerated the procedure without complication, and was transferred in stable condition to the PACU. All instrument, needle, and sponge counts were correct at the end of the case. My golf player assistant was necessary throughout the procedure for tissue retraction, possible camera operation, and closure of the wounds. I understand that section 1842(b)(7)(D) of the Social Security act generally prohibits Medicare physician fee schedule payment for the services of assistants at surgery in teaching hospitals when qualified residents are available to furnish such services. I certify that the services for which payment is claimed were medically necessary and that no qualified resident was available to perform the services. I further understand that these services are subject to postpayment review by the Medicare carrier. I attest to the content of the Intraoperative Record and any orders documented therein. Any exceptions are noted below.
[2022-08-27] MEDS: fentaNYL citrate 100 MCG/2 ML VIAL IV PRN ×3 (14:31→14:41)
[2022-08-27] MEDS ORDERED: hydrALAZINE HCL 20 MG/ML VIAL IV STA (15:19)
[2022-08-27] MEDS ORDERED: hydrALAZINE HCL 20 MG/ML VIAL ONE (15:25)
--- NOTE | 2022-08-27 15:43 | Anesthesiology Progress Note ---
Date of Service August 27, 2022 Anesthesia Post Procedure Vital Signs Vital Signs: Temp Pulse Pulse Pulse Resp BP BP 08/27/22 15:35 55 L 12 159/92 H 08/27/22 15:30 54 L 17 170/96 H 08/27/22 15:20 57 L 12 188/101 H 08/27/22 15:10 54 L 12 163/100 H 08/27/22 15:00 97.5 F L 59 L 13 189/98 H 08/27/22 14:50 53 L 12 184/111 H 08/27/22 14:40 61 16 185/118 H 08/27/22 14:30 60 12 178/107 H 08/27/22 14:22 97.3 F L 59 L 16 187/117 H 08/27/22 12:17 98.1 F 64 20 159/95 H 08/27/22 12:07 66 18 162/102 H 08/27/22 11:59 66 18 162/102 H 08/27/22 10:00 65 18 147/102 H 08/27/22 08:30 65 16 151/80 H 08/27/22 07:03 08/27/22 07:03 75 18 168/109 H 08/27/22 06:39 98.1 F 84 20 150/107 H Pulse Ox O2 Del Method O2 Flow Rate 08/27/22 15:35 97 Room Air 08/27/22 15:30 98 Room Air 08/27/22 15:20 99 Room Air 08/27/22 15:10 95 Room Air 08/27/22 15:00 95 Room Air 08/27/22 14:50 99 Nasal Cannula 2 08/27/22 14:40 100 Nasal Cannula 2 08/27/22 14:30 99 Nasal Cannula 3 08/27/22 14:22 95 Nasal Cannula 3 08/27/22 12:17 98 Room Air 08/27/22 12:07 97 Room Air 08/27/22 11:59 97 Room Air 08/27/22 10:00 97 Room Air 08/27/22 08:30 98 Room Air 08/27/22 07:03 96 Room Air 08/27/22 07:03 96 Room Air 08/27/22 06:39 98 Room Air Pain Intensity Right Abdomen: Pain Intensity: 4 Transfer of Care Handoff Completed per policy Notes Mental Status: alert / awake / arousable and participated in evaluation Patient Amnestic to Procedure: Yes Nausea / Vomiting: adequately controlled Pain: adequately controlled Airway Patency, RR, SpO2: stable & adequate BP & HR: stable & adequate Hydration State: stable & adequate Anesthetic Complications: no major complications apparent and Pt Satisfied with anesthetic care
[2022-08-27] MEDS: MoRPHine SULFATE 2 MG/ML CARP IV PRN ×2 (17:03→20:03)
[2022-08-27] MEDS: oxyCODONE/ACETAMINOPHEN 5mg/325mg TAB PO PRN ×2 (18:08→22:01)
--- NOTE | 2022-08-27 22:03 | Electrocardiogram Report ---
Test Reason : Blood Pressure : / mmHG Vent. Rate : 075 BPM Atrial Rate : 075 BPM P-R Int : 154 ms QRS Dur : 090 ms QT Int : 374 ms P-R-T Axes : 055 078 030 degrees QTc Int : 417 ms Normal sinus rhythm Normal ECG When compared with ECG of 12-JUL-2021 13:10, No significant change was found Confirmed by Wisam Al ([id number]) on 08/27/2022 10:02:58 PM Referred By: REFERRED SELF Confirmed By:Wisam Al
[2022-08-28] MEDS: MoRPHine SULFATE 2 MG/ML CARP IV PRN ×2 (00:29→08:04)
[2022-08-28] MEDS: oxyCODONE/ACETAMINOPHEN 5mg/325mg TAB PO PRN ×2 (03:33→10:27)
[2022-08-28 05:59] LABS: Basophils # (auto) 0.03 K/uL (0-0.2); Basophils % (auto) 0.2 %; Hematocrit (blood only) 42.4 % (40.1-51.0); Hemoglobin 14.3 g/dl (14.0-18.0); Immature Granulocytes # (auto) 0.04 K/uL (0.00-0.02); Immature Granulocytes % (auto) 0.3 %; Lymphocytes # (auto) 1.53 K/uL (1.2-3.4); Lymphocytes % (auto) 11.7 %; Mean Corpuscular Hemoglobin 29.4 pg (25.0-34.0); Mean Corpuscular Hgb Conc 33.7 g/dL (32.0-36.0); Mean Corpuscular Volume 87.1 fL (80.0-100.0); Mean Platelet Volume 9.9 fL (9.4-12.4); Monocytes # (auto) 0.77 K/uL (0.24-0.82); Monocytes % (auto) 5.9 %; Neutrophils # (auto) 10.75 K/uL (1.4-6.5); Neutrophils % (auto) 81.9 %; Platelet Count 274 K/uL (130-400); RDW Coefficient of Variation 14.5 % (11.5-14.5); RDW Standard Deviation 46.3 fL (36.4-46.3); Red Blood Count 4.87 M/uL (4.63-6.08); White Blood Count 13.12 K/ul (4.8-10.8)
[2022-08-28 06:13] LABS: BUN Creatinine Ratio 14.8 (10-20); Calcium 9.3 mg/dl (8.5-10.1); Creatinine Clr Calc Pharmacy 72.7 ml/min; Est GFR (African American) 74.6 ml/min; Est GFR (Non-African American) 64.4 ml/min; Potassium 4.4 mmol/L (3.5-5.1)
[2022-08-28] MEDS ORDERED: ENOXAPARIN INJ 40 MG/0.4 ML SYR SQ SCH (07:00)
[2022-08-28] MEDS ORDERED: ACETAMINOPHEN 325 MG TAB PO PRN (08:00)
[2022-08-28] MEDS ORDERED: ASPIRIN 81 MG ECTAB PO SCH (09:00)
[2022-08-28] MEDS ORDERED: amLODIPine BESYLATE 5 MG TAB PO SCH (09:00)
[2022-08-28] MEDS ORDERED: TAMSULOSIN HCL 0.4 MG CAP PO SCH (09:00)
[2022-08-28] MEDS ORDERED: allopurinoL 100 MG TAB PO SCH (09:00)
--- NOTE | 2022-08-28 10:25 | Discharge Summary ---
Date of Service August 28, 2022 Admission HPI Per Admitting Provider 52-year-old gentleman presents with right upper quadrant abdominal pain. This started last evening. He states that he last ate in the afternoon while watching football. He began to develop sharp right upper quadrant abdominal pain last night. This is persisted through till this morning. He did have nausea and vomited last night. He denies fevers or chills. He has never had pain like this in the past. He denies chest pain or shortness of breath. He denies trouble moving his bowels. He has had a prior inguinal hernia repair in the past but no other abdominal surgery. Principal Diagnosis Acute Cholecystitis Umbilical hernia Discharge Exam Constitutional WD/WN, vitals as above no acute distress and not ill appearing Respiratory normal respiratory effort; no respiratory distress, no labored breathing and no retractions Gastrointestinal (Abdomen) Inspection/Auscultation: abdomen normal to inspection; abdomen not distended Percussion/Palpation: + abdomen tender (at incision sites, appropriate postop) and abdomen soft; no guarding and abdomen not rigid Skin no rashes, warm and dry no jaundice Psychiatric A+Ox3, euthymic affect Discharge Data Allergies Allergy/AdvReac Type Severity Reaction Status Date / Time No Known Allergies Allergy Verified 08/27/22 07:59 Procedures Performed Operation Date: 08/27/22 09:15 Actual Procedures p Laparoscopic Cholecystectomy, (Not Applicable) - Renan Mariscal MD s Umbilical Hernia Repair(Not Applicable) - Renan Mariscal MD Ordered Studies 08/27/22 06:51 US gallbladder Stat Hospital Course (1) Acute cholecystitis: Patient taken to operating room for laparoscopic cholecystectomy with open umbilical hernia repair without mesh by Dr. Mariscal on 08/27/22. Patient tolerated procedure well and was transferred to recovery then to medical/surgical floor for postop care. His diet was advanced to regular diet, activity as tolerated, and PO Percocet as needed for pain. POD # 1 , avss other than hypertension. Systolic BP up to 180. Asymptomatic. His home meds were continued in the am and BP still remained high at sbp of 170. IV Hydralazine 10 mg was given for one time dose and BP improved to 144/79. Patient was discharged home on POD # 1 in stable condition. Total Time Total Time Spent Total Time Spent (In Minutes): 60 minutes Total Time Includes: Examination of the Patient, Discharge Planning and Medication Reconciliation Discharge Plan Discharge Items Patient Disposition: Home - Self-Care Reason For Visit: R SIDE ABD PAIN,VOMITING Discharge Diagnosis: Acute cholecystitis Umbilical hernia Activity: Per Instructions section Non-emergency contact: Surgeon Call non-emergency contact if: you have any medication questions, your pain is not controlled, your pain is worsening, your pain is concerning for you, you have a fever, your temperature is above 101, your wound has increased redness, your wound has increased drainage and your wound pain has increased Follow-up/Referrals: Seble Baig MD [Primary Care Provider] - Diet: Regular Addtl Attending Provider Instructions: Post-Surgical ~Discharge Instructions Activity Recommendations: - lifting limitation: (10 pounds for 3-4 weeks), - exercise/sex/sports limit: (nonstrenuous for 2 weeks), - driving or machine use limit: (none for 1 week or until pain free and no longer taking narcotic pain medication), - Shower/bathe limit: (may shower beginning tonight) Diet: - Resume previous diet SPECIAL CARE INSTRUCTIONS: - May shower tonight. Let water run over area and pat dry. - Leave Dermabond (surgical glue) in place. - Call the surgeon's office with any questions or concerns - - (ex. temperature higher than 101 degrees F, excessive bleeding or pain). MEDICATIONS: - Resume previous medications unless instructed otherwise by your surgeon. - May take extra strength Tylenol as needed for mild to moderate pain -500 mg every 6 hours as needed - Do not exceed 3,000 mg of Tylenol in a 24 hour period. Percocet has 325 mg of Tylenol in it. - Percocet 1 every 6 hours, as needed for moderate to severe pain - Recommend daily stool softener (Colace) while taking narcotic pain medication to prevent constipation or straining. Drink plenty of water daily. FOLLOW UP VISIT: - If not already scheduled, please call the office to schedule a two week follow-up appointment. Office number Pending Studies at Discharge: Yes (gallbladder pathology, will be reviewed at follow-up visit) Stand-Alone Forms: My [employer], Smoking Cessation Medications and DC Order Prescriptions: New oxycodone-acetaminophen 5-325 mg tablet 1 tab PO Q6H PRN (Reason: pain) Qty: 10 0RF Continued allopurinol 100 mg tablet 200 mg PO QAM Qty: 180 3RF amlodipine [Norvasc] 5 mg tablet 5 mg PO QAM 30 Days Qty: 30 11RF tamsulosin 0.4 mg capsule 0.4 mg PO QAM Qty: 30 5RF aspirin [Adult Low Dose Aspirin] 81 mg tablet,delayed release (DR/EC) 81 mg PO QAM Medical Marijuana 1 inh inhalation BID PRN (Reason: Anxiety) Discharge Orders: Discharge Order (Routine); Ordered 08/28/22 Ordered By: Chelle Jenkins Admission Data Admit Date/Time: 08/27/22 14:14 Attending Provider: Renan Mariscal Admit Provider: Renan Mariscal Primary Care Provider: Seble Baig
[2022-08-28] MEDS ORDERED: hydrALAZINE HCL 20 MG/ML VIAL IV STA (11:24)
== END 2022-08-28 14:58 | disposition home or self-care (01) ==
LOC: ED 06:35 → ASU 12:11 → 3N 12:11

== ENCOUNTER 2024-12-28 08:09 | Inpatient (IN) ==
--- NOTE | 2024-12-28 08:15 | Emergency Department Note ---
History of Present Illness General Chief complaint: Flu Like Symptoms Stated complaint: CHEST/BODY PAIN, FEVER, CONGESTION Time Seen by Provider: 12/28/24 08:15 History of Present Illness Maximum Pain Intensity: 8 This is a 54-year-old male who presents to the emergency department via private vehicle with complaints of "fever, cough, congestion, body aches, chest pain". The patient notes that yesterday he began with a headache, cough, body aches and now chest congestion/chest pain. The patient is he cannot sleep secondary to his symptoms. He also notes vomiting and diarrhea. Prior to yesterday he felt fine. No blood in the stool. Patient does note history of kidney issues and was concerned therefore prompting arrival here today. He notes he cannot eat or drink secondary to his symptoms. Home Medications Medication Instructions Recorded Confirmed Type Medical Marijuana 1 inh inhalation BID PRN Anxiety 09/01/21 12/28/24 History aspirin 81 mg tablet,delayed 81 mg PO QAM 08/14/22 12/28/24 History release (Adult Low Dose Aspirin) amlodipine 5 mg tablet (Norvasc) 5 mg PO BID 30 days #180 tabs 03/10/24 12/28/24 Rx allopurinol 100 mg tablet 200 mg (2 x 100 mg) PO BID #180 07/09/24 12/28/24 Rx tabs cholecalciferol (vitamin D3) 50 50 mcg PO DAILY #30 caps 07/27/24 12/28/24 Rx mcg (2,000 unit) capsule tamsulosin 0.4 mg capsule 0.4 mg PO QAM #30 caps 07/27/24 12/28/24 Rx Allergies Allergy/AdvReac Type Severity Reaction Status Date / Time No Known Allergies Allergy Verified 12/28/24 12:51 Past Med/Surg History Problem List Gout Diabetes mellitus Not at present, family hx of > just monitoring Hgb A1C 5.9 09/12/21 Hypoxia (Acute) Influenza A (Acute) Vitamin D deficiency Gout flare Acute bronchitis Intestinal metaplasia of stomach Encounter for pre-operative examination Diabetes mellitus (Chronic) Sciatica (Acute) Leg pain (Acute) Muscle cramps Anxiety (Chronic) Pain, dental (Acute) Alcohol abuse hx of Pyelonephritis (Acute) HTN (hypertension) Bladder outlet obstruction Umbilical hernia BPH w/o urinary obs/LUTS Bilateral flank pain (Acute) Acute pyelonephritis (Acute) Hematuria (Acute) Leukocytosis (Acute) Gout Back pain Recurrent UTI Chronic kidney disease, stage III (moderate) Viral URI with cough Black tarry stools Chewing tobacco nicotine dependence Elevated LFTs History of wisdom tooth extraction History of hernia repair LIH repair Dr. Roldan 2001 Medical History GERD (gastroesophageal reflux disease) Gout History of COVID-19 BEGINNING 2021, [facility] TEST, NOT HOSP; HEADACHE, FEVER, BODY ACHES>RESOLVED. History of BPH Sciatica Chronic back pain Diabetes mellitus Not at present, family hx of > just monitoring Hgb A1C 5.9 09/12/21 Chronic kidney disease Follows with Dr. Cindi Wilson on chronic kidney disease when hospitalized July 2021- creatine still not back to baseline Cardiac murmur Mild> had had for several yrs No murmur noted at 09/18/21 PCP appt Hypertension Abdominal pain Sepsis HX ARF (acute renal failure) Surgical History History of transurethral resection of prostate History of cholecystectomy History of tooth extraction Hx of inguinal hernia repair (1999) Recurrent LIH repair Dr. Menezes 2018 Family History Father Diabetes Kidney disease Mother Diabetes Denies family history of Ovarian cancer Prostate cancer Myocardial infarction Breast cancer Colorectal cancer Social History Smoking Status: Former smoker Tobacco Type: Cigarettes and Smokeless Tobacco (Dip or Chew) packs per day: 1; Second Hand Exposure: No; Do You Dip or Chew Tobacco: Yes (1 CAN/7 DAYS); Hx Alcohol Use: Yes Alcohol type: beer Alcohol Intake Frequency Comment: Quit 07-09-21 Hx Substance Use: Yes (MEDICAL CARD) Prescribed Medications: Marijuana Last Used Substance Other:: DAILY USE Substance Use Type Other:: medical card for HS Preferred Language: Yakut Communication Ability: Effective 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 Beliefs That Will Affect Care: None marital status: Single Current Living Situation: Significant Other current occupational status: employed 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 How many Children do You have: 1 Feels Safe at Home: Yes Childhood Exposure to Second-Hand Smoke: No Diet: regular caffeine: Yes Dental Care, Regularly: No Physical Activity Frequency: Daily Seatbelt Use: always Sunscreen Use: Yes Assistive Devices: None Review of Systems A total of 10 systems reviewed and were otherwise negative Physical Exam Vital Signs Vital Signs - 24 hr 12/28/24 08:10 12/28/24 08:24 12/28/24 08:26 Temperature 36.6 C Temperature Source Temporal Artery Scan Pulse Rate 100 H 95 H Pulse Rate from SpO2 Sensor Respiratory Rate 18 Blood Pressure 151/89 H 148/96 H Blood Pressure Mean 109 125 Pulse Oximetry 94 Oxygen Delivery Method Room Air Oxygen Flow Rate Sepsis Recent Fever Within 48 Hours No Sepsis New/Unexplained Change in Mental Status N/A Sepsis Action Taken by Nursing No Action Required Oxygen Flow Rate - Titration Pulse Oximetry Post Tiitration 12/28/24 08:33 12/28/24 08:47 12/28/24 08:54 Temperature Temperature Source Pulse Rate 96 H 87 Pulse Rate from SpO2 Sensor 95 H 87 Respiratory Rate 20 14 Blood Pressure 163/93 H Blood Pressure Mean 114 Pulse Oximetry 90 95 Oxygen Delivery Method Room Air Room Air Oxygen Flow Rate Sepsis Recent Fever Within 48 Hours Sepsis New/Unexplained Change in Mental Status Sepsis Action Taken by Nursing Oxygen Flow Rate - Titration Pulse Oximetry Post Tiitration 12/28/24 09:00 12/28/24 09:12 12/28/24 09:50 Temperature Temperature Source Pulse Rate 90 Pulse Rate from SpO2 Sensor 90 Respiratory Rate 21 Blood Pressure 168/93 H Blood Pressure Mean 125 Pulse Oximetry 95 88 L Oxygen Delivery Method Room Air Room Air Oxygen Flow Rate Sepsis Recent Fever Within 48 Hours Sepsis New/Unexplained Change in Mental Status Sepsis Action Taken by Nursing Oxygen Flow Rate - Titration 2 Pulse Oximetry Post Tiitration 92 12/28/24 10:00 12/28/24 10:03 12/28/24 11:00 Temperature Temperature Source Pulse Rate 91 H 88 Pulse Rate from SpO2 Sensor 91 H 90 Respiratory Rate 17 20 Blood Pressure 172/97 H 158/94 H Blood Pressure Mean 121 115 Pulse Oximetry 92 90 Oxygen Delivery Method Nasal Cannula Nasal Cannula Oxygen Flow Rate 2 2 Sepsis Recent Fever Within 48 Hours Sepsis New/Unexplained Change in Mental Status Sepsis Action Taken by Nursing Oxygen Flow Rate - Titration Pulse Oximetry Post Tiitration 12/28/24 11:30 Temperature Temperature Source Pulse Rate 92 H Pulse Rate from SpO2 Sensor 92 H Respiratory Rate 20 Blood Pressure Blood Pressure Mean Pulse Oximetry 93 Oxygen Delivery Method Nasal Cannula Oxygen Flow Rate 2 Sepsis Recent Fever Within 48 Hours Sepsis New/Unexplained Change in Mental Status Sepsis Action Taken by Nursing Oxygen Flow Rate - Titration Pulse Oximetry Post Tiitration VITAL SIGNS - Vital signs and nursing notes were reviewed. Afebrile, borderline tachycardic at 100 bpm. GENERAL -54-year-old male appearing his stated age who is in no acute distress. Communicates well with provider and answers questions appropriately. SKIN - Without rashes. No meningeal or petechial rash. HEAD - NC/AT. EYES - PERRL with EOMI bilaterally. Sclera anicteric. EARS - No deformities of external structures noted on gross examination bilaterally. External auditory canals without discharge or otorrhea. Tympanic membranes pearly leal without retraction or bulging. No fluid or purulent material visualized behind the TM. Handle of malleus, umbo, cone of light, pars tensa/flaccid all easily visualized. NOSE - Midline and without cyanosis. No epistaxis or purulent drainage noted. Septum midline without deviation or septal hematoma noted. MOUTH/OROPHARYNX - Without perioral cyanosis. Buccal mucosa pink and moist and without leukoplakia. Tongue midline with equal elevation of palate bilaterally. No tonsillar hypertrophy, erythema, or exudates noted. Fair dentition noted. NECK - Neck with FROM. Supple to palpation. No lymphadenopathy noted. No nuchal rigidity. LUNGS - Chest wall symmetric without accessory muscle use, intercostals retractions, or central cyanosis. Normal vesicular breath sounds CTA B/L. No wheezes, rales, or rhonchi appreciated. CARDIAC - RRR with S1/S2. No murmur, rubs, or gallops appreciated. ABDOMEN - Abdominal contour normal without pulsations or visible masses. BS normoactive all four quadrants. No tenderness, palpable masses, hepatosplenomegaly, or ascites noted. EXTREMITIES - No clubbing or peripheral cyanosis. +5/5 strength noted in UE/LE bilaterally. NEUROLOGIC - Cranial nerves II through XII grossly intact. PSYCH -alert, oriented and pleasant on exam Course Administered Medications Discontinued Medications Acetaminophen (Acetaminophen 325 Mg Tab) 650 mg PO NOW STA Stop: 12/28/24 13:23 Last Admin: 12/28/24 13:27 Dose: 650 mg Documented By: TOMEKA Sodium Chloride (Nss) 1,000 mls @ 999 mls/hr IV .Q1H1M ONE Stop: 12/28/24 09:21 Last Infusion: 12/28/24 10:17 Dose: Infused Documented By: Admin: 12/28/24 08:46 Dose: 999 mls/hr Documented By: TOMEKA Oseltamivir Phosphate (Oseltamivir Phosphate 75 Mg Cap) 75 mg PO NOW STA; Protocol Stop: 12/28/24 11:59 Last Admin: 12/28/24 12:22 Dose: 75 mg Documented By: RYAN Medical Decision Making Laboratory Data 12/28/24 08:24 12/28/24 08:24 Lab Results 12/28/24 12/28/24 12/28/24 Range/Units 08:24 08:27 10:45 WBC 8.44 (4.8-10.8) K/ul RBC 5.75 (4.70-6.10) M/uL Hgb 16.4 (14.0-18.0) g/dl Hct 48.6 (42.0-52.0) % MCV 84.5 (80.0-100.0) fL MCH 28.5 (25.0-34.0) pg MCHC 33.7 (32.0-36.0) g/dL RDW Std Deviation 45.0 (36.4-46.3) fL RDW Coeff of Luigi 14.8 H (11.5-14.5) % Plt Count 209 (130-400) K/uL MPV 10.3 (9.4-12.4) fL Immature Gran % (Auto) 1.4 % Neut % (Auto) 74.8 % Lymph % (Auto) 14.2 % [place] % (Auto) 8.6 % Eos % (Auto) 0.4 % Baso % (Auto) 0.6 % Neut # (Auto) 6.31 (1.40-6.50) K/uL Lymph # (Auto) 1.20 (1.20-3.40) K/uL [place] # (Auto) 0.73 H (0.11-0.59) K/uL Eos # (Auto) 0.03 (0.00-0.50) K/uL Baso # (Auto) 0.05 (0.00-0.20) K/uL Immature Gran # (Auto) 0.12 (0.01-0.20) K/uL PT 10.3 (9.0-12.0) Seconds INR 0.9 (0.9-1.1) APTT 27 (21-31) Seconds PTT Ratio 1.0 Sodium 136 (136-145) mmol/L Potassium 4.2 (3.5-5.1) mmol/L Chloride 100 (98-107) mmol/L Carbon Dioxide 27 (21-32) mmol/L Anion Gap 9 (3-11) BUN 13 (6-23) mg/dl Creatinine 1.34 (0.6-1.4) mg/dl Est Cr Clr Drug Dosing 67.9 ml/min eGFR 63.34 BUN/Creatinine Ratio 9.7 L (10-20) Glucose 127 H (70-99(Fasting)) mg/dl Lactate 1.2 (0.4-2.0) mmol/L Calcium 10.0 (8.6-10.3) mg/dl Magnesium 1.9 (1.7-2.4) mg/dl Total Bilirubin 0.6 (0.2-1.0) mg/dl AST 25 (13-39) U/L ALT 19 (7-52) U/L Alkaline Phosphatase 96 (34-104) U/L Troponin I High Sens 6.7 (0-20) pg/ml Total Protein 8.4 H (6.0-8.3) gm/dl Albumin 5.0 (3.4-5.0) gm/dl Globulin 3.4 (2.5-4.0) gm/dl Albumin/Globulin Ratio 1.5 (0.9-2) Procalcitonin 0.04 (0-0.5) ng/ml TSH 1.103 (0.300-4.500) uIu/ml Stl C. cayetanensis PCR Not Detected (NotDetected) Stool Rotavirus A PCR Not Detected (NotDetected) Stl Adenov F 40/41 PCR Not Detected (NotDetected) Stool Astrovirus (PCR) Not Detected (NotDetected) Stool Campylobacter PCR Not Detected (NotDetected) Stl C. diff Tox B Gene Negative Cdiff Gene (Neg) Stool Cryptosporidium PCR Not Detected (NotDetected) Stl E.coli Shiga Tox PCR Not Detected (NotDetected) Stl Enterotoxigenic E PCR Not Detected (NotDetected) Stool EPEC (PCR) Not Detected (NotDetected) Stool EAEC (PCR) Not Detected (NotDetected) Stl E. histolytica PCR Not Detected (NotDetected) Stool Giardia Lamblia PCR Not Detected (NotDetected) Stool Salmonella PCR Not Detected (NotDetected) Stool Sapovirus (PCR) Not Detected (NotDetected) Stl P. shigelloides PCR Not Detected (NotDetected) Stl Shigella/EIEC PCR Not Detected (NotDetected) St Y.enterocolitica PCR Not Detected (NotDetected) Stool Vibrio (PCR) Not Detected (NotDetected) Stl Vibrio cholerae PCR Not Detected (NotDetected) Stl Norovirus GI/GII PCR Not Detected (NotDetected) Adenovirus (PCR) Not Detected (NotDetected) B. pertussis DNA (PCR) Not Detected (NotDetected) B.parapertussis DNA PCR Not Detected (NotDetected) C. pneumoniae DNA (PCR) Not Detected (NotDetected) Coronavirus OC43 (PCR) Not Detected (NotDetected) Coronavirus HKU1 (PCR) Not Detected (NotDetected) Coronavirus 229E (PCR) Not Detected (NotDetected) SARS-CoV-2 (PCR) Not Detected (NotDetected) Coronavirus NL63 (PCR) Not Detected (NotDetected) Human Metapneumovir PCR Not Detected (NotDetected) Influenza A (H3) PCR DETECTED A (NotDetected) Influenza Type B (PCR) Not Detected (NotDetected) M. pneumoniae (PCR) Not Detected (NotDetected) Parainfluenza 1 (PCR) Not Detected (NotDetected) Parainfluenza 2 (PCR) Not Detected (NotDetected) Parainfluenza 3 (PCR) Not Detected (NotDetected) Parainfluenza 4 (PCR) Not Detected (NotDetected) RSV (PCR) Not Detected (NotDetected) Entero/Rhino (PCR) Not Detected (NotDetected) Imaging Data Radiologist's Impression: Chest X-Ray 12/28/24 08:21 XR chest 1V portable CLINICAL HISTORY: cough, fever, chest pain COMPARISON STUDY: 10/16/2021 FINDINGS: Single view chest demonstrates no definite air space opacity or pleural effusion. No pneumothorax. The heart and pulmonary vascularity are unremarkable. There is a subtle double density identified in the left paraspinous region seen through the cardiac silhouette. This is most commonly associated with hiatal hernia. Consider PA and lateral chest to exclude the less likely possibility of a cavitary lung lesion. IMPRESSION: Small hiatal hernia versus a lung lesion as described. Recommend a PA and lateral chest for further evaluation. Electronically signed by: Latia Sky 12/28/2024 8:41 AM Chest X-Ray 12/28/24 08:47 XR chest 1V not portable CLINICAL HISTORY: lateral view to correlate equivocal left paraspinous lesion on a portable chest radiograph COMPARISON STUDY: Portable chest same date FINDINGS: Lateral view the chest demonstrates marginal osteophytes are present in the lower thorax which likely account for the findings on the frontal radiograph. No discrete lung lesion is identified. IMPRESSION: No lung lesion identified. ACT 112: Negative or not required by law. Electronically signed by: Latia Sky M.D. 12/28/2024 9:21 AM MDM Narrative Patient was seen and evaluated as above in room C10. Review was performed of nursing notes and vital signs. I did review pertinent previous visits and patient history. After obtaining a thorough history and physical examination the above work up was performed. Patient presents to us today for evaluation of feeling unwell beginning yesterday with headache, cough, congestion, body aches and chest discomfort. He notes he is not eating and drinking secondary to associated nausea, vomiting and diarrhea as well. EKG reveals normal sinus rhythm at a rate of 95 bpm. QTc 432. QRS 90. No ST elevation. Labs reveal no leukocytosis or concerning anemia. Coags normal. No emergent metabolic disturbance. Hyperglycemia 127. Lactate normal. Procalcitonin normal making sepsis less likely. Troponin x 1 negative making ACS less likely. TSH feels euthyroid state. Urinalysis reveals some blood, ketones and protein without evidence of infection. Bio fire panel returned positive for influenza A. Stool study pending at this time. Chest x-ray as above. They did recommend correlation with a lateral radiograph therefore this was obtained and no lung lesion was seen. No pneumonia. Patient did experience mild hypoxia here. Noting the patient's comorbidities with hypoxia here in the setting of influenza A, inpatient management was considered. Case discussed with the hospitalist service. Please order further documentation regarding his stay. GCS: 15 In the evaluation and treatment of this patient the following differential diagnoses were entertained: Pneumonia, NC, PE, viral URI, gastroenteritis, dehydration, OXANA, among others Impression & Plan Influenza A, Hypoxia Discharge Plan Visit Data Chief Complaint: Flu Like Symptoms Stated Complaint: CHEST/BODY PAIN, FEVER, CONGESTION ED Provider: Dale Mcmullen ED Midlevel Provider: Emmanuel Rodriguez Discharge Problem: Influenza A, Hypoxia Patient Disposition: Admitted As Inpatient Condition: Good Discharge Instructions Interventions: ED Discharge Assessment Last Done: 12/28/24 14:54
--- NOTE | 2024-12-28 08:42 | XRay Report ---
XR chest 1V portable CLINICAL HISTORY: cough, fever, chest pain COMPARISON STUDY: 10/16/2021 FINDINGS: Single view chest demonstrates no definite air space opacity or pleural effusion. No pneumothorax. The heart and pulmonary vascularity are unremarkable. There is a subtle double densi ty identified in the left paraspinous region seen through the cardiac silhouette. This is most common ly associated with hiatal hernia. Consider PA and lateral chest to exclude the less likely possibilit y of a cavitary lung lesion. IMPRESSION: Small hiatal hernia versus a lung lesion as described. Recommend a PA and lateral chest for further evaluation. Electronically signed by: Latia Sky 12/28/2024 8:41 AM
[2024-12-28 08:43] LABS: Basophils # (auto) 0.05 K/uL (0.00-0.20); Basophils % (auto) 0.6 %; Eosinophils # (auto) 0.03 K/uL (0.00-0.50); Eosinophils % (auto) 0.4 %; Hematocrit (blood only) 48.6 % (42.0-52.0); Hemoglobin 16.4 g/dl (14.0-18.0); Immature Granulocytes # (auto) 0.12 K/uL (0.01-0.20); Immature Granulocytes % (auto) 1.4 %; Lymphocytes % (auto) 14.2 %; Mean Corpuscular Hemoglobin 28.5 pg (25.0-34.0); Mean Corpuscular Hgb Conc 33.7 g/dL (32.0-36.0); Mean Corpuscular Volume 84.5 fL (80.0-100.0); Mean Platelet Volume 10.3 fL (9.4-12.4); Monocytes # (auto) 0.73 K/uL (0.11-0.59); Monocytes % (auto) 8.6 %; Neutrophils # (auto) 6.31 K/uL (1.40-6.50); Neutrophils % (auto) 74.8 %; Platelet Count 209 K/uL (130-400); RDW Coefficient of Variation 14.8 % (11.5-14.5); Red Blood Count 5.75 M/uL (4.70-6.10); White Blood Count 8.44 K/ul (4.8-10.8)
[2024-12-28] MEDS: SODIUM CHLORIDE 0.9% 1,000 ML IV ONE (08:46)
[2024-12-28 09:11] LABS: Albumin Globulin Ratio 1.5 (0.9-2); BUN Creatinine Ratio 9.7 (10-20); Bilirubin,Total 0.6 mg/dl (0.2-1.0); Creatinine Clr Calc Pharmacy 67.9 ml/min; Globulin 3.4 gm/dl (2.5-4.0); Magnesium 1.9 mg/dl (1.7-2.4); Potassium 4.2 mmol/L (3.5-5.1); Total Protein 8.4 gm/dl (6.0-8.3)
[2024-12-28 09:13] LABS: INR 0.9 (0.9-1.1); Partial Thromboplastin Time 27 Seconds (21-31); Prothrombin Time 10.3 Seconds (9.0-12.0)
[2024-12-28 09:17] LABS: Troponin I High Sensitivity 6.7 pg/ml (0-20)
--- NOTE | 2024-12-28 09:23 | XRay Report ---
XR chest 1V not portable CLINICAL HISTORY: lateral view to correlate equivocal left paraspinous lesion on a portable chest rad iograph COMPARISON STUDY: Portable chest same date FINDINGS: Lateral view the chest demonstrates marginal osteophytes are present in the lower thorax wh ich likely account for the findings on the frontal radiograph. No discrete lung lesion is identified. IMPRESSION: No lung lesion identified. ACT 112: Negative or not required by law. Electronically signed by: Latia Sky M.D. 12/28/2024 9:21 AM
[2024-12-28 09:26] LABS: Thyroid Stimulating Hormone 1.103 uIu/ml (0.300-4.500)
[2024-12-28 09:45] LABS: Adenovirus PCR Not Detected (NotDetected); Bordetella parapertussis PCR Not Detected (NotDetected); Bordetella pertussis PCR Not Detected (NotDetected); Chlamydia pneumoniae PCR Not Detected (NotDetected); Coronavirus 229E PCR Not Detected (NotDetected); Coronavirus CoV-2 (COVID19)PCR Not Detected (NotDetected); Coronavirus HKU1 PCR Not Detected (NotDetected); Coronavirus NL63 PCR Not Detected (NotDetected); Coronavirus OC43PCR Not Detected (NotDetected); Human Metapneumovirus PCR Not Detected (NotDetected); Influenza A (H3) PCR DETECTED (NotDetected); Influenza B PCR Not Detected (NotDetected); Mycoplasma pneumoniae PCR Not Detected (NotDetected); Parainfluenza Virus 1 PCR Not Detected (NotDetected); Parainfluenza Virus 2 PCR Not Detected (NotDetected); Parainfluenza Virus 3 PCR Not Detected (NotDetected); Parainfluenza Virus 4 PCR Not Detected (NotDetected); Respiratory Syncytial VirusPCR Not Detected (NotDetected); Rhinovirus/Enterovirus PCR Not Detected (NotDetected)
--- NOTE | 2024-12-28 11:44 | Electrocardiogram Report ---
Test Reason : Blood Pressure : */* mmHG Vent. Rate : 95 BPM Atrial Rate : 95 BPM P-R Int : 144 ms QRS Dur : 90 ms QT Int : 344 ms P-R-T Axes : 64 95 51 degrees QTcB Int : 432 ms Normal sinus rhythm Rightward axis Borderline ECG When compared with ECG of 27-Aug-2022 06:49, No significant change was found Confirmed by Samir Be ([id number]) on 12/28/2024 11:44:17 AM Referred By: Seble Baig Confirmed By: Samir Be
--- NOTE | 2024-12-28 11:48 | History & Physical Report ---
Date of Service December 28, 2024 Assessment & Plan (1) Influenza A: (2) Hypoxia: (3) Diabetes mellitus: (4) Gout: Plan Osvaldo is a pleasant 54-year-old gentleman with PMH of diabetes mellitus, gout, CKD, HTN, alcohol use, anxiety, and recurrent UTIs. He presented on 12/28 for fever, chills, congestion, and productive cough, that began the day prior. Additional symptoms include headache, body aches, N/V/D, and loss of appetite. His symptoms started Saturday morning, and it progressively worsened. #Influenza A Productive cough and SOB began on 12/27 Influenza A (+) on arrival Tamiflu 75 mg BID (within 48 hours of symptom onset) Droplet isolation precautions Supportive care Incentive spirometry, flutter valve Acetaminophen as needed for pain/fever Benzonatate PRN for cough DuoNeb 3 mL Q6R PRN for wheezing #Hypoxia Hypoxic on arrival at 88% on RA Patient is not on supplemental oxygen at baseline He denies prior history of asthma or COPD Supplemental oxygen as needed to maintain SpO2 >94% Continuous pulse oximetry #Diabetes Last A1c 6.0% on 07/25/2024 Diet controlled, not currently on medication BSG ACHS Adjust regimen as needed AM A1c #History of urosepsis/CKD Hospitalized 07/12/2021 - 07/20/2021 and [facility] due to pyelonephritis and OXANA Follows with [place] [facility] Close monitoring of kidney function while on Tamiflu #Gout Continue allopurinol Disposition: Admit to [facility] Full code T2DM diet VTE PPx: Lovenox 40 mg SQ q24h History of Present Illness Chief Complaint: Fever, chills, N/V/D, productive cough Primary Care Provider: Seble Baig MD Osvaldo is a pleasant 54-year-old gentleman with PMH of diabetes mellitus, gout, CKD, HTN, alcohol use, anxiety, and recurrent UTIs. He presented on 12/28 for fever, chills, congestion, and productive cough, that began the day prior. Additional symptoms include headache, body aches, N/V/D, and loss of appetite. His symptoms started Saturday morning, and it progressively worsened. He tried taking Mucinex and Tylenol yesterday for his symptoms, but this did not help. He reports he barely got any sleep last night. He reports he did not receive his flu shot this past year. No sick contacts to his knowledge. Patient denies any prior pulmonary history such as asthma or COPD. Patient took his regular blood pressure medications this morning, but forgot to take his allopurinol. No recent change in medications. He does not use supplemental oxygen at baseline or CPAP at night. No prior history of DVT/PE; no redness of the legs. Patient does follow with nephrology for history of urosepsis leading to a severe OXANA. No prior history of smoking, but he does use chewing tobacco. He endorses alcohol use, with last drink being 12 beers Saturday night. Patient is hypertensive at 172/97 at time of admission; SpO2 92% on 2L NC. ED course: NSS 1000 mL IV ROS: Patient endorses fever, chills, body aches, headache, productive cough (clear sputum production), rib pain when coughing, abdominal cramping, nausea, vomiting x 1 (resolved), and diarrhea. Patient denies dizziness, lightheadedness, chest pain, SOB at rest, RIDER, pleuritic CP, wheezing, burning with urination, or blood in the urine/stool. Allergies Allergy/AdvReac Type Severity Reaction Status Date / Time No Known Allergies Allergy Verified 12/28/24 12:51 Home Medications Medication Instructions Recorded Confirmed Type Medical Marijuana 1 inh inhalation BID PRN Anxiety 09/01/21 12/28/24 History aspirin 81 mg tablet,delayed 81 mg PO QAM 08/14/22 12/28/24 History release (Adult Low Dose Aspirin) amlodipine 5 mg tablet (Norvasc) 5 mg PO BID 30 days #180 tabs 03/10/24 12/28/24 Rx allopurinol 100 mg tablet 200 mg (2 x 100 mg) PO BID #180 07/09/24 12/28/24 Rx tabs cholecalciferol (vitamin D3) 50 50 mcg PO DAILY #30 caps 07/27/24 12/28/24 Rx mcg (2,000 unit) capsule tamsulosin 0.4 mg capsule 0.4 mg PO QAM #30 caps 07/27/24 12/28/24 Rx Past Med/Surg History Problem List Gout Diabetes mellitus Not at present, family hx of > just monitoring Hgb A1C 5.9 09/12/21 Hypoxia (Acute) Influenza A (Acute) Vitamin D deficiency Gout flare Acute bronchitis Intestinal metaplasia of stomach Encounter for pre-operative examination Diabetes mellitus (Chronic) Sciatica (Acute) Leg pain (Acute) Muscle cramps Anxiety (Chronic) Pain, dental (Acute) Alcohol abuse hx of Pyelonephritis (Acute) HTN (hypertension) Bladder outlet obstruction Umbilical hernia BPH w/o urinary obs/LUTS Bilateral flank pain (Acute) Acute pyelonephritis (Acute) Hematuria (Acute) Leukocytosis (Acute) Gout Back pain Recurrent UTI Chronic kidney disease, stage III (moderate) Viral URI with cough Black tarry stools Chewing tobacco nicotine dependence Elevated LFTs History of wisdom tooth extraction History of hernia repair LIH repair Dr. Roldan 2001 Medical History GERD (gastroesophageal reflux disease) Gout History of COVID-19 BEGINNING 2021, [facility] TEST, NOT HOSP; HEADACHE, FEVER, BODY ACHES>RESOLVED. History of BPH Sciatica Chronic back pain Diabetes mellitus Not at present, family hx of > just monitoring Hgb A1C 5.9 09/12/21 Chronic kidney disease Follows with Dr. Cindi Wilson on chronic kidney disease when hospitalized July 2021- creatine still not back to baseline Cardiac murmur Mild> had had for several yrs No murmur noted at 09/18/21 PCP appt Hypertension Abdominal pain Sepsis HX ARF (acute renal failure) Surgical History History of transurethral resection of prostate History of cholecystectomy History of tooth extraction Hx of inguinal hernia repair (1999) Recurrent LIH repair Dr. Menezes 2018 Family History Father Diabetes Kidney disease Mother Diabetes Denies family history of Ovarian cancer Prostate cancer Myocardial infarction Breast cancer Colorectal cancer Social History Smoking Status: Never smoker Tobacco Type: Smokeless Tobacco (Dip or Chew) packs per day: 1; Second Hand Exposure: No; Do You Dip or Chew Tobacco: Yes; Hx Alcohol Use: Yes Alcohol type: beer Alcohol Intake Frequency Comment: Quit 07-09-21 Hx Substance Use: Yes Prescribed Medications: Marijuana Last Used Substance: Just Prior to Arrival Last Used Substance Other:: DAILY USE Substance Use Type Other:: medical marijuana Preferred Language: Azeri Communication Ability: Effective 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 Beliefs That Will Affect Care: None marital status: Single Current Living Situation: Alone current occupational status: employed 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 How many Children do You have: 1 Other Information That Helps Us Care for You: No Feels Safe at Home: Yes Safety Concerns: Feels Safe At This Time Childhood Exposure to Second-Hand Smoke: No Diet: regular caffeine: Yes Dental Care, Regularly: No Physical Activity Frequency: Daily Seatbelt Use: always Sunscreen Use: Yes Assistive Devices: None Review of Systems Review of Systems: See HPI above Physical Exam Physical Exam: General: no acute distress; pleasant affect; fatigued; non-toxic appearing; well-nourished; cooperative; SpO2 92% on 2L NC HEENT: normocephalic, atraumatic; no scleral icterus; PERRLA; vision and hearing intact Neck: supple; no lymphadenopathy; trachea midline Skin: warm, dry without signs of tenting; no cyanosis; no rashes, bruising, lesions, or erythema noted CV: chest wall NTP; RRR; S1/S2 normal; no murmurs/rubs/gallops; pulses intact and symmetric at radial, DP, and PT Lungs: no acute respiratory distress; symmetrical chest wall expansion; clear breath sounds across all lung slade w/o adventitious sounds; no wheezing ABD: Soft, NTP; BS present; no rebound/guarding; no distention MSK: no tics or fasciculations; no edema noted in the LEs b/l, nonerythematous Neuro: A&Ox3; normal mood and affect; fluent speech; no focal deficits; sensation grossly intact in the LEs b/l Results & Data Results & Data Vital Signs (Past 12 Hours) Vital Signs Temp Pulse Resp BP Pulse Ox O2 Del Method O2 Flow Rate 12/28/24 11:30 92 H 20 93 Nasal Cannula 2 12/28/24 11:00 88 20 158/94 H 90 Nasal Cannula 2 12/28/24 10:03 91 H 17 92 Nasal Cannula 2 12/28/24 10:00 172/97 H 12/28/24 09:50 88 L Room Air 12/28/24 09:12 90 21 95 Room Air 12/28/24 09:00 168/93 H 12/28/24 08:54 87 14 95 Room Air 12/28/24 08:47 163/93 H 12/28/24 08:33 96 H 20 90 Room Air 12/28/24 08:26 148/96 H 12/28/24 08:24 95 H 12/28/24 08:10 36.6 C 100 H 18 151/89 H 94 Room Air Laboratory Results Abnormal lab results 12/28/24 12/28/24 Range/Units 08:24 08:27 RDW Coeff of Luigi 14.8 H (11.5-14.5) % [place] # (Auto) 0.73 H (0.11-0.59) K/uL BUN/Creatinine Ratio 9.7 L (10-20) Glucose 127 H (70-99(Fasting)) mg/dl Total Protein 8.4 H (6.0-8.3) gm/dl Influenza A (H3) PCR DETECTED A (NotDetected) Diagnostic Findings Chest X-Ray 12/28/24 08:21 XR chest 1V portable CLINICAL HISTORY: cough, fever, chest pain COMPARISON STUDY: 10/16/2021 FINDINGS: Single view chest demonstrates no definite air space opacity or pleural effusion. No pneumothorax. The heart and pulmonary vascularity are unremarkable. There is a subtle double density identified in the left paraspinous region seen through the cardiac silhouette. This is most commonly associated with hiatal hernia. Consider PA and lateral chest to exclude the less likely possibility of a cavitary lung lesion. IMPRESSION: Small hiatal hernia versus a lung lesion as described. Recommend a PA and lateral chest for further evaluation. Electronically signed by: Latia Sky 12/28/2024 8:41 AM Chest X-Ray 12/28/24 08:47 XR chest 1V not portable CLINICAL HISTORY: lateral view to correlate equivocal left paraspinous lesion on a portable chest radiograph COMPARISON STUDY: Portable chest same date FINDINGS: Lateral view the chest demonstrates marginal osteophytes are present in the lower thorax which likely account for the findings on the frontal radiograph. No discrete lung lesion is identified. IMPRESSION: No lung lesion identified. ACT 112: Negative or not required by law. Electronically signed by: Latia Sky M.D. 12/28/2024 9:21 AM ECG Additional Comments: ECG revealed NSR at 95 bpm; QTc 432 Code Status & VTE Plan Code Status Full code VTE Prophylaxis Plan VTE Prophylaxis will be ordered: Yes Supervising Physician Co-Signing Physician Notes I personally saw and examined the patient. I independently reviewed the labs, EKG, imaging, problem list, medication list, past medical history and family history. I verified all osuna points and agree with Shelton Lind PA-C with the following exceptions and/or additions: 54-year-old male presents to the ER with shortness of breath starting yesterday but much worse this morning. Did not get vaccine this year O/E HS RRR, no murmurs, reduced breath sounds throughout A/P Influenza /hypoxia - wean O2 as able, tamiflu, encouraged to ge yearly vaccination PG Care Time/CCT Total # of Minutes Spent Total Time Spent with Patient: Total time spent is greater than 50% in coordination of care (as documented) at patient's floor/unit and/or counseling patient: Coding [place] [address] INT INP/OBS CARE 3/75MIN Patient Type Established Medical Decision Making High Complexity Diagnoses Influenza A J10.1 Hypoxia R09.02 Diabetes mellitus E11.9 Gout M10.9
[2024-12-28] MEDS: OSELTAMIVIR PHOSPHATE 75 MG CAP PO STA (12:22)
[2024-12-28 12:25] LABS: Adenovirus F 40/41 PCR Not Detected (NotDetected); Astrovirus PCR Not Detected (NotDetected); Campylobacter PCR Not Detected (NotDetected); Cryptosporidium PCR Not Detected (NotDetected); Cyclospora cayetanensis PCR Not Detected (NotDetected); Entamoeba histolytica PCR Not Detected (NotDetected); Enteroaggregative E.coli(EAEC) Not Detected (NotDetected); Enteropathogenic E.coli (EPEC) Not Detected (NotDetected); Enterotoxigenic E.coli (ETEC) Not Detected (NotDetected); Giardia lamblia PCR Not Detected (NotDetected); Norovirus GI/GII PCR Not Detected (NotDetected); Plesiomonas shigelloides PCR Not Detected (NotDetected); Rotavirus A PCR Not Detected (NotDetected); Salmonella PCR Not Detected (NotDetected); Sapovirus PCR Not Detected (NotDetected); Shiga-like Toxin E.coli (STEC) Not Detected (NotDetected); Shigella/Enteroinvasive E.coli Not Detected (NotDetected); Vibrio cholerae PCR Not Detected (NotDetected); Vibrio species PCR Not Detected (NotDetected); Yersinia enterocolitica PCR Not Detected (NotDetected)
[2024-12-28 12:37] LABS: Appearance Urine Clear (Clear); Bacteria Urine Automated None Seen (None Seen); Bilirubin Urine Negative (Negative); Blood Urine Trace (Negative); Cast Urine Automated 0-2 /lpf (0-2); Color Urine Yellow; Epithelial Cell Urine Auto 0-2 /hpf (0-2); Glucose Urine UA Negative (Negative); Ketones Urine Trace (Negative); Leukocyte Esterase Urine Negative (Negative); Nitrite Urine Negative (Negative); Protein Urine 2+ (Negative); RBC Urine Automated 0-2 /hpf (0-2); Specific Gravity Urine 1.021 (1.000-1.030); Urobilinogen Urine Negative (Negative); WBC Urine Automated 0-5 /hpf (0-5)
[2024-12-28] MEDS: ACETAMINOPHEN 325 MG TAB PO STA (13:27)
[2024-12-28] MEDS ORDERED: CARBOHYDRATES FOR HYPOGLYCEMIA PO PRN (14:54)
[2024-12-28] MEDS ORDERED: GLUCOSE 10 TAB/TUBE PO PRN (14:54)
[2024-12-28] MEDS ORDERED: MELATONIN 3 MG TAB PO PRN (14:54)
[2024-12-28] MEDS ORDERED: BENZONATATE 100 MG CAPSULE PO PRN (14:54)
[2024-12-28] MEDS ORDERED: ONDANSETRON INJ 2 MG/ML 2 ML VIAL IV PRN (14:54)
[2024-12-28] MEDS ORDERED: GLUCAGON FOR INJ 1 MG VIAL SQ PRN (14:54)
[2024-12-28] MEDS ORDERED: GLUCOSE 40% GEL 15 GM TUBE PO PRN (14:54)
[2024-12-28] MEDS ORDERED: DEXTROSE 50% 50 ML SYRINGE IV PRN (14:54)
[2024-12-28 19:39] VITALS: RESP 18
[2024-12-28] MEDS: amLODIPine BESYLATE 5 MG TAB PO SCH (21:07)
[2024-12-28] MEDS: allopurinoL 100 MG TAB PO SCH (21:35)
[2024-12-28] MEDS: ENOXAPARIN INJ 40 MG/0.4 ML SYR SQ SCH (21:35)
[2024-12-28] MEDS: OSELTAMIVIR PHOSPHATE 75 MG CAP PO SCH (21:35)
[2024-12-29 06:06] LABS: Hematocrit (blood only) 44.1 % (42.0-52.0); Hemoglobin 14.9 g/dl (14.0-18.0); Mean Corpuscular Hemoglobin 28.4 pg (25.0-34.0); Mean Corpuscular Hgb Conc 33.8 g/dL (32.0-36.0); Mean Platelet Volume 10.3 fL (9.4-12.4); Platelet Count 181 K/uL (130-400); RDW Coefficient of Variation 14.6 % (11.5-14.5); RDW Standard Deviation 44.7 fL (36.4-46.3); Red Blood Count 5.25 M/uL (4.70-6.10); White Blood Count 6.59 K/ul (4.8-10.8)
[2024-12-29 06:23] LABS: BUN Creatinine Ratio 14.9 (10-20); Calcium 9.3 mg/dl (8.6-10.3); Creatinine Clr Calc Pharmacy 79.8 ml/min; Potassium 3.9 mmol/L (3.5-5.1)
[2024-12-29] MEDS: ASPIRIN 81 MG ECTAB PO SCH (08:36)
[2024-12-29] MEDS: TAMSULOSIN HCL 0.4 MG CAP PO SCH (08:36)
[2024-12-29] MEDS: ACETAMINOPHEN 325 MG TAB PO PRN (08:38)
[2024-12-29 08:45] LABS: Estimated Average Glucose 126 mg/dl
[2024-12-29] MEDS: guaiFENesin 600 MG TABCR PO SCH (10:01)
--- NOTE | 2024-12-29 18:25 | Hospitalist Progress Note ---
Date of Service December 29, 2024 Assessment & Plan (1) Influenza A: (2) Hypoxia: (3) Diabetes mellitus: (4) Gout: Plan Osvaldo is a pleasant 54-year-old gentleman with PMH of diabetes mellitus, gout, CKD, HTN, alcohol use, anxiety, and recurrent UTIs. He presented on 12/28 for fever, chills, congestion, and productive cough, that began the day prior. Additional symptoms include headache, body aches, N/V/D, and loss of appetite. His symptoms started Saturday morning, and it progressively worsened. He was found to be hypoxic at 88% on arrival and required supplemental O2 to maintain his oxygen saturation. He has since been weaned off supplemental O2 and remained stable on room air. #Influenza A - Influenza A (+) on arrival - Tamiflu 75 mg BID (within 48 hours of symptom onset) - Droplet isolation precautions - Supportive care: Incentive spirometry, flutter valve - Acetaminophen as needed for pain/fever - Benzonatate PRN for cough - DuoNeb 3 mL Q6R PRN for wheezing #Hypoxia - Hypoxic on arrival at 88% on RA. Patient is not on supplemental oxygen at baseline, denies prior history of asthma or COPD - Supplemental oxygen as needed to maintain SpO2 >92%. Continuous pulse oximetry - Now stable on RA at 94% #Diabetes - A1c 6.0% - Diet controlled, not currently on medication - BSG ACHS #History of urosepsis/CKD - Hospitalized 07/12/2021 - 07/20/2021 and [facility] due to pyelonephritis and OXANA - Follows with [facility] nephrology - Close monitoring of kidney function while on Tamiflu #Gout - Continue allopurinol VTE PPx: Lovenox 40 mg SQ q24h Dispo: Anticipate discharge home 12/30/2024 in the morning Admission and Anticipated Discharge Date Admission Date: December 28, 2024 Supervising Physician Co-Signing Physician Notes Attending Attestation - Chart reviewed, care plan d/w MAX Ochoa. I agree w/ the osuna components of her documentation. Darwin Garnica MD Subjective Patient seen and evaluated at bedside. He reports body aches and a productive cough with yellow sputum. He does continue to have loose stools after eating; he notes these are brown without any blood noted. He reports that he definitely feels better compared to the past 48 hours. He was weaned off his supplemental O2 this morning. We discussed discharge home today versus tomorrow, patient had concerns regarding hypoxia at home since he lives alone given he was just weaned off supplemental O2 this morning. Reasonable to monitor today and anticipate discharge home tomorrow morning, 12/30/2024 pending no further events. Physical Exam Physical Exam: General: No acute distress, nondiaphoretic, well-developed, well-nourished. Cardiac: Regular rate and rhythm without murmurs gallops or rubs. No peripheral edema. Pulm: Clear to auscultation bilaterally without wheezes, rales or rhonchi. No respiratory distress. Intermittent cough. 94% on room air. Abdominal: Soft, nontender, nondistended. Bowel sounds present. Neuro: A&O x3. No focal neurological deficits. Results & Data Results & Data Vital Signs (Past 12 Hours) Vital Signs Temp Pulse Resp BP Pulse Ox Pulse Ox O2 Del Method 12/29/24 15:29 94 12/29/24 15:03 98.1 F 81 18 144/87 H 94 Room Air 12/29/24 10:03 95 Room Air 12/29/24 08:46 Nasal Cannula 12/29/24 07:32 97.9 F 85 18 106/72 96 Nasal Cannula O2 Del Method O2 Flow Rate 12/29/24 15:29 Room Air 12/29/24 15:03 12/29/24 10:03 12/29/24 08:46 2 12/29/24 07:32 2 Laboratory Results Reviewed CBC Reviewed BMP Reviewed A1c PG Care Time/CCT Total # of Minutes Spent Total Time Spent with Patient: Total time spent is greater than 50% in coordination of care (as documented) at patient's floor/unit and/or counseling patient: Coding Level of Care Code 25550 SUB INP/OBS CARE 2/35MIN Diagnoses Influenza A J10.1 Hypoxia R09.02 Diabetes mellitus E11.9 Gout M10.9
[2024-12-30 06:31] LABS: Hematocrit (blood only) 43.9 % (42.0-52.0); Hemoglobin 15.3 g/dl (14.0-18.0); Mean Corpuscular Hemoglobin 29.1 pg (25.0-34.0); Mean Corpuscular Hgb Conc 34.9 g/dL (32.0-36.0); Mean Corpuscular Volume 83.6 fL (80.0-100.0); Mean Platelet Volume 10.4 fL (9.4-12.4); Platelet Count 188 K/uL (130-400); RDW Coefficient of Variation 14.3 % (11.5-14.5); RDW Standard Deviation 43.8 fL (36.4-46.3); Red Blood Count 5.25 M/uL (4.70-6.10); White Blood Count 5.66 K/ul (4.8-10.8)
[2024-12-30 06:36] LABS: Calcium 9.4 mg/dl (8.6-10.3); Potassium 3.9 mmol/L (3.5-5.1)
[2024-12-30 07:30] VITALS: BP 130/84; PULSE 81; TEMP 97.9; O2SAT 93
--- NOTE | 2024-12-30 09:36 | Discharge Summary ---
Discharge Summary Date of Service December 30, 2024 Principal Dx & Hospital Course #1 = Principal Diagnosis (1) Influenza A: (2) Hypoxia: (3) Diabetes mellitus: (4) Gout: Plan Osvaldo is a pleasant 54-year-old gentleman with PMH of diabetes mellitus, gout, CKD, HTN, alcohol use, anxiety, and recurrent UTIs. He presented on 12/28 for fever, chills, congestion, and productive cough, that began the day prior. Additional symptoms include headache, body aches, N/V/D, and loss of appetite. His symptoms started Saturday morning, and it progressively worsened. He was found to be hypoxic at 88% on arrival and required supplemental O2 to maintain his oxygen saturation. He has since been weaned off supplemental O2 and remained stable on room air. #Influenza A - Influenza A (+) on arrival - Tamiflu 75 mg BID (within 48 hours of symptom onset) continued through 01/02/2025 AM - Supportive care: Incentive spirometry, flutter valve, Acetaminophen as needed for pain/fever, Mucinex BID #Hypoxia - Hypoxic on arrival at 88% on RA. Patient is not on supplemental oxygen at baseline, denies prior history of asthma or COPD - Initially required supplemental O2 to maintain sats, but was weaned off and remained stable on room air #Diabetes - A1c 6.0% - Diet controlled, not currently on medication #History of urosepsis/CKD - Hospitalized 07/12/2021 - 07/20/2021 and [facility] due to pyelonephritis and OXANA - Follows with [facility]rology - Close monitoring of kidney function while on Tamiflu -- has remained stable #Gout - Continue allopurinol VTE PPx: Lovenox 40 mg SQ q24h Dispo: Discharged home 12/30/2024 Admission HPI Per Admitting Provider Osvaldo is a pleasant 54-year-old gentleman with PMH of diabetes mellitus, gout, CKD, HTN, alcohol use, anxiety, and recurrent UTIs. He presented on 12/28 for fever, chills, congestion, and productive cough, that began the day prior. Additional symptoms include headache, body aches, N/V/D, and loss of appetite. His symptoms started Saturday morning, and it progressively worsened. He tried taking Mucinex and Tylenol yesterday for his symptoms, but this did not help. He reports he barely got any sleep last night. He reports he did not receive his flu shot this past year. No sick contacts to his knowledge. Patient denies any prior pulmonary history such as asthma or COPD. Patient took his regular blood pressure medications this morning, but forgot to take his allopurinol. No recent change in medications. He does not use supplemental oxygen at baseline or CPAP at night. No prior history of DVT/PE; no redness of the legs. Patient does follow with nephrology for history of urosepsis leading to a severe OXANA. No prior history of smoking, but he does use chewing tobacco. He endorses alcohol use, with last drink being 12 beers Saturday night. Patient is hypertensive at 172/97 at time of admission; SpO2 92% on 2L NC. ED course: NSS 1000 mL IV ROS: Patient endorses fever, chills, body aches, headache, productive cough (clear sputum production), rib pain when coughing, abdominal cramping, nausea, vomiting x 1 (resolved), and diarrhea. Patient denies dizziness, lightheadedness, chest pain, SOB at rest, RIDER, pleuritic CP, wheezing, burning with urination, or blood in the urine/stool. Discharge Exam General: No acute distress, nondiaphoretic, well-developed, well-nourished. Cardiac: Regular rate and rhythm without murmurs gallops or rubs. No peripheral edema. Pulm: Clear to auscultation bilaterally without wheezes, rales or rhonchi. No respiratory distress. Intermittent cough. 93% on room air. Abdominal: Soft, nontender, nondistended. Bowel sounds present. Neuro: A&O x3. No focal neurological deficits. Discharge Plan Discharge Items Patient Disposition: Home - Self-Care Reason For Visit: INFLUENZA A, HYPOXIA Discharge Diagnosis: Influenza A, hypoxiaresolved Condition on Discharge: Good Activity: Per Instructions section Non-emergency contact: Primary Care Provider Call non-emergency contact if: you have any medication questions, your symptoms worsen and you have a fever Follow-up/Referrals: Seble Baig MD [Primary Care Provider] - 01/06/25 12:00 pm (Follow-up in 1-2 weeks) Diet: Carb Consistent or DM2 Addtl Attending Provider Instructions: Mr. Stern, You were admitted to the hospital due to hypoxia (low oxygen level) from influenza A (flu). The flu is what caused your other symptoms including productive cough, body aches, loss of appetite, diarrhea, fever, chills, and congestion. You initially needed supplemental oxygen to maintain proper O2 levels, however you have been weaned off this supplemental oxygen and have been remaining stable on room air. Upon discharge from the hospital: * Take Tamiflu 75 mg twice daily through 01/02/2025 AM. This is an antiviral that reduces flu symptoms. This has been sent to your [facility] pharmacy in [place]. * You can alternate between ibuprofen and Tylenol for body aches/headache/fever. Alternate ibuprofen 600 mg and Tylenol 1000 mg for most effective pain relief: Ibuprofen --4 HRS--> Tylenol --4 HRS--> ibuprofen --4 HRS--> Tylenol .... * You can use [id number] (OTC) Mucinex and/or Robitussin for cough/congestion. * Drink plenty of fluids to prevent dehydration. * Take it easy the next few days to allow your body to fully recover. * Follow-up with your PCP in 1-2 weeks. It was a pleasure taking care of you while you were in the hospital, Minal Ochoa PA-C Pending Studies at Discharge: No Stand-Alone Forms: My [facility], Smoking Cessation Medications and DC Order Prescriptions: New oseltamivir [Tamiflu] 75 mg Capsule 75 mg PO BID Qty: 6 0RF Continued amlodipine [Norvasc] 5 mg tablet 5 mg PO BID 30 Days Qty: 180 3RF allopurinol 100 mg tablet 200 mg PO BID Qty: 180 3RF aspirin [Adult Low Dose Aspirin] 81 mg tablet,delayed release (DR/EC) 81 mg PO QAM cholecalciferol (vitamin D3) 50 mcg (2,000 unit) capsule 50 mcg PO DAILY Qty: 30 0RF tamsulosin 0.4 mg capsule 0.4 mg PO QAM Qty: 30 11RF Medical Marijuana 1 inh inhalation BID PRN (Reason: Anxiety) Discharge Orders: Discharge Order (Routine); Ordered 12/30/24 Ordered By: Minal Morrell/Other Patient Handouts: A1C, ED Influenza (Adult) Admission Data Admit Date/Time: 12/28/24 11:57 Attending Provider: Darwin Garnica Admit Provider: Darwin Yao Primary Care Provider: Seble Baig Other Providers: Darwin Yao Hospital Stay Data Consultations 12/28/24 11:45 ED Decision to Admit Stat Pending Results Patient Have Any Pending Studies at Discharge: No Discharge Instructions Given to Patient (Per Discharging Provider) Mr. Stern, Eloy were admitted to the hospital due to hypoxia (low oxygen level) from influenza A (flu). The flu is what caused your other symptoms including productive cough, body aches, loss of appetite, diarrhea, fever, chills, and congestion. You initially needed supplemental oxygen to maintain proper O2 levels, however you have been weaned off this supplemental oxygen and have been remaining stable on room air. Upon discharge from the hospital: * Take Tamiflu 75 mg twice daily through 01/02/2025 AM. This is an antiviral that reduces flu symptoms. This has been sent to your [facility] pharmacy in [place]. * You can alternate between ibuprofen and Tylenol for body aches/headache/fever. Alternate ibuprofen 600 mg and Tylenol 1000 mg for most effective pain relief: Ibuprofen --4 HRS--> Tylenol --4 HRS--> ibuprofen --4 HRS--> Tylenol .... * You can use [id number]-qbdebja (OTC) Mucinex and/or Robitussin for cough/congestion. * Drink plenty of fluids to prevent dehydration. * Take it easy the next few days to allow your body to fully recover. * Follow-up with your PCP in 1-2 weeks. It was a pleasure taking care of you while you were in the hospital, Minal Ochoa PA-C Total Time Total Time Spent Total Time Spent (In Minutes): Greater than 30 minutes spent completing this discharge process including direct patient care, medication reconciliation, documentation, review of labs and images, and coordination of care. Coding Level of Care Code 35691 INP/OBS DISCH >30 MIN Diagnoses Influenza A J10.1 Hypoxia R09.02 Diabetes mellitus E11.9 Gout M10.9
== END 2024-12-30 10:01 | disposition home or self-care (01) | DRG 195 ==
LOC: ED 08:09 → SUATTDRO 11:57 → EDINP 11:57 → 3E 14:54